=== PATIENT | male | born 1995 | race African-American/Black ===

== ENCOUNTER 2024-11-30 17:17 | Emergency (ER) | payer MEDICAID, SELFPAY ==
[2024-11-30 17:19] VITALS: BP 163/111; BP 173/111; PULSE 89; RESP 20; TEMP 36.9; O2SAT 99; BMI 23.6
[2024-11-30 17:21] VITALS: BMI 23.6
[2024-11-30 18:09] VITALS: BP 166/112; PULSE 86; RESP 16; TEMP 36.8; O2SAT 100
[2024-11-30 18:17] VITALS: BP 163/115; PULSE 87
[2024-11-30] MEDS: hydrALAZINE INJ 20 MG/ML VIAL 10 MG IVP (18:17)
--- NOTE | 2024-11-30 18:18 | EDNOTE_ITS ---
ED General RME/HPI General Chief complaint: General Adult/Misc Complain Stated complaint: MEDICAL CLEARNACE Time Seen by Provider: 11/30/24 18:17 Arrival date/time: 11/30/24 17:17 CC: Medical clearance for hypertension hyperglycemia HPI patient presents the ER via staff officer lexy, the patient was given insulin prior to departure from the [facility], current recheck of blood glucose at this time is 169 from 400. Patient is awake alert complaining of mild intermittent headaches for the past 2 to 3 weeks with occasional blurred vision pressure currently noted to be 160/111. Patient admits that he is hypertensive with diabetes and does not take any medicines on a regular basis. Denies chest pain shortness of breath difficulty breathing headache nausea vomiting or diarrhea. Related Data Home Medications ?Medication ?Instructions ?Recorded ?Confirmed insulin lispro 100 unit/mL See Protocol subcut ACHS NM N 09/14/19 09/14/19 subcutaneous solution (Humalog Hyperglycemia U-100 Insulin) metformin 500 mg tablet,extended 500 mg PO BID 0 09/14/19 release 24 hr Previous Rx's ?Medication ?Instructions ?Recorded sulfamethoxazole 800 1 tab PO BID #14 tabs mg-trimethoprim 160 mg tablet (Bactrim DS) Allergies Allergy/AdvReac Type Severity Reaction Status Date / Time No Known Allergies Allergy Verified 12/28/20 22:27 Review of Systems Review of Systems Narrative Review of Systems: GEN: No fever, no chills, no weight loss EYES: No discharge, no visual changes, no pain HEENT: No ear pain, no congestion, no sore throat PULM: No shortness of breath, no cough, no congestion CV: No chest pain, no dyspnea on exertion, no palpitations GI: No nausea, no vomiting, no diarrhea, no pain, no constipation : No frequency, no urgency, no dysuria MUSC/SKEL: No joint pain, no back pain SKIN: No rash PSYCH: No hallucinations, no depression HEME/LYMPH: No easy bleeding or bruising tendencies NEURO: No weakness, + headache Past Medical History Past Medical History CARDIAC: Negative Congestive Heart Failure RESPIRATORY: Negative Chronic Obstructive Pulmonary Disease (COPD) GENITOURINARY: Negative Renal Disease ENDOCRINE: Positive Endocrine Disorders and Diabetes Mellitus Type 2; Negative Diabetes Mellitus Type 1 Social History SMOKING STATUS: Current some day smoker ED Exam Narrative Physical exam: [General: Appears not in any acute distress Head normocephalic HEENT: Eyes pupils are PERRLA EOMs are intact no nystagmus mouth pink moist membranes uvula is midline swallow symmetrical phonation is normal. All the subsystems of HEENT are within acceptable limits Neck is supple nontender Chest equal chest rise nontender to palpation Respiratory: Clear to auscultation no wheezes crackles or rubs CV: Rate rhythm is regular no murmurs rubs or clicks Abdomen is flat, soft nontender no masses positive bowel sounds all 4 quadrants Back: No CVA tenderness no spinous process tenderness from cervical spine thoracic and lumbar spine Skin: Intact no petechiae rash induration ulceration or crepitus Extremities: Moving all extremity against resistance cap refill less than 2 seconds neurosensory intact Neuro: Awake alert oriented x3 Glascow coma 15 no focal deficits] Course Course Course Narrative: 1843 after her 20 of hydralazine IV patient's blood pressure remains 160/100, but added losartan and clonidine. Patient is awake alert oriented nontoxic-ap pearing not in any acute distress. Quality Measures none Orders Category Date Time Status Glucose [Bedside Blood Glucose] NOW Care 11/30/24 20:06 Active Insert IV NOW Care 11/30/24 18:06 Completed Losartan [Cozaar] Med 11/30/24 18:42 Discontinued 25 mg PO X1 ONE cloNIDine HCL [Catapres] Med 11/30/24 18:42 Discontinued 0.2 mg PO X1 ONE hydrALAZINE INJ [Apresoline Inj] Med 11/30/24 18:06 Discontinued 10 mg IVP X1 ONE Vital Signs Vital signs: Vital Signs Temperature 98.4 F 11/30/24 17:19 Pulse Rate 89 11/30/24 17:19 Respiratory Rate 20 11/30/24 17:19 Blood Pressure 173/111 H 11/30/24 17:19 Pulse Oximetry (%) 99 11/30/24 17:19 Oxygen Delivery Method Room Air 11/30/24 17:19 Discharge Plan Plan Patient Disposition: Half-Way/Court/Law Patient condition on transfer: Stable Prescriptions/Referrals Prescriptions/Med Rec: No Action metformin 500 mg Tablet Extended Release 24 Hr 500 mg PO BID insulin lispro [Humalog U-100 Insulin] 100 unit/mL Solution See Protocol subcut ACHS PRN (Reason: Hyperglycemia) Protocol: Insulin Corrective High-Dose Regimen Condition: Fingerstick Blood Glucose Dose/Route: Insulin Units Condition: 141-180 mg/dl Dose/Route: 6 units/SQ Condition: 181-220 mg/dl Dose/Route: 8 units/SQ Condition: 221-260 mg/dl Dose/Route: 10 units/SQ Condition: 261-300 mg/dl Dose/Route: 12 units/SQ Condition: 301-350 mg/dl Dose/Route: 14 units/SQ Condition: 351-400 mg/dl Dose/Route: 16 units/SQ Condition: greater than 400 mg/dl Dose/Route: 18 units/SQ sulfamethoxazole-trimethoprim [Bactrim DS] 800-160 mg tablet 1 tab PO BID Qty: 14 0RF Referrals: No Primary/Family,Physician [Primary Care Provider] - In 1 week Problem List Clinical Impression: Medical clearance for incarceration, Hypertension, Diabetes Patient/Caregiver Discharge Instructions Print Language: Nepalese PA/AMERICAN SIGN LANGUAGE INTERPRETER Supervising Physician PA/AMERICAN SIGN LANGUAGE INTERPRETER Supervising Physician: Eric Garvey ENP [facility] Clinical Information Provided by patient and law enforcement Medical Records Reviewed [facility] Meds/Rx Considered, not Ordered None Labs/Rad/Tests considered, not Ordered None Chronic Illness/Social Conditions Add or document further as needed: Noncompliant with hypertension diabetes medications EKG EKG not done Lab Interpretation Labs: none Imaging Imaging interpretation: none Radiology reports / interpretation(s): After multiple medication his blood pressure is improved 136/80 7 repeat of the blood glucose shows 168. Patient is cleared for incarceration. Medication Administration(s) Medication Administration History Discontinued Medications Clonidine (Clonidine Hcl 0.1 Mg Tablet) 0.2 mg PO X1 ONE Stop: 11/30/24 18:43 Last Admin: 11/30/24 18:47 Dose: 0.2 mg Documented By: NINA Hydralazine HCl (Hydralazine Inj 20 Mg/Ml Vial) 10 mg IVP X1 ONE Stop: 11/30/24 18:07 Last Admin: 11/30/24 18:17 Dose: 10 mg Documented By: NINA Comments: scanner not working Losartan Potassium (Losartan Potassium 25 Mg Tablet) 25 mg PO X1 ONE Stop: 11/30/24 18:43 Last Admin: 11/30/24 18:48 Dose: 25 mg Documented By: NINA Diagnosis Differential diagnosis: Hypertension hyperglycemia DKA
[2024-11-30 18:47] VITALS: BP 163/111; PULSE 92
[2024-11-30] MEDS: cloNIDine HCL 0.1 MG TABLET 0.2 MG PO (18:47)
[2024-11-30 18:48] VITALS: BP 163/11; PULSE 87
[2024-11-30] MEDS: LOSARTAN POTASSIUM 25 MG TABLET PO (18:48)
[2024-11-30 20:18] VITALS: BP 136/87; PULSE 85; RESP 15; O2SAT 100
== END 2024-11-30 20:30 ==
PROVIDERS: Emergency Provider Emergency Medicine
DX: Z02.89 Encounter for other administrative examinations (principal); I10 Essential (primary) hypertension; E11.65 Type 2 diabetes mellitus with hyperglycemia; Z79.84 Long term (current) use of oral hypoglycemic drugs
CPT/HCPCS: 96374; 99284; J0360; A9270

== ENCOUNTER 2025-01-26 15:30 | Emergency (ER) | payer SELFPAY ==
[2025-01-26 15:51] VITALS: BP 165/97; PULSE 120; RESP 18; TEMP 39.3; O2SAT 99; BMI 24.3
--- NOTE | 2025-01-26 16:05 | PC.NURSE ---
When checking patients blood glucose, patient noted to be verbally and physically aggressive towards staff. Patient yelling I want orange juice and ice and hitting closed fist against gurny/bed during care. Patient allowed FSBS check, resulting in glucose of 577. Patient noted to have loss of bowel and bladder control at some point upon or prior to arrival of ED, patient has feces and urine soiled clothing on. Patient continued to state he wanted to leave, patient and patient friend walked out of emergency room.
--- NOTE | 2025-01-26 16:09 | PD.EDRME ---
Rapid Medical Screening Exam RME Arrival date/time: 01/26/25 15:30 29-year-old male presents to the emergency department today with his friend patient has a history of diabetes and is asking for juice. Patient is cursing yelling and aggressive patient reports he does not want to be here he just wants juice and he wants to go home I asked the nursing staff to check the patient's blood sugar patient's blood sugar is 577 patient is highly aggressive yelling and cursing and affect when the nursing staff is checking his blood sugar he punches the gurney in anger and frustration I am pleading with the patient to stay patient reports that he wants to leave and will not stay Lab work ordered stressed strongly that he must stay and affected to get him a bed room #18 in the ER when I went to go reevaluate the patient and put him in the room patient appears to have eloped from the ER Chief Complaint: Seizure Vital signs: Vital Signs Temperature 102.7 F H 01/26/25 15:51 Pulse Rate 120 H 01/26/25 15:51 Respiratory Rate 18 01/26/25 15:51 Blood Pressure 165/97 H 01/26/25 15:51 Pulse Oximetry (%) 99 01/26/25 15:51 Oxygen Delivery Method Room Air 01/26/25 15:51
--- NOTE | 2025-01-26 16:18 | PC.CC ---
Pt left AMA, yelling and cussing at medical staff. It is unknown as to why the pt was yelling and cussing as medical staff was serving pt quickly and calmly. Pt reported he just got out alf and was acting erratic and aggressive with staff. Pt left the ER and ER provider was concerned as the pt is in DKA and is septic. Pt left before labs were completed. ASW contacted Law Enforcement [place] [employer] to report the concern, as pt could be greatly harmed if he does not seek medical assistance. Pt left on foot with a friend. LE is aware and stated they would patrol the area for the pt. EOC.
--- NOTE | 2025-01-26 16:24 | PC.NURSE ---
attempting to help pt any way possible and pt was aggressive, punching the bed and very uncooperative.
== END 2025-01-26 16:29 | disposition left against medical advice (07) ==
PROVIDERS: Emergency Provider Emergency Medicine
DX: E11.9 Type 2 diabetes mellitus without complications (principal); Z53.29 Procedure and treatment not carried out because of patient's decision for other reasons
CPT/HCPCS: 80053; 80307; 80320; 81001; 82803; 83036; 83605; 83735; 84145; 85025; 87040; 87086; 99283; G0480

== ENCOUNTER 2025-01-28 12:45 | Emergency (ER) | payer MEDICAID, SELFPAY ==
--- NOTE | 2025-01-28 12:52 | PD.EDRECHK ---
ED Recheck Abnl Lab Rx-RME/HPI General Chief Complaint: Altered Mental Status Stated Complaint: AMS Time Seen by Provider: 01/28/25 12:51 Arrival date/time: 01/28/25 12:45 Limitations: no limitations RME / HPI RME / HPI narrative: DR. TONEY SHIRLEY ED EVALUATION: 29-year-old male with a history of diabetes mellitus and seizures presents to the Emergency Department with complaint of hyperglycemia, found to have a blood glucose of 430 at home; he has been out of his diabetic medications for unknown time. EMS transported him from home. Initial vital signs included BP 166/113 and HR 98. Per friend/ housemate, patient was seen for a seizure here and left AMA 3 days ago. Patient reports feeling very thirsty. Denies chest pain, abdominal pain, or dysuria. Related Data Home Medications ?Medication ?Instructions ?Recorded ?Confirmed insulin lispro 100 unit/mL See Protocol subcut ACHS PRN 09/14/19 09/14/19 subcutaneous solution (Humalog Hyperglycemia U-100 Insulin) metformin 500 mg tablet,extended 500 mg PO BID 09/14/19 09/14/19 release 24 hr Previous Rx's ?Medication ?Instructions ?Recorded sulfamethoxazole 800 1 tab PO BID #14 tabs 12/28/20 mg-trimethoprim 160 mg tablet (Bactrim DS) Allergies Allergy/AdvReac Type Severity Reaction Status Date / Time No Known Allergies Allergy Verified 01/28/25 13:04 Review of Systems Review of Systems Systems Reviewed: All systems reviewed, normal except as documented Past Medical History Past Medical History ENDOCRINE: Positive Endocrine Disorders and Diabetes Mellitus Type 2 Social History SMOKING STATUS: Current every day smoker ED Exam General Limitations: Present no limitations General appearance: Present alert (awake), in no apparent distress and other (spontaneously opens his eyes, not interested in answering questions, does not appear confused; at times he is refusing medical care) Head Head exam: Present atraumatic, normocephalic and normal inspection Eye Eye exam: Present normal appearance, PERRL and EOMI ENT ENT exam: Present normal exam, normal oropharynx and mucous membranes moist Neck Neck exam: Present normal inspection, full ROM and trachea midline Chest Chest inspection: Present normal inspection and symmetric chest wall rise Respiratory Respiratory exam: Present normal lung sounds bilaterally Cardiovascular Cardiovascular exam: Present regular rate, normal rhythm and normal heart sounds Abdominal Exam Abdominal exam: Present soft and normal bowel sounds Extremities Exam Extremities exam: Present normal inspection and full ROM Back Exam Back exam: Present normal inspection and full ROM Neurological Exam Neurological exam: Present alert, oriented X3 and CN II-XII intact Psychiatric Psychiatric exam: Present normal affect and normal mood Skin Skin exam: Present warm, dry, intact and normal color Course Quality Measures none Orders Category Date Time Status EKG (ED ONLY) *Do not use* NOW Care 01/28/25 13:[address] head/brain wo con Stat Exams 01/28/25 12:51 Completed EKG (ED Only) Stat Exams 01/28/25 13:02 Ordered EKG (ED Only) Urgent Exams 01/28/25 13:02 Draft Acetaminophen Stat Lab 01/28/25 13:04 Completed Ammonia Stat Lab 01/28/25 13:04 Completed CBC Stat Lab 01/28/25 13:04 Completed CMP [Comprehensive Metabolic Panel] Stat Lab 01/28/25 13:04 Completed CMP [Comprehensive Metabolic Panel] Stat Lab 01/28/25 16:26 Completed Drug Screen,Urine Stat Lab 01/28/25 14:30 Completed INR [Prothrombin Time with INR] Stat Lab 01/28/25 13:04 Completed Salicylate Stat Lab 01/28/25 13:04 Completed T4 (Thyroxine) Stat Lab 01/28/25 13:04 Completed Thyroid Stimulating Hormone Stat Lab 01/28/25 13:04 Completed UA, C/S IF [Urinalysis, C/S if Indicated] Stat Lab 01/28/25 14:30 Completed VBG [Venous Blood Gas] Stat Lab 01/28/25 13:04 Completed Insulin Regular Med 01/28/25 14:09 Discontinued 5 unit IV X1 ONE Ringers Lactated 1000 ml [Lactated Ringers] 1,000 ml Med 01/28/25 14:12 Discontinued IV 999 mls/hr Vital Signs Vital signs: Vital Signs Temperature 99.9 F 01/28/25 12:56 Pulse Rate 98 01/28/25 12:56 Respiratory Rate 18 01/28/25 12:56 Blood Pressure 187/112 H 01/28/25 12:56 Pulse Oximetry (%) 100 01/28/25 12:56 Oxygen Delivery Method Room Air 01/28/25 12:56 Recheck / Abnormal Lab / Rx MDM Narrative MDM Narrative:: I, January Sandoval am scribing for and in the presence of Dr. Faye. Patient is a 21-year-old male with medical history notable for polysubstance use, diabetes, medication noncompliance is an emergency room with concerns for weakness and confusion. Vital signs and exam as listed. Concern for DKA, continuous, acute cardiopulmonary, urinary tract infection, . Ordered labs EKG CT brain after medications noted. Initial assessment, patient not wanting to answer any questions, moving all 4 extremities, breathing without difficulty, nonlabored, hemodynamically stable. The patient's breathing spontaneously, protecting his airway. After sternal rub, patient opened his eyes and said leave me alone. Patient initially was not answering questions on capacity and so I was not able to clear him AGAINST MEDICAL ADVICE. We performed a workup, provided patient with fluids. Labs with evidence of hyperglycemia, not in DKA. CT brain unremarkable. Patient with acute kidney injury, with minimal improvement following solicitation. Advised patient importance of admitting to the hospital service for management of his acute kidney injury. At this time patient is answering questions appropriately, to myself and nursing staff. Patient is GCS 15, reiterated to me that he understands I am concerned about organ injury, with resultant severe extremity injuries and despite this patient was AGAINST MEDICAL ADVICE. Patient significant medical advice. Alternative hospital. Had capacity make his own decisions. Patient data External records reviewed:: [facility] [place] previous records and EMS form Clinical information provided by:: patient and EMS Social determinants that could affect healthcare access:: none Patient has the following chronic illnesses:: diabetes mellitus and seizures How is presenting disease/condition affected by chronic disease/condition?: exacerbated by Evaluation data The following diagnostics were reviewed and interpreted by me:: lab results, radiology exam(s) and EKG tracing(s) (My interpretation: EKG performed at 1258 hours, sinus rhythm, rate 97, normal intervals, non specific ST-T wave changes, no cardiac alert) Lab and/or radiology exams considered but not ordered:: none Interpretation Summary: Procedure(s): CT head/brain wo con Accession Number(s): [id number] cc: Prashant Garcia MD; Katlin Faye MD~ Examination: CT brain head without contrast. 2-D sagittal coronal reconstructions Date and time of exam:January 28, 2025 1311 hours INDICATIONS: Altered mental status today CTDI: vol (mGy):50.5 DLP: (mGycm):1059 Technique: Multiple CT axial sections of the brain have been obtained, 5 mm slice thickness. Contrast has not been administered. 2-D sagittal, coronal reconstructions have been obtained Low dose protocols were performed. One or more of the following dose reduction techniques were used; automated exposure control, adjustment of the mA and/or KV according to patient size, use of iterative reconstruction technique. Findings: No significant ventricular enlargement. Intra-axial or extra-axial hemorrhage density is not seen. No mass effect or midline shift Basal cisterns are not remarkable. Fourth ventricle is midline. Cranial vault intact. Impression: Negative for acute hemorrhage, mass effect or midline shift Advise clinical correlation and follow-up accordingly Dictated By: Prashant Garcia MD Medications / Prescriptions Medications or Prescriptions considered but not ordered:: none Medication administrations:: Medication Administration History Discontinued Medications Lactated Ringer's (Lactated Ringers) 1,000 mls @ 999 mls/hr IV .Q1H1M ONE Stop: 01/28/25 15:12 Last Infusion: 01/28/25 15:26 Dose: Infused Documented By: Admin: 01/28/25 14:25 Dose: 999 mls/hr Documented By: RAMOS Insulin Human Regular (Insulin Hum Regular 1 Unit/0.01 Ml (Per Unit)) 5 unit IV X1 ONE Stop: 01/28/25 14:10 Last Admin: 01/28/25 14:25 Dose: 5 unit Documented By: RAMOS Co-signed By: KATHY see above Consultations Consultation(s) initiated? (list below): No Diagnosis Recheck Differential Diagnosis: other (hyperosmolar hyperglycemic state (HHS), diabetic ketoacidosis (DKA), and dehydration due to medication noncompliance) Most likely diagnosis given after review of the tests above:: Patient left AMA. Admission Indicated Admission indicated?: not indicated Explain why admission is indicated or not indicated:: Patient left AMA Admission Request Was there a request for admission?: Yes Admission Attestation Admission request attestation: I consulted hospital service for admission however patient left AGAINST MEDICAL ADVICE Disposition Plan Disposition Plan: other (specify) (Left AMA) Discharge Plan Plan Patient Disposition: Left Against Medical Advice Prescriptions/Referrals Prescriptions/Med Rec: No Action metformin 500 mg Tablet Extended Release 24 Hr 500 mg PO BID insulin lispro [Humalog U-100 Insulin] 100 unit/mL Solution See Protocol subcut ACHS PRN (Reason: Hyperglycemia) Protocol: Insulin Corrective High-Dose Regimen Condition: Fingerstick Blood Glucose Dose/Route: Insulin Units Condition: 141-180 mg/dl Dose/Route: 6 units/SQ Condition: 181-220 mg/dl Dose/Route: 8 units/SQ Condition: 221-260 mg/dl Dose/Route: 10 units/SQ Condition: 261-300 mg/dl Dose/Route: 12 units/SQ Condition: 301-350 mg/dl Dose/Route: 14 units/SQ Condition: 351-400 mg/dl Dose/Route: 16 units/SQ Condition: greater than 400 mg/dl Dose/Route: 18 units/SQ sulfamethoxazole-trimethoprim [Bactrim DS] 800-160 mg tablet 1 tab PO BID Qty: 14 0RF Referrals: No Primary/Family,Physician [Primary Care Provider] - In 1 week Problem List Clinical Impression: Hyperglycemia, Non-compliance Patient/Caregiver Discharge Instructions Print Language: Dominican
[2025-01-28 12:56] VITALS: BP 187/112; PULSE 98; RESP 18; TEMP 37.7; O2SAT 100
[2025-01-28 12:57] VITALS: PULSE 102; RESP 20; O2SAT 99; BMI 23.6
--- NOTE | 2025-01-28 13:02 | EKG_ITS ---
[facility] Test Date: 2025-01-28 Pat Name: PRATIBHA MEHTA Department: Room: - Gender: Male Global Security Architect: : 1995 Requested By: Katlin Solano Order Number: [id number] Reading MD: Katlin Solano Measurements Intervals [place] Rate: 97 P: 61 AL: 156 QRS: 73 QRSD: 88 T: 26 QT: 319 QTc: 406 Interpretive Statements SINUS RHYTHM No previous ECG available for comparison /store/S0/[id number]/ecg/[id number].pdf
--- NOTE | 2025-01-28 13:07 | PC.NURSE ---
Patient in to ED BIBA from home. Per EMS patient lives with friends. Patient was found to have high blood sugar. Patient was in 3 days ago for seizure and left AMA. Per roommates patient has been out of his insulin for an unknown amount of time. Blood sugar per EMS was in the 400s. patient altered mental status per Dr. Faye. Patient screaming at staff to leave him alone and he would like to go home. Patient allowed phlebotomy to draw blood. Patient blood pressure 182/113
--- NOTE | 2025-01-28 13:11 | PC.NURSE ---
Dr. Faye made aware of vital signs
[2025-01-28 13:15] LABS: Base Excess, Venous 3 (-3-3); O2 Saturation, Venous 78 % (96-97); PCO2, Venous 38 mmHg (36-56); PO2, Venous 40 mmHg (15-58); pH, Venous 7.46 (7.33-7.66)
[2025-01-28 13:18] LABS: Basophils # (Auto) 0.1 Thou/mm3 (0.0-0.2); Basophils % (Auto) 0 % (0-2.5); Eosinophils # (Auto) 0.0 Thou/mm3 (0.0-0.5); Eosinophils % (Auto) 0 % (0-10); Hematocrit 30.1 % (41.0-53.0); Hemoglobin 11.0 g/dL (13.5-16.0); Immature Granulocytes Auto 0.06 Thou/mm3 (0.00-0.00); Lymphocytes # (Auto) 2.5 Thou/mm3 (1.0-4.8); Lymphocytes % (Auto) 17 % (10-50); Mean Corpuscular HGB Conc 36.5 g/dl (31.0-37.0); Mean Corpuscular Hemoglobin 29.9 pg (25.0-35.0); Mean Corpuscular Volume 82 fL (80-100); Monocytes # (Auto) 1.0 Thou/mm3 (0.0-0.8); Monocytes % (Auto) 7 % (0-12); Neutrophils # (Auto) 11.0 Thou/mm3 (1.8-7.7); Neutrophils % (Auto) 75 % (37-80); Nucleated Red Blood Cell # 0.00 Thou/mm3 (0.00-0.00); Nucleated Red Blood Cell % 0 /100 WBC (0); Platelet Count 224 Thou/mm3 (140-440); RDW Standard Deviation 39.5 fL (35.1-43.9); Red Blood Count 3.68 Miln/mm3 (4.50-5.90); White Blood Count 14.7 Thou/mm3 (3.8-10.6)
[2025-01-28 13:36] LABS: INR 0.9 (0.9-1.3); Prothrombin Time 9.8 Seconds (9.0-12.2)
[2025-01-28 13:44] LABS: T4 (Thyroxine) 3.9 mcg/dL (4.5-10.9)
[2025-01-28 14:00] LABS: Acetaminophen < 2.0 mcg/mL (10.0-20.0); Alanine Aminotransferase 17 U/L (10-49); Albumin, Serum 2.7 gm/dL (3.5-5.0); Albumin/Globulin Ratio 1.2 (1.2-2.2); Alkaline Phosphatase 104 U/L (46-116); Ammonia < 10 uMol/L (11-32); Anion Gap 11 (7-16); Aspartate Amino Transferase 18 U/L (0-34); BUN/Creatinine Ratio 17 Ratio (12-20); Bilirubin,Total 0.5 mg/dL (0.3-1.2); Blood Urea Nitrogen 35 mg/dL (9-23); Calcium 7.8 mg/dL (8.3-10.6); Calcium (Corrected) 8.8 mg/dL (8.5-10.1); Carbon Dioxide 24.8 mMol/L (20.0-31.0); Chloride 91 mMol/L (98-107); Creatinine (Component) 2.1 mg/dL (0.6-1.3); Estimated Creatinine Clearance 52.4 mL/min (>60); Globulin 2.3 gm/dL (2.3-3.5); Osmolality,Calculated 283 (275-295); Potassium 4.1 mMol/L (3.4-5.1); Salicylate < 3.0 mg/dL; Sodium 127 mMol/L (136-145); Thyroid Stimulating Hormone 0.48 uIU/mL (0.55-4.78); Total Protein 5.0 gm/dL (5.7-8.2); eGFR 43 See Note
[2025-01-28 14:06] LABS: Glucose 462 mg/dL (74-106)
[2025-01-28] MEDS: RINGERS LACTATED 1000 ML 1,000 ML 999 ML IV (14:25)
[2025-01-28] MEDS: INSULIN HUM REGULAR 1 UNIT/0.01 ML (PER UNIT) 5 UNIT IV (14:25)
[2025-01-28 14:39] LABS: Collection Type, Urine Catheter
--- NOTE | 2025-01-28 14:42 | PC.NURSE ---
Dr. Faye made aware of patient's blood pressure of 200s systolic. Patient temp of 99.9 oral and WBC count. No new orders. Per MD we will give 2L of Fluids and repeat the CMP. Plan of care ongoing. Patient continues to say he would like to go home already
[2025-01-28 14:44] LABS: Bilirubin,Urine Negative (Negative); Blood,Urine 2+ (Negative); Clarity,Urine Clear (Clear/Hazy); Color,Urine Lt-Yellow (Lt Yel-Yel); Culture Indicated,Urine Not Indicated; Glucose, Urine 4+ (Negative); Ketones,Urine 1+ (Negative); Leukocyte Esterase,Urine Negative (Negative); Nitrite,Urine Negative (Negative); PH,Urine 6.5 (5.0-7.0); Protein,Urine 3+ (Neg - Trace); RBC,Urine 16 /hpf (0-3); Specific Gravity,Urine 1.022 (1.001-1.035); Squamous Epithelial Cell,Urine < 1 /hpf (0-5); Urobilinogen,Urine Negative mg/dL (0.0-1.0); WBC,Urine 2 /hpf (0-5)
[2025-01-28 14:51] LABS: Amphetamine/Methamp Scrn,U Negative (Negative); Barbiturate Screen,Urine Negative (Negative); Benzodiazepines Screen,Urine Negative (Negative); Benzoylecgonine Screen, Ur Negative (Negative); Fentanyl Screen,Urine Negative (Negative); Opiate Screen,Urine Negative (Negative); THC Screen,Urine Positive (Negative)
[2025-01-28 16:02] VITALS: BP 219/131; PULSE 91; RESP 19; TEMP 37.2; O2SAT 99
[2025-01-28 16:58] LABS: Alanine Aminotransferase 15 U/L (10-49); Albumin, Serum 2.5 gm/dL (3.5-5.0); Albumin/Globulin Ratio 1.2 (1.2-2.2); Alkaline Phosphatase 96 U/L (46-116); Anion Gap 9 (7-16); Aspartate Amino Transferase 16 U/L (0-34); BUN/Creatinine Ratio 20 Ratio (12-20); Bilirubin,Total 0.5 mg/dL (0.3-1.2); Blood Urea Nitrogen 39 mg/dL (9-23); Calcium 7.8 mg/dL (8.3-10.6); Calcium (Corrected) 9.0 mg/dL (8.5-10.1); Carbon Dioxide 26.5 mMol/L (20.0-31.0); Chloride 94 mMol/L (98-107); Creatinine (Component) 2.0 mg/dL (0.6-1.3); Estimated Creatinine Clearance 55.0 mL/min (>60); Globulin 2.1 gm/dL (2.3-3.5); Glucose 387 mg/dL (74-106); Osmolality,Calculated 284 (275-295); Potassium 3.8 mMol/L (3.4-5.1); Sodium 129 mMol/L (136-145); Total Protein 4.6 gm/dL (5.7-8.2); eGFR 46 See Note
--- NOTE | 2025-01-28 18:09 | PC.NURSE ---
PATIENT WAS YELLING AT STAFF MEMBERS STATING HE WANTED TO GO HOME. PATIENT DID NOT WANT ADMISSION TO HOSPITAL. DR. ZIEGLER WAS MADE AWARE OF PATIENT WANTING TO LEAVE AMA. FULL CONSEQUENCES OF LEAVING AMA DISCUSSED WITH PATIENT AND DR ZIEGLER PRESENT AT THE BESIDE. PATIENT WAS ABLE TO STATE NAME, , YEAR AND CITY HE IS LOCATED IN. PATIENT AWARE OF ACUTE KIDNEY INJURY, HIGH BLOOD PRESSURE, AND HIGH BLOOD SUGAR. PATIENT UNDERSTANDS RISK OF . PATIENT IV REMOVED. PATIENT GIVEN AMA FORM COPY.
--- NOTE | 2025-01-28 18:15 | PC.NURSE ---
refused all vitals.
== END 2025-01-28 18:49 | disposition left against medical advice (07) ==
LOC: SERX 13:56
PROVIDERS: Emergency Provider Emergency Medicine
DX: E11.65 Type 2 diabetes mellitus with hyperglycemia (principal); Z91.199 Patient's noncompliance with other medical treatment and regimen due to unspecified reason; R41.82 Altered mental status, unspecified; Z79.84 Long term (current) use of oral hypoglycemic drugs; Z79.4 Long term (current) use of insulin; Z53.29 Procedure and treatment not carried out because of patient's decision for other reasons
CPT/HCPCS: 36415; 70450; 80053; 80307; 80329; 81001; 82140; 82803; 84436; 84443; 85025; 85610; 93005; 96360; 99283; J1815; J7120; G0480

== ENCOUNTER 2025-01-29 11:06 | Inpatient (IN) | payer MEDICAID, SELFPAY ==
[2025-01-29] VITALS (64 sets, daily range): BP systolic 86–208; BP diastolic 54–120; PULSE 60–102; RESP 6–20; TEMP 35.8–37.1; O2SAT 59–100; BMI 22.9
[2025-01-29] MEDS: SODIUM CHLORIDE 0.9% 1000 ML 1,000 ML 999 ML IV (11:10)
[2025-01-29] MEDS: ETOMIDATE INJ 2 MG/ML VIAL 10 ML 20 MG IVP (11:13)
[2025-01-29] MEDS: ROCURONIUM INJ 10 MG/ML VIAL 10 ML 50 MG IVP (11:14)
--- NOTE | 2025-01-29 11:18 | PD.EDSEIZ ---
ED Seizures RME/HPI General Chief Complaint: Seizure Stated Complaint: SEIZURE Time Seen by Provider: 01/29/25 11:23 Arrival date/time: 01/29/25 11:06 Limitations: altered mental status (unresponsive) RME / HPI RME / HPI Narrative: DR. FAYE MAIN ED EVALUATION: 29-year-old male with past medical history of diabetes mellitus and seizure disorder, noncompliant with medications, presents to the Emergency Department [facility] from the street with complaint of seizure activity. Per EMS, on arrival the patient was looking at them for like a second and then started actively seizing. Bystanders reported that he was last seen in a sitting position and was alert immediately prior to EMS arrival. EMS administered 6 mg Narcan, 6 mg midazolam, and placed the patient on oxygen. BP by EMS arrival was 180/110. No trauma was reported by EMS. Notably, patient was seen in the ED yesterday and left against medical advice. Related Data Home Medications ?Medication ?Instructions ?Recorded ?Confirmed insulin lispro 100 unit/mL See Protocol subcut ACHS PRN 09/14/19 09/14/19 subcutaneous solution (Humalog Hyperglycemia U-100 Insulin) metformin 500 mg tablet,extended 500 mg PO BID 09/14/19 09/14/19 release 24 hr Previous Rx's ?Medication ?Instructions ?Recorded sulfamethoxazole 800 1 tab PO BID #14 tabs 12/28/20 mg-trimethoprim 160 mg tablet (Bactrim DS) Allergies Allergy/AdvReac Type Severity Reaction Status Date / Time No Known Allergies Allergy Verified 01/28/25 13:04 Review of Systems Review of Systems Systems Reviewed: All systems reviewed, normal except as documented Past Medical History Past Medical History ENDOCRINE: Positive Endocrine Disorders and Diabetes Mellitus Type 2 Social History SMOKING STATUS: Unknown if ever smoked ED Exam General Limitations: Present altered mental status (unresponsive) General appearance: Present other (unresponsive, postictal; foaming on the mouth) Head Head exam: Present atraumatic, normocephalic and normal inspection (no deformities noted) Eye Eye exam: Present normal appearance, PERRL and EOMI ENT ENT exam: Present normal exam, normal oropharynx and mucous membranes moist Neck Neck exam: Present normal inspection and trachea midline Chest Chest inspection: Present normal inspection and symmetric chest wall rise Respiratory Respiratory exam: Present normal lung sounds bilaterally Cardiovascular Cardiovascular exam: Present regular rate, normal rhythm and normal heart sounds Abdominal Exam Abdominal exam: Present soft and normal bowel sounds Extremities Exam Extremities exam: Present normal inspection Back Exam Back exam: Present normal inspection Neurological Exam Neurological exam: Present other (unresponsive, postictal; no spontaneous movement of the extremities) Skin Skin exam: Present warm, dry, intact and normal color Course Quality Measures none Orders Category Date Time Status Admit to Inpatient Status Routine Admission 01/29/25 12:46 Active Patient Condition Routine Admission 01/29/25 12:46 Ordered Bedside Blood Glucose Q1H Care 01/29/25 12:50 Active [employer] Q4H Care 01/29/25 12:50 Active Continuous Pulse Oximetry NOW Care 01/29/25 12:45 Completed DKA Protocol QSHIFT Care 01/29/25 12:50 Active Emergency Titration Protocol Stat Care 01/29/25 12:38 Ordered Intake and Output Q1H Care 01/29/25 13:00 Ordered Intake and Output Q1H Care 01/29/25 14:00 Ordered Intake and Output Q1H Care 01/29/25 15:00 Ordered Intake and Output Q1H Care 01/29/25 16:00 Ordered Intake and Output Q1H Care 01/29/25 17:00 Ordered Intake and Output Q1H Care 01/29/25 18:00 Ordered Intake and Output Q1H Care 01/29/25 19:00 Ordered Intake and Output Q1H Care 01/29/25 20:00 Ordered Intake and Output Q1H Care 01/29/25 21:00 Ordered Intake and Output Q1H Care 01/29/25 22:00 Ordered Intake and Output Q1H Care 01/29/25 23:00 Ordered Intubation NOW Care 01/29/25 11:25 Completed NPO NOW Care 01/29/25 12:48 Active Neuro Check Q1 Care 01/29/25 12:45 Active Notify provider NEEDED Care 01/29/25 12:46 Active Obtain weight daily Care 01/29/25 12:48 Active Seizure precautions NOW Care 01/29/25 12:48 Active Strict Intake and Output Q1H Care 01/29/25 13:00 Ordered Strict Intake and Output Q1H Care 01/29/25 14:00 Ordered Strict Intake and Output Q1H Care 01/29/25 15:00 Ordered Strict Intake and Output Q1H Care 01/29/25 16:00 Ordered Strict Intake and Output Q1H Care 01/29/25 17:00 Ordered Strict Intake and Output Q1H Care 01/29/25 18:00 Ordered Strict Intake and Output Q1H Care 01/29/25 19:00 Ordered Strict Intake and Output Q1H Care 01/29/25 20:00 Ordered Strict Intake and Output Q1H Care 01/29/25 21:00 Ordered Strict Intake and Output Q1H Care 01/29/25 22:00 Ordered Strict Intake and Output Q1H Care 01/29/25 23:00 Ordered Strict Intake and Output Q1H Care 01/30/25 00:00 Ordered Strict Intake and Output Q1H Care 01/30/25 01:00 Ordered Strict Intake and Output Q1H Care 01/30/25 02:00 Ordered Strict Intake and Output Q1H Care 01/30/25 03:00 Ordered Strict Intake and Output Q1H Care 01/30/25 04:00 Ordered Strict Intake and Output Q1H Care 01/30/25 05:00 Ordered Strict Intake and Output Q1H Care 01/30/25 06:00 Ordered Strict Intake and Output Q1H Care 01/30/25 07:00 Ordered Strict Intake and Output Q1H Care 01/30/25 08:00 Ordered Strict Intake and Output Q1H Care 01/30/25 09:00 Ordered Strict Intake and Output Q1H Care 01/30/25 10:00 Ordered Strict Intake and Output Q1H Care 01/30/25 11:00 Ordered Strict Intake and Output Q1H Care 01/30/25 12:00 Ordered Urinary Catheter QS Care 01/29/25 12:45 Completed Referral Registered Dietitian Routine Cons 01/29/25 12:50 Active Diet NPO (NOW) Diet 01/29/25 12:[address] cervical spine wo con Stat Exams 01/29/25 11:[address] head/brain wo con Stat Exams 01/29/25 11:24 Ordered XR chest 1V post procedure Stat Exams 01/29/25 11:24 Completed ABG [Arterial Blood Gas] Stat Lab 01/29/25 12:44 Completed Acetaminophen Stat Lab 01/29/25 11:11 Completed Alcohol, Blood Medical Stat Lab 01/29/25 13:50 Completed Ammonia Stat Lab 01/29/25 11:11 Completed Beta Hydroxybutyrate DAILY Lab 01/31/25 09:00 Ordered Beta Hydroxybutyrate DAILY Lab 02/01/25 09:00 Ordered Beta Hydroxybutyrate DAILY Lab 02/02/25 09:00 Ordered Beta Hydroxybutyrate Stat Lab 01/29/25 13:50 Completed Blood Culture (Lab) Routine Lab 01/29/25 13:18 Received CBC Stat Lab 01/29/25 11:11 Completed CMP [Comprehensive Metabolic Panel] Stat Lab 01/29/25 11:11 Completed Creatine Kinase Stat Lab 01/29/25 11:11 Completed Drug Screen,Urine Stat Lab 01/29/25 11:33 Completed Glycohemoglobin w (eAG) Routine Lab 01/29/25 11:05 Completed INR [Prothrombin Time with INR] Stat Lab 01/29/25 11:11 Completed Lactate (Lactic Acid) Q4H Lab 01/29/25 17:00 Ordered Lactate (Lactic Acid) Q4H Lab 01/29/25 21:00 Ordered Lactate (Lactic Acid) Q4H Lab 01/30/25 01:00 Ordered Lactate (Lactic Acid) Q4H Lab 01/30/25 05:00 Ordered Lactate (Lactic Acid) Q4H Lab 01/30/25 09:00 Ordered Lactate (Lactic Acid) Q4H Lab 01/30/25 13:00 Ordered Lactate (Lactic Acid) Q4H Lab 01/30/25 17:00 Ordered Lactate (Lactic Acid) Q4H Lab 01/30/25 21:00 Ordered Lactate (Lactic Acid) Q4H Lab 01/31/25 01:00 Ordered Lactate (Lactic Acid) Q4H Lab 01/31/25 05:00 Ordered Lactate (Lactic Acid) Q4H Lab 01/31/25 09:00 Ordered Lactate (Lactic Acid) Q4H Lab 01/31/25 13:00 Ordered Lactate (Lactic Acid) Stat Lab 01/29/25 13:50 Results Magnesium Q4H Lab 01/29/25 17:00 Ordered Magnesium Q4H Lab 01/29/25 21:00 Ordered Magnesium Q4H Lab 01/30/25 01:00 Ordered Magnesium Q4H Lab 01/30/25 05:00 Ordered Magnesium Q4H Lab 01/30/25 09:00 Ordered Magnesium Q4H Lab 01/30/25 13:00 Ordered Magnesium Q4H Lab 01/30/25 17:00 Ordered Magnesium Q4H Lab 01/30/25 21:00 Ordered Magnesium Q4H Lab 01/31/25 01:00 Ordered Magnesium Q4H Lab 01/31/25 05:00 Ordered Magnesium Q4H Lab 01/31/25 09:00 Ordered Magnesium Q4H Lab 01/31/25 13:00 Ordered Magnesium Stat Lab 01/29/25 13:50 Completed Phosphorous Q4H Lab 01/30/25 01:00 Ordered Phosphorous Q4H Lab 01/30/25 05:00 Ordered Phosphorous Q4H Lab 01/30/25 09:00 Ordered Phosphorous Q4H Lab 01/30/25 13:00 Ordered Phosphorous Q4H Lab 01/30/25 17:00 Ordered Phosphorous Q4H Lab 01/30/25 21:00 Ordered Phosphorous Q4H Lab 01/31/25 01:00 Ordered Phosphorous Q4H Lab 01/31/25 05:00 Ordered Phosphorous Q4H Lab 01/31/25 09:00 Ordered Phosphorous Q4H Lab 01/31/25 13:00 Ordered Phosphorous Stat Lab 01/29/25 13:50 Completed Renal Function Panel Q4 Lab 01/29/25 17:00 Ordered Renal Function Panel Q4 Lab 01/29/25 21:00 Ordered Renal Function Panel Q4 Lab 01/30/25 01:00 Ordered Renal Function Panel Q4 Lab 01/30/25 05:00 Ordered Renal Function Panel Q4 Lab 01/30/25 09:00 Ordered Renal Function Panel Q4 Lab 01/30/25 13:00 Ordered Renal Function Panel Q4 Lab 01/30/25 17:00 Ordered Renal Function Panel Q4 Lab 01/30/25 21:00 Ordered Renal Function Panel Q4 Lab 01/31/25 01:00 Ordered Renal Function Panel Q4 Lab 01/31/25 05:00 Ordered Renal Function Panel Q4 Lab 01/31/25 09:00 Ordered Renal Function Panel Q4 Lab 01/31/25 13:00 Ordered Salicylate Stat Lab 01/29/25 11:11 Completed Sputum Culture and Gram Stain Stat Lab 01/29/25 11:34 Results T4 (Thyroxine) Stat Lab 01/29/25 11:11 Completed Thyroid Stimulating Hormone Stat Lab 01/29/25 11:11 Completed Troponin I Stat Lab 01/29/25 11:11 Completed UA, C/S IF [Urinalysis, C/S if Indicated] Stat Lab 01/29/25 11:33 Completed VBG [Venous Blood Gas] Stat Lab 01/29/25 11:11 Completed Venous Blood Gas Q4H Lab 01/29/25 17:00 Ordered Venous Blood Gas Q4H Lab 01/29/25 21:00 Ordered Venous Blood Gas Q4H Lab 01/30/25 01:00 Ordered Venous Blood Gas Q4H Lab 01/30/25 05:00 Ordered Venous Blood Gas Q4H Lab 01/30/25 09:00 Ordered Venous Blood Gas Q4H Lab 01/30/25 13:00 Ordered Venous Blood Gas Q4H Lab 01/30/25 17:00 Ordered Venous Blood Gas Q4H Lab 01/30/25 21:00 Ordered Venous Blood Gas Q4H Lab 01/31/25 01:00 Ordered Venous Blood Gas Q4H Lab 01/31/25 05:00 Ordered Venous Blood Gas Q4H Lab 01/31/25 09:00 Ordered Venous Blood Gas Q4H Lab 01/31/25 13:00 Ordered Acetaminophen Tab [Tylenol Tab] Med 01/29/25 12:45 Active 650 mg PO Q6H PRN Dextrose 5%-Lactated Ringers [D5-Lr] 1,000 ml Med 01/29/25 12:50 Active Pot Chl Additive [KCl Additive] 40 meq IV 250 mls/hr Dextrose 5%-Lactated Ringers [D5-Lr] 1,000 ml Med 01/29/25 12:50 Active IV 250 mls/hr Dextrose 50% Syr [D50w Syringe Abboject] Med 01/29/25 12:50 Active 25 ml IV PRNMRX1 PRN Etomidate Inj [Amidate Inj] Med 01/29/25 11:03 Discontinued 20 mg .ROUTE .STK-MED ONE Etomidate Inj [Amidate Inj] Med 01/29/25 11:10 Discontinued 20 mg IVP X1 ONE Heparin Inj Med 01/29/25 21:00 Active 5,000 unit SC Q12H KCL 20 mEq/L in D5-LR Med 01/29/25 12:50 Active 20 meq in 1,000 ml IV 250 mls/hr Magnesium Sulfate 2 GM Ivpb [Magnesium Sulfate Ivpb] Med 01/29/25 12:50 Active 2 gm in 50 ml IV 25 mls/hr Midazolam/Ns 100 mg Ivpb [Versed Pf Inj in Ns Premix] Med 01/29/25 11:48 Active 100 mg in 100 ml IV 1 mg/hr POT PHOS 15 mMol in NS 250 ML [Pot Phos 15 mMol in NS Med 01/29/25 12:50 Active 250 ml] 15 mmol in 250 ml IV PRN POTASSIUM CHL 10 mEq IVPB [Kcl Ivpb] Med 01/29/25 12:50 Active 10 meq in 100 ml IV 100 mls/hr POTASSIUM CHL 10 mEq IVPB [Kcl Ivpb] Med 01/29/25 12:50 Active 10 meq in 100 ml IV PRN Pantoprazole Inj [Protonix Inj] Med 01/29/25 13:00 Active 40 mg IVP QDAY Pre-Mixed [Pre-mixed Bag] 1 bag Med 01/29/25 12:50 Active Insulin Reg 100 Units/100 ml [Myxredlin] 100 unit IV 0.1 unit/kg/hr Propofol 1,000 mg Ivpb [Diprivan Ivpb] Med 01/29/25 11:24 Active 1,000 mg in 100 ml IV 5 mcg/kg/min Propofol Inj [Diprivan Inj] Med 01/29/25 11:49 Discontinued 50 mg IV X1 ONE Ringers Lactated 1000 ml [Lactated Ringers] 1,000 ml [facility] 01/29/25 12:50 Active Pot Chl Additive [KCl Additive] 20 meq IV 250 mls/hr Ringers Lactated 1000 ml [Lactated Ringers] 1,000 ml [facility] 01/29/25 12:50 Active Pot Chl Additive [KCl Additive] 40 meq IV 250 mls/hr Ringers Lactated 1000 ml [Lactated Ringers] 1,000 ml [facility] 01/29/25 12:50 Active IV 250 mls/hr Rocuronium Inj [Zemuron Inj] [facility] 01/29/25 11:03 Discontinued 100 mg .ROUTE .STK-MED ONE Rocuronium Inj [Zemuron Inj] Med 01/29/25 11:16 Discontinued 50 mg IVP X1 ONE Senna [Senokot] Med 01/29/25 12:45 Active 1 tab PO QDAY PRN Sodium Bicarb 8.4% SYR Med 01/29/25 12:50 Active 50 ml IV Q4HR PRN Sodium Chloride 0.9% 1000 ml [Ns] 1,000 ml Med 01/29/25 11:10 Discontinued IV 999 mls/hr Sodium Chloride 0.9% 250 ml [Ns] 250 ml [facility] 01/29/25 12:50 Active Sod Phos Additive [NaPhos Additive] 15 mmol IV 62.5 mls/hr Sodium Chloride Rt Judy 10% [NS Rt Judy 10%] Med 01/29/25 11:26 Discontinued 5 ml INH X1 ONE fentaNYL 2,500 MCG/250 ML BAG [Sublimaze Inj 2,500 MCG/ Med 01/29/25 12:37 Active 250 ML BAG] 2,500 mcg in 250 ml IV 25 mcg/hr fentaNYL INJ [Sublimaze Inj] Med 01/29/25 12:37 Discontinued 100 mcg IVP X1 ONE Code Status Routine Oth 01/29/25 12:45 Ordered EKG (RT) Stat RT 01/29/25 12:51 Draft Sputum Induction PRN RT 01/29/25 11:30 Ordered Volume Ventilator Routine RT 01/29/25 11:25 Active Vital Signs Vital signs: Vital Signs Pulse Rate 99 01/29/25 11:27 Pulse Oximetry (%) 100 01/29/25 11:27 Fraction of Inspired Oxygen 100 01/29/25 11:27 PROCEDURES: Intubation Time out performed: Yes sedative: Etomidate Mg Given: 20 paralytic: Rocuronium Mg Given: 50 Laryngoscope: fiber optic video scope Assist Device Used: fiber optic device ET Tube Size: 7.5 ET Tube Uncuffed: No Tube Secured Depth (cm): 23 Tube Secured Location: lips Tube Placement Confirmation: visualized tube passing through cords, equal breath sounds bilaterally, no breath sounds over epigastrium and confirmation by capnometry Patient Tolerated Procedure: well and no complications Intubation Complications: none Seizure MDM Narrative MDM Narrative:: IJanuary am scribing for and in the presence of Dr. Faye. Patient is a 29-year-old male with medical history notable for diabetes, polysubstance use, medication noncompliance is in the emergency department concerns for altered mentation and being found down. Vital signs and exam as above. Concern for overdose, acute intracranial hemorrhage, polysubstance use, DKA among others. Patient was immediately placed in resuscitation room, IV access obtained. Patient was found originally slumped over, no movement was called, was given Narcan which resulted in patient starting to breathe spontaneously and then appeared to vomit the mouth and have tonic-clonic seizure-like activity at which point he was given Versed by EMS. He stopped breathing again and so he was given more Narcan which per EMS resulted in patient breathing spontaneously, and having more tonic-clonic activity for which he was given more Versed and then was brought to the emergency department. On my assessment, patient is unresponsive, is tachycardic, hypertensive, has a pulse ox of 98% however is being manually bagged. Patient is not moving any of his extremities. Not responding to pain. Patient was intubated emergently, sedated with propofol and Versed. Fentanyl was not given given that the patient possibly had an opiate overdose and was given multiple doses of Narcan. ICU team immediately came down to evaluate patient, accepted patient for admission. Labs with evidence of leukocytosis 13.4 no left shift. VBG with pH 7.22, bicarb normal. Patient with sodium 127, chloride 90, normal potassium. Patient with worsening creatinine currently 2.4, BUN 41. Normal gap, normal bicarb. Patient with hyperglycemia glucose 695. Patient also with pseudohyponatremia given elevated glucose. Patient also with a lactic acid of 2.1. Patient CK6 23 concerning for rhabdomyolysis. Troponin not elevated. Patient beta-hydroxybutyrate is 2.2, TSH is 5.5 T4 is normal. Urinalysis with trace protein glucose blood leuk esterase -2 white blood cells no bacteria less likely infected. Patient salicylate negative Tylenol level negative, drug screen positive for marijuana. EKG sinus rhythm, nonspecific T wave changes, not a cardiac alert. Chest x-ray with ET tube above the roseanne. OG tube in the stomach. Patient admitted to ICU. Patient data External records reviewed:: [facility] previous records and EMS form Clinical information provided by:: EMS Social determinants that could affect healthcare access:: substance use (marijuana) Patient has the following chronic illnesses:: diabetes mellitus and seizure disorder, noncompliant with medications, polysubstance use How is presenting disease/condition affected by chronic disease/condition?: caused by Evaluation data The following diagnostics were reviewed and interpreted by me:: lab results and radiology exam(s) Lab and/or radiology exams considered but not ordered:: none Interpretation Summary: Procedure(s): XR chest 1V post procedure Accession Number(s): [id number] cc: Prashant Garcia MD; NO PRIMARY/FAMILY,PHYSICIAN; Katlin Faye MD~ Examination: AP chest single view Technique one AP portable supine chest single view Date and time: January 29, 2025 1227 hours Comparison September 15, 2019 INDICATIONS: Hypoxic respiratory failure today post orogastric tube placement FINDINGS: Orogastric tube tip in the stomach satisfactory position Endotracheal tube tip 8 cm above roseanne No aspiration pneumonia or pulmonary edema IMPRESSION: Orogastric tube tip in the stomach satisfactory position No aspiration pneumonia Dictated By: Prashant Garcia MD Medications / Prescriptions Medications or Prescriptions considered but not ordered:: none Medication administrations:: Medication Administration History Acetaminophen (Acetaminophen 325 Mg Tablet) 650 mg PO Q6H PRN PRN Reason: Pain (1-3) & Fever >100.4 Stop: 02/28/25 12:44 Dextrose (Dextrose 50%-Water Inj 50 Ml Syringe) 25 ml IV PRNMRX1 PRN PRN Reason: Blood Sugar - Low Folic Acid (Folic Acid Inj 1 Mg/0.2 Ml) 1 mg IVP QDAY KIERA Stop: 02/28/25 13:29 Last Admin: 01/29/25 14:28 Dose: 1 mg Documented By: VG Heparin Sodium (Porcine) (Heparin Sod Inj 5000 Unit/Ml Vial) 5,000 unit SC Q12H KIERA Stop: 02/12/25 20:59 Propofol (Diprivan Ivpb) 1,000 mg in 100 mls @ 2.177 mls/hr IV .Q24H PRN; Protocol PRN Reason: PER PROTOCOL Stop: 02/28/25 11:23 Last Titration: 01/29/25 12:20 Dose: 50 mcg/kg/min, 21.773 mls/hr Documented By: Titration: 01/29/25 12:15 Dose: 45 mcg/kg/min, 19.595 mls/hr Documented By: Titration: 01/29/25 12:10 Dose: 40 mcg/kg/min, 17.418 mls/hr Documented By: Titration: 01/29/25 12:05 Dose: 35 mcg/kg/min, 15.241 mls/hr Documented By: Titration: 01/29/25 12:00 Dose: 30 mcg/kg/min, 13.064 mls/hr Documented By: Titration: 01/29/25 11:55 Dose: 25 mcg/kg/min, 10.886 mls/hr Documented By: Titration: 01/29/25 11:50 Dose: 20 mcg/kg/min, 8.709 mls/hr Documented By: Titration: 01/29/25 11:45 Dose: 15 mcg/kg/min, 6.532 mls/hr Documented By: Titration: 01/29/25 11:40 Dose: 10 mcg/kg/min, 4.355 mls/hr Documented By: Admin: 01/29/25 11:35 Dose: 5 mcg/kg/min, 2.177 mls/hr Documented By: VG Co-signed By: DO Midazolam HCl (Versed Pf Inj In Ns Premix) 100 mg in 100 mls @ 1 mls/hr IV .Q24H PRN; Protocol PRN Reason: PER PROTOCOL Stop: 02/03/25 11:47 Last Titration: 01/29/25 14:00 Dose: 3 mg/hr, 3 mls/hr Documented By: Titration: 01/29/25 13:00 Dose: 2 mg/hr, 2 mls/hr Documented By: Admin: 01/29/25 12:00 Dose: 1 mg/hr, 1 mls/hr Documented By: VG Co-signed By: TM Fentanyl Citrate (Sublimaze Inj 2,500 Mcg/250 Ml Bag) 2,500 mcg in 250 mls @ 2.5 mls/hr IV .Q24H PRN; Protocol PRN Reason: Per Protocol Stop: 02/03/25 12:36 Last Admin: 01/29/25 12:55 Dose: 100 mcg/hr, 10 mls/hr Documented By: VG Co-signed By: TM Potassium Chloride (Kcl Ivpb) 10 meq in 100 mls @ 100 mls/hr IV .Q1H PRN PRN Reason: IF POTASSIUM LESS THAN 3.3 Stop: 02/28/25 12:49 Magnesium Sulfate (Magnesium Sulfate Ivpb) 2 gm in 50 mls @ 25 mls/hr IV .Q2H PRN PRN Reason: PER DKA PROTOCOL Stop: 02/28/25 12:49 Insulin Human Regular 100 unit (/ IV Miscellaneous Supplies) 100 mls @ 7.258 mls/hr IV .[id number] PRN; Protocol PRN Reason: PER PROTOCOL Stop: 02/28/25 12:49 Last Admin: 01/29/25 14:25 Dose: 0.1 unit/kg/hr, 7.258 mls/hr Documented By: WILLIAM Co-signed By: NAREN Dextrose/Lactated Ringer's (D5-Lr) 1,000 mls @ 250 mls/hr IV .Q4H PRN PRN Reason: PER PROTOCOL Stop: 02/28/25 12:49 Lactated Ringer's (Lactated Ringers) 1,000 mls @ 250 mls/hr IV .Q4H PRN PRN Reason: PER PROTOCOL Stop: 01/30/25 12:49 Potassium Chloride 20 meq/ (Lactated Ringer's) 1,010 mls @ 250 mls/hr IV .Q4H3M PRN PRN Reason: K LEVEL 3.3 TO 5.3mM/L Stop: 02/28/25 12:49 Potassium Chloride 40 meq/ (Lactated Ringer's) 1,020 mls @ 250 mls/hr IV .Q4H5M PRN PRN Reason: K LEVEL < 3.3 mM/L Stop: 02/28/25 12:49 Potassium Chloride 40 meq/ (Dextrose/Lactated Ringer's) 1,020 mls @ 250 mls/hr IV .Q4H5M PRN PRN Reason: K LEVEL < 3.3mM/L Stop: 02/28/25 12:49 Potassium Cl/Dextrose/Lact Ringer's (Kcl 20 Meq/L In D5-Lr) 20 meq in 1,000 mls @ 250 mls/hr IV .Q4H PRN PRN Reason: K LEVEL 3.3 TO 5.3 mM/L Potassium Chloride (Kcl Ivpb) 10 meq in 100 mls @ 50 mls/hr IV PRN PRN PRN Reason: K LEVEL 3.3 to 5.3 & BG > 200 Stop: 02/28/25 12:49 Potassium Phosphate (Pot Phos 15 Mmol In Ns 250 Ml) 15 mmol in 250 mls @ 62.5 mls/hr IV PRN PRN PRN Reason: Phosphate <= 1mg/dL Stop: 02/28/25 12:49 Sodium Phosphate 15 mmol/ (Sodium Chloride) 255 mls @ 62.5 mls/hr IV .Q4H5M PRN PRN Reason: Phosphate <= 1mg/dL and K> than 5.3 Stop: 02/28/25 12:49 Lactated Ringer's (Lactated Ringers) 1,000 mls @ 999 mls/hr IV .Q1H1M ONE Stop: 01/29/25 15:40 Last Admin: 01/29/25 14:44 Dose: Not Given Documented By: VG Non-Admin Reason: Other, see note Levetiracetam (Levetiracetam Inj 100 Mg/Ml Vial 5ml) 500 mg IVP Q12HR KIERA Stop: 02/28/25 20:59 Pantoprazole Sodium (Pantoprazole Inj 40 Mg Vial) 40 mg IVP QDAY KIERA Stop: 02/28/25 12:59 Last Admin: 01/29/25 13:49 Dose: 40 mg Documented By: WILLIAM Sennosides (Senna Tablet) 1 tab PO QDAY PRN; Protocol PRN Reason: constipation Stop: 02/28/25 12:44 Sodium Bicarbonate (Sodium Bicarb Inj 8.4% Syr 50 Ml Syringe) 50 ml IV Q4HR PRN PRN Reason: For ph <= to 7.0 Stop: 02/28/25 12:49 Thiamine HCl (Thiamine Inj 100 Mg/Ml Vial 2 Ml) 100 mg IVP BID KIERA Stop: 02/28/25 13:29 Last Admin: 01/29/25 14:28 Dose: 100 mg Documented By: WILLIAM Discontinued Medications Etomidate (Etomidate Inj 2 Mg/Ml Vial 10 Ml) Confirm Administered Dose 20 mg .ROUTE .STK-MED ONE Stop: 01/29/25 11:04 Last Admin: 01/29/25 11:17 Dose: Not Given Documented By: WILLIAM Non-Admin Reason: Duplicate Medication on eMAR Etomidate (Etomidate Inj 2 Mg/Ml Vial 10 Ml) 20 mg IVP X1 ONE Stop: 01/29/25 11:11 Last Admin: 01/29/25 11:13 Dose: 20 mg Documented By: WILLIAM Fentanyl Citrate (Fentanyl Cit Inj 50 Mcg/Ml Amp 2ml) 100 mcg IVP X1 ONE Stop: 01/29/25 12:38 Last Admin: 01/29/25 12:52 Dose: 100 mcg Documented By: WILLIAM Sodium Chloride (Ns) 1,000 mls @ 999 mls/hr IV .Q1H1M ONE Stop: 01/29/25 12:10 Last Infusion: 01/29/25 11:42 Dose: Infused Documented By: Admin: 01/29/25 11:10 Dose: 999 mls/hr Documented By: WILLIAM Lactated Ringer's (Lactated Ringers) 1,000 mls @ 999 mls/hr IV .Q1H1M ONE Stop: 01/29/25 14:14 Last Admin: 01/29/25 13:47 Dose: 999 mls/hr Documented By: WILLIAM Levetiracetam (Levetiracetam Inj 100 Mg/Ml Vial 5ml) 1,000 mg IVP X1 ONE Stop: 01/29/25 13:19 Last Admin: 01/29/25 13:48 Dose: 1,000 mg Documented By: VG Midazolam HCl (Midazolam Inj 1 Mg/Ml Vial 2 Ml) 4 mg IVP X1 ONE Stop: 01/29/25 13:25 Last Admin: 01/29/25 13:43 Dose: 4 mg Documented By: WILLIAM Propofol (Propofol Inj 10 Mg/Ml Vial 20 Ml) 50 mg IV X1 ONE Stop: 01/29/25 11:50 Last Admin: 01/29/25 12:08 Dose: 50 mg Documented By: WILLIAM Comments: MED VERIFIED AND GIVEN WITH MATT RN, BOTTLE THROWN AWAY, UNABLE TO SCAN. Rocuronium [place] (Rocuronium Inj 10 Mg/Ml Vial 10 Ml) Confirm Administered Dose 100 mg .ROUTE .STK-MED ONE Stop: 01/29/25 11:04 Last Admin: 01/29/25 11:17 Dose: Not Given Documented By: WILLIMA Non-Admin Reason: Duplicate Medication on eMAR Rocuronium [place] (Rocuronium Inj 10 Mg/Ml Vial 10 Ml) 50 mg IVP X1 ONE Stop: 01/29/25 11:17 Last Admin: 01/29/25 11:14 Dose: 50 mg Documented By: WILLIAM Co-signed By: DO Sodium Chloride (Sodium Chloride Rt 10% 15 Ml Nebu) 5 ml INH X1 ONE Stop: 01/29/25 11:27 see above Consultations Consultation(s) initiated? (list below): Yes Consultation #1 (Physician, Specialty, Details): Discussed test HPI, PMHx, lab, radiology results and/or management with depot manager Dr. Pedroza, accepts patient for admitssion. Time: 12:06 Diagnosis Seizure Differential Diagnosis: other (Recurrent seizure due to medication noncompliance, hypoglycemia secondary to diabetes mellitus, and substance-related seizure.) Most likely diagnosis given after review of the tests above:: Overdose, encephalopathy Admission Indicated Admission indicated?: indicated Admission Request Was there a request for admission?: Yes Admission Attestation Admission request attestation: Discussed case with residents from Hospitalist service regarding admission. Discussed patients ED course, exam findings, labs, and radiology results. The Hospitalist [agrees] to accept the patient for admission. Disposition Plan Disposition Plan: Admit Critical Care Time Critical Care Time Critical Care Time: Yes Total Critical Care Time (min.): 40 Attestation: The high probability of sudden, clinically significant deterioration in the patient?s condition required the highest level of my preparedness to intervene urgently. The services I provided to this patient were to treat and/or prevent clinically significant deterioration. Services included the following: chart data review, reviewing nursing notes and/or old charts, documentation time, customer support consultant collaboration regarding findings and treatment options, medication orders and management, direct patient care, vital sign assessments and ordering, interpreting and reviewing diagnostic studies and lab tests. Aggregate critical care time includes only time during which I was engaged in work directly related to the patient?s care, as described above, whether at bedside or elsewhere in the Emergency Department. It did not include time spent performing other reported procedures or the services of residents, students, nurses or physician assistants. Discharge Plan Plan Patient Disposition: Admit Acute Care w/in Hospital Problem List Clinical Impression: Overdose
--- NOTE | 2025-01-29 11:24 | XR_ITS ---
Examination: AP chest single view Technique one AP portable supine chest single view Date and time: January 29, 2025 1227 hours Comparison September 15, 2019 INDICATIONS: Hypoxic respiratory failure today post orogastric tube placement FINDINGS: Orogastric tube tip in the stomach satisfactory position Endotracheal tube tip 8 cm above roseanne No aspiration pneumonia or pulmonary edema IMPRESSION: Orogastric tube tip in the stomach satisfactory position No aspiration pneumonia
--- NOTE | 2025-01-29 11:24 | XR_ITS ---
Examination: CT brain head without contrast. 2-D sagittal coronal reconstructions Date and time of exam:January 29, 2025 1505 hours Comparison January 28, 2025 INDICATIONS: Patient found down unconscious today CTDI: vol (mGy):50.6 DLP: (mGycm):1072 Technique: Multiple CT axial sections of the brain have been obtained, 5 mm slice thickness. Contrast has not been administered. 2-D sagittal, coronal reconstructions have been obtained Low dose protocols were performed. One or more of the following dose reduction techniques were used; automated exposure control, adjustment of the mA and/or KV according to patient size, use of iterative reconstruction technique. Findings: No significant ventricular enlargement. Intra-axial or extra-axial hemorrhage density is not seen. No mass effect or midline shift Basal cisterns are not remarkable. Fourth ventricle is midline. Cranial vault intact. Impression: Negative for acute hemorrhage, mass effect or midline shift As clinically warranted, brain MRI follow-up would best assess for anoxic ischemic change
--- NOTE | 2025-01-29 11:25 | XR_ITS ---
Examination: CT cervical spine without contrast 2-D sagittal reconstructions 2-D coronal reconstructions 3-D reconstructions. Exam date and time:January 29, 2025 1805 hours INDICATIONS: Patient found down unconscious today CTDI:vol (mGy) 15.9 DLP: (mGycm) 385 Technique: Multiple 2 mm axial sections of the cervical spine have been obtained. The coronal and sagittal reconstructions have been obtained. 3-D reconstructions have been obtained. Low dose protocols were performed. One or more of the following dose reduction techniques were used; automated exposure control, adjustment of the mA and/or KV according to patient size, use of iterative reconstruction technique. Findings: Axial sections demonstrate intact base of the skull. C1 exhibit satisfactory relationship to the odontoid. No acute cervical vertebral body fracture seen. Alignment posterior spinous processes satisfactory. Impression: No acute cervical fracture.
[2025-01-29 11:35] LABS: Base Excess, Venous -7 (-3-3); O2 Saturation, Venous 98 % (96-97); PCO2, Venous 53 mmHg (36-56); PO2, Venous 105 mmHg (15-58); pH, Venous 7.22 (7.33-7.66)
[2025-01-29] MEDS: PROPOFOL 1,000 MG IVPB 1,000 MG/100 ML VIAL 2.177 MG IV (11:35)
[2025-01-29 11:36] LABS: Basophils # (Auto) 0.1 Thou/mm3 (0.0-0.2); Basophils % (Auto) 1 % (0-2.5); Eosinophils # (Auto) 0.0 Thou/mm3 (0.0-0.5); Eosinophils % (Auto) 0 % (0-10); Hematocrit 31.7 % (41.0-53.0); Hemoglobin 11.1 g/dL (13.5-16.0); Immature Granulocytes Auto 0.07 Thou/mm3 (0.00-0.00); Lymphocytes # (Auto) 2.5 Thou/mm3 (1.0-4.8); Lymphocytes % (Auto) 18 % (10-50); Mean Corpuscular HGB Conc 35.0 g/dl (31.0-37.0); Mean Corpuscular Hemoglobin 29.4 pg (25.0-35.0); Mean Corpuscular Volume 84 fL (80-100); Monocytes # (Auto) 1.1 Thou/mm3 (0.0-0.8); Monocytes % (Auto) 8 % (0-12); Neutrophils # (Auto) 9.7 Thou/mm3 (1.8-7.7); Neutrophils % (Auto) 72 % (37-80); Nucleated Red Blood Cell # 0.00 Thou/mm3 (0.00-0.00); Nucleated Red Blood Cell % 0 /100 WBC (0); Platelet Count 290 Thou/mm3 (140-440); RDW Standard Deviation 40.8 fL (35.1-43.9); Red Blood Count 3.77 Miln/mm3 (4.50-5.90); White Blood Count 13.4 Thou/mm3 (3.8-10.6)
[2025-01-29 11:42] LABS: Collection Type, Urine Catheter
[2025-01-29 11:46] LABS: Bilirubin,Urine Negative (Negative); Blood,Urine 2+ (Negative); Clarity,Urine Clear (Clear/Hazy); Color,Urine Lt-Yellow (Lt Yel-Yel); Culture Indicated,Urine Not Indicated; Glucose, Urine 4+ (Negative); Ketones,Urine Negative (Negative); Leukocyte Esterase,Urine Negative (Negative); Nitrite,Urine Negative (Negative); PH,Urine 6.0 (5.0-7.0); Protein,Urine 2+ (Neg - Trace); RBC,Urine 4 /hpf (0-3); Specific Gravity,Urine 1.021 (1.001-1.035); Squamous Epithelial Cell,Urine < 1 /hpf (0-5); Urobilinogen,Urine Negative mg/dL (0.0-1.0); WBC,Urine 2 /hpf (0-5)
[2025-01-29 11:55] LABS: Amphetamine/Methamp Scrn,U Negative (Negative); Barbiturate Screen,Urine Negative (Negative); Benzodiazepines Screen,Urine Negative (Negative); Benzoylecgonine Screen, Ur Negative (Negative); Fentanyl Screen,Urine Negative (Negative); Opiate Screen,Urine Negative (Negative); THC Screen,Urine Positive (Negative)
[2025-01-29 11:55] LABS: Ammonia 18 uMol/L (11-32)
[2025-01-29] MEDS: MIDAZOLAM/NS 100 MG IVPB 100 MG/100 ML BAG IV (12:00)
[2025-01-29] MEDS: PROPOFOL INJ 10 MG/ML VIAL 20 ML 50 MG IV (12:08)
[2025-01-29 12:09] LABS: T4 (Thyroxine) 5.0 mcg/dL (4.5-10.9)
[2025-01-29 12:25] LABS: Acetaminophen < 2.0 mcg/mL (10.0-20.0); Alanine Aminotransferase 19 U/L (10-49); Albumin, Serum 2.9 gm/dL (3.5-5.0); Albumin/Globulin Ratio 1.2 (1.2-2.2); Alkaline Phosphatase 107 U/L (46-116); Anion Gap 15 (7-16); Aspartate Amino Transferase 22 U/L (0-34); BUN/Creatinine Ratio 17 Ratio (12-20); Bilirubin,Total 0.4 mg/dL (0.3-1.2); Blood Urea Nitrogen 41 mg/dL (9-23); Calcium 8.1 mg/dL (8.3-10.6); Calcium (Corrected) 9.0 mg/dL (8.5-10.1); Carbon Dioxide 21.7 mMol/L (20.0-31.0); Chloride 90 mMol/L (98-107); Creatinine (Component) 2.4 mg/dL (0.6-1.3); Estimated Creatinine Clearance 47.0 mL/min (>60); Globulin 2.4 gm/dL (2.3-3.5); Osmolality,Calculated 298 (275-295); Potassium 4.0 mMol/L (3.4-5.1); Salicylate < 3.0 mg/dL; Sodium 127 mMol/L (136-145); Thyroid Stimulating Hormone 5.57 uIU/mL (0.55-4.78); Total Protein 5.3 gm/dL (5.7-8.2); Troponin I < 0.020 ng/mL (0.0-0.045); eGFR 37 See Note
[2025-01-29 12:28] LABS: Glucose 695 mg/dL (74-106)
[2025-01-29 12:37] LABS: INR 0.9 (0.9-1.3); Prothrombin Time 10.2 Seconds (9.0-12.2)
[2025-01-29 12:49] LABS: Base Excess 2 (-3-3); HCO3 26 mEq/L (20-26); Inspired Oxygen, FIO2 80 %; O2 Saturation 101 % (91-98); PCO2 37 mmHg (32.0-48.0); PO2 385 mmHg (83-108); pH, Arterial 7.45 (7.35-7.45)
--- NOTE | 2025-01-29 12:51 | EKG_ITS ---
[facility] Test Date: 2025-01-29 Pat Name: PRATIBHA MEHTA Department: Room: - Gender: Male Sensor Technician: : 1995 Requested By: Vicki Nolasco Order Number: [id number] Reading MD: Vicki Nolasco Measurements Intervals [place] Rate: 87 P: 73 VT: 162 QRS: 82 QRSD: 92 T: 39 QT: 355 QTc: 429 Interpretive Statements SINUS RHYTHM POSSIBLE LEFT ATRIAL ENLARGEMENT [-0.1mV P-WAVE IN V1/V2] ST ELEVATION, PROBABLY EARLY REPOLARIZATION [ST ELEVATION WITH NORMALLY INFLECTED T-WAVE] Compared to ECG 01/28/2025 12:58:57 ST (T wave) deviation now present Early repolarization now present /store/S0/[id number].pdf
[2025-01-29] MEDS: fentaNYL CIT INJ 50 mCg/ML AMP 2ML 100 MCG IVP (12:52)
[2025-01-29] MEDS: fentaNYL 2,500 MCG/250 ML BAG 2,500 MCG/250 ML BAG 10 MCG IV (12:55)
[2025-01-29 12:56] LABS: Allen Test Performed/OK; Puncture Site Right Radial
[2025-01-29 13:11] LABS: Creatine Kinase 623 U/L (34-171)
[2025-01-29] MEDS: MIDAZOLAM INJ 1 MG/ML VIAL 2 ML 4 MG IVP (13:43)
[2025-01-29] MEDS: RINGERS LACTATED 1000 ML 1,000 ML 999 ML IV ×2 (13:47→18:55)
[2025-01-29] MEDS: levETIRAcetam INJ 100 MG/ML VIAL 5ML 1000 MG IVP (13:48)
[2025-01-29 13:53] LABS: Glucose Estimated Average 292 mg/dL (80-131); Hemoglobin A1C 11.8 % Hgb (4.8-6.0)
[2025-01-29 14:03] LABS: Lactate (Lactic Acid) 2.1 mMol/L (0.4-2.0)
[2025-01-29 14:08] LABS: Beta Hydroxybutyrate 2.2 mmol/L (<0.6)
--- NOTE | 2025-01-29 14:16 | PC.CC ---
ASW attempted to complete initial assessment with patient but was unable as patient is not alert and oriented. ASW completed a chart review and there are no next of Kin listed to complete initial.
[2025-01-29] MEDS: FOLIC ACID INJ 1 MG/0.2 ML IVP (14:28)
[2025-01-29] MEDS: THIAMINE INJ 100 MG/ML VIAL 2 ML IVP ×2 (14:28→21:02)
[2025-01-29] MEDS: INSULIN REG 100 UNITS/100 ML 100 UNIT in PRE-MIXED 1 BAG 7.258 UNIT IV (14:30)
[2025-01-29 14:35] LABS: Alcohol, Blood Medical < 3.0 mg/dL (0-10.0); Magnesium 1.9 mg/dL (1.6-2.6); Phosphorous 4.2 mg/dL (2.4-5.1)
--- NOTE | 2025-01-29 14:45 | PC.NURSE ---
PER DR YANES, GIVE 1 LITER LR, HOLD 2ND LITER OF LR AND INSTEAD GIVE K+ REPLACEMENT FLUIDS PER DKA PROTOCOL. 2ND LITER OF LR TO FOLLOW.
--- NOTE | 2025-01-29 15:11 | ESHP_ITS ---
<Statement entered by Vicki Nolasco MD - 01/30/25 14:51> Patient was seen and examined at bedside. I agree on the assessment and plan on this note as documented by resident Reilly Mendoza PGY1. Patient seen and examined in the emergency department, patient presented to the ED, was seen by a passerby slumped over who called 911, on arrival by EMS patient noted to have foaming at the mouth with some general tonic-clonic activity, was given Versed, post administration of Versed by EMS patient had decrease in respiratory drive and received Narcan, patient on presentation in the ED was unresponsive and unable to protect airway was intubated by emergency department physician started on mechanical ventilation and ICU team was consulted for admission. Patient in the ED noted to be on Versed and propofol, was started on fentanyl as was asynchronous with the vent, beta hydroxybutyrate was noted to be elevated with corrected anion gap of 18, pH was normal patient noted to be going into DKA hence started on DKA protocol, patient was given loading dose Keppra for seizures and is started on Keppra twice daily, will consider further workup with EEG/MRI once patient is more awake and extubated. Patient noted to have significant elevation in blood pressure, eventually blood pressure normalized, patient noted to have a MAP of 65 was given 1 L LR bolus. Patient noted to have mildly elevated CK, otherwise lipase normal, troponin normal, no ST-T changes noted on EKG, patient is significantly noncompliant was seen in ED multiple times for elevated blood glucose left AMA. We will order blood cultures and urine cultures. Patient admitted to ICU, will continue to monitor labs per DKA protocol, plan to wean patient off of sedation in a.m. and assess response. Case discussed with attending Dr. Rory Nolasco MD PGY-2 Documentation for date of: 01/29/25 HPI History of Present Illness History of present illness: HPI: Patient is a 29-year-old male with medical history notable for diabetes, polysubstance use, medication noncompliance is in the emergency department concerns for altered mentation and being found down. ED COurse: Concern for overdose, acute intracranial hemorrhage, polysubstance use, DKA among others. Patient was immediately placed in resuscitation room, IV access obtained. Patient was found originally slumped over, no movement was called, was given Narcan which resulted in patient starting to breathe spontaneously and then appeared to vomit the mouth and have tonic-clonic seizure-like activity at which point he was given Versed by EMS. He stopped breathing again and so he was given more Narcan which per EMS resulted in patient breathing spontaneously, and having more tonic-clonic activity for which he was given more Versed and then was brought to the emergency department. On ED assessment, patient was unresponsive, tachycardic, hypertensive, and had a pulse ox of 98% however is being manually bagged. Patient was not moving any of his extremities and not responding to pain. Patient was intubated emergently, sedated with propofol and Versed. Fentanyl was not given given that the patient possibly had an opiate overdose and was given multiple doses of Narcan. ICU team immediately came down to evaluate patient, accepted patient for admission. Vitals on presentation: BP 208/120, pulse 99, respiratory rate 15, temp 98.8, saturation 100. Labs on presentation: WBC 13.4 no left shift. VBG with pH 7.22, bicarb normal. Patient with sodium 127, chloride 90, normal potassium. Patient with worsening creatinine currently 2.4, BUN 41. Calculated AGAP of 18, normal bicarb. Patient with hyperglycemia glucose 695. Patient also with pseudohyponatremia given elevated glucose. Patient also with a lactic acid of 2.1. Patient CK 623 concerning for rhabdomyolysis. Troponin not elevated. Patient beta- hydroxybutyrate is 2.2, TSH is 5.5 T4 is normal. Urinalysis with trace protein glucose blood leuk esterase -2 white blood cells no bacteria less likely infected. Patient salicylate negative Tylenol level negative, drug screen positive for marijuana. EKG sinus rhythm, nonspecific T wave changes, not a cardiac alert. Chest x-ray with ET tube above the roseanne. OG tube in the stomach. Patient admitted to ICU. History: (Per chart review) -Past Medical History: Insulin-dependent type 2 diabetes mellitus, polysubstance use Review of Systems: Unable to be obtained due to patient being intubated. Exam Vital Signs Temp Pulse Resp BP Pulse Ox O2 Del Method FiO2 98.8 F 79 18 153/92 H 100 Mechanical Ventilation 35 01/29/25 11:43 01/29/25 14:08 01/29/25 14:08 01/29/25 14:08 01/29/25 14:08 01/29/25 14:08 01/29/25 14:01 Narrative Exam General: Intubated, mechanically ventilated. Neurologic: GCS 6T. Moving all 4 extremities, aggitated. HEENT: Normocephalic, atraumatic, mucous membranes moist. Pupils reactive to light. Heart: Hypertensive, regular rate and rhythm, normal S1 and S2, no murmurs. Lungs: Clear to auscultation bilaterally with no wheezing or crackles. Abdomen: Soft, nondistended, nontender, positive bowel sounds. No guarding or rebound tenderness. Extremities: No edema. 2+ radial and dorsalis pedis pulses bilaterally. Skin: Warm. Dry. No rash or ecchymoses. Results: Labs 02/03/25 09:05 02/03/25 09:05 Labs: Short CBC 01/29/25 Range/Units 11:11 WBC 13.4 H (3.8-10.6) Thou/mm3 Hgb 11.1 L (13.5-16.0) g/dL Hct 31.7 L (41.0-53.0) % Plt Count 290 D (140-440) Thou/mm3 BMP 01/29/25 11:11 Sodium 127 L Potassium 4.0 Chloride 90 L Carbon Dioxide 21.7 BUN 41 H Creatinine 2.4 H Glucose 695 H* D Calcium 8.1 L Cardiac Enzymes 01/29/25 Range/Units 11:11 Total Creatine Kinase 623 H (34-171) U/L Troponin I < 0.020 (0.0-0.045) ng/mL Liver Function 01/29/25 Range/Units 11:11 Total Bilirubin 0.4 (0.3-1.2) mg/dL AST 22 (0-34) U/L ALT 19 (10-49) U/L Alkaline Phosphatase 107 (46-116) U/L Albumin 2.9 L (3.5-5.0) gm/dL Urine 01/29/25 Range/Units 11:33 Urine Color Lt-Yellow (Lt Yel-Yel) Urine Clarity Clear (Clear/Hazy) Urine pH 6.0 (5.0-7.0) Ur Specific [place] 1.021 (1.001-1.035) Urine Protein 2+ A (Neg - Trace) Urine Glucose (UA) 4+ A (Negative) ABG Interpretation ABG results: 01/29/25 01/29/25 11:11 12:44 ABG pH 7.45 ABG pCO2 37 ABG pO2 385 H ABG HCO3 26 ABG O2 Saturation 101 H ABG Base Excess 2 VBG pH 7.22 L VBG pCO2 53 D VBG pO2 105 H D VBG Base Excess -7 L Quality Measures Quality Measures none Medications Home Medications and Allergies Allergies Allergy/AdvReac Type Severity Reaction Status Date / Time No Known Allergies Allergy Verified 01/28/25 13:04 Visit Medications Acetaminophen (Acetaminophen 325 Mg Tablet) 650 mg PO Q6H PRN PRN Reason: Pain (1-3) & Fever >100.4 Stop: 02/28/25 12:44 Dextrose (Dextrose 50%-Water Inj 50 Ml Syringe) 25 ml IV [id number] PRN PRN Reason: Blood Sugar - Low Folic Acid (Folic Acid Inj 1 Mg/0.2 Ml) 1 mg IVP QDAY KIERA Stop: 02/28/25 13:29 Last Admin: 01/29/25 14:28 Dose: 1 mg Heparin Sodium (Porcine) (Heparin Sod Inj 5000 Unit/Ml Vial) 5,000 unit SC Q12H KIERA Stop: 02/12/25 20:59 Propofol (Diprivan Ivpb) 1,000 mg in 100 mls @ 2.177 mls/hr IV .Q24H PRN; Protocol PRN Reason: PER PROTOCOL Stop: 02/28/25 11:23 Last Titration: 01/29/25 12:20 Dose: 50 mcg/kg/min, 21.773 mls/hr Midazolam HCl (Versed Pf Inj In Ns Premix) 100 mg in 100 mls @ 1 mls/hr IV .Q24H PRN; Protocol PRN Reason: PER PROTOCOL Stop: 02/03/25 11:47 Last Titration: 01/29/25 14:00 Dose: 3 mg/hr, 3 mls/hr Fentanyl Citrate (Sublimaze Inj 2,500 Mcg/250 Ml Bag) 2,500 mcg in 250 mls @ 2.5 mls/hr IV .Q24H PRN; Protocol PRN Reason: Per Protocol Stop: 02/03/25 12:36 Last Admin: 01/29/25 12:55 Dose: 100 mcg/hr, 10 mls/hr Potassium Chloride (Kcl Ivpb) 10 meq in 100 mls @ 100 mls/hr IV .Q1H PRN PRN Reason: IF POTASSIUM LESS THAN 3.3 Stop: 02/28/25 12:49 Magnesium Sulfate (Magnesium Sulfate Ivpb) 2 gm in 50 mls @ 25 mls/hr IV .Q2H PRN PRN Reason: PER DKA PROTOCOL Stop: 02/28/25 12:49 Insulin Human Regular 100 unit (/ IV Miscellaneous Supplies) 100 mls @ 7.258 mls/hr IV .[id number] PRN; Protocol PRN Reason: PER PROTOCOL Stop: 02/28/25 12:49 Last Admin: 01/29/25 14:25 Dose: 0.1 unit/kg/hr, 7.258 mls/hr Dextrose/Lactated Ringer's (D5-Lr) 1,000 mls @ 250 mls/hr IV .Q4H PRN PRN Reason: PER PROTOCOL Stop: 02/28/25 12:49 Lactated Ringer's (Lactated Ringers) 1,000 mls @ 250 mls/hr IV .Q4H PRN PRN Reason: PER PROTOCOL Stop: 01/30/25 12:49 Potassium Chloride 20 meq/ (Lactated Ringer's) 1,010 mls @ 250 mls/hr IV .Q4H3M PRN PRN Reason: K LEVEL 3.3 TO 5.3mM/L Stop: 02/28/25 12:49 Potassium Chloride 40 meq/ (Lactated Ringer's) 1,020 mls @ 250 mls/hr IV .Q4H5M PRN PRN Reason: K LEVEL < 3.3 mM/L Stop: 02/28/25 12:49 Potassium Chloride 40 meq/ (Dextrose/Lactated Ringer's) 1,020 mls @ 250 mls/hr IV .Q4H5M PRN PRN Reason: K LEVEL < 3.3mM/L Stop: 02/28/25 12:49 Potassium Cl/Dextrose/Lact Ringer's (Kcl 20 Meq/L In D5-Lr) 20 meq in 1,000 mls @ 250 mls/hr IV .Q4H PRN PRN Reason: K LEVEL 3.3 TO 5.3 mM/L Potassium Chloride (Kcl Ivpb) 10 meq in 100 mls @ 50 mls/hr IV PRN PRN PRN Reason: K LEVEL 3.3 to 5.3 & BG > 200 Stop: 02/28/25 12:49 Potassium Phosphate (Pot Phos 15 Mmol In Ns 250 Ml) 15 mmol in 250 mls @ 62.5 mls/hr IV PRN PRN PRN Reason: Phosphate <= 1mg/dL Stop: 02/28/25 12:49 Sodium Phosphate 15 mmol/ (Sodium Chloride) 255 mls @ 62.5 mls/hr IV .Q4H5M PRN PRN Reason: Phosphate <= 1mg/dL and K> than 5.3 Stop: 02/28/25 12:49 Levetiracetam (Levetiracetam Inj 100 Mg/Ml Vial 5ml) 500 mg IVP Q12HR KIERA Stop: 02/28/25 20:59 Pantoprazole Sodium (Pantoprazole Inj 40 Mg Vial) 40 mg IVP QDAY KIERA Stop: 02/28/25 12:59 Last Admin: 01/29/25 13:49 Dose: 40 mg Sennosides (Senna Tablet) 1 tab PO QDAY PRN; Protocol PRN Reason: constipation Stop: 02/28/25 12:44 Sodium Bicarbonate (Sodium Bicarb Inj 8.4% Syr 50 Ml Syringe) 50 ml IV Q4HR PRN PRN Reason: For ph <= to 7.0 Stop: 02/28/25 12:49 Thiamine HCl (Thiamine Inj 100 Mg/Ml Vial 2 Ml) 100 mg IVP BID KIERA Stop: 02/28/25 13:29 Last Admin: 01/29/25 14:28 Dose: 100 mg Discontinued Medications Etomidate (Etomidate Inj 2 Mg/Ml Vial 10 Ml) 20 mg IVP X1 ONE Stop: 01/29/25 11:11 Last Admin: 01/29/25 11:13 Dose: 20 mg Fentanyl Citrate (Fentanyl Cit Inj 50 Mcg/Ml Amp 2ml) 100 mcg IVP X1 ONE Stop: 01/29/25 12:38 Last Admin: 01/29/25 12:52 Dose: 100 mcg Sodium Chloride (Ns) 1,000 mls @ 999 mls/hr IV .Q1H1M ONE Stop: 01/29/25 12:10 Last Infusion: 01/29/25 11:42 Dose: Infused Lactated Ringer's (Lactated Ringers) 1,000 mls @ 999 mls/hr IV .Q1H1M ONE Stop: 01/29/25 14:14 Last Admin: 01/29/25 13:47 Dose: 999 mls/hr Lactated Ringer's (Lactated Ringers) 1,000 mls @ 999 mls/hr IV .Q1H1M ONE Stop: 01/29/25 15:40 Last Admin: 01/29/25 14:44 Dose: Not Given Levetiracetam (Levetiracetam Inj 100 Mg/Ml Vial 5ml) 1,000 mg IVP X1 ONE Stop: 01/29/25 13:19 Last Admin: 01/29/25 13:48 Dose: 1,000 mg Midazolam HCl (Midazolam Inj 1 Mg/Ml Vial 2 Ml) 4 mg IVP X1 ONE Stop: 01/29/25 13:25 Last Admin: 01/29/25 13:43 Dose: 4 mg Propofol (Propofol Inj 10 Mg/Ml Vial 20 Ml) 50 mg IV X1 ONE Stop: 01/29/25 11:50 Last Admin: 01/29/25 12:08 Dose: 50 mg Rocuronium Clio (Rocuronium Inj 10 Mg/Ml Vial 10 Ml) 50 mg IVP X1 ONE Stop: 01/29/25 11:17 Last Admin: 01/29/25 11:14 Dose: 50 mg Sodium Chloride (Sodium Chloride Rt 10% 15 Ml Nebu) 5 ml INH X1 ONE Stop: 01/29/25 11:27 Assessment & Plan Plan Summary 29-year-old male with a past medical history of insulin-dependent type 2 diabetes mellitus, polysubstance use, noncompliance who presented to the ED BIBA with altered mental status. There was concern for overdose and the patient was given multiple doses of Narcan and 1 dose of midazolam and route. Patient was intubated in the emergency department due to unresponsiveness. Glucose 695, calculated anion gap of 18, lactic acid 2.1, ABG pH 7.45, BHB 2.2. Patient admitted to ICU due to sedation and started DKA protocol. Neuro #Possible Seizure Consider provoked seizure caused by hyperglycemia, substance use, hyponatremia CT scan negative for hemorrhage or acute infarction Glucose 695 on arrival Corrected Na 137 U Tox postive for marijuana Plan: -Was given loading dose of keppra, will continue BID -Seisure precautions #Polysubstance Use Urine tox positive for marijuana Previous urine tox positive for cocaine Plan: -Social support upon discharge Cardiac #HTN Emergency BP on arrival was 208/120 Consider cocaine, substance use Evidence of end organ damage supported by YAMILEX (see renal) and altered mental status prior to arrival per EMS Plan: -Consider hydralazine if blood pressure over 180/120 #Sinus Tachycardia Likely due to volume depletion in the presence of DKA Plan: -Fluids per DKA protocol Pulmonary #Status Post-Intubation on Mechanical Ventilation RR18, TV 480, PEEP 5, FiO2 30% Patient is asynchronous with mechanical ventilator Plan: -Trend VBG -Consider versed pushes as needed once a RASS of -3 has been reached GI -No pertinent problems. Renal #Hyperosmotic Hyperglycemia #High anion gap lactic Acidosis #Pseudohyponatremia Calculated serum osmolarity 298 Calculated anion gap of 18 Lactic acid 2.1 Corrected sodium 137 Plan: - Insulin and fluids per DKA protocol #YAMILEX #Rhabdomyolysis BUN 41 Cr 2.4 CK 623 Grade 2 YAMILEX per KDIGO Likely prerenal in the setting of DKA in combination with rhabdomyolysis due to possible seizure Plan: -Fluids per DKA protocol Infectious Disease Plan: - Blood and urine cultures ordered - MRSA screen pending Endocrine #Insulin-dependent diabetes mellitus type 2 #Mild DKA A1c 11.8 Patient takes metformin and humalog at home, history of noncompliance BHB 2.2, glucose 695 Plan: -Insulin drip -Fluids per DKA protocol Heme #Leukocytosis Likely reactive WBC 13.4 Plan: -Trend AM Labs #Normocytic Normochromic Anemia Likely multifactorial, consider nutrition, fluid imbalance Plan: -Trend CBC -F/U outpatient MSK -No pertinent problems. Skin -No pertinent problems. Urogenital -No pertinent problems. Lines/Access Peripheral IVs Nutrition NPO Sedation/Analgesia Propofol, fentanyl, Versed DVT Prophylaxis Heparin Q12 GI Prophylaxis Protonix 40 qdia Code Status Unable to obtain due to patient being intubated Disposition: Patient admitted to the ICU intubated sedated and mechanically ventilated. Will continue DKA protocol. Monitor potassium, glucose, and continue fluid resuscitation. Patient was seen and discussed with my attending physician Dr. Rory Pedroza MD and my senior resident Dr. Vicki Nolasco MD PGY-2. Reilly Mendoza DO PGY-1. Attending Provider Attestation/Addendum Patient seen and examined with the above resident, Reilly Mendoza DO. I agree with the findings, assessment, and plan of care as documented except for any differences below. Patient seen in emergency department with significant difficulty optimizing sedation to maintain ventilator synchrony. Ongoing workup for acute encephalopathy with presentation suggestive of episode of seizures. Will load with Keppra and maintained on twice daily dosing. Patient remains on appropriate sedation with propofol and Versed both will be adequate for suppression of any breakthrough seizures at this point. Will plan for spontaneous awake trial tomorrow at which point we will try to wean him off mechanical ventilation. No significant lung disease at this point. Patient notably hyperglycemic and ketones are positive, will place on insulin drip for DKA protocol. Aggressive volume resuscitation also the setting of rhabdomyolysis and renal dysfunction. CT imaging of the brain has been unrevealing for any acute pathology. I suspect combined presentation in the setting of hypovolemia, hyperglycemia and hyperosmolar state along with ketosis likely in the setting of starvation. No evidence of alcohol use or other illicit substance to explain this though he does have UDS positive for marijuana. No significant coingestion at this point and there is no family to corroborate history. Patient was found by EMS slumped on the street. This is his third presentation to the hospital in the previous week and he has previously signed out AGAINST MEDICAL ADVICE. Will reassess tomorrow at bedside in the ICU. Total critical care time: I personally spent 40 minutes for review of physiologic parameters, directing plan of care, coordination of care with other specialists. Patient remains at significant risk for further morbidity and mortality warranting close monitoring of care only available in the ICU. Patient required critical care services for acute metabolic encephalopathy, acute hypoxic respiratory failure, seizure disorder, diabetic ketoacidosis/hyperosmolar hyperglycemic state.
[2025-01-29 15:41] LABS: Lipase 43 U/L (12-53)
[2025-01-29] MEDS: PROPOFOL 1,000 MG IVPB 1,000 MG/100 ML VIAL 19.595 MG IV (16:00)
[2025-01-29 17:00] LABS: Reflex Lactate? Y
[2025-01-29] MEDS: POT CHL ADDITIVE 20 MEQ in RINGERS LACTATED 1000 ML 1,000 ML 250 MEQ IV (17:11)
[2025-01-29 17:26] LABS: Lactate (Lactic Acid) 3.8 mMol/L (0.4-2.0)
[2025-01-29 17:27] LABS: Base Excess, Venous 2 (-3-3); O2 Saturation, Venous 90 % (96-97); PCO2, Venous 37 mmHg (36-56); PO2, Venous 52 mmHg (15-58); pH, Venous 7.46 (7.33-7.66)
[2025-01-29 17:56] LABS: Albumin, Serum 2.2 gm/dL (3.5-5.0); Anion Gap 10 (7-16); BUN/Creatinine Ratio 20 Ratio (12-20); Blood Urea Nitrogen 39 mg/dL (9-23); Calcium 7.6 mg/dL (8.3-10.6); Calcium (Corrected) 9.0 mg/dL (8.5-10.1); Carbon Dioxide 26.0 mMol/L (20.0-31.0); Chloride 100 mMol/L (98-107); Creatinine (Component) 2.0 mg/dL (0.6-1.3); Estimated Creatinine Clearance 56.4 mL/min (>60); Glucose 356 mg/dL (74-106); Magnesium 1.9 mg/dL (1.6-2.6); Osmolality,Calculated 295 (275-295); Phosphorous 3.8 mg/dL (2.4-5.1); Potassium 3.4 mMol/L (3.4-5.1); Sodium 136 mMol/L (136-145); eGFR 46 See Note
--- NOTE | 2025-01-29 18:50 | PC.NURSE ---
PROVIDER CALLED AND NOTIFIED OF PTS BP 86/55, PER PROVIDER HANG 1 LITER OF LR.
[2025-01-29 20:24] LABS: Reflex Lactate? Y
--- NOTE | 2025-01-29 20:51 | PC.RT ---
pt transfered without complications on current settings RR18, acvc 480, 5 peep no other changes made DR. Cheney at bedside
[2025-01-29] MEDS: POT CHL ADDITIVE 20 MEQ in DEXTROSE 5%-LACTATED RINGERS 1,000 ML 250 MEQ IV (20:54)
[2025-01-29] MEDS: HEPARIN SOD INJ 5000 UNIT/ML VIAL SC (21:02)
[2025-01-29] MEDS: levETIRAcetam INJ 100 MG/ML VIAL 5ML 500 MG IVP (21:03)
[2025-01-29 21:34] LABS: Lactate (Lactic Acid) 4.3 mMol/L (0.4-2.0)
[2025-01-29 21:37] LABS: Base Excess, Venous 10 (-3-3); O2 Saturation, Venous 101 % (96-97); PCO2, Venous 23 mmHg (36-56); PO2, Venous 172 mmHg (15-58); pH, Venous 7.72 (7.33-7.66)
[2025-01-29 22:02] LABS: Albumin, Serum 2.0 gm/dL (3.5-5.0); Anion Gap 9 (7-16); BUN/Creatinine Ratio 22 Ratio (12-20); Blood Urea Nitrogen 38 mg/dL (9-23); Calcium 7.5 mg/dL (8.3-10.6); Calcium (Corrected) 9.1 mg/dL (8.5-10.1); Carbon Dioxide 25.3 mMol/L (20.0-31.0); Chloride 105 mMol/L (98-107); Creatinine (Component) 1.7 mg/dL (0.6-1.3); Estimated Creatinine Clearance 66.4 mL/min (>60); Glucose 100 mg/dL (74-106); Magnesium 2.1 mg/dL (1.6-2.6); Osmolality,Calculated 286 (275-295); Phosphorous 3.1 mg/dL (2.4-5.1); Potassium 3.7 mMol/L (3.4-5.1); Sodium 139 mMol/L (136-145); eGFR 56 See Note
[2025-01-29 22:39] LABS: Base Excess 4 (-3-3); HCO3 27 mEq/L (20-26); O2 Saturation 101 % (91-98); PCO2 31 mmHg (32.0-48.0); PO2 137 mmHg (83-108); pH, Arterial 7.55 (7.35-7.45)
[2025-01-29 22:40] LABS: Inspired Oxygen, FIO2 30 %
[2025-01-29 22:45] LABS: Allen Test Performed/OK; Puncture Site Left Radial
[2025-01-29] MEDS: RINGERS LACTATED 500 ML 500 ML 999 ML IV (23:08)
[2025-01-30] VITALS (61 sets, daily range): BP systolic 83–141; BP diastolic 55–86; PULSE 55–120; RESP 7–25; TEMP 36.1–37; O2SAT 98–100; BMI 22.9; BMI 22.8
[2025-01-30 00:28] LABS: Reflex Lactate? Y
[2025-01-30] MEDS: POT CHL ADDITIVE 20 MEQ in DEXTROSE 5%-LACTATED RINGERS 1,000 ML 250 MEQ IV (01:29)
[2025-01-30 01:47] LABS: Base Excess, Venous 3 (-3-3); Lactate (Lactic Acid) 2.6 mMol/L (0.4-2.0); O2 Saturation, Venous 93 % (96-97); PCO2, Venous 37 mmHg (36-56); PO2, Venous 62 mmHg (15-58); pH, Venous 7.47 (7.33-7.66)
[2025-01-30 02:14] LABS: Albumin, Serum 1.9 gm/dL (3.5-5.0); Anion Gap 7 (7-16); BUN/Creatinine Ratio 22 Ratio (12-20); Blood Urea Nitrogen 35 mg/dL (9-23); Calcium 7.2 mg/dL (8.3-10.6); Calcium (Corrected) 8.9 mg/dL (8.5-10.1); Carbon Dioxide 26.7 mMol/L (20.0-31.0); Chloride 106 mMol/L (98-107); Creatinine (Component) 1.6 mg/dL (0.6-1.3); Estimated Creatinine Clearance 70.6 mL/min (>60); Glucose 122 mg/dL (74-106); Magnesium 2.0 mg/dL (1.6-2.6); Osmolality,Calculated 288 (275-295); Phosphorous 2.9 mg/dL (2.4-5.1); Potassium 3.4 mMol/L (3.4-5.1); Sodium 140 mMol/L (136-145); eGFR 60 See Note
[2025-01-30] MEDS: fentaNYL 2,500 MCG/250 ML BAG 2,500 MCG/250 ML BAG 20 MCG IV (02:46)
[2025-01-30 04:13] LABS: Base Excess 1 (-3-3); HCO3 26 mEq/L (20-26); Inspired Oxygen, FIO2 30 %; O2 Saturation 100 % (91-98); PCO2 48 mmHg (32.0-48.0); PO2 125 mmHg (83-108); pH, Arterial 7.35 (7.35-7.45)
[2025-01-30 04:14] LABS: Allen Test Performed/OK; Puncture Site Left Radial
[2025-01-30 04:46] LABS: Reflex Lactate? Y
[2025-01-30] MEDS: PROPOFOL 1,000 MG IVPB 1,000 MG/100 ML VIAL 4.355 MG IV (05:42)
[2025-01-30] MEDS: DEXTROSE 5%-LACTATED RINGERS 1,000 ML 250 ML IV (06:15)
[2025-01-30] MEDS: POTASSIUM CHL 10 mEq IVPB 10 MEQ/100 ML BAG 50 MEQ IV ×2 (06:15→08:38)
[2025-01-30 06:32] LABS: Base Excess, Venous 2 (-3-3); Lactate (Lactic Acid) 2.6 mMol/L (0.4-2.0); O2 Saturation, Venous 70 % (96-97); PCO2, Venous 45 mmHg (36-56); PO2, Venous 37 mmHg (15-58); pH, Venous 7.38 (7.33-7.66)
[2025-01-30 06:35] LABS: Basophils # (Auto) 0.1 Thou/mm3 (0.0-0.2); Basophils % (Auto) 0 % (0-2.5); Eosinophils # (Auto) 0.4 Thou/mm3 (0.0-0.5); Eosinophils % (Auto) 3 % (0-10); Hematocrit 24.0 % (41.0-53.0); Immature Granulocytes Auto 0.08 Thou/mm3 (0.00-0.00); Lymphocytes # (Auto) 3.2 Thou/mm3 (1.0-4.8); Lymphocytes % (Auto) 23 % (10-50); Mean Corpuscular HGB Conc 35.0 g/dl (31.0-37.0); Mean Corpuscular Hemoglobin 29.8 pg (25.0-35.0); Mean Corpuscular Volume 85 fL (80-100); Monocytes # (Auto) 1.2 Thou/mm3 (0.0-0.8); Monocytes % (Auto) 8 % (0-12); Neutrophils # (Auto) 9.3 Thou/mm3 (1.8-7.7); Neutrophils % (Auto) 65 % (37-80); Nucleated Red Blood Cell # 0.00 Thou/mm3 (0.00-0.00); Nucleated Red Blood Cell % 0 /100 WBC (0); Platelet Count 175 Thou/mm3 (140-440); RDW Standard Deviation 42.7 fL (35.1-43.9); Red Blood Count 2.82 Miln/mm3 (4.50-5.90); White Blood Count 14.2 Thou/mm3 (3.8-10.6)
[2025-01-30 06:46] LABS: Hemoglobin 8.4 g/dL (13.5-16.0)
[2025-01-30] MEDS: MIDAZOLAM INJ 1 MG/ML VIAL 2 ML 4 MG IVP ×3 (07:23→18:50)
[2025-01-30 08:02] LABS: Alanine Aminotransferase 14 U/L (10-49); Albumin, Serum 2.2 gm/dL (3.5-5.0); Albumin/Globulin Ratio 1.3 (1.2-2.2); Alkaline Phosphatase 73 U/L (46-116); Anion Gap 9 (7-16); Aspartate Amino Transferase 19 U/L (0-34); BUN/Creatinine Ratio 21 Ratio (12-20); Bilirubin,Total 0.2 mg/dL (0.3-1.2); Blood Urea Nitrogen 33 mg/dL (9-23); Calcium 7.6 mg/dL (8.3-10.6); Calcium (Corrected) 9.0 mg/dL (8.5-10.1); Carbon Dioxide 26.2 mMol/L (20.0-31.0); Chloride 107 mMol/L (98-107); Creatinine (Component) 1.6 mg/dL (0.6-1.3); Estimated Creatinine Clearance 70.6 mL/min (>60); Globulin 1.7 gm/dL (2.3-3.5); Glucose 88 mg/dL (74-106); Magnesium 2.0 mg/dL (1.6-2.6); Osmolality,Calculated 289 (275-295); Phosphorous 2.8 mg/dL (2.4-5.1); Potassium 3.6 mMol/L (3.4-5.1); Sodium 142 mMol/L (136-145); Total Protein 3.9 gm/dL (5.7-8.2); eGFR 60 See Note
[2025-01-30] MEDS: FOLIC ACID INJ 1 MG/0.2 ML IVP (08:41)
[2025-01-30] MEDS: THIAMINE INJ 100 MG/ML VIAL 2 ML IVP ×2 (08:42→21:57)
[2025-01-30] MEDS: HEPARIN SOD INJ 5000 UNIT/ML VIAL SC ×2 (08:43→21:57)
[2025-01-30] MEDS: levETIRAcetam INJ 100 MG/ML VIAL 5ML 500 MG IVP ×2 (08:44→21:57)
[2025-01-30 09:27] LABS: Reflex Lactate? Y
--- NOTE | 2025-01-30 09:46 | PC.DIETICIAN ---
Nutrition recommendations If extubation fails, consider: Vital 1.2 at 20 ml/hr via OG/NG tube by pump. Advance 10 ml every 8 hrs to goal rate of 60 ml/hr x 24 hrs. If no IV fluids, water flushes of 25 ml/hr (or per MD). If extubated and oral intake is possible: Consistent Carb Low w/ 2-3oz extra protein per meal (adjust food/liquids consistency as needed).
[2025-01-30 10:01] LABS: Lactic Acid, 3 HR 2.7 mMol/L (0.4-2.0)
[2025-01-30] MEDS: HALOPERIDOL LACT INJ 5 MG/ML VIAL IV (10:58)
[2025-01-30] MEDS: MIDAZOLAM INJ 1 MG/ML VIAL 2 ML 2 MG IVP ×3 (11:03→16:04)
[2025-01-30] MEDS: DEXMEDETOMIDINE 400 MCG IVPB 400 MCG/100 ML BAG IV (11:14)
--- NOTE | 2025-01-30 11:34 | ESPR_ITS ---
<Statement entered by Vicki Nolasco MD - 01/30/25 17:52> Patient was seen and examined at bedside. I agree on the assessment and plan on this note as documented by resident Reilly Mendoza PGY1. Patient seen and examined at bedside, patient was weaned off of sedation this morning, patient continues to remain agitated, was weaned off of Versed overnight, fentanyl was discontinued this morning, currently on Precedex maxed out and low-dose propofol, patient will be started on ziprasidone IM every 6 hours, will reassess in the morning for possibility of extubation. Patient's YAMILEX did improve over the last 24 hours, anion gap resolved, insulin drip was discontinued and patient was started on subcutaneous sliding scale insulin. We will continue Keppra for underlying seizures, consider EEG and MRI once patient is extubated. We will wean patient off of sedation in a.m. and attempt extubation trial in the morning. Case discussed with attending Dr. Kasia Nolasco MD PGY-2 Documentation for date of: 01/30/25 Subjective Subjective Interval history: HPI: Patient is a 29-year-old male with medical history notable for diabetes, polysubstance use, medication noncompliance is in the emergency department concerns for altered mentation and being found down. ED Course: Concern for overdose, acute intracranial hemorrhage, polysubstance use, DKA among others. Patient was immediately placed in resuscitation room, IV access obtained. Patient was found originally slumped over, no movement was called, was given Narcan which resulted in patient starting to breathe spontaneously and then appeared to vomit the mouth and have tonic-clonic seizure-like activity at which point he was given Versed by EMS. He stopped breathing again and so he was given more Narcan which per EMS resulted in patient breathing spontaneously, and having more tonic-clonic activity for which he was given more Versed and then was brought to the emergency department. On ED assessment, patient was unresponsive, tachycardic, hypertensive, and had a pulse ox of 98% however is being manually bagged. Patient was not moving any of his extremities and not responding to pain. Patient was intubated emergently, sedated with propofol and Versed. Fentanyl was not given given that the patient possibly had an opiate overdose and was given multiple doses of Narcan. ICU team immediately came down to evaluate patient, accepted patient for admission. Vitals on presentation: BP 208/120, pulse 99, respiratory rate 15, temp 98.8, saturation 100. Labs on presentation: WBC 13.4 no left shift. VBG with pH 7.22, bicarb normal. Patient with sodium 127, chloride 90, normal potassium. Patient with worsening creatinine currently 2.4, BUN 41. Calculated AGAP of 18, normal bicarb. Patient with hyperglycemia glucose 695. Patient also with pseudohyponatremia given elevated glucose. Patient also with a lactic acid of 2.1. Patient CK 623 concerning for rhabdomyolysis. Troponin not elevated. Patient beta- hydroxybutyrate is 2.2, TSH is 5.5 T4 is normal. Urinalysis with trace protein glucose blood leuk esterase -2 white blood cells no bacteria less likely infected. Patient salicylate negative Tylenol level negative, drug screen positive for marijuana. EKG sinus rhythm, nonspecific T wave changes, not a cardiac alert. Chest x-ray with ET tube above the roseanne. OG tube in the stomach. Patient admitted to ICU. Interval History 01/30/2025: Patient was severely agitated this AM. Received 4 of versed, Haldol. Propofol stopped, fentanyl stopped, started on ziprasidone every 6 hours and Precedex drip. RASS goal of 0. Will continue to wean sedation. Hyperglysemia resolving, glucose 98, will switch to sliding scale insulin, starting tube feeds. AGAP corrected. Patient received 0.5 L liter of LR and 1 L of D5W in the fairing man hours. YAMILEX resolving. Exam Vital Signs Temp Pulse Resp BP Pulse Ox O2 Del Method FiO2 97.3 F 69 18 100/70 100 Mechanical Ventilation 30 01/30/25 08:00 01/30/25 10:30 01/29/25 20:20 01/30/25 10:30 01/30/25 10:30 01/29/25 19:39 01/30/25 06:09 Narrative Exam General: Intubated, mechanically ventilated, agitated pulling at lines. Neurologic: GCS 11T. Moving all 4 extremities. HEENT: Normocephalic, atraumatic, mucous membranes moist. Pupils reactive to light. Heart: Hypertensive, regular rate and rhythm, normal S1 and S2, no murmurs. Lungs: Clear to auscultation bilaterally with no wheezing or crackles. Abdomen: Soft, nondistended, nontender, positive bowel sounds. No guarding or rebound tenderness. Extremities: Circular area of edema greater than 5 cm in diameter on the lateral right lower extremity, No redness. 2+ radial and dorsalis pedis pulses bilaterally. Skin: Warm. Dry. No rash or ecchymoses. Objective Labs 02/03/25 09:05 02/03/25 09:05 Labs: Laboratory Results - last 24 hr 01/29/25 01/29/25 01/29/25 11:05 11:11 11:33 WBC 13.4 H RBC 3.77 L Hgb 11.1 L Hct 31.7 L MCV 84 MCH 29.4 MCHC 35.0 RDW Std Deviation 40.8 Plt Count 290 D Neut % (Auto) 72 Lymph % (Auto) 18 Mower % (Auto) 8 Eos % (Auto) 0 Baso % (Auto) 1 Neut # (Auto) 9.7 H Lymph # (Auto) 2.5 Mower # (Auto) 1.1 H Eos # (Auto) 0.0 Baso # (Auto) 0.1 Immature Gran # (Auto) 0.07 H Absolute Nucleated RBC 0.00 Immature Gran % 1 H Nucleated RBC % 0 PT 10.2 INR 0.9 Puncture Site ABG pH ABG pCO2 ABG pO2 ABG HCO3 ABG O2 Saturation ABG Base Excess VBG pH 7.22 L VBG pCO2 53 D VBG pO2 105 H D VBG O2 Sat ([place]) 98 H D VBG Base Excess -7 L FiO2 Sodium 127 L Potassium 4.0 Chloride 90 L Carbon Dioxide 21.7 Anion Gap 15 BUN 41 H Creatinine 2.4 H Estim Creat Clear Calc 47.0 L eGFR 37 L BUN/Creatinine Ratio 17 Glucose 695 H* D Estimated Ave Glu mg/dL 292 H Hemoglobin A1c 11.8 H Calculated Osmolality 298 H Lactic Acid Calcium 8.1 L Corrected Calcium 9.0 Phosphorus Magnesium Total Bilirubin 0.4 AST 22 ALT 19 Alkaline Phosphatase 107 Ammonia 18 Total Creatine Kinase 623 H Troponin I < 0.020 Total Protein 5.3 L Albumin 2.9 L Globulin 2.4 Albumin/Globulin Ratio 1.2 Lipase Beta-Hydroxybutyrate/Acetoacetate TSH 5.57 H D Thyroxine (T4) 5.0 Ur Collection Type Catheter Urine Color Lt-Yellow Urine Clarity Clear Urine pH 6.0 Ur Specific [place] 1.021 Urine Protein 2+ A Urine Glucose (UA) 4+ A Urine Ketones Negative Urine Blood 2+ A Urine Nitrite Negative Urine Bilirubin Negative Urine Urobilinogen (Auto) Negative Ur Leukocyte Esterase Negative Urine RBC 4 H Urine WBC 2 Ur Squamous Epith Cells < 1 Urine Bacteria None Ur Culture Indicated? Not Indicated Salicylates < 3.0 Urine Opiates Screen Negative Urine Fentanyl Screen Negative Acetaminophen < 2.0 L Ur Barbiturates Screen Negative U Amphetamin/Meth Scrn Negative U Benzodiazepines Scrn Negative U Cocaine Metab Screen Negative U Marijuana (THC) Screen Positive A Ethyl Alcohol 01/29/25 01/29/25 01/29/25 12:44 13:50 17:19 WBC RBC Hgb Hct MCV MCH MCHC RDW Std Deviation Plt Count Neut % (Auto) Lymph % (Auto) Mower % (Auto) Eos % (Auto) Baso % (Auto) Neut # (Auto) Lymph # (Auto) Mower # (Auto) Eos # (Auto) Baso # (Auto) Immature Gran # (Auto) Absolute Nucleated RBC Immature Gran % Nucleated RBC % PT INR Puncture Site Right Radial ABG pH 7.45 ABG pCO2 37 ABG pO2 385 H ABG HCO3 26 ABG O2 Saturation 101 H ABG Base Excess 2 VBG pH 7.46 VBG pCO2 37 D VBG pO2 52 D VBG O2 Sat ([place]) 90 L VBG Base Excess 2 FiO2 80 Sodium 136 Potassium 3.4 D Chloride 100 Carbon Dioxide 26.0 Anion Gap 10 BUN 39 H Creatinine 2.0 H Estim Creat Clear Calc 56.4 L eGFR 46 L BUN/Creatinine Ratio 20 Glucose [address] Glu mg/dL Hemoglobin A1c Calculated Osmolality 295 Lactic Acid 2.1 H 3.8 H Calcium 7.6 L Corrected Calcium 9.0 Phosphorus 4.2 3.8 Magnesium 1.9 1.9 Total Bilirubin AST ALT Alkaline Phosphatase Ammonia Total Creatine Kinase Troponin I Total Protein Albumin 2.2 L D Globulin Albumin/Globulin Ratio Lipase 43 Beta-Hydroxybutyrate/Acetoacetate 2.2 H TSH Thyroxine (T4) Ur Collection Type Urine Color Urine Clarity Urine pH Ur Specific [place] Urine Protein Urine Glucose (UA) Urine Ketones Urine Blood Urine Nitrite Urine Bilirubin Urine Urobilinogen (Auto) Ur Leukocyte Esterase Urine RBC Urine WBC Ur Squamous Epith Cells Urine Bacteria Ur Culture Indicated? Salicylates Urine Opiates Screen Urine Fentanyl Screen Acetaminophen Ur Barbiturates Screen U Amphetamin/Meth Scrn U Benzodiazepines Scrn U Cocaine Metab Screen U Marijuana (THC) Screen Ethyl Alcohol < 3.0 01/29/25 01/29/25 01/30/25 21:09 22:31 01:39 WBC RBC Hgb Hct MCV MCH MCHC RDW Std Deviation Plt Count Neut % (Auto) Lymph % (Auto) Mower % (Auto) Eos % (Auto) Baso % (Auto) Neut # (Auto) Lymph # (Auto) Mower # (Auto) Eos # (Auto) Baso # (Auto) Immature Gran # (Auto) Absolute Nucleated RBC Immature Gran % Nucleated RBC % PT INR Puncture Site Left Radial ABG pH 7.55 H D ABG pCO2 31 L ABG pO2 137 H D ABG HCO3 27 H ABG O2 Saturation 101 H ABG Base Excess 4 H VBG pH 7.72 H 7.47 VBG pCO2 23 L D 37 D VBG pO2 172 H D 62 H D VBG O2 Sat ([place]) 101 H D 93 L VBG Base Excess 10 H 3 FiO2 30 Sodium 139 140 Potassium 3.7 3.4 Chloride 105 106 Carbon Dioxide 25.3 26.7 Anion Gap 9 7 BUN 38 H 35 H Creatinine 1.7 H 1.6 H Estim Creat Clear Calc 66.4 70.6 eGFR 56 L 60 BUN/Creatinine Ratio 22 H 22 H Glucose [address] Glu mg/dL Hemoglobin A1c Calculated Osmolality 286 288 Lactic Acid 4.3 H* 2.6 H Calcium 7.5 L 7.2 L Corrected Calcium 9.1 8.9 Phosphorus 3.1 2.9 Magnesium 2.1 2.0 Total Bilirubin AST ALT Alkaline Phosphatase Ammonia Total Creatine Kinase Troponin I Total Protein Albumin 2.0 L 1.9 L Globulin Albumin/Globulin Ratio Lipase Beta-Hydroxybutyrate/Acetoacetate TSH Thyroxine (T4) Ur Collection Type Urine Color Urine Clarity Urine pH Ur Specific [place] Urine Protein Urine Glucose (UA) Urine Ketones Urine Blood Urine Nitrite Urine Bilirubin Urine Urobilinogen (Auto) Ur Leukocyte Esterase Urine RBC Urine WBC Ur Squamous Epith Cells Urine Bacteria Ur Culture Indicated? Salicylates Urine Opiates Screen Urine Fentanyl Screen Acetaminophen Ur Barbiturates Screen U Amphetamin/Meth Scrn U Benzodiazepines Scrn U Cocaine Metab Screen U Marijuana (THC) Screen Ethyl Alcohol 01/30/25 01/30/25 01/30/25 04:04 06:18 09:51 WBC 14.2 H RBC 2.82 L Hgb 8.4 L D Hct 24.0 L MCV 85 MCH 29.8 MCHC 35.0 RDW Std Deviation 42.7 Plt Count 175 D Neut % (Auto) 65 Lymph % (Auto) 23 Mower % (Auto) 8 Eos % (Auto) 3 Baso % (Auto) 0 Neut # (Auto) 9.3 H Lymph # (Auto) 3.2 Mower # (Auto) 1.2 H Eos # (Auto) 0.4 Baso # (Auto) 0.1 Immature Gran # (Auto) 0.08 H Absolute Nucleated RBC 0.00 Immature Gran % 1 H Nucleated RBC % 0 PT INR Puncture Site Left Radial ABG pH 7.35 D ABG pCO2 48 D ABG pO2 125 H ABG HCO3 26 ABG O2 Saturation 100 H ABG Base Excess 1 VBG pH 7.38 VBG pCO2 45 VBG pO2 37 D VBG O2 Sat ([place]) 70 L D VBG Base Excess 2 FiO2 30 Sodium 142 Potassium 3.6 Chloride 107 Carbon Dioxide 26.2 Anion Gap 9 BUN 33 H Creatinine 1.6 H Estim Creat Clear Calc 70.6 eGFR 60 BUN/Creatinine Ratio 21 H Glucose [address] Glu mg/dL Hemoglobin A1c Calculated Osmolality 289 Lactic Acid 2.6 H 2.7 H Calcium 7.6 L Corrected Calcium 9.0 Phosphorus 2.8 Magnesium 2.0 Total Bilirubin 0.2 L AST 19 ALT 14 Alkaline Phosphatase 73 D Ammonia Total Creatine Kinase Troponin I Total Protein 3.9 L Albumin 2.2 L Globulin 1.7 L Albumin/Globulin Ratio 1.3 Lipase Beta-Hydroxybutyrate/Acetoacetate TSH Thyroxine (T4) Ur Collection Type Urine Color Urine Clarity Urine pH Ur Specific [place] Urine Protein Urine Glucose (UA) Urine Ketones Urine Blood Urine Nitrite Urine Bilirubin Urine Urobilinogen (Auto) Ur Leukocyte Esterase Urine RBC Urine WBC Ur Squamous Epith Cells Urine Bacteria Ur Culture Indicated? Salicylates Urine Opiates Screen Urine Fentanyl Screen Acetaminophen Ur Barbiturates Screen U Amphetamin/Meth Scrn U Benzodiazepines Scrn U Cocaine Metab Screen U Marijuana (THC) Screen Ethyl Alcohol ABG Interpretation ABG results: 01/29/25 01/29/25 01/29/25 11:11 12:44 17:19 ABG pH 7.45 ABG pCO2 37 ABG pO2 385 H ABG HCO3 26 ABG O2 Saturation 101 H ABG Base Excess 2 VBG pH 7.22 L 7.46 VBG pCO2 53 D 37 D VBG pO2 105 H D 52 D VBG Base Excess -7 L 2 01/29/25 01/29/25 01/30/25 21:09 22:31 01:39 ABG pH 7.55 H D ABG pCO2 31 L ABG pO2 137 H D ABG HCO3 27 H ABG O2 Saturation 101 H ABG Base Excess 4 H VBG pH 7.72 H 7.47 VBG pCO2 23 L D 37 D VBG pO2 172 H D 62 H D VBG Base Excess 10 H 3 01/30/25 01/30/25 04:04 06:18 ABG pH 7.35 D ABG pCO2 48 D ABG pO2 125 H ABG HCO3 26 ABG O2 Saturation 100 H ABG Base Excess 1 VBG pH 7.38 VBG pCO2 45 VBG pO2 37 D VBG Base Excess 2 Quality Measures Quality Measures none Assessment & Plan Assessment Current Active Medications: Generic Name Dose Route Start Last Admin Trade Name Freq PRN Reason Stop Dose Admin Acetaminophen 650 mg 01/29/25 12:45 Acetaminophen 325 Mg Tablet PO 02/28/25 12:44 Q6H PRN Pain (1-3) & Fever >100.4 Dextrose 25 ml 01/30/25 08:48 Dextrose 50%-Water Inj 50 Ml Syringe IV 03/01/25 08:47 Q15MIN PRN BG 50-70 responsive npo pt Dextrose 50 ml 01/30/25 08:48 Dextrose 50%-Water Inj 50 Ml Syringe IV 03/01/25 08:47 Q15MIN PRN BG <50 OR BG <70 & pt unresponsive Folic Acid 1 mg 01/29/25 13:30 01/30/25 08:41 Folic Acid Inj 1 Mg/0.2 Ml IVP 02/28/25 13:29 1 mg QDAY KIERA Administration Glucagon 1 mg 01/30/25 08:48 Glucagon Inj 1 Mg Vial IM Q15MIN PRN BG <70, and no IV access Heparin Sodium (Porcine) 5,000 unit 01/29/25 21:00 01/30/25 08:43 Heparin Sod Inj 5000 Unit/Ml Vial SC 02/12/25 20:59 5,000 unit Q12H KIERA Administration Propofol 1,000 mg in 100 mls @ 2.177 mls/hr 01/29/25 11:24 01/30/25 11:00 Diprivan Ivpb IV 02/28/25 11:23 10 mcg/kg/min .Q24H PRN 4.355 mls/hr PER PROTOCOL Titration Protocol 5 MCG/KG/MIN Midazolam HCl 100 mg in 100 mls @ 1 mls/hr 01/29/25 11:48 01/30/25 03:00 Versed Pf Inj In Ns Premix IV 02/03/25 11:47 0 mg/hr .Q24H PRN 0 mls/hr PER PROTOCOL Titration Protocol 1 MG/HR Fentanyl Citrate 2,500 mcg in 250 mls @ 2.5 mls/hr 01/29/25 12:37 01/30/25 10:20 Sublimaze Inj 2,500 Mcg/250 Ml Bag IV 02/03/25 12:36 0 mcg/hr .Q24H PRN 0 mls/hr Per Protocol Titration Protocol 25 MCG/HR Potassium Chloride 20 meq/ 1,010 mls @ 250 mls/hr 01/29/25 19:43 01/30/25 06:45 Dextrose/Lactated Ringer's IV 02/28/25 19:42 Infused .Q4H3M PRN Infusion K LEVEL 3.3 TO 5.3 mM/L Dexmedetomidine/Sodium Chloride 400 mcg in 100 mls @ 3.629 mls/hr 01/30/25 11:20 Precedex Ivpb IV 03/01/25 11:19 .Q24H PRN Per PROTOCOL Protocol 0.2 MCG/KG/HR Insulin Human Lispro 0 unit 01/30/25 09:00 01/30/25 09:28 Insulin Lispro (Admelog) 1 Unit/0.01 Ml Unit SC 03/01/25 08:59 Not Given Q6HR KIERA Protocol Levetiracetam 500 mg 01/29/25 21:00 01/30/25 08:44 Levetiracetam Inj 100 Mg/Ml Vial 5ml IVP 02/28/25 20:59 500 mg Q12HR KIERA Administration Pantoprazole Sodium 40 mg 01/29/25 13:00 01/30/25 08:43 Pantoprazole Inj 40 Mg Vial IVP 02/28/25 12:59 40 mg QDAY KIERA Administration Sennosides 1 tab 01/29/25 12:45 Senna Tablet PO 02/28/25 12:44 QDAY PRN constipation Protocol Thiamine HCl 100 mg 01/29/25 13:30 01/30/25 08:42 Thiamine Inj 100 Mg/Ml Vial 2 Ml IVP 02/28/25 13:29 100 mg BID KIERA Administration Plan Summary 29-year-old male with a past medical history of insulin-dependent type 2 diabetes mellitus, polysubstance use, noncompliance who presented to the ED BIBA with altered mental status. There was concern for overdose and the patient was given multiple doses of Narcan and 1 dose of midazolam and route. Patient was intubated in the emergency department due to unresponsiveness. Glucose 695, calculated anion gap of 18, lactic acid 2.1, ABG pH 7.45, BHB 2.2. Patient admitted to ICU due to intubation and was started on DKA protocol. Neuro #Possible Seizure Consider provoked seizure caused by hyperglycemia, substance use CT scan negative for hemorrhage or acute infarction Patient had tonic-clonic like movements per EMS when they first made contact with the patient Plan: -Was given loading dose of keppra, will continue BID -Seisure precautions #Polysubstance Use Urine tox positive for marijuana Previous urine tox positive for cocaine Plan: -Social support upon discharge #ICU delirium Patient is extremely agitated, sitting up in bed and pulling at lines, required Versed, haloperidol Plan: -Propofol, Fentanyl off -Versed PRN -Started on on Precedex drip, will wean as tolerated -Ziprasidone every 6 hours Cardiac #HTN Emergency (Resolved) BP on arrival was 208/120, 107/72 on 01/30/2025, stable Consider cocaine, substance use Evidence of end organ damage supported by YAMILEX (see renal) and altered mental status prior to arrival per EMS Previous suspicion for end organ damage evidenced by rise in Cr qualifying for hypertensive emergency, however YAMILEX resolving, Cr 1.6 down from 2 #Sinus Tachycardia (Resolved) Tachycardic on arrival Likely due to volume depletion in the presence of DKA Plan: -Continue fluids per DKA protocol Pulmonary #Status Post-Intubation on Mechanical Ventilation ABG showed pH of 7.35, pCO2 48, O2 125, HCO3 26 on 01/30/2025 Patient is asynchronous with mechanical ventilator Plan: -Precedex drip and ziprasidone every 6 hours, Versed PRN -Trend VBG -RASS goal 0 GI Plan: - Tube feeds, Vital AF Renal #Hyperosmotic Hyperglycemia #High anion gap lactic Acidosis #Pseudohyponatremia (Reolved) Lactic acid 2.7, AGAP 9 Lactic acid up trended after arrival and initiation of DKA treatment, consider lab error, lactic acid downtrending now Plan: -Continue fluids per DKA protocol #YAMILEX #Rhabdomyolysis BUN 41 Cr 2.4, improved to BUN 33 Cr 1.6 on 01/30/2025 CK 623 on arrival Grade 2 YAMILEX per KDIGO Likely prerenal in the setting of DKA in combination with rhabdomyolysis due to possible seizure Plan: -Fluids per DKA protocol Infectious Disease Blood culture negative Plan: -Urine culture pending -MRSA screen pending Endocrine #Insulin-dependent diabetes mellitus type 2 #Mild DKA A1c 11.8 Patient takes metformin and humalog at home, history of noncompliance BHB 2.2 on arrival Glucose 88 morning of 01/30/2025 Plan: -DC insulin drip, sliding scale -Fluids per DKA protocol Heme #Leukocytosis Likely reactive WBC 14.2 on 01/30/2025 Slight uptrend, expect to resolve Plan: -Trend AM Labs #Normocytic Normochromic Anemia Likely multifactorial, consider nutrition, fluid imbalance Plan: -Trend CBC -F/U outpatient MSK -No pertinent problems. Skin -No pertinent problems. Urogenital -No pertinent problems. Lines/Access Peripheral IVs Nutrition Tube feeds Sedation/Analgesia Precedex drip DVT Prophylaxis Heparin Q12 GI Prophylaxis Protonix 40 qdia Code Status Unable to obtain due to patient being intubated Disposition: Patient continues to be intubated sedated and mechanically ventilated. Will continue DKA protocol. Monitor potassium, glucose, and continue fluid resuscitation. Patient is extremely agitated. Precedex drip and ziprasidone every 6 hours with versed PRN, RASS goal 0, will reattempt extubation tomorrow. Patient was seen and discussed with my attending physician Dr. Rory Pedroza MD and my senior resident Dr. Vicki Nolasco MD PGY-2. Reilly Mendoza DO PGY-1. Attending Provider Attestation/Addendum Patient seen and examined with the above resident, Reilly Mendoza MD. I agree with the findings, assessment, and plan of care as documented except for any differences below. Patient underwent SAT this morning. Continued agitated delirium may be related to post-ictal state though favor substance use history/ withdrawal. Started on Geodon to facilitate weaning and precedex likely needed in transition period on repeat attempt tomorrow. IVF given for DKA, YAMILEX, and rhabdomyolysis. Now transitioned to subcutaneous insulin regimen. Plan for additional dayin ICU and probable success tomorrow on weaning.. Total critical care time: I personally spent 30 minutes for review of physiologic parameters and directing plan of care throughout the day. This is exclusive of time spent teaching housestaff or performing any separate billable procedures. Critical care services required for DKA, acute respiratory failure, acute encephalopathy, acute renal failure, seizures. He remained at risk for further morbidity and mortality warranting close monitoring and care only available in the ICU.
[2025-01-30] MEDS: ZIPRASIDONE INJ 20 MG/ML VIAL (NON-FORMULARY) 10 MG IM ×2 (13:03→19:58)
[2025-01-30] MEDS: INSULIN LISPRO (AdmeLOG) 1 UNIT/0.01 ML UNIT SC ×2 (13:22→18:53)
[2025-01-30] MEDS: DEXMEDETOMIDINE 400 MCG IVPB 400 MCG/100 ML BAG 21.773 MCG IV (15:00)
[2025-01-30] MEDS: RINGERS LACTATED 1000 ML 1,000 ML 60 ML IV (15:52)
[2025-01-30] MEDS: DEXMEDETOMIDINE 400 MCG IVPB 400 MCG/100 ML BAG 25.401 MCG IV ×2 (18:54→23:19)
[2025-01-31] VITALS (35 sets, daily range): BP systolic 105–152; BP diastolic 75–112; PULSE 54–121; RESP 12–17; TEMP 36.4–36.8; O2SAT 93–100; BMI 24.1; BMI 23.6
[2025-01-31] MEDS: MIDAZOLAM INJ 1 MG/ML VIAL 2 ML 4 MG IVP ×2 (00:53→03:59)
[2025-01-31] MEDS: DEXMEDETOMIDINE 400 MCG IVPB 400 MCG/100 ML BAG 25.401 MCG IV ×2 (03:16→07:00)
[2025-01-31 06:07] LABS: Basophils # (Auto) 0.1 Thou/mm3 (0.0-0.2); Basophils % (Auto) 0 % (0-2.5); Eosinophils # (Auto) 0.1 Thou/mm3 (0.0-0.5); Eosinophils % (Auto) 1 % (0-10); Hematocrit 25.7 % (41.0-53.0); Hemoglobin 9.0 g/dL (13.5-16.0); Immature Granulocytes Auto 0.08 Thou/mm3 (0.00-0.00); Lymphocytes # (Auto) 1.8 Thou/mm3 (1.0-4.8); Lymphocytes % (Auto) 11 % (10-50); Mean Corpuscular HGB Conc 35.0 g/dl (31.0-37.0); Mean Corpuscular Hemoglobin 30.0 pg (25.0-35.0); Mean Corpuscular Volume 86 fL (80-100); Monocytes # (Auto) 1.0 Thou/mm3 (0.0-0.8); Monocytes % (Auto) 6 % (0-12); Neutrophils # (Auto) 12.6 Thou/mm3 (1.8-7.7); Neutrophils % (Auto) 81 % (37-80); Nucleated Red Blood Cell # 0.00 Thou/mm3 (0.00-0.00); Nucleated Red Blood Cell % 0 /100 WBC (0); Platelet Count 148 Thou/mm3 (140-440); RDW Standard Deviation 43.6 fL (35.1-43.9); Red Blood Count 3.00 Miln/mm3 (4.50-5.90); White Blood Count 15.6 Thou/mm3 (3.8-10.6)
[2025-01-31 06:49] LABS: Alanine Aminotransferase 14 U/L (10-49); Albumin, Serum 2.3 gm/dL (3.5-5.0); Albumin/Globulin Ratio 1.2 (1.2-2.2); Alkaline Phosphatase 85 U/L (46-116); Anion Gap 12 (7-16); Aspartate Amino Transferase 42 U/L (0-34); BUN/Creatinine Ratio 20 Ratio (12-20); Bilirubin,Total 0.2 mg/dL (0.3-1.2); Blood Urea Nitrogen 32 mg/dL (9-23); Calcium 7.6 mg/dL (8.3-10.6); Calcium (Corrected) 9.0 mg/dL (8.5-10.1); Carbon Dioxide 22.9 mMol/L (20.0-31.0); Chloride 106 mMol/L (98-107); Creatinine (Component) 1.6 mg/dL (0.6-1.3); Estimated Creatinine Clearance 71.0 mL/min (>60); Globulin 2.0 gm/dL (2.3-3.5); Glucose 143 mg/dL (74-106); Magnesium 1.7 mg/dL (1.6-2.6); Osmolality,Calculated 290 (275-295); Phosphorous 3.2 mg/dL (2.4-5.1); Potassium 4.6 mMol/L (3.4-5.1); Sodium 141 mMol/L (136-145); Total Protein 4.3 gm/dL (5.7-8.2); eGFR 60 See Note
--- NOTE | 2025-01-31 07:00 | XR_ITS ---
Examination: AP chest single view Technique: AP portable semiupright chest single view Date and time: January 31, 2025, 0734 hrs., Comparison January 29, 2025 Indications: Hypoxic respiratory failure. Findings: Mild enlargement cardiac contour. Tracheal tube tip approximately 5.5 cm above roseanne. Orogastric tube in the stomach satisfactory position. No aspiration pneumonia or pulmonary edema Impression: No aspiration pneumonia or pulmonary edema.
[2025-01-31 07:16] LABS: Base Excess 2 (-3-3); HCO3 26 mEq/L (20-26); Inspired Oxygen, FIO2 21 %; O2 Saturation 100 % (91-98); PCO2 37 mmHg (32.0-48.0); PO2 116 mmHg (83-108); pH, Arterial 7.45 (7.35-7.45)
[2025-01-31 07:17] LABS: Allen Test Performed/OK; Puncture Site Right Radial
[2025-01-31] MEDS: levETIRAcetam INJ 100 MG/ML VIAL 5ML 500 MG IVP (08:49)
[2025-01-31] MEDS: THIAMINE INJ 100 MG/ML VIAL 2 ML IVP (08:49)
[2025-01-31] MEDS: HEPARIN SOD INJ 5000 UNIT/ML VIAL SC (08:49)
[2025-01-31] MEDS: FOLIC ACID INJ 1 MG/0.2 ML IVP (08:50)
[2025-01-31] MEDS: ALBUTEROL/IPRATROPIUM (Duoneb) RT SOL 3 ML NEBU INH (11:15)
--- NOTE | 2025-01-31 11:24 | ESPR_ITS ---
Documentation for date of: 01/31/25 Subjective Subjective Interval history: HPI: Patient is a 29-year-old male with medical history notable for diabetes, polysubstance use, medication noncompliance is in the emergency department concerns for altered mentation and being found down. ED Course: Concern for overdose, acute intracranial hemorrhage, polysubstance use, DKA among others. Patient was immediately placed in resuscitation room, IV access obtained. Patient was found originally slumped over, no movement was called, was given Narcan which resulted in patient starting to breathe spontaneously and then appeared to vomit the mouth and have tonic-clonic seizure-like activity at which point he was given Versed by EMS. He stopped breathing again and so he was given more Narcan which per EMS resulted in patient breathing spontaneously, and having more tonic-clonic activity for which he was given more Versed and then was brought to the emergency department. On ED assessment, patient was unresponsive, tachycardic, hypertensive, and had a pulse ox of 98% however is being manually bagged. Patient was not moving any of his extremities and not responding to pain. Patient was intubated emergently, sedated with propofol and Versed. Fentanyl was not given given that the patient possibly had an opiate overdose and was given multiple doses of Narcan. ICU team immediately came down to evaluate patient, accepted patient for admission. Vitals on presentation: BP 208/120, pulse 99, respiratory rate 15, temp 98.8, saturation 100. Labs on presentation: WBC 13.4 no left shift. VBG with pH 7.22, bicarb normal. Patient with sodium 127, chloride 90, normal potassium. Patient with worsening creatinine currently 2.4, BUN 41. Calculated AGAP of 18, normal bicarb. Patient with hyperglycemia glucose 695. Patient also with pseudohyponatremia given elevated glucose. Patient also with a lactic acid of 2.1. Patient CK 623 concerning for rhabdomyolysis. Troponin not elevated. Patient beta- hydroxybutyrate is 2.2, TSH is 5.5 T4 is normal. Urinalysis with trace protein glucose blood leuk esterase -2 white blood cells no bacteria less likely infected. Patient salicylate negative Tylenol level negative, drug screen positive for marijuana. EKG sinus rhythm, nonspecific T wave changes, not a cardiac alert. Chest x-ray with ET tube above the roseanne. OG tube in the stomach. Patient admitted to ICU. Interval History 01/30/2025: Patient was severely agitated this AM. Received 4 of versed, Haldol. Propofol stopped, fentanyl stopped, started on ziprasidone every 6 hours and Precedex drip. RASS goal of 0. Will continue to wean sedation. Hyperglysemia resolving, glucose 98, will switch to sliding scale insulin, starting tube feeds. AGAP corrected. Patient received 0.5 L liter of LR and 1 L of D5W in the recreational resort manager hours. YAMILEX resolving. 01/31/2025: Patient seen and examined at bedside in ICU, this morning patient following commands, seems much more calm Precedex was down titrated, patient placed on SBT, RSBI less than 105, next greater than -24 patient met objective criteria for extubation, was successfully extubated to room air, patient had an episode of agitation postextubation was given ziprasidone IM 20 mg x 1, patient passed bedside swallow screen, started on carb consistent no diet. Patient's blood glucose has been in the range 140?200 on sliding scale insulin, will continue to monitor blood glucose. Patient is inconsistent with diet, will hold off on Lantus and scheduling insulin with meals for now. Will continue Keppra 500 mg IV twice daily for seizure management, patient requesting to leave AGAINST MEDICAL ADVICE earlier today, requested social worker psychiatric to do an evaluation on the patient, per social worker psychiatric patient does not need crisis evaluation. Patient was given Ativan 1 mg IV x 1 for agitation, patient A&O x 2, risks and benefits were explained to the patient at bedside, patient verbally nodded that he understands the patient still seem to be under the influence of ziprasidone from earlier this morning and seems groggy, one-to-one observation. Patient unable to reiterate and repeat the risks and benefits of leaving AGAINST MEDICAL ADVICE, hence patient will be observed for now. Patient will be downgraded to [facility], signed out to hospitalist team. Exam Vital Signs Temp Pulse Resp BP Pulse Ox O2 Del Method FiO2 98.2 F 79 17 152/112 H 100 Mechanical Ventilation 30 01/31/25 08:00 01/31/25 11:18 01/31/25 11:18 01/31/25 09:00 01/31/25 11:18 01/31/25 08:00 01/31/25 08:00 Narrative Exam Physical Exam General: Awake and agitated at times, slow to respond, groggy. HEENT: Normocephalic, atraumatic, mucous membranes moist. Heart: Regular rate and rhythm, no murmurs. Lungs: Mild bilateral crackles. Abdomen: Soft, nondistended, nontender, positive bowel sounds. ?No guarding or rebound tenderness. Neurologic: Alert and oriented x3, no gross neurological deficit, and patient able to move all 4 extremities. Extremities: 1+ bilateral lower extremity edema. Skin: No rash or ecchymoses. Objective Labs 02/03/25 09:05 02/03/25 09:05 Labs: Laboratory Results - last 24 hr 01/31/25 01/31/25 04:30 07:03 WBC 15.6 H RBC 3.00 L Hgb 9.0 L Hct 25.7 L MCV 86 MCH 30.0 MCHC 35.0 RDW Std Deviation 43.6 Plt Count 148 Neut % (Auto) 81 H Lymph % (Auto) 11 [place] % (Auto) 6 Eos % (Auto) 1 Baso % (Auto) 0 Neut # (Auto) 12.6 H Lymph # (Auto) 1.8 [place] # (Auto) 1.0 H Eos # (Auto) 0.1 Baso # (Auto) 0.1 Immature Gran # (Auto) 0.08 H Absolute Nucleated RBC 0.00 Immature Gran % 1 H Nucleated RBC % 0 Puncture Site Right Radial ABG pH 7.45 D ABG pCO2 37 D ABG pO2 116 H ABG HCO3 26 ABG O2 Saturation 100 H ABG Base Excess 2 FiO2 21 Sodium 141 Potassium 4.6 D Chloride 106 Carbon Dioxide 22.9 Anion Gap 12 BUN 32 H Creatinine 1.6 H Estim Creat Clear Calc 71.0 eGFR 60 BUN/Creatinine Ratio 20 Glucose 143 H D Calculated Osmolality 290 Calcium 7.6 L Corrected Calcium 9.0 Phosphorus 3.2 Magnesium 1.7 Total Bilirubin 0.2 L AST 42 H ALT 14 Alkaline Phosphatase 85 Total Protein 4.3 L Albumin 2.3 L Globulin 2.0 L Albumin/Globulin Ratio 1.2 ABG Interpretation ABG results: 01/29/25 01/29/25 01/29/25 11:11 12:44 17:19 ABG pH 7.45 ABG pCO2 37 ABG pO2 385 H ABG HCO3 26 ABG O2 Saturation 101 H ABG Base Excess 2 VBG pH 7.22 L 7.46 VBG pCO2 53 D 37 D VBG pO2 105 H D 52 D VBG Base Excess -7 L 2 01/29/25 01/29/25 01/30/25 21:09 22:31 01:39 ABG pH 7.55 H D ABG pCO2 31 L ABG pO2 137 H D ABG HCO3 27 H ABG O2 Saturation 101 H ABG Base Excess 4 H VBG pH 7.72 H 7.47 VBG pCO2 23 L D 37 D VBG pO2 172 H D 62 H D VBG Base Excess 10 H 3 01/30/25 01/30/25 01/31/25 04:04 06:18 07:03 ABG pH 7.35 D 7.45 D ABG pCO2 48 D 37 D ABG pO2 125 H 116 H ABG HCO3 26 26 ABG O2 Saturation 100 H 100 H ABG Base Excess 1 2 VBG pH 7.38 VBG pCO2 45 VBG pO2 37 D VBG Base Excess 2 Quality Measures Quality Measures none Assessment & Plan Assessment Current Active Medications: Generic Name Dose Route Start Last Admin Trade Name Freq PRN Reason Stop Dose Admin Acetaminophen 650 mg 01/29/25 12:45 Acetaminophen 325 Mg Tablet PO 02/28/25 12:44 Q6H PRN Pain (1-3) & Fever >100.4 Dextrose 25 ml 01/30/25 08:48 Dextrose 50%-Water Inj 50 Ml Syringe IV 03/01/25 08:47 Q15MIN PRN BG 50-70 responsive npo pt Dextrose 50 ml 01/30/25 08:48 Dextrose 50%-Water Inj 50 Ml Syringe IV 03/01/25 08:47 Q15MIN PRN BG <50 OR BG <70 & pt unresponsive Folic Acid 1 mg 02/01/25 09:00 Folic Acid 1 Mg Tablet PO 03/03/25 08:59 QDAY KIERA Glucagon 1 mg 01/30/25 08:48 Glucagon Inj 1 Mg Vial IM Q15MIN PRN BG <70, and no IV access Heparin Sodium (Porcine) 5,000 unit 01/29/25 21:00 01/31/25 08:49 Heparin Sod Inj 5000 Unit/Ml Vial SC 02/12/25 20:59 5,000 unit Q12H KIERA Administration Dexmedetomidine/Sodium Chloride 400 mcg in 100 mls @ 3.629 mls/hr 01/30/25 11:20 01/31/25 09:00 Precedex Ivpb IV 03/01/25 11:19 0.6 mcg/kg/hr .Q24H PRN 10.886 mls/hr Per PROTOCOL Titration Protocol 0.2 MCG/KG/HR Insulin Human Lispro 0 unit 01/30/25 09:00 01/31/25 07:12 Insulin Lispro (Admelog) 1 Unit/0.01 Ml Unit SC 03/01/25 08:59 Not Given Q6HR KIERA Protocol Levetiracetam 500 mg 01/29/25 21:00 01/31/25 08:49 Levetiracetam Inj 100 Mg/Ml Vial 5ml IVP 02/28/25 20:59 500 mg Q12HR KIERA Administration Multivitamins 1 tab 01/31/25 10:30 01/31/25 10:59 Multivitamins Tablet PO 03/02/25 10:29 Not Given QDAY KIERA Pantoprazole Sodium 40 mg 01/29/25 13:00 01/31/25 08:49 Pantoprazole Inj 40 Mg Vial IVP 02/28/25 12:59 40 mg QDAY KIERA Administration Sennosides 1 tab 01/29/25 12:45 Senna Tablet PO 02/28/25 12:44 QDAY PRN constipation Protocol Thiamine HCl 100 mg 02/01/25 09:00 Thiamine 100 Mg Tablet PO 03/03/25 08:59 QDAY KIERA Ziprasidone 40 mg 01/31/25 21:00 Ziprasidone 20 Mg Capsule PO 03/02/25 20:59 BID KIERA Plan Summary 29-year-old male with a past medical history of insulin-dependent type 2 diabetes mellitus, polysubstance use, noncompliance who presented to the ED BIBA with altered mental status. There was concern for overdose and the patient was given multiple doses of Narcan and 1 dose of midazolam and route. Patient was intubated in the emergency department due to unresponsiveness. Glucose 695, calculated anion gap of 18, lactic acid 2.1, ABG pH 7.45, BHB 2.2. Patient admitted to ICU due to intubation and was started on DKA protocol. Neurological #Seizure Episode Consider provoked seizure caused by hyperglycemia vs substance use CT scan negative for hemorrhage or acute infarction Patient had tonic-clonic like movements per EMS when they first made contact with the patient Plan: -Was given loading dose of keppra, will continue Keppra 500 BID -Seizure precautions -Consider EEG/MRI once off sedation -Consider Neuro Consult to [facility] #ICU delirium #Severe Agitation Suspicion of underlying Psych disorder Agitated at times Turned off sedation this morning Plan: -Ziprasidone 40mg PO BID -BZD prn for agitation -Restraints prn #Polysubstance Use Urine tox positive for marijuana Previous urine tox positive for cocaine Plan: -Social support upon discharge Cardiology #HTN Emergency, resolved BP on arrival was 208/120, 107/72 on 01/30/2025, stable Consider cocaine, substance use Evidence of end organ damage supported by YAMILEX (see renal) and altered mental status prior to arrival per EMS Previous suspicion for end organ damage evidenced by rise in Cr qualifying for hypertensive emergency, however YAMILEX resolving, Cr 1.6 down from 2 - Monitor BP, consider starting on antihypertensives if BP elevated #Sinus Tachycardia, resolved Tachycardic on arrival Likely due to volume depletion in the presence of DKA Pulmonary #Status post extubation 01/31, was intubated for airway protection Patient extubated successfully today earlier, RSBI less than 105, NIF greater than -24, was following commands Patient does have some mild bilateral wheezing/crackles postextubation - DuoNebs as needed - Monitor respiratory status+ Gastrointestinal No active problems, started on carb consistent low diet. Renal/Genitourinary #YAMILEX, mild rhabdomyolysis, improving #Suspicion of CKD BUN 41 Cr 2.4, improved to BUN 33 Cr 1.6 on 01/30/2025 CK 623 on arrival Grade 2 YAMILEX per KDIGO Likely prerenal in the setting of DKA in combination with rhabdomyolysis due to possible seizure Patient received fluids per DKA protocol, currently seems euvolemic Plan: - Monitor renal function - Avoid nephrotoxic agents - Renally dose medications #High anion gap metabolic acidosis, lactic acidosis, resolved Endocrine #Insulin-dependent diabetes mellitus type 2 #Mild DKA, resolved A1c 11.8 Patient takes metformin and humalog at home, history of noncompliance BHB 2.2 on arrival Glucose 88 morning of 01/30/2025 Plan: -Sliding scale insulin every 6 hours -Fingerstick blood glucose every 6 hours -Hypoglycemia protocol as needed Hematology #Leukocytosis Likely reactive WBC 14.2 on 01/30/2025 Slight uptrend, expect to resolve Plan: -Trend AM Labs #Normocytic Normochromic Anemia Likely multifactorial, consider nutrition, fluid imbalance Plan: -Trend CBC -F/U outpatient Infectious Disease Blood cultures negative for 24 hours Follow-up cultures Integumentary No active problems DVT prophylaxis: Heparin every 12 hours GI prophylaxis: Protonix 40 mg IV daily Diet: Carb consistent low Lines: Peripheral IV Code status: Full code Patient was seen and discussed with my attending physician Dr. Rory Nolasco MD PGY-2. Attending Provider Attestation/Addendum Patient seen and examined with the above resident, Vicki Nolasco MD. I agree with the findings, assessment, and plan of care as documented except for any differences below. Patient successfully extubated this morning. However remains significantly agitated and required multiple team members to maintain in bed. Security also contacted due to agitation. Significant psychiatric history contributing. Started on Geodon with good effect, loading can continue on the floor. Will need sitter for 1:1 monitoring and will need clearance for discharge. He is not safe to discharge at this time and unable to clearly show that he has mentation/ understanding risks associated with wanting to leave AMA. At this point, will take him out of restrictions in the ICU and allowed to transfer to medicine chiu for ongoing monitoring and management. Total critical care time: I personally spent 45 minutes for review of physiologic parameters, directing plan of care, coordination of care with other specialists, and counseling patient at the bedside. This is exclusive of time spent teaching housestaff or performing any separate billable procedures. Critical care services required for acute respiratory failure, acute encephalopathy, acute renal failure, seizures. He remained at risk for further morbdity and mortality warranting close monitoring and care only available in the ICU.
[2025-01-31] MEDS: ZIPRASIDONE INJ 20 MG/ML VIAL (NON-FORMULARY) IM (11:25)
--- NOTE | 2025-01-31 11:25 | PC.SS ---
Addendum entered by Arlette Cline 01/31/25 13:38: ASW attempted to meet with pt as the medical provider lcpc and assigned RN have concerns because the pt wants to leave AMA. ASW met with pt at bedside, but pt was asleep, as he was just given meds. ASW attempted to speakwith pt but he was unable to talk. ASW met with lcpc to explain his that if the pt has an IV in and is not alert/oriented we are able to call law enforcement; however, if he is alert and oriented, and not connected to an IV, the pt is within his right to leave AMA. lcpc understood. ASW informed lcpc that [place] [employer] is going to visit the places where the pt frequents in attempts to gather family/friend information so the hospital can have a salesperson books for a safe discharge. However, as of this writing, [facility] has not provided the information. lcpc will call SS before 1630 so SS can speak with the pt when he is alert/oriented. EOC. Original Note: ASW received a call from ICU lcpc Mandy, as pt was erratic, aggressive and yelling at staff. Charge wanted SS to locate family; however, ASW informed Charge that there is no pt family contact in his chart. Per lcpc, pt disclosed that he has his brothers cell phione number in his cell phone, but his cell phone is locked. Pt is now calm and asleep and Charge will continue to work with pt to unlock his cell phone to call pts brother. EOC.
--- NOTE | 2025-01-31 13:02 | PC.SS ---
Update; SS assisted [employer] with searching for family/friends for patient. Patient was just extubated earlier today. No contacts on this stay or any other previous stays. SS and [employer] did a history search for any family members listed and there was no record. SS contacted [employer] to assist with any family/friends listed on file. [employer] will send an officer out to the previous locations that patient was picked up at to see if they could find any family members for patient. They were provided with SS contact number and will reach out or send an officer to ICU with update.
[2025-01-31] MEDS: LORazepam 2 MG/ML VIAL 1 MG IVP (13:04)
[2025-01-31] MEDS: INSULIN LISPRO (AdmeLOG) 1 UNIT/0.01 ML UNIT SC ×2 (13:10→18:11)
--- NOTE | 2025-01-31 13:49 | PC.SS ---
Addendum entered by Arlette Cline 01/31/25 14:51: ASW met with pt at bedside and present was family Sherrie Heber and Shanda Buck. ASW was able to inform pt that his aunt Brittany Ortiz wanted to speak with him and he agreed to call her. ASW facilitated the call and he was able to speak to his aunt Brittany. ASW provided community resources to pt such as information to [facility] and [facility]. Pt was receptive and family Sherrie and Shanda will assist pt with scheduling if he decides to move forward. Pt agreed to stay at the hospital but his thoughts are in and out. While ASW was present at bedside, he attempted to leave but family members persuaded him to stay. Pt has moments of lucidity but then he goes back to being incoherent and sleeping. Addendum entered by Arlette Cline 01/31/25 14:25: ASW received a call from pts Aunt named Brittany Ortiz from [place], [place] [phone]. Brittany reported that she is the pts aunt and will try to get a hold of family that live closer in this area. Brittany reported that the pt has family that may live in [place] or [place] and can come see the pt. It should be known that pt is homeless according to Brittany and he used to live with her but he did not want to stay drug free so he moved to the [place] area. Addendum entered by Arlette Cline 01/31/25 14:17: safe d/c to the family. Original Note: ASW received a call from family member Sherrie Buck [phone]; address [address]; who stated the pt used to live with her, but left because he does not like staying in one place. Sherrie reported that the pt does not have any other living family or friends in this area. Sherrie reported she and the pt are in good standing and will communicate when she does see him. Sherrie confirmed that [place] [employer] went to her home in search of her to inform her that [facility] was looking for her to gather information and possiblly be a safe d/c to the mike
--- NOTE | 2025-01-31 14:46 | ESPR_ITS ---
<Statement entered by Latoya Lemos MD - 02/05/25 07:33> I reviewed above note and agree with findings and plans. I have also personally examined the patient with medicine team and went over assessment and plan with medical team including software engineer intern and resident physician. Documentation for date of: 01/31/25 Subjective Subjective Interval history: Per ICU note: Patient seen and examined at bedside in ICU, this morning patient following commands, seems much more calm Precedex was down titrated, patient placed on SBT, RSBI less than 105, next greater than -24 patient met objective criteria for extubation, was successfully extubated to room air, patient had an episode of agitation postextubation was given ziprasidone IM 20 mg x 1, patient passed bedside swallow screen, started on carb consistent no diet. Patient's blood glucose has been in the range 140?200 on sliding scale insulin, will continue to monitor blood glucose. Patient is inconsistent with diet, will hold off on Lantus and scheduling insulin with meals for now. Will continue Keppra 500 mg IV twice daily for seizure management, patient requesting to leave AGAINST MEDICAL ADVICE earlier today, requested vp digital marketing social media and crm to do an evaluation on the patient, per vp digital marketing social media and crm patient does not need crisis evaluation. Patient was given Ativan 1 mg IV x 1 for agitation, patient A&O x 2, risks and benefits were explained to the patient at bedside, patient verbally nodded that he understands the patient still seem to be under the influence of ziprasidone from earlier this morning and seems groggy, one-to-one observation. Patient unable to reiterate and repeat the risks and benefits of leaving AGAINST MEDICAL ADVICE, hence patient will be observed for now. Patient will be downgraded to MedSur, signed out to hospitalist team. pt was evaluated while in the ICU by floors team. family friend Yordy was seen at bedside and appeared to calm pt and help facilitate Mr. Romeo willingness to stay in the hospital. pt was comfortably seated in chair. Exam Vital Signs Temp Pulse Resp BP Pulse Ox O2 Del Method FiO2 98.2 F 93 17 119/95 H 93 L Mechanical Ventilation 30 01/31/25 08:00 01/31/25 12:10 01/31/25 11:18 01/31/25 10:01 01/31/25 13:07 01/31/25 08:01/31/25 08:00 Narrative Exam General: Awake and agitated at times, slow to respond, groggy. oriented to self and place. HEENT: Normocephalic, atraumatic, mucous membranes moist. Heart: Regular rate and rhythm, no murmurs. Lungs: Mild bilateral crackles. Abdomen: Soft, nondistended, nontender, positive bowel sounds. ?No guarding or rebound tenderness. Neurologic: Alert and oriented x3, no gross neurological deficit, and patient able to move all 4 extremities. Extremities: 1+ bilateral lower extremity edema. Skin: No rash or ecchymoses. BL shins with healed excoriations Objective Labs 01/31/25 04:30 01/31/25 04:30 Labs: Laboratory Results - last 24 hr 01/31/25 01/31/25 04:30 07:03 WBC 15.6 H RBC 3.00 L Hgb 9.0 L Hct 25.7 L MCV 86 MCH 30.0 MCHC 35.0 RDW Std Deviation 43.6 Plt Count 148 Neut % (Auto) 81 H Lymph % (Auto) 11 [place] % (Auto) 6 Eos % (Auto) 1 Baso % (Auto) 0 Neut # (Auto) 12.6 H Lymph # (Auto) 1.8 [place] # (Auto) 1.0 H Eos # (Auto) 0.1 Baso # (Auto) 0.1 Immature Gran # (Auto) 0.08 H Absolute Nucleated RBC 0.00 Immature Gran % 1 H Nucleated RBC % 0 Puncture Site Right Radial ABG pH 7.45 D ABG pCO2 37 D ABG pO2 116 H ABG HCO3 26 ABG O2 Saturation 100 H ABG Base Excess 2 FiO2 21 Sodium 141 Potassium 4.6 D Chloride 106 Carbon Dioxide 22.9 Anion Gap 12 BUN 32 H Creatinine 1.6 H Estim Creat Clear Calc 71.0 eGFR 60 BUN/Creatinine Ratio 20 Glucose 143 H D Calculated Osmolality 290 Calcium 7.6 L Corrected Calcium 9.0 Phosphorus 3.2 Magnesium 1.7 Total Bilirubin 0.2 L AST 42 H ALT 14 Alkaline Phosphatase 85 Total Protein 4.3 L Albumin 2.3 L Globulin 2.0 L Albumin/Globulin Ratio 1.2 ABG Interpretation ABG results: 01/29/25 01/29/25 01/29/25 11:11 12:44 17:19 ABG pH 7.45 ABG pCO2 37 ABG pO2 385 H ABG HCO3 26 ABG O2 Saturation 101 H ABG Base Excess 2 VBG pH 7.22 L 7.46 VBG pCO2 53 D 37 D VBG pO2 105 H D 52 D VBG Base Excess -7 L 2 01/29/25 01/29/25 01/30/25 21:09 22:31 01:39 ABG pH 7.55 H D ABG pCO2 31 L ABG pO2 137 H D ABG HCO3 27 H ABG O2 Saturation 101 H ABG Base Excess 4 H VBG pH 7.72 H 7.47 VBG pCO2 23 L D 37 D VBG pO2 172 H D 62 H D VBG Base Excess 10 H 3 01/30/25 01/30/25 01/31/25 04:04 06:18 07:03 ABG pH 7.35 D 7.45 D ABG pCO2 48 D 37 D ABG pO2 125 H 116 H ABG HCO3 26 26 ABG O2 Saturation 100 H 100 H ABG Base Excess 1 2 VBG pH 7.38 VBG pCO2 45 VBG pO2 37 D VBG Base Excess 2 Quality Measures Quality Measures VTE prophylaxis Assessment & Plan Assessment Current Active Medications: Generic Name Dose Route Start Last Admin Trade Name Freq PRN Reason Stop Dose Admin Acetaminophen 650 mg 01/29/25 12:45 Acetaminophen 325 Mg Tablet PO 02/28/25 12:44 Q6H PRN Pain (1-3) & Fever >100.4 Albuterol/Ipratropium 3 ml 01/31/25 14:02 Albuterol/Ipratropium (Duoneb) Rt Judy 3 Ml Nebu INH 03/02/25 14:01 Q2HR PRN SHORTNESS OF BREATH OR WHEEZE Dextrose 25 ml 01/30/25 08:48 Dextrose 50%-Water Inj 50 Ml Syringe IV 03/01/25 08:47 Q15MIN PRN BG 50-70 responsive npo pt Dextrose 50 ml 01/30/25 08:48 Dextrose 50%-Water Inj 50 Ml Syringe IV 03/01/25 08:47 Q15MIN PRN BG <50 OR BG <70 & pt unresponsive Folic Acid 1 mg 02/01/25 09:00 Folic Acid 1 Mg Tablet PO 03/03/25 08:59 QDAY KIERA Glucagon 1 mg 01/30/25 08:48 Glucagon Inj 1 Mg Vial IM Q15MIN PRN BG <70, and no IV access Heparin Sodium (Porcine) 5,000 unit 01/29/25 21:00 01/31/25 08:49 Heparin Sod Inj 5000 Unit/Ml Vial SC 02/12/25 20:59 5,000 unit Q12H KIERA Administration Dexmedetomidine/Sodium Chloride 400 mcg in 100 mls @ 3.629 mls/hr 01/30/25 11:20 01/31/25 09:00 Precedex Ivpb IV 03/01/25 11:19 0.6 mcg/kg/hr .Q24H PRN 10.886 mls/hr Per PROTOCOL Titration Protocol 0.2 MCG/KG/HR Insulin Human Lispro 0 unit 01/30/25 09:00 01/31/25 13:10 Insulin Lispro (Admelog) 1 Unit/0.01 Ml Unit SC 03/01/25 08:59 3 unit Q6HR KIERA Administration Protocol Levetiracetam 500 mg 01/29/25 21:00 01/31/25 08:49 Levetiracetam Inj 100 Mg/Ml Vial 5ml IVP 02/28/25 20:59 500 mg Q12HR KIERA Administration Multivitamins 1 tab 01/31/25 10:30 01/31/25 10:59 Multivitamins Tablet PO 03/02/25 10:29 Not Given QDAY KIERA Pantoprazole Sodium 40 mg 01/29/25 13:00 01/31/25 08:49 Pantoprazole Inj 40 Mg Vial IVP 02/28/25 12:59 40 mg QDAY KIERA Administration Sennosides 1 tab 01/29/25 12:45 Senna Tablet PO 02/28/25 12:44 QDAY PRN constipation Protocol Thiamine HCl 100 mg 02/01/25 09:00 Thiamine 100 Mg Tablet PO 03/03/25 08:59 QDAY KIERA Ziprasidone 40 mg 01/31/25 21:00 Ziprasidone 20 Mg Capsule PO 03/02/25 20:59 BID KIERA Plan Mr. Ortiz is a 29-year-old gentleman with a past medical history of insulin- dependent type 2 diabetes mellitus, polysubstance use (THC and cocaine) , with difficulty taking medications who presented to the ED BIBA with altered mental status. There was concern for overdose and the patient was given multiple doses of Narcan and 1 dose of midazolam en route. Patient was intubated in the emergency department due to unresponsiveness. Glucose 695, Patient admitted to ICU due to intubation and was started on DKA protocol. Pt was successfully extubated today and was given 1 mg ativan at 1300 for agitation, pt was AxO x1 and attempting to leave AMA. Upon evaluating pt today, he appears AOx2, also expressing desire to leave the hospital AMA but family friend Shanda was able to help pt relax and engage with providers. If pt stays, pending neuro consult for seizure work up which was deferred 2/2 sedation while intubated. per SW pt does not qualify for crisis evaluation. #hypergylcemia #Insulin-dependent diabetes mellitus type 2 on SSI - poorly controlled #Mild DKA- resolved A1c 11.8 Patient takes metformin and humalog at home, unlikely that pt was taking medications as prescribed at home. BHB 2.2 on arrival Glucose 143 on 01/31 Dx Q6HR glucose checks Tx: -DC insulin drip -sliding scale #Leukocytosis reactive vs infectious pt s/p extubation, WBC 15 from 14. Blung lopez have crackles Slight uptrend, expect to resolve Dx - CBC - Bcx NGTD - Ucx NGTD - MRSA nares pending - CTM for systemic signs of infection. Tx - APAP if febrile - consider Abx #Seizures Consider provoked seizure caused by hyperglycemia, substance use (utox was initially + for thc, however previously + for cocaine) , query meth use given healed excoriations on BLE c/f meth induced meth parasitosis. Patient had tonic-clonic like movements per EMS when they first made contact with the patient Dx - CT scan negative for hemorrhage or acute infarction - consult neuro for seizure workup, appreciate recs Tx -Was given loading dose of keppra, will continue BID -Seisure precautions #YAMILEX #Rhabdomyolysis BUN 41 Cr 2.4, improved to BUN 33 Cr 1.6 on 01/31/2025 CK 623 on arrival Grade 2 YAMILEX per [facility] Likely prerenal in the setting of DKA in combination with rhabdomyolysis due to possible seizure #Agitation pt has history of previously hitting medical staff pt has requested to leave AMA and can become agitated, while in ICU was given ziprazidone KIERA Tx - ziprazidone 40 PO BID . ok for additional dose if becomes increasingly agitated. #Polysubstance Use Dx -Urine tox positive for marijuana -Previous urine tox positive for cocaine Tx -Social support upon discharge #Hyperosmotic Hyperglycemia #High anion gap lactic Acidosis #Pseudohyponatremia (Resolved) Lactic acid 2.7, AGAP 9 Lactic acid up trended after arrival and initiation of DKA treatment, consider lab error, lactic acid downtrending now Plan: #HTN Emergency (Resolved) BP on arrival was 208/120, 107/72 on 01/30/2025, stable Consider cocaine, substance use Evidence of end organ damage supported by YAMILEX (see renal) and altered mental status prior to arrival per EMS Previous suspicion for end organ damage evidenced by rise in Cr qualifying for hypertensive emergency, however YAMILEX resolving, Cr 1.6 down from 2 #Sinus Tachycardia (Resolved) Tachycardic on arrival Likely due to volume depletion in the presence of DKA Plan: -Continue fluids per DKA protocol #Normocytic Anemia Likely multifactorial, consider nutrition, fluid imbalance Plan: -Trend CBC -F/U outpatient DVT prophylaxis: Heparin Q12 GI prophylaxis: Protonix 40 QD Diet: Carb consistent Diet- low Lines: Peripheral IV LUE Code status: FULL Case discussed with my attending Dr. Aminta Little MD PGY-1
[2025-01-31] MEDS: ZIPRASIDONE 20 MG CAPSULE 40 MG PO (20:49)
[2025-02-01] VITALS (10 sets, daily range): BP systolic 154–199; BP diastolic 90–109; PULSE 89–115; RESP 17–18; TEMP 36.4–37; O2SAT 93–98; BMI 23.3
--- NOTE | 2025-02-01 06:24 | ESCONSULT_ITS ---
HPI Data of Consult Requesting Physician: Rory Pedroza MD Admitting Provider: Rory Pedroza MD Attending Provider: Rory Pedroza MD Primary Care Provider: Physician No Primary/Family Consult Narrative History of present illness: Mr. Ortiz is a 29 year old male with PMHx of diabetes mellitus, seizure disorder (noncompliant with medications), polysubstance use who presented to the ED by ambulance on 01/29 with concern for seizure activity. Bystanders found patient slumped over, called 911 (per ICU note). Given Narcan 6 mg (multiple doses) and midazolam 6 mg, placed on supplemental O2, BP 180/110. Glucose 695, lactic acid 2.1, UDS + THC. CT head w/o negative for acute hemorrhage. In the ED, patient was nonresponsive, BP 208/120, intubated and sedated for airway protection, admitted to ICU. Given loading dose of Keppra for seizures and continued with maintenance 500 mg IV BID. Found to have hyperosmotic hyperglycemia with high anion gap lactic acidosis, c/f DKA, started on DKA protocol. Successful extubation 01/31, downgraded to med-surg. Given Ziprasidone IM 20 mg x 1, Atival 1 mg IV x1 for agitation. Rapid response was called at 12:30 on 02/01 for elevated blood pressure. Patient was asymptomatic and denied any pain. AOx3, no focal neuro deficits. Patient was given labetalol 10 mg IV x 1 and upgraded to telemetry for close monitoring. Of note, patient seen in ED 01/28 for weakness and confusion c/f hyperglycemia with home blood glucose 430 and left AMA. Patient is significantly noncompliant was seen in ED multiple times for elevated blood glucose left AMA. Previous UDS positive for cocaine. Patient evaluated at bedside. Denies new symptoms. Minimally interactive during interview. cc:: cc: Rory Pedroza MD Review of Systems Review of Systems Narrative Review of Systems: 14 point ROS negative other than HPI Exam Vital Signs Temp Pulse Resp BP Pulse Ox O2 Del Method FiO2 98 F 93 17 119/95 H 93 L Mechanical Ventilation 30 02/01/25 04:00 01/31/25 12:10 01/31/25 11:18 01/31/25 10:01 01/31/25 13:07 01/31/25 08:00 01/31/25 08:00 Narrative Exam General: No acute distress, well nourished Eye: PERRL, EOMI, normal conjunctiva, no scleral icterus HENT: Normocephalic, atraumatic, hearing intact to conversation at normal volume, moist oral mucosa Neck: Supple, non-tender, no JVD, no lymphadenopathy Lungs: Non-labored respirations, symmetric chest rise Heart: Peripheral pulses intact bilaterally Abdomen: Soft, non-tender, non-distended Musculoskeletal: Normal range of motion and strength Skin: Skin is warm, dry, no rashes or lesions. Psychiatric: Cooperative, but stopped engaging in exam after several minutes Neurologic: Mental status: Orientation: AOx2 Communication: Patient is cooperative and can follow simple instructions Language: Speech fluent, normal rate and volume, comprehension intact Cranial nerves: CN II: Visual lopez intact CN III: Pupils equal, round, and reactive to light CN III, IV, : No gaze deviation, no nystagmus Horizontal pursuit: intact Vertical pursuit: intact Ptosis: none CN V: Facial sensation to light touch intact bilaterally at the forehead, cheeks, and jaw line CN VII: Face symmetric, no facial droop appreciated CN VIII: Able to hear and respond to conversation at normal volume, intact to finger rub CN IX, X: Palate elevation symmetric, uvula midline CN XI: Head turn and shoulder shrug strong, symmetric bilaterally CN XII: Normal tongue protrusion without deviation, no fasciculations Motor: Normal bulk and tone No atrophy No abnormal movements or fasciculations Muscle strength: Shoulder abduction: R 5/5 L 5/5 Elbow flexion: R 5/5 L 5/5 Elbow extension: R 5/5 L 5/5 Hip flexion: R 5/5 L 5/5 Hip extension: R 5/5 L 5/5 Knee flexion: R 5/5 L 5/5 Knee extension: R 5/5 L 5/5 Sensory: RUE: Light touch intact LUE: Light touch intact RLE: Light touch intact LLE: Light touch intact Reflexes: Biceps (C5-6): R 2+ L 2+ Brachioradialis (C5-6): R 2+ L 2+ Triceps (C7-8): R 2+ L 2+ Patellae (L3-4): R 2+ L 2+ Achilles (S1-2):R 2+ L 2+ Results Labs 02/01/25 13:22 02/01/25 13:22 Labs: Short CBC 01/31/25 Range/Units 04:30 WBC 15.6 H (3.8-10.6) Thou/mm3 Hgb 9.0 L (13.5-16.0) g/dL Hct 25.7 L (41.0-53.0) % Plt Count 148 (140-440) Thou/mm3 BMP 01/31/25 04:30 Sodium 141 Potassium 4.6 D Chloride 106 Carbon Dioxide 22.9 BUN 32 H Creatinine 1.6 H Glucose 143 H D Calcium 7.6 L Liver Function 01/31/25 Range/Units 04:30 Total Bilirubin 0.2 L (0.3-1.2) mg/dL AST 42 H (0-34) U/L ALT 14 (10-49) U/L Alkaline Phosphatase 85 (46-116) U/L Albumin 2.3 L (3.5-5.0) gm/dL ABG Interpretation ABG results: 01/29/25 01/29/25 01/29/25 11:11 12:44 17:19 ABG pH 7.45 ABG pCO2 37 ABG pO2 385 H ABG HCO3 26 ABG O2 Saturation 101 H ABG Base Excess 2 VBG pH 7.22 L 7.46 VBG pCO2 53 D 37 D VBG pO2 105 H D 52 D VBG Base Excess -7 L 2 01/29/25 01/29/25 01/30/25 21:09 22:31 01:39 ABG pH 7.55 H D ABG pCO2 31 L ABG pO2 137 H D ABG HCO3 27 H ABG O2 Saturation 101 H ABG Base Excess 4 H VBG pH 7.72 H 7.47 VBG pCO2 23 L D 37 D VBG pO2 172 H D 62 H D VBG Base Excess 10 H 3 01/30/25 01/30/25 01/31/25 04:04 06:18 07:03 ABG pH 7.35 D 7.45 D ABG pCO2 48 D 37 D ABG pO2 125 H 116 H ABG HCO3 26 26 ABG O2 Saturation 100 H 100 H ABG Base Excess 1 2 VBG pH 7.38 VBG pCO2 45 VBG pO2 37 D VBG Base Excess 2 Quality Measures Quality Measures VTE prophylaxis Medications Home Medications and Allergies Home Medications ?Medication ?Instructions ?Recorded ?Confirmed ?Type insulin lispro 100 unit/mL See Protocol subcut [facility] [place] 09/14/19 01/31/25 History subcutaneous solution (Humalog Hyperglycemia U-100 Insulin) metformin 500 mg tablet,extended 500 mg PO BID 0 01/31/25 History release 24 hr Allergies Allergy/AdvReac Type Severity Reaction Status Date / Time No Known Allergies Allergy Verified 01/28/25 13:04 Visit Medications Acetaminophen (Acetaminophen 325 Mg Tablet) 650 mg PO Q6H PRN PRN Reason: Pain (1-3) & Fever >100.4 Stop: 02/28/25 12:44 Albuterol/Ipratropium (Albuterol/Ipratropium (Duoneb) Rt Judy 3 Ml Nebu) 3 ml INH Q2HR PRN PRN Reason: SHORTNESS OF BREATH OR WHEEZE Stop: 03/02/25 14:01 Dextrose (Dextrose 50%-Water Inj 50 Ml Syringe) 25 ml IV Q15MIN PRN PRN Reason: BG 50-70 responsive npo pt Stop: 03/01/25 08:47 Dextrose (Dextrose 50%-Water Inj 50 Ml Syringe) 50 ml IV Q15MIN PRN PRN Reason: BG <50 OR BG <70 & pt unresponsive Stop: 03/01/25 08:47 Folic Acid (Folic Acid 1 Mg Tablet) 1 mg PO QDAY [facility] Stop: 03/03/25 08:59 Glucagon (Glucagon Inj 1 Mg Vial) 1 mg IM Q15MIN PRN PRN Reason: BG <70, and no IV access Heparin Sodium (Porcine) (Heparin Sod Inj 5000 Unit/Ml Vial) 5,000 unit SC Q12H [facility] Stop: 02/12/25 20:59 Last Admin: 01/31/25 20:50 Dose: Not Given Insulin Human Lispro (Insulin Lispro (Admelog) 1 Unit/0.01 Ml Unit) 0 unit SC [facility]; Protocol Stop: 03/02/25 20:59 Last Admin: 01/31/25 20:50 Dose: Not Given Levetiracetam (Levetiracetam 250 Mg Tablet) 500 mg PO BID [facility] Stop: 03/02/25 20:59 Last Admin: 01/31/25 20:49 Dose: 500 mg Multivitamins (Multivitamins Tablet) 1 tab PO QDAY [facility] Stop: 03/02/25 10:29 Last Admin: 01/31/25 10:59 Dose: Not Given Pantoprazole Sodium (Pantoprazole Inj 40 Mg Vial) 40 mg IVP QDAY [facility] Stop: 02/28/25 12:59 Last Admin: 01/31/25 08:49 Dose: 40 mg Sennosides (Senna Tablet) 1 tab PO QDAY PRN; Protocol PRN Reason: constipation Stop: 02/28/25 12:44 Thiamine HCl (Thiamine 100 Mg Tablet) 100 mg PO QDAY [facility] Stop: 03/03/25 08:59 Ziprasidone (Ziprasidone 20 Mg Capsule) 40 mg PO BID [facility] Stop: 03/02/25 20:59 Last Admin: 01/31/25 20:49 Dose: 40 mg Discontinued Medications Albuterol/Ipratropium (Albuterol/Ipratropium (Duoneb) Rt Judy 3 Ml Nebu) 3 ml INH X1 ONE Stop: 01/31/25 11:09 Last Admin: 01/31/25 11:15 Dose: 3 ml Dextrose (Dextrose 50%-Water Inj 50 Ml Syringe) 25 ml IV [id number] PRN PRN Reason: Blood Sugar - Low Etomidate (Etomidate Inj 2 Mg/Ml Vial 10 Ml) 20 mg IVP X1 ONE Stop: 01/29/25 11:11 Last Admin: 01/29/25 11:13 Dose: 20 mg Fentanyl Citrate (Fentanyl Cit Inj 50 Mcg/Ml Amp 2ml) 100 mcg IVP X1 ONE Stop: 01/29/25 12:38 Last Admin: 01/29/25 12:52 Dose: 100 mcg Folic Acid (Folic Acid Inj 1 Mg/0.2 Ml) 1 mg IVP QDAY [facility] Stop: 02/28/25 13:29 Last Admin: 01/31/25 08:50 Dose: 1 mg Haloperidol Lactate (Haloperidol Lact Inj 5 Mg/Ml Vial) 5 mg IV X1 ONE Stop: 01/30/25 10:23 Last Admin: 01/30/25 10:58 Dose: 5 mg Propofol (Diprivan Ivpb) 1,000 mg in 100 mls @ 2.177 mls/hr IV .Q24H PRN; Protocol PRN Reason: PER PROTOCOL Stop: 02/28/25 11:23 Last Titration: 01/30/25 14:15 Dose: 0 mcg/kg/min, 0 mls/hr Sodium Chloride (Ns) 1,000 mls @ 999 mls/hr IV .Q1H1M ONE Stop: 01/29/25 12:10 Last Infusion: 01/29/25 11:42 Dose: Infused Midazolam HCl (Versed Pf Inj In Ns Premix) 100 mg in 100 mls @ 1 mls/hr IV .Q24H PRN; Protocol PRN Reason: PER PROTOCOL Stop: 02/03/25 11:47 Last Titration: 01/30/25 03:00 Dose: 0 mg/hr, 0 mls/hr Fentanyl Citrate (Sublimaze Inj 2,500 Mcg/250 Ml Bag) 2,500 mcg in 250 mls @ 2.5 mls/hr IV .Q24H PRN; Protocol PRN Reason: Per Protocol Stop: 02/03/25 12:36 Last Titration: 01/30/25 10:20 Dose: 0 mcg/hr, 0 mls/hr Potassium Chloride (Kcl Ivpb) 10 meq in 100 mls @ 100 mls/hr IV .Q1H PRN PRN Reason: IF POTASSIUM LESS THAN 3.3 Stop: 02/28/25 12:49 Magnesium Sulfate (Magnesium Sulfate Ivpb) 2 gm in 50 mls @ 25 mls/hr IV .Q2H PRN PRN Reason: PER DKA PROTOCOL Stop: 02/28/25 12:49 Insulin Human Regular 100 unit (/ IV Miscellaneous Supplies) 100 mls @ 7.258 mls/hr IV .[id number] PRN; Protocol PRN Reason: PER PROTOCOL Stop: 02/28/25 12:49 Last Titration: 01/30/25 09:00 Dose: 0 unit/kg/hr, 0 mls/hr Dextrose/Lactated Ringer's (D5-Lr) 1,000 mls @ 250 mls/hr IV .Q4H PRN PRN Reason: PER PROTOCOL Stop: 02/28/25 12:49 Last Infusion: 01/30/25 10:00 Dose: 0 mls/hr Lactated Ringer's (Lactated Ringers) 1,000 mls @ 250 mls/hr IV .Q4H PRN PRN Reason: PER PROTOCOL Stop: 01/30/25 12:49 Potassium Chloride 20 meq/ (Lactated Ringer's) 1,010 mls @ 250 mls/hr IV .Q4H3M PRN PRN Reason: K LEVEL 3.3 TO 5.3mM/L Stop: 02/28/25 12:49 Last Infusion: 01/29/25 20:55 Dose: 0 mls/hr Potassium Chloride 40 meq/ (Lactated Ringer's) 1,020 mls @ 250 mls/hr IV .Q4H5M PRN PRN Reason: K LEVEL < 3.3 mM/L Stop: 02/28/25 12:49 Potassium Chloride 40 meq/ (Dextrose/Lactated Ringer's) 1,020 mls @ 250 mls/hr IV .Q4H5M PRN PRN Reason: K LEVEL < 3.3mM/L Stop: 02/28/25 12:49 Potassium Cl/Dextrose/Lact Ringer's (Kcl 20 Meq/L In D5-Lr) 20 meq in 1,000 mls @ 250 mls/hr IV .Q4H PRN PRN Reason: K LEVEL 3.3 TO 5.3 mM/L Potassium Chloride (Kcl Ivpb) 10 meq in 100 mls @ 50 mls/hr IV PRN PRN PRN Reason: K LEVEL 3.3 to 5.3 & BG > 200 Stop: 02/28/25 12:49 Last Infusion: 01/30/25 10:00 Dose: 0 mls/hr Potassium Phosphate (Pot Phos 15 Mmol In Ns 250 Ml) 15 mmol in 250 mls @ 62.5 mls/hr IV PRN PRN PRN Reason: Phosphate <= 1mg/dL Stop: 02/28/25 12:49 Sodium Phosphate 15 mmol/ (Sodium Chloride) 255 mls @ 62.5 mls/hr IV .Q4H5M PRN PRN Reason: Phosphate <= 1mg/dL and K> than 5.3 Stop: 02/28/25 12:49 Lactated Ringer's (Lactated Ringers) 1,000 mls @ 999 mls/hr IV .Q1H1M ONE Stop: 01/29/25 14:14 Last Infusion: 01/29/25 15:31 Dose: Infused Lactated Ringer's (Lactated Ringers) 1,000 mls @ 999 mls/hr IV .Q1H1M ONE Stop: 01/29/25 15:40 Last Admin: 01/29/25 14:44 Dose: Not Given Lactated Ringer's (Lactated Ringers) 1,000 mls @ 999 mls/hr IV .Q1H1M ONE Stop: 01/29/25 22:00 Lactated Ringer's (Lactated Ringers) 1,000 mls @ 999 mls/hr IV .Q1H1M ONE Stop: 01/29/25 19:52 Last Admin: 01/29/25 18:55 Dose: 999 mls/hr Potassium Chloride 20 meq/ (Dextrose/Lactated Ringer's) 1,010 mls @ 250 mls/hr IV .Q4H3M PRN PRN Reason: K LEVEL 3.3 TO 5.3 mM/L Stop: 02/28/25 19:42 Last Infusion: 01/30/25 06:45 Dose: Infused Lactated Ringer's (Lactated Ringers) 500 mls @ 999 mls/hr IV .Q31M ONE Stop: 01/29/25 23:16 Last Admin: 01/29/25 23:08 Dose: 999 mls/hr Dexmedetomidine/Sodium Chloride (Precedex Ivpb) 400 mcg in 100 mls @ 3.629 mls/hr IV .Q24H PRN; Protocol PRN Reason: Per PROTOCOL Stop: 03/01/25 11:19 Last Titration: 01/31/25 09:15 Dose: 0 mcg/kg/hr, 0 mls/hr Lactated Ringer's (Lactated Ringers) 1,000 mls @ 60 mls/hr IV .[id number] [facility] Stop: 03/01/25 14:15 Last Admin: 01/31/25 08:46 Dose: Not Given Insulin Human Lispro (Insulin Lispro (Admelog) 1 Unit/0.01 Ml Unit) 0 unit SC Q6HR KIERA; Protocol Stop: 03/01/25 08:59 Last Admin: 01/31/25 18:11 Dose: 3 unit Levetiracetam (Levetiracetam Inj 100 Mg/Ml Vial 5ml) 1,000 mg IVP X1 ONE Stop: 01/29/25 13:19 Last Admin: 01/29/25 13:48 Dose: 1,000 mg Levetiracetam (Levetiracetam Inj 100 Mg/Ml Vial 5ml) 500 mg IVP Q12HR KIEAR Stop: 02/28/25 20:59 Last Admin: 01/31/25 08:49 Dose: 500 mg Lorazepam (Lorazepam 2 Mg/Ml Vial) 1 mg IVP X1 ONE Stop: 01/31/25 12:59 Last Admin: 01/31/25 13:04 Dose: 1 mg Midazolam HCl (Midazolam Inj 1 Mg/Ml Vial 2 Ml) 4 mg IVP X1 ONE Stop: 01/29/25 13:25 Last Admin: 01/29/25 13:43 Dose: 4 mg Midazolam HCl (Midazolam Inj 1 Mg/Ml Vial 2 Ml) 4 mg IVP X1 ONE Stop: 01/30/25 07:18 Last Admin: 01/30/25 07:23 Dose: 4 mg Midazolam HCl (Midazolam Inj 1 Mg/Ml Vial 2 Ml) 2 mg IVP X1 ONE Stop: 01/30/25 11:01 Last Admin: 01/30/25 11:03 Dose: 2 mg Midazolam HCl (Midazolam Inj 1 Mg/Ml Vial 2 Ml) 2 mg IVP X1 ONE Stop: 01/30/25 11:11 Last Admin: 01/30/25 11:08 Dose: 2 mg Midazolam HCl (Midazolam Inj 1 Mg/Ml Vial 2 Ml) 4 mg IVP X1 ONE Stop: 01/30/25 11:47 Last Admin: 01/30/25 11:50 Dose: 4 mg Midazolam HCl (Midazolam Inj 1 Mg/Ml Vial 2 Ml) 2 mg IVP X1 ONE Stop: 01/30/25 15:58 Last Admin: 01/30/25 16:04 Dose: 2 mg Midazolam HCl (Midazolam Inj 1 Mg/Ml Vial 2 Ml) 4 mg IVP X1 ONE Stop: 01/30/25 18:32 Last Admin: 01/30/25 18:50 Dose: 4 mg Midazolam HCl (Midazolam Inj 1 Mg/Ml Vial 2 Ml) 4 mg IVP X1 ONE Stop: 01/31/25 00:46 Last Admin: 01/31/25 00:53 Dose: 4 mg Midazolam HCl (Midazolam Inj 1 Mg/Ml Vial 2 Ml) 4 mg IVP X1 ONE Stop: 01/31/25 03:51 Last Admin: 01/31/25 03:59 Dose: 4 mg Propofol (Propofol Inj 10 Mg/Ml Vial 20 Ml) 50 mg IV X1 ONE Stop: 01/29/25 11:50 Last Admin: 01/29/25 12:08 Dose: 50 mg Rocuronium [place] (Rocuronium Inj 10 Mg/Ml Vial 10 Ml) 50 mg IVP X1 ONE Stop: 01/29/25 11:17 Last Admin: 01/29/25 11:14 Dose: 50 mg Sodium Bicarbonate (Sodium Bicarb Inj 8.4% Syr 50 Ml Syringe) 50 ml IV Q4HR PRN PRN Reason: For ph <= to 7.0 Stop: 02/28/25 12:49 Sodium Chloride (Sodium Chloride Rt 10% 15 Ml Nebu) 5 ml INH X1 ONE Stop: 01/29/25 11:27 Last Admin: 01/30/25 18:49 Dose: Not Given Thiamine HCl (Thiamine Inj 100 Mg/Ml Vial 2 Ml) 100 mg IVP BID KIERA Stop: 02/28/25 13:29 Last Admin: 01/31/25 08:49 Dose: 100 mg Ziprasidone (Ziprasidone Inj 20 Mg/Ml Vial (Non-Formulary)) 10 mg IM Q6H PRN; Protocol PRN Reason: AGITATION (SEVERE) Stop: 03/01/25 11:57 Last Admin: 01/30/25 13:03 Dose: 10 mg Ziprasidone (Ziprasidone Inj 20 Mg/Ml Vial (Non-Formulary)) 10 mg IM X1 ONE Stop: 01/30/25 18:45 Last Admin: 01/30/25 19:58 Dose: 10 mg Ziprasidone (Ziprasidone 20 Mg Capsule) 40 mg PO BID KIERA Stop: 03/02/25 10:14 Last Admin: 01/31/25 10:59 Dose: Not Given Ziprasidone (Ziprasidone 20 Mg Capsule) 40 mg PO BID KIERA Stop: 03/02/25 20:59 Ziprasidone (Ziprasidone Inj 20 Mg/Ml Vial (Non-Formulary)) 20 mg IM X1 ONE Stop: 01/31/25 11:01 Last Admin: 01/31/25 11:25 Dose: 20 mg Assessment & Plan Plan #Seizures #Acute ischemic stroke with multiple foci in right posterior temporal and right occipital lobe In the setting of hyperclycemia / DKA, substance use (UDS + THC, previously + for cocaine) Denies hx of seizures, stroke, TIA Patient had tonic-clonic like movements per EMS when they first made contact with the patient CT head w/o 01/29: Negative for acute hemorrhage, mass effect, midline shift Given loading dose Keppra in ICU, started on maintenance dose 500 mg BID MRI brain w/o: Multiple foci restricted diffusion in right posterior temporal and right occipital lobe with ADC drop out c/f acute ischemic infarct DDX: small vessel disease, vasculitis, polysubstance use Plan: - Continue Keppra 500 mg BID - EEG - PHILIPPE and hypercoag labs ordered given patient's young age #Agitation pt has history of previously hitting medical staff pt has requested to leave AMA and can become agitated while in ICU was given ziprasidone KIERA Tx - ziprasidone 40 PO BID #HTN Emergency (Resolved) BP on arrival was 208/120 Evidence of end organ damage supported by YAMILEX, altered mental status #Polysubstance Use #Insulin-dependent diabetes mellitus type 2 on SSI #Hyperosmotic Hyperglycemia #High anion gap lactic Acidosis #Pseudohyponatremia (Reolved) #Mild DKA #Medication non-compliance A1c 11.8 Initial glucose 695 Patient takes metformin and humalog at home, unlikely that pt was taking medications as prescribed at home. #Leukocytosis #YAMILEX BUN 41 Cr 2.4, improved to BUN 33 Cr 1.6 on 01/31/2025 CK 623 on arrival Likely prerenal in the setting of DKA #Sinus Tachycardia (Resolved) #Normocytic Anemia Plan: - Management per primary Plan discussed with Dr. Nestor Cabral, PGY1 Attending Provider Attestation/Addendum Patient was seen and examined at the bedside and I agreed with resident's findings, assessment and plan of care. His clinical and radiological presentation with underlying uncontrolled DM and illicit drug abuse suggests vasculitis. However, will fu with PHILIPPE and hypercoag profile to loom for other sec causes. Watch for any recurrent sz and fu with EEG while continuing keppra. Continue asa 81 mg and statin.
--- NOTE | 2025-02-01 07:41 | ESPR_ITS ---
<Statement entered by Latoya Lemos MD - 02/05/25 07:33> I reviewed above note and agree with findings and plans. I have also personally examined the patient with medicine team and went over assessment and plan with medical team including internet media planner and resident physician. <Statement entered by Mode Gaitan MD - 02/01/25 14:06> Patient was seen and examined at the bedside. He denied any pain or nausea vomiting. He had rapid response for elevated blood pressure. Denied any chest pain. Labetalol was pushed 10 mg IV x 1. He was alert and oriented and no neurological symptoms seen. Lantus 10 units were added and correction scale sliding scale was increased to 2. Neurology wants to do an MRI brain and EEG to evaluate for seizures. Protonix switched to p.o. Labs and orders were reviewed. Started amlodipine 10 mg once daily for tomorrow. Creatinine around 1.6. I discussed and supervised with the internet media planner physician who took care of this patient. I personally saw and examined the patient. I agree with most of the assessment and plan. Disclaimer: Despite multiple revisions, due to the dictation software being used, the document bellow may not be free of grammatical errors including phonetic/typographic errors. However, this does not deter from our commitment to providing health care in the patient's best interest in mind. Plan of care discussed with attending Physician Dr. Aminta Gaitan MD PGY-3 Documentation for date of: 02/01/25 Subjective Subjective Interval history: No acute events overnight pt downgraded to floors from ICU. per nurse pt had some penile discharge, and pt reports dysuria. Rapid response this afternoon for htn, upgraded to tele, given 10 Labetalol. will give 10 amlodipine tomorrow scheduled qd. start long acting insulin 10 Units given morning bgluc of 300s. Exam Vital Signs Temp Pulse Resp BP Pulse Ox O2 Del Method FiO2 98 F 93 17 119/95 H 93 L Mechanical Ventilation 30 02/01/25 04:00 01/31/25 12:10 01/31/25 11:18 01/31/25 10:01 01/31/25 13:07 01/31/25 08:00 01/31/25 08:00 Narrative Exam General: Awake, slow to respond, oriented to self and place HEENT: Normocephalic, atraumatic, mucous membranes moist. Heart: tachycardic rate and regular rhythm, no murmurs. Lungs: Mild bilateral crackles at lung bases Abdomen: Soft, nondistended, nontender, positive bowel sounds. ?No guarding or rebound tenderness. no suprapubic tenderness exam deferred. penile discharge was noted per nurse report. Neurologic: Alert and oriented x2, no gross neurological deficit, and patient able to move all 4 extremities. Extremities: 1+ bilateral lower extremity edema. Skin: No rash or ecchymoses. BL shins with healed excoriations Objective Labs 02/01/25 13:22 02/01/25 13:22 ABG Interpretation ABG results: 01/29/25 01/29/25 01/29/25 11:11 12:44 17:19 ABG pH 7.45 ABG pCO2 37 ABG pO2 385 H ABG HCO3 26 ABG O2 Saturation 101 H ABG Base Excess 2 VBG pH 7.22 L 7.46 VBG pCO2 53 D 37 D VBG pO2 105 H D 52 D VBG Base Excess -7 L 2 01/29/25 01/29/25 01/30/25 21:09 22:31 01:39 ABG pH 7.55 H D ABG pCO2 31 L ABG pO2 137 H D ABG HCO3 27 H ABG O2 Saturation 101 H ABG Base Excess 4 H VBG pH 7.72 H 7.47 VBG pCO2 23 L D 37 D VBG pO2 172 H D 62 H D VBG Base Excess 10 H 3 01/30/25 01/30/25 01/31/25 04:04 06:18 07:03 ABG pH 7.35 D 7.45 D ABG pCO2 48 D 37 D ABG pO2 125 H 116 H ABG HCO3 26 26 ABG O2 Saturation 100 H 100 H ABG Base Excess 1 2 VBG pH 7.38 VBG pCO2 45 VBG pO2 37 D VBG Base Excess 2 Quality Measures Quality Measures VTE prophylaxis Assessment & Plan Assessment Current Active Medications: Generic Name Dose Route Start Last Admin Trade Name Freq PRN Reason Stop Dose Admin Acetaminophen 650 mg 01/29/25 12:45 Acetaminophen 325 Mg Tablet PO 02/28/25 12:44 Q6H PRN Pain (1-3) & Fever >100.4 Albuterol/Ipratropium 3 ml 01/31/25 14:02 Albuterol/Ipratropium (Duoneb) Rt Judy 3 Ml Nebu INH 03/02/25 14:01 Q2HR PRN SHORTNESS OF BREATH OR WHEEZE Dextrose 25 ml 01/30/25 08:48 Dextrose 50%-Water Inj 50 Ml Syringe IV 03/01/25 08:47 Q15MIN PRN BG 50-70 responsive npo pt Dextrose 50 ml 01/30/25 08:48 Dextrose 50%-Water Inj 50 Ml Syringe IV 03/01/25 08:47 Q15MIN PRN BG <50 OR BG <70 & pt unresponsive Folic Acid 1 mg 02/01/25 09:00 Folic Acid 1 Mg Tablet PO 03/03/25 08:59 QDAY KIERA Glucagon 1 mg 01/30/25 08:48 Glucagon Inj 1 Mg Vial IM Q15MIN PRN BG <70, and no IV access Heparin Sodium (Porcine) 5,000 unit 01/29/25 21:00 01/31/25 20:50 Heparin Sod Inj 5000 Unit/Ml Vial SC 02/12/25 20:59 Not Given Q12H KIERA Insulin Human Lispro 0 unit 01/31/25 21:00 01/31/25 20:50 Insulin Lispro (Admelog) 1 Unit/0.01 Ml Unit SC 03/02/25 20:59 Not Given ACHS KIERA Protocol Levetiracetam 500 mg 01/31/25 21:00 01/31/25 20:49 Levetiracetam 250 Mg Tablet PO 03/02/25 20:59 500 mg BID KIERA Administration Multivitamins 1 tab 01/31/25 10:30 01/31/25 10:59 Multivitamins Tablet PO 03/02/25 10:29 Not Given QDAY KIERA Pantoprazole Sodium 40 mg 01/29/25 13:00 01/31/25 08:49 Pantoprazole Inj 40 Mg Vial IVP 02/28/25 12:59 40 mg QDAY KIERA Administration Sennosides 1 tab 01/29/25 12:45 Senna Tablet PO 02/28/25 12:44 QDAY PRN constipation Protocol Thiamine HCl 100 mg 02/01/25 09:00 Thiamine 100 Mg Tablet PO 03/03/25 08:59 QDAY KIERA Ziprasidone 40 mg 01/31/25 21:00 01/31/25 20:49 Ziprasidone 20 Mg Capsule PO 03/02/25 20:59 40 mg BID KIERA Administration Plan Mr. Ortiz is a 29-year-old gentleman with a past medical history of insulin- dependent type 2 diabetes mellitus, polysubstance use (THC and cocaine) , with difficulty taking medications who presented to the ED BIBA with altered mental status. There was concern for overdose and the patient was given multiple doses of Narcan and 1 dose of midazolam en route. Patient was intubated in the emergency department due to unresponsiveness. Glucose 695, Patient admitted to ICU due to intubation and was started on DKA protocol. Pt was successfully extubated today and was given 1 mg ativan at 1300 for agitation, pt was AxO x1 and attempting to leave AMA. pt more interactive during exam today, reports dysuria, and query penile discharge (pending repeat UA and STI panel), Leukocytosis uptrending query infxn vs reactive. MRI brain completed for seizure workup, pending neuro recs, continues on keppra 500 bid. plan for EEG if pt is amenable. Bglucose levels 300s in the AM, start long acting 10 units. pt had rapid response called for HTN, sbp 180s transferred to tele and given iv labetalol 10 mg 1x and will start on amlodipine 10mg qd tomorrow. #HTN rapid response called for HTN to 180s see event note by Dr. Gaitan Tx -Labetalol 10 mg IV 1x -Start amlodipine 10mg qd tomorrow #hypergylcemia #Insulin-dependent diabetes mellitus type 2 on SSI - poorly controlled #Mild DKA- resolved A1c 11.8 Patient takes metformin and humalog at home, unlikely that pt was taking medications as prescribed at home. BHB 2.2 on arrival Glucose 143 on 01/31 Dx Q6HR glucose checks Tx: -DC insulin drip -Start long acting 10 Units -sliding scale #Leukocytosis reactive vs infectious - uptrending #Query UTI pending UA pt s/p extubation, WBC 15 from 14. Blung lopez have crackles climbing Dx - CBC - Bcx NGTD @48hr - Ucx NGTD - MRSA nares negative - pending repeat UA - pending STI panel - CTM for systemic signs of infection. Tx - APAP if febrile - consider Abx #Seizures Consider provoked seizure caused by hyperglycemia, substance use (utox was initially + for thc, however previously + for cocaine) , query meth use given healed excoriations on BLE c/f meth induced meth parasitosis. Patient had tonic-clonic like movements per EMS when they first made contact with the patient Dx - CT scan negative for hemorrhage or acute infarction - pending EEG - MRI head: Multiple foci restricted diffusion in the right posterior temporal right occipital lobe with possible mild signal deficit on the ADC map, recommend neurology consultation and correlation with clinical findings to assess for acute infarction versus demyelinating disease versus encephalopathy - consult neuro for seizure workup, appreciate recs Tx -Was given loading dose of keppra, will continue 500 BID -Seisure precautions #YAMILEX #Rhabdomyolysis BUN 41 Cr 2.4, improved to BUN 33 Cr 1.6 on 01/31/2025 CK 623 on arrival Grade 2 YAMILEX per [facility] Likely prerenal in the setting of DKA in combination with rhabdomyolysis due to possible seizure #Agitation pt has history of previously hitting medical staff pt has requested to leave AMA and can become agitated, while in ICU was given ziprazidone KIERA Tx - ziprazidone 40 PO BID . ok for additional dose if becomes increasingly agitated. #Polysubstance Use Dx -Urine tox positive for marijuana -Previous urine tox positive for cocaine Tx -Social support upon discharge #Hyperosmotic Hyperglycemia #High anion gap lactic Acidosis #Pseudohyponatremia (Resolved) Lactic acid 2.7, AGAP 9 Lactic acid up trended after arrival and initiation of DKA treatment, consider lab error, lactic acid downtrending now Plan: #HTN Emergency (Resolved) BP on arrival was 208/120, 107/72 on 01/30/2025, stable Consider cocaine, substance use Evidence of end organ damage supported by YAMILEX (see renal) and altered mental status prior to arrival per EMS Previous suspicion for end organ damage evidenced by rise in Cr qualifying for hypertensive emergency, however YAMILEX resolving, Cr 1.6 down from 2 #Sinus Tachycardia (Resolved) Tachycardic on arrival Likely due to volume depletion in the presence of DKA Plan: -Continue fluids per DKA protocol #Normocytic Anemia Likely multifactorial, consider nutrition, fluid imbalance Plan: -Trend CBC -F/U outpatient Dispo: pending DM education and neuro workup of seizures, ongoing infectious workup for uptrending wbc. DVT prophylaxis: Heparin Q12 GI prophylaxis: Protonix 40 QD Diet: Carb consistent Diet- low Lines: Peripheral IV LUE Code status: FULL Case discussed with my senior resident Dr. Gaitan Case discussed with my attending Dr. Aminta Little MD PGY-1
[2025-02-01] MEDS: INSULIN LISPRO (AdmeLOG) 1 UNIT/0.01 ML UNIT SC ×4 (08:03→20:22)
[2025-02-01] MEDS: HEPARIN SOD INJ 5000 UNIT/ML VIAL SC ×2 (09:23→20:35)
[2025-02-01] MEDS: INSULIN GLARGINE (Lantus) 5 UNIT/0.05 ML (PER 5 UNITS) 10 UNIT SC (09:23)
[2025-02-01] MEDS: ZIPRASIDONE 20 MG CAPSULE 40 MG PO ×2 (09:25→20:28)
[2025-02-01] MEDS: MULTIVITAMINS TABLET 1 TAB PO (09:25)
[2025-02-01] MEDS: FOLIC ACID 1 MG TABLET PO (09:25)
[2025-02-01] MEDS: THIAMINE 100 MG TABLET PO (09:32)
--- NOTE | 2025-02-01 09:36 | XR_ITS ---
Examination: MRI brain without intravenous contrast. Date and time of exam: January 24, 2025 1541 hours INDICATIONS: Onset seizures beginning January 29, 2025 Technique: Multiple axial and sagittal images of the brain obtained. Siemens high-resolution 1.5 Susan short bore scanners utilized. Sagittal sections, T1-weighted, TR 500, TE 14, are performed. Axial sections proton-density and T2-weighted have been obtained. Inversion recovery axial images, TR 9, 260, TE 111, TI 2500. Diffusion weighted images, axial sections, TR 4800, TE 128, B value 1000 Axial sections, ADC map, TR 4800, TE 128 Findings: Enlargement of the sella turcica is not present. The optic chiasm and infundibular are not remarkable. Prepontine and interpeduncular cisterns are not enlarged. There is no localized enlargement of the medulla or ranjana. Fourth ventricle and cerebellar tonsils appear normal in position. No subacute area of hemorrhage density is seen. Mass in the cerebellopontine angle region is not evident. Globes symmetrical. Orbital musculature including medial lateral rectus muscles do not exhibit abnormality. Diffusion-weighted images demonstrate foci restricted diffusion in the right posterior temporal right occipital lobe with possible mild signal deficit on the ADC map. Increased white matter signal mild, the FLAIR images are unfortunately degraded by patient motion Mass effect upon the ventricular system is not identified. Impression: Multiple foci restricted diffusion in the right posterior temporal right occipital lobe with possible mild signal deficit on the ADC map, recommend neurology consultation and correlation with clinical findings to assess for acute infarction versus demyelinating disease versus encephalopathy
[2025-02-01] MEDS: PANTOPRAZOLE 40 MG TABLET PO (10:33)
--- NOTE | 2025-02-01 11:59 | PC.NURSE ---
Patient blood pressure elevated. 177/102, 179/105. HR 102, 105. Called Dr. Rangel and made aware.
[2025-02-01] MEDS: LABETALOL INJ 5 MG/ML VIAL 20 ML 10 MG IVP ×2 (12:29→20:10)
--- NOTE | 2025-02-01 13:36 | PD.RESEVENT ---
Documentation for date of: 02/01/25 Event Note Event Note: Rapid Response: Rapid response was called at 12:30 for elevated blood pressure. Patient was asymptomatic and denied any pain.He is AOx3 and Cardiac ausc revealed sinus tacy and Lung Examination showed clear breath sounds and neurological exam was unremarkable. Patient was given labetalol 10 mg IV x 1 and upgraded to telemetry for close monitoring. Additionally, speech evaluation was ordered. Patient was seen and discussed with attending physician, Dr. Aminta Gaitan MD, PGY 3
[2025-02-01 13:49] LABS: Basophils # (Auto) 0.1 Thou/mm3 (0.0-0.2); Basophils % (Auto) 0 % (0-2.5); Eosinophils # (Auto) 0.0 Thou/mm3 (0.0-0.5); Eosinophils % (Auto) 0 % (0-10); Hematocrit 26.2 % (41.0-53.0); Hemoglobin 8.9 g/dL (13.5-16.0); Immature Granulocytes Auto 0.14 Thou/mm3 (0.00-0.00); Lymphocytes # (Auto) 1.1 Thou/mm3 (1.0-4.8); Lymphocytes % (Auto) 6 % (10-50); Mean Corpuscular HGB Conc 34.0 g/dl (31.0-37.0); Mean Corpuscular Hemoglobin 29.7 pg (25.0-35.0); Mean Corpuscular Volume 87 fL (80-100); Monocytes # (Auto) 1.0 Thou/mm3 (0.0-0.8); Monocytes % (Auto) 5 % (0-12); Neutrophils # (Auto) 16.7 Thou/mm3 (1.8-7.7); Neutrophils % (Auto) 88 % (37-80); Nucleated Red Blood Cell # 0.00 Thou/mm3 (0.00-0.00); Nucleated Red Blood Cell % 0 /100 WBC (0); Platelet Count 289 Thou/mm3 (140-440); RDW Standard Deviation 44.1 fL (35.1-43.9); Red Blood Count 3.00 Miln/mm3 (4.50-5.90); White Blood Count 19.0 Thou/mm3 (3.8-10.6)
[2025-02-01 14:20] LABS: Alanine Aminotransferase 15 U/L (10-49); Albumin, Serum 2.5 gm/dL (3.5-5.0); Albumin/Globulin Ratio 1.1 (1.2-2.2); Alkaline Phosphatase 111 U/L (46-116); Anion Gap 11 (7-16); Aspartate Amino Transferase 25 U/L (0-34); BUN/Creatinine Ratio 17 Ratio (12-20); Bilirubin,Total 0.2 mg/dL (0.3-1.2); Blood Urea Nitrogen 27 mg/dL (9-23); Calcium 7.8 mg/dL (8.3-10.6); Calcium (Corrected) 9.0 mg/dL (8.5-10.1); Carbon Dioxide 21.9 mMol/L (20.0-31.0); Chloride 106 mMol/L (98-107); Creatinine (Component) 1.6 mg/dL (0.6-1.3); Estimated Creatinine Clearance 71.0 mL/min (>60); Globulin 2.3 gm/dL (2.3-3.5); Glucose 360 mg/dL (74-106); Magnesium 1.6 mg/dL (1.6-2.6); Osmolality,Calculated 297 (275-295); Phosphorous 2.8 mg/dL (2.4-5.1); Potassium 3.7 mMol/L (3.4-5.1); Sodium 139 mMol/L (136-145); Total Protein 4.8 gm/dL (5.7-8.2); eGFR 60 See Note
--- NOTE | 2025-02-01 17:01 | PC.NURSE ---
Education provided to pt in regards of the importance of v/s. Pt refusing and not willing to receive education.
--- NOTE | 2025-02-01 17:55 | PC.NURSE ---
MD holbrook made aware over the phone pt is refusing property assessment monitor as well as vs.
--- NOTE | 2025-02-01 19:31 | ECHO_ITS ---
Transesophageal Echo Report Ht (in): 70 Wt (lb): 162 Exam Location: Echo Lab Status: Inpatient Hogshead Packer: Greer Hernandez Indications: Procedure Performed: BP: 164 / 109 HR: 97 MEASUREMENTS 2D ECHO LV Diastolic Diameter PLAX 4.5 cm 4.2 - 5.9 / 3.9 - 5.3 cm LV Systolic Diameter PLAX 2.5 cm IVS Diastolic Thickness 0.7 cm 0.6 - 1.0 / 0.6 - 0.9 cm LVPW Diastolic Thickness 1.1 cm 0.6 - 1.0 / 0.6 - 0.9 cm LV Relative Wall Thickness 0.4 LVOT Diameter 1.8 cm LA Systolic Diameter LX 3.0 cm 3.0 - 4.0 / 2.7 - 3.8 cm LA Volume Index 29.3 cm?/m? 16 - 28 cm?/m? DOPPLER AV Peak Velocity 193.0 cm/s AV Peak Gradient 14.9 mmHg AV Mean Gradient 8.0 mmHg AV Velocity Time Integral 29.8 cm LVOT Peak Velocity 112.1 cm/s LVOT Peak Gradient 5.0 mmHg LVOT Velocity Time Integral 24.9 cm LVOT Cardiac Index 3222.0 cm?/min?m? AV Area Cont Eq vti 2.1 cm? AV Area Cont Eq pk 1.5 cm? LV E' Lateral Velocity 13.2 cm/s LV E' Septal Velocity 9.1 cm/s PV Peak Velocity 191.0 cm/s PV Peak Gradient 14.6 mmHg (Male / Female) Normal Values FINDINGS Left Ventricle Normal left ventricular size, wall thickness. Normal left ventricular diastolic filling pattern for age. The ejection fraction is visually estimated at 75%. Hyperdynamic LV. Right Ventricle The right ventricle is normal in size and systolic function. Left Atrium The left atrium is normal by two-dimensional, color flow and Doppler imaging with no structural abnormalities, no thrombus formation present. Right Atrium The right atrium is normal by two-dimensional imaging, color flow and Doppler imaging with no structural abnormalities, no thrombus formation present. Atrial Septum The interatrial septum appears normal with no evidence of a shunt. Aorta The aorta is normal by two-dimensional, color flow and Doppler interrogation. Mitral Valve The mitral valve is normal by two-dimensional, color flow and Doppler interrogation. There is no significant mitral valve regurgitation, stenosis or prolapse. Aortic Valve The aortic valve is trileaflet and normal by two-dimensional, color flow and Doppler interrogation. There is no significant aortic valve regurgitation. Tricuspid Valve The tricuspid valve is normal by two-dimensional, color flow and Doppler interrogation. There is trace tricuspid valve regurgitation. Pulmonic Valve The pulmonic valve is not well visualized. There is no significant pulmonic valve regurgitation. Vessels The pulmonary artery appears normal. The inferior vena cava pulmonary and hepatic veins appear normal. Pericardium The pericardium is normal by two-dimensional imaging. There is no significant pericardial effusion. CONCLUSIONS Indication: Acute ischemic infarct in young pt Normal LV size and function. Estimated EF at 70-75%. Hyperdynamic LV systolic function. The RV is normal in size and systolic function. Trace TRDestiny Gee (Electronically Signed) Final Date: 02 February 2025 23:58
[2025-02-01 21:24] LABS: Collection Type, Urine Clean Catch
[2025-02-01 21:39] LABS: Amorphous Crystals,Urine Present (Absent); Bacteria,Urine 4+; Bilirubin,Urine Negative (Negative); Blood,Urine 3+ (Negative); Clarity,Urine Turbid (Clear/Hazy); Color,Urine Lt-Yellow (Lt Yel-Yel); Glucose, Urine 4+ (Negative); Granular Casts,Urine 1 /hpf (0-1); Hyaline Casts,Urine < 1 /hpf (0-1); Ketones,Urine Trace (Negative); Leukocyte Esterase,Urine Positive (Negative); Nitrite,Urine Positive (Negative); PH,Urine 6.0 (5.0-7.0); Protein,Urine 2+ (Neg - Trace); RBC,Urine 20 /hpf (0-3); Specific Gravity,Urine 1.016 (1.001-1.035); Squamous Epithelial Cell,Urine 1 /hpf (0-5); Urobilinogen,Urine Negative mg/dL (0.0-1.0); WBC,Urine 242 /hpf (0-5)
[2025-02-01 21:41] LABS: Sperm,Urine Present
[2025-02-02] VITALS (15 sets, daily range): BP systolic 143–185; BP diastolic 69–109; PULSE 82–112; RESP 16–20; TEMP 36.1–36.6; O2SAT 93–99
--- NOTE | 2025-02-02 05:13 | PC.NURSE ---
Made Dr. Hannah aware of patients blood pressure at 177/105. patient does not have PRN for HTN, patient will start amlodipine this morning at 0900 scheduled. per MD he will place one time order for HTN .
[2025-02-02] MEDS: LABETALOL INJ 5 MG/ML VIAL 20 ML 10 MG IVP (05:25)
--- NOTE | 2025-02-02 07:20 | PD.RESPRO ---
Documentation for date of: 02/02/25 Subjective Subjective Interval history: Patient evaluated at bedside, minimally interactive. Continues to have hoarse voice, but denies pain, headache, denies paresthesias, weakness. Patient was able to answer the phone and have a conversation. Exam Vital Signs Temp Pulse Resp BP Pulse Ox O2 Del Method FiO2 97.7 F 94 16 155/86 H 95 Room Air 30 02/02/25 05:30 02/02/25 06:16 02/02/25 05:30 02/02/25 06:16 02/02/25 05:30 02/02/25 05:30 01/31/25 08:00 Narrative Exam General: No acute distress, well nourished Eye: PERRL, EOMI, normal conjunctiva, no scleral icterus HENT: Normocephalic, atraumatic, hearing intact to conversation at normal volume, moist oral mucosa Neck: Supple, non-tender, no JVD, no lymphadenopathy Lungs: Non-labored respirations, symmetric chest rise Heart: Peripheral pulses intact bilaterally Abdomen: Soft, non-tender, non-distended Musculoskeletal: Normal range of motion and strength Skin: Skin is warm, dry, no rashes or lesions. Psychiatric: Cooperative, but stopped engaging in exam after several minutes Neurologic: Mental status: Orientation: AOx2 Communication: Patient is cooperative and can follow simple instructions Language: Speech fluent, normal rate and volume, comprehension intact Cranial nerves: CN II: Visual lopez intact CN III: Pupils equal, round, and reactive to light CN III, IV, : No gaze deviation, no nystagmus Horizontal pursuit: intact Vertical pursuit: intact Ptosis: none CN V: Facial sensation to light touch intact bilaterally at the forehead, cheeks, and jaw line CN VII: Face symmetric, no facial droop appreciated CN VIII: Able to hear and respond to conversation at normal volume, intact to finger rub CN IX, X: Palate elevation symmetric, uvula midline CN XI: Head turn and shoulder shrug strong, symmetric bilaterally CN XII: Normal tongue protrusion without deviation, no fasciculations Motor: Normal bulk and tone No atrophy No abnormal movements or fasciculations Muscle strength: Shoulder abduction: R 5/5 L 5/5 Elbow flexion: R 5/5 L 5/5 Elbow extension: R 5/5 L 5/5 Hip flexion: R 5/5 L 5/5 Hip extension: R 5/5 L 5/5 Knee flexion: R 5/5 L 5/5 Knee extension: R 5/5 L 5/5 Sensory: RUE: Light touch intact LUE: Light touch intact RLE: Light touch intact LLE: Light touch intact Reflexes: Biceps (C5-6): R 2+ L 2+ Brachioradialis (C5-6): R 2+ L 2+ Triceps (C7-8): R 2+ L 2+ Patellae (L3-4): R 2+ L 2+ Achilles (S1-2):R 2+ L 2+ Objective Labs 02/02/25 10:38 02/02/25 10:38 Labs: Laboratory Results - last 24 hr 02/01/25 02/01/25 13:22 21:10 WBC 19.0 H RBC 3.00 L Hgb 8.9 L Hct 26.2 L MCV 87 MCH 29.7 MCHC 34.0 RDW Std Deviation 44.1 H Plt Count 289 D Neut % (Auto) 88 H Lymph % (Auto) 6 L [place] % (Auto) 5 Eos % (Auto) 0 Baso % (Auto) 0 Neut # (Auto) 16.7 H Lymph # (Auto) 1.1 Stewart # (Auto) 1.0 H Eos # (Auto) 0.0 Baso # (Auto) 0.1 Immature Gran # (Auto) 0.14 H Absolute Nucleated RBC 0.00 Immature Gran % 1 H Nucleated RBC % 0 Sodium 139 Potassium 3.7 D Chloride 106 Carbon Dioxide 21.9 Anion Gap 11 BUN 27 H Creatinine 1.6 H Estim Creat Clear Calc 71.0 eGFR 60 BUN/Creatinine Ratio 17 Glucose 360 H D Calculated Osmolality 297 H Calcium 7.8 L Corrected Calcium 9.0 Phosphorus 2.8 Magnesium 1.6 Total Bilirubin 0.2 L AST 25 ALT 15 Alkaline Phosphatase 111 D Total Protein 4.8 L Albumin 2.5 L Globulin 2.3 Albumin/Globulin Ratio 1.1 L Ur Collection Type Clean Catch Urine Color Lt-Yellow Urine Clarity Turbid A Urine pH 6.0 Ur Specific [place] 1.016 Urine Protein 2+ A Urine Glucose (UA) 4+ A Urine Ketones Trace Urine Blood 3+ A Urine Nitrite Positive Urine Bilirubin Negative Urine Urobilinogen (Auto) Negative Ur Leukocyte Esterase Positive Urine RBC 20 H Urine WBC 242 H Ur Squamous Epith Cells 1 Amorphous Crystals Present A Urine Bacteria 4+ A Hyaline Casts < 1 Granular Casts 1 Urine Sperm Present A ABG Interpretation ABG results: 01/29/25 01/29/25 01/29/25 11:11 12:44 17:19 ABG pH 7.45 ABG pCO2 37 ABG pO2 385 H ABG HCO3 26 ABG O2 Saturation 101 H ABG Base Excess 2 VBG pH 7.22 L 7.46 VBG pCO2 53 D 37 D VBG pO2 105 H D 52 D VBG Base Excess -7 L 2 01/29/25 01/29/25 01/30/25 21:09 22:31 01:39 ABG pH 7.55 H D ABG pCO2 31 L ABG pO2 137 H D ABG HCO3 27 H ABG O2 Saturation 101 H ABG Base Excess 4 H VBG pH 7.72 H 7.47 VBG pCO2 23 L D 37 D VBG pO2 172 H D 62 H D VBG Base Excess 10 H 3 01/30/25 01/30/25 01/31/25 04:04 06:18 07:03 ABG pH 7.35 D 7.45 D ABG pCO2 48 D 37 D ABG pO2 125 H 116 H ABG HCO3 26 26 ABG O2 Saturation 100 H 100 H ABG Base Excess 1 2 VBG pH 7.38 VBG pCO2 45 VBG pO2 37 D VBG Base Excess 2 Quality Measures Quality Measures VTE prophylaxis Assessment & Plan Assessment Current Active Medications: Generic Name Dose Route Start Last Admin Trade Name Freq PRN Reason Stop Dose Admin Acetaminophen 650 mg 01/29/25 12:45 Acetaminophen 325 Mg Tablet PO 02/28/25 12:44 Q6H PRN Pain (1-3) & Fever >100.4 Albuterol/Ipratropium 3 ml 01/31/25 14:02 Albuterol/Ipratropium (Duoneb) Rt Judy 3 Ml Nebu INH 03/02/25 14:01 Q2HR PRN SHORTNESS OF BREATH OR WHEEZE Amlodipine Besylate 10 mg 02/02/25 09:00 Amlodipine Besylate 5 Mg Tablet PO 03/04/25 08:59 QDAY KIERA Dextrose 25 ml 01/30/25 08:48 Dextrose 50%-Water Inj 50 Ml Syringe IV 03/01/25 08:47 Q15MIN PRN BG 50-70 responsive npo pt Dextrose 50 ml 01/30/25 08:48 Dextrose 50%-Water Inj 50 Ml Syringe IV 03/01/25 08:47 Q15MIN PRN BG <50 OR BG <70 & pt unresponsive Folic Acid 1 mg 02/01/25 09:00 02/01/25 09:25 Folic Acid 1 Mg Tablet PO 03/03/25 08:59 1 mg QDAY KIERA Administration Glucagon 1 mg 01/30/25 08:48 Glucagon Inj 1 Mg Vial IM Q15MIN PRN BG <70, and no IV access Heparin Sodium (Porcine) 5,000 unit 01/29/25 21:00 02/01/25 20:35 Heparin Sod Inj 5000 Unit/Ml Vial SC 02/12/25 20:59 5,000 unit Q12H KIERA Administration Insulin Glargine 10 unit 02/01/25 09:00 02/01/25 09:23 Insulin Glargine (Lantus) 5 Unit/0.05 Ml (Per 5 Units) SC 03/03/25 08:59 10 unit QDAY KIERA Administration Insulin Human Lispro 0 unit 02/01/25 08:40 02/01/25 20:22 Insulin Lispro (Admelog) 1 Unit/0.01 Ml Unit SC 03/02/25 20:59 5 unit ACHS KIERA Administration Protocol Levetiracetam 500 mg 01/31/25 21:00 02/01/25 09:26 Levetiracetam 250 Mg Tablet PO 03/02/25 20:59 Not Given BID KIERA Multivitamins 1 tab 01/31/25 10:30 02/01/25 09:25 Multivitamins Tablet PO 03/02/25 10:29 1 tab QDAY KIERA Administration Pantoprazole Sodium 40 mg 02/01/25 09:45 02/01/25 10:33 Pantoprazole 40 Mg Tablet PO 03/03/25 09:44 40 mg QDAY KIERA Administration Sennosides 1 tab 01/29/25 12:45 Senna Tablet PO 02/28/25 12:44 QDAY PRN constipation Protocol Thiamine HCl 100 mg 02/01/25 09:00 02/01/25 09:32 Thiamine 100 Mg Tablet PO 03/03/25 08:59 100 mg QDAY KIERA Administration Ziprasidone 40 mg 01/31/25 21:00 02/01/25 20:28 Ziprasidone 20 Mg Capsule PO 03/02/25 20:59 40 mg BID KIERA Administration Plan #Seizures #Acute ischemic stroke with multiple foci in right posterior temporal and right occipital lobe In the setting of hyperclycemia / DKA, substance use (UDS + THC, previously + for cocaine) Denies hx of seizures, stroke, TIA Patient had tonic-clonic like movements per EMS when they first made contact with the patient CT head w/o 01/29: Negative for acute hemorrhage, mass effect, midline shift Given loading dose Keppra in ICU, started on maintenance dose 500 mg BID MRI brain w/o: Multiple foci restricted diffusion in right posterior temporal and right occipital lobe with ADC drop out c/f acute ischemic infarct DDX: small vessel disease, vasculitis, polysubstance use His clinical and radiological presentation with underlying uncontrolled DM and illicit drug abuse suggests vasculitis. However, will fu with PHILIPPE and hypercoag profile to look for other sec causes. Plan: - Continue Keppra 500 mg BID - EEG - PHILIPPE and hypercoag labs ordered given patient's young age - Pending lipid panel - Continue ASA 81 mg daily and plavix 75 mg daily x 21 days, then continue with one anti-platelet agent - Continue high intensity statin - CTA to assess for large artery atherosclerosis, which would guide timeline of DAPT #Agitation pt has history of previously hitting medical staff pt has requested to leave AMA and can become agitated while in ICU was given ziprasidone KIERA Tx - ziprasidone 40 PO BID #HTN Emergency (Resolved) BP on arrival was 208/120 Evidence of end organ damage supported by YAMILEX, altered mental status #Polysubstance Use #Insulin-dependent diabetes mellitus type 2 on SSI #Hyperosmotic Hyperglycemia #High anion gap lactic Acidosis #Pseudohyponatremia (Reolved) #Mild DKA #Medication non-compliance A1c 11.8 Initial glucose 695 Patient takes metformin and humalog at home, unlikely that pt was taking medications as prescribed at home. #Leukocytosis #YAMILEX BUN 41 Cr 2.4, improved to BUN 33 Cr 1.6 on 01/31/2025 CK 623 on arrival Likely prerenal in the setting of DKA #Sinus Tachycardia (Resolved) #Normocytic Anemia Plan: - Management per primary Plan discussed with Dr. Nestor Cabral, PGY1 Attending Provider Attestation/Addendum I independently reviewed the patient chart and I agreed with resident's findings, assessment and plan of care. Continue ASA and plavix and statin and keep the vascular risk factors controlled. FU with hypercoag panel and EEG.
[2025-02-02] MEDS: INSULIN LISPRO (AdmeLOG) 1 UNIT/0.01 ML UNIT SC ×2 (07:44→12:15)
[2025-02-02] MEDS: cefTRIAXone/D5w 1gm IV premix 1 GM/50 ML BAG IV (09:23)
[2025-02-02] MEDS: PANTOPRAZOLE 40 MG TABLET PO (09:23)
[2025-02-02] MEDS: ZIPRASIDONE 20 MG CAPSULE 40 MG PO ×2 (09:23→20:08)
[2025-02-02] MEDS: HEPARIN SOD INJ 5000 UNIT/ML VIAL SC ×2 (09:24→20:08)
[2025-02-02] MEDS: THIAMINE 100 MG TABLET PO (09:24)
[2025-02-02] MEDS: FOLIC ACID 1 MG TABLET PO (09:24)
[2025-02-02] MEDS: MULTIVITAMINS TABLET 1 TAB PO (09:24)
[2025-02-02] MEDS: INSULIN GLARGINE (Lantus) 5 UNIT/0.05 ML (PER 5 UNITS) 15 UNIT SC (09:24)
[2025-02-02] MEDS: DOXYCYCLINE 100 MG TABLET PO (10:11)
[2025-02-02 10:22] LABS: Chlamydia trachomatis PCR Negative (Not Detect); Neisseria Gonorrhoeae DNA PCR Negative (Not Detect); Trichomonas Negative (Negative)
--- NOTE | 2025-02-02 10:36 | ESPR_ITS ---
<Statement entered by Latoya Lemos MD - 02/06/25 12:38> I reviewed above note and agree with findings and plans. I have also personally examined the patient with medicine team and went over assessment and plan with medical team including internet marketing strategist and resident physician. <Statement entered by Mode Gaitan MD - 02/02/25 15:20> Patient was seen and examined at the bedside. Patient denies any suicidal ideation or use of opioids at home. Patient was willing to proceed with EEG. MR brain showed some Multiple foci restricted diffusion in the right posterior temporal right occipital lobe with possible mild signal deficit and acute infarction versus demyelinating disease versus encephalopathy. Patient's MRI was suggestive of ischemic stroke per neurology recommendations. We ordered KELLY and cardiology consult for proceeding with KELLY to rule out vegetations due to higher suspicion given history of substance abuse. Neurochecks every 4 hourly. Physical therapy ordered. Will follow-up with further neurology recommendations. Insulin was adjusted due to elevated blood sugars. Insulin lispro 2units TID and lantus 15 units changed to Qpm. Syphillis was negative. Pend Chlamydia and Gonorrhea test. Continue Rocephin and Doxycline. Doxycycline was started to cover for possible STDs. Pend Neuro recs. HIV is pending.All labs and orders were reviewed. I discussed and supervised with the internet marketing strategist physician who took care of this patient. I personally saw and examined the patient. I agree with most of the assessment and plan. Disclaimer: Despite multiple revisions, due to the dictation software being used, the document bellow may not be free of grammatical errors including phonetic/typographic errors. However, this does not deter from our commitment to providing health care in the patient's best interest in mind. Plan of care discussed with attending Physician Dr. Aminta Gaitan MD PGY-3 Documentation for date of: 02/02/25 Subjective Subjective Interval history: No acute events overnight pt reports dysuria pt given IV labetalol @0500 for elevated BP pending KELLY hypercoag panel given pt age and acute ischemic stroke R posterior temporal and R occipital. STI negative for g/c/trichomonna , syphillus, pending HIV antibody. Started on CTX for UTI (UA positive) Exam Vital Signs Temp Pulse Resp BP Pulse Ox O2 Del Method FiO2 97.9 F 95 20 143/79 H 97 Room Air 30 02/02/25 07:44 02/02/25 09:25 02/02/25 08:35 02/02/25 09:25 02/02/25 08:35 02/02/25 07:44 01/31/25 08:00 Narrative Exam General: Awake, and oriented to self and place and situation, pt expresses desire to leave hospital. HEENT: Normocephalic, atraumatic, mucous membranes moist. Heart: tachycardic rate and regular rhythm, no murmurs. Lungs: Mild bilateral crackles at lung bases Abdomen: Soft, nondistended, nontender, positive bowel sounds. ?No guarding or rebound tenderness. no suprapubic tenderness Neurologic: Alert and oriented x2, no gross neurological deficit, and patient able to move all 4 extremities. Skin: No rash or ecchymoses. BL shins with healed excoriations Objective Labs 02/02/25 10:38 02/02/25 10:38 Labs: Laboratory Results - last 24 hr 02/01/25 02/01/25 13:22 21:10 WBC 19.0 H RBC 3.00 L Hgb 8.9 L Hct 26.2 L MCV 87 MCH 29.7 MCHC 34.0 RDW Std Deviation 44.1 H Plt Count 289 D Neut % (Auto) 88 H Lymph % (Auto) 6 L [place] % (Auto) 5 Eos % (Auto) 0 Baso % (Auto) 0 Neut # (Auto) 16.7 H Lymph # (Auto) 1.1 [place] # (Auto) 1.0 H Eos # (Auto) 0.0 Baso # (Auto) 0.1 Immature Gran # (Auto) 0.14 H Absolute Nucleated RBC 0.00 Immature Gran % 1 H Nucleated RBC % 0 Sodium 139 Potassium 3.7 D Chloride 106 Carbon Dioxide 21.9 Anion Gap 11 BUN 27 H Creatinine 1.6 H Estim Creat Clear Calc 71.0 eGFR 60 BUN/Creatinine Ratio 17 Glucose 360 H D Calculated Osmolality 297 H Calcium 7.8 L Corrected Calcium 9.0 Phosphorus 2.8 Magnesium 1.6 Total Bilirubin 0.2 L AST 25 ALT 15 Alkaline Phosphatase 111 D Total Protein 4.8 L Albumin 2.5 L Globulin 2.3 Albumin/Globulin Ratio 1.1 L Ur Collection Type Clean Catch Urine Color Lt-Yellow Urine Clarity Turbid A Urine pH 6.0 Ur Specific [place] 1.016 Urine Protein 2+ A Urine Glucose (UA) 4+ A Urine Ketones Trace Urine Blood 3+ A Urine Nitrite Positive Urine Bilirubin Negative Urine Urobilinogen (Auto) Negative Ur Leukocyte Esterase Positive Urine RBC 20 H Urine WBC 242 H Ur Squamous Epith Cells 1 Amorphous Crystals Present A Urine Bacteria 4+ A Hyaline Casts < 1 Granular Casts 1 Urine Sperm Present A Chlam trachomat DNA PCR Negative N.gonorrhoeae DNA (PCR) Negative Trichomonas DNA Probe Negative ABG Interpretation ABG results: 01/29/25 01/29/25 01/29/25 11:11 12:44 17:19 ABG pH 7.45 ABG pCO2 37 ABG pO2 385 H ABG HCO3 26 ABG O2 Saturation 101 H ABG Base Excess 2 VBG pH 7.22 L 7.46 VBG pCO2 53 D 37 D VBG pO2 105 H D 52 D VBG Base Excess -7 L 2 01/29/25 01/29/25 01/30/25 21:09 22:31 01:39 ABG pH 7.55 H D ABG pCO2 31 L ABG pO2 137 H D ABG HCO3 27 H ABG O2 Saturation 101 H ABG Base Excess 4 H VBG pH 7.72 H 7.47 VBG pCO2 23 L D 37 D VBG pO2 172 H D 62 H D VBG Base Excess 10 H 3 01/30/25 01/30/25 01/31/25 04:04 06:18 07:03 ABG pH 7.35 D 7.45 D ABG pCO2 48 D 37 D ABG pO2 125 H 116 H ABG HCO3 26 26 ABG O2 Saturation 100 H 100 H ABG Base Excess 1 2 VBG pH 7.38 VBG pCO2 45 VBG pO2 37 D VBG Base Excess 2 Quality Measures Quality Measures VTE prophylaxis Assessment & Plan Assessment Current Active Medications: Generic Name Dose Route Start Last Admin Trade Name Freq PRN Reason Stop Dose Admin Acetaminophen 650 mg 01/29/25 12:45 Acetaminophen 325 Mg Tablet PO 02/28/25 12:44 Q6H PRN Pain (1-3) & Fever >100.4 Albuterol/Ipratropium 3 ml 01/31/25 14:02 Albuterol/Ipratropium (Duoneb) Rt Judy 3 Ml Nebu INH 03/02/25 14:01 Q2HR PRN SHORTNESS OF BREATH OR WHEEZE Dextrose 25 ml 01/30/25 08:48 Dextrose 50%-Water Inj 50 Ml Syringe IV 03/01/25 08:47 Q15MIN PRN BG 50-70 responsive npo pt Dextrose 50 ml 01/30/25 08:48 Dextrose 50%-Water Inj 50 Ml Syringe IV 03/01/25 08:47 Q15MIN PRN BG <50 OR BG <70 & pt unresponsive Doxycycline Hyclate 100 mg 02/02/25 10:00 02/02/25 10:11 Doxycycline 100 Mg Tablet PO 02/09/25 09:59 100 mg BID KIERA Administration Folic Acid 1 mg 02/01/25 09:00 02/02/25 09:24 Folic Acid 1 Mg Tablet PO 03/03/25 08:59 1 mg QDAY KIERA Administration Glucagon 1 mg 01/30/25 08:48 Glucagon Inj 1 Mg Vial IM Q15MIN PRN BG <70, and no IV access Heparin Sodium (Porcine) 5,000 unit 01/29/25 21:00 02/02/25 09:24 Heparin Sod Inj 5000 Unit/Ml Vial SC 02/12/25 20:59 5,000 unit Q12H KIERA Administration Ceftriaxone Sodium/Dextrose 1 gm in 50 mls @ 100 mls/hr 02/02/25 08:15 02/02/25 09:23 Rocephin/D5w 1gm Iv Premix IV 02/09/25 08:14 100 mls/hr QDAY KIERA Administration Magnesium Sulfate 4 gm in 50 mls @ 12.5 mls/hr 02/02/25 10:29 Magnesium Sulfate Ivpb IV 02/02/25 14:28 X1 ONE Insulin Glargine 15 unit 02/02/25 21:00 Insulin Glargine (Lantus) 5 Unit/0.05 Ml (Per 5 Units) SC 03/04/25 20:59 QPM KIERA Insulin Human Lispro 0 unit 02/01/25 08:40 02/02/25 07:44 Insulin Lispro (Admelog) 1 Unit/0.01 Ml Unit SC 03/02/25 20:59 3 unit ACHS KIERA Administration Protocol Insulin Human Lispro 5 unit 02/02/25 11:30 Insulin Lispro (Admelog) 1 Unit/0.01 Ml Unit SD 03/04/25 11:29 AC KIERA Levetiracetam 500 mg 01/31/25 21:00 02/01/25 09:26 Levetiracetam 250 Mg Tablet PO 03/02/25 20:59 Not Given BID KIERA Lisinopril 20 mg 02/02/25 09:00 02/02/25 09:25 Lisinopril 20 Mg Tablet PO 03/04/25 08:59 20 mg QDAY KIERA Administration Multivitamins 1 tab 01/31/25 10:30 02/02/25 09:24 Multivitamins Tablet PO 03/02/25 10:29 1 tab QDAY KIERA Administration Pantoprazole Sodium 40 mg 02/01/25 09:45 02/02/25 09:23 Pantoprazole 40 Mg Tablet PO 03/03/25 09:44 40 mg QDAY KIERA Administration Sennosides 1 tab 01/29/25 12:45 Senna Tablet PO 02/28/25 12:44 QDAY PRN constipation Protocol Thiamine HCl 100 mg 02/01/25 09:00 02/02/25 09:24 Thiamine 100 Mg Tablet PO 03/03/25 08:59 100 mg QDAY KIERA Administration Ziprasidone 40 mg 01/31/25 21:00 02/02/25 09:23 Ziprasidone 20 Mg Capsule PO 03/02/25 20:59 40 mg BID KIERA Administration Plan Mr. Ortiz is a 29-year-old gentleman with a past medical history of insulin- dependent type 1 diabetes mellitus, polysubstance use (THC and cocaine) , with difficulty taking medications who presented to the ED BIBA with altered mental status. There was initial concern for overdose and the patient was given multiple doses of Narcan and 1 dose of midazolam en route however Utox was negative for opioids. Patient was intubated in the emergency department due to unresponsiveness. Glucose 695, Patient admitted to ICU due to intubation and was started on DKA protocol. Pt was successfully extubated today and was given 1 mg ativan at 1300 for agitation, pt was AxO x1 and attempting to leave AMA. pt more interactive during exam today, reports dysuria, and query penile discharge (brittny and chlam negative, syphilus negative, and pending HIV) MRI brain completed for seizure workup, acute ischemic stroke in R temporal and R occipital, continues on keppra 500 bid. plan for EEG and KELLY if pt is amenable and pending hyper coag labs given neuro concern and patients age, . Bglucose levels 300s in the AM, increase long acting 15 units with 5 units short acting with meals. start lisinopril 20 today. #hypergylcemia #Insulin-dependent diabetes mellitus type 1 on SSI - poorly controlled #Mild DKA- resolved A1c 11.8 Patient takes metformin and humalog at home, unlikely that pt was taking medications as prescribed at home. BHB 2.2 on arrival morning bglucose elevated, increased long acting from 10 to 15 qhs, and 5 Units short acting with meals Dx Q6HR glucose checks Tx: -DC insulin drip -Start long acting 15 Units qhs -sliding scale with, 5 units with meals #UTI #query STI r/o pt s/p extubation, Leukocytosis uptrending (initially query reactive vs infxn) uptrending, and pt reports dysuria afebrile. Dx - CBC - Bcx NGTD @48hr - initial Ucx NGTD - MRSA nares negative - UA positive, pending cultures - STI, brittny, chlam, syph, trich NEGATIVE - pending HIV - CTM for systemic signs of infection. Tx - APAP if febrile - start CTX qd 1 gm - Dc Doxy 100 mg bid given initial concern for STI with penile discharge but STI panel negative. #Seizures Consider provoked seizure caused by hyperglycemia, substance use (utox was initially + for thc, however previously + for cocaine) , query meth use given healed excoriations on BLE c/f meth induced meth parasitosis. Patient had tonic-clonic like movements per EMS when they first made contact with the patient Dx - pending KELLY - pending hypercoagulation labs - pending EEG - CT scan negative for hemorrhage or acute infarction - MRI head w/o: Multiple foci restricted diffusion in right posterior temporal and right occipital lobe with ADC drop out c/f acute ischemic infarct - consult neuro for seizure workup, appreciate recs: neuro concerned for possible hypercoag given stroke and young age. Tx -Was given loading dose of keppra, will continue 500 BID -Seizure precautions #HTN rapid response called for HTN to 180s see event note by Dr. Gaitan Tx -Labetalol 10 mg IV 1x - start lisinopril 20 mg qd #YAMILEX #Rhabdomyolysis BUN 41 Cr 2.4, improved to BUN 33 Cr 1.6 on 01/31/2025 CK 623 on arrival Grade 2 YAMILEX per [facility] Likely prerenal in the setting of DKA in combination with rhabdomyolysis due to possible seizure #Agitation pt has history of previously hitting medical staff pt has requested to leave AMA and can become agitated, while in ICU was given ziprazidone KIERA Tx - ziprazidone 40 PO BID . ok for additional dose if becomes increasingly agitated. #Polysubstance Use Disorder Dx -Urine tox positive for marijuana -Previous urine tox positive for cocaine Tx -Social support upon discharge #Hyperosmotic Hyperglycemia #High anion gap lactic Acidosis #Pseudohyponatremia (Resolved) Lactic acid 2.7, AGAP 9 Lactic acid up trended after arrival and initiation of DKA treatment, consider lab error, lactic acid downtrending now Plan: #HTN Emergency (Resolved) BP on arrival was 208/120, 107/72 on 01/30/2025, stable Consider cocaine, substance use Evidence of end organ damage supported by YAMILEX (see renal) and altered mental status prior to arrival per EMS Previous suspicion for end organ damage evidenced by rise in Cr qualifying for hypertensive emergency, however YAMILEX resolving, Cr 1.6 down from 2 #Sinus Tachycardia (Resolved) Tachycardic on arrival Likely due to volume depletion in the presence of DKA #Normocytic Anemia Likely multifactorial, consider nutrition, fluid imbalance Plan: -Trend CBC -F/U outpatient Dispo: pending DM education and neuro workup of seizures (kelly, eeg, and hypercoag labs) , IV abx for UTI pending HIV pcr DVT prophylaxis: Heparin Q12 GI prophylaxis: Protonix 40 QD Diet: Carb consistent Diet- low Lines: Peripheral IV Code status: FULL Case discussed with my senior resident Dr. Gaitan Case discussed with my attending Dr. Aminta Little MD PGY-1
[2025-02-02 10:54] LABS: Basophils # (Auto) 0.1 Thou/mm3 (0.0-0.2); Basophils % (Auto) 0 % (0-2.5); Eosinophils # (Auto) 0.2 Thou/mm3 (0.0-0.5); Eosinophils % (Auto) 1 % (0-10); Hematocrit 26.6 % (41.0-53.0); Hemoglobin 8.9 g/dL (13.5-16.0); Immature Granulocytes Auto 0.13 Thou/mm3 (0.00-0.00); Lymphocytes # (Auto) 1.3 Thou/mm3 (1.0-4.8); Lymphocytes % (Auto) 9 % (10-50); Mean Corpuscular HGB Conc 33.5 g/dl (31.0-37.0); Mean Corpuscular Hemoglobin 29.0 pg (25.0-35.0); Mean Corpuscular Volume 87 fL (80-100); Monocytes # (Auto) 1.3 Thou/mm3 (0.0-0.8); Monocytes % (Auto) 9 % (0-12); Neutrophils # (Auto) 11.6 Thou/mm3 (1.8-7.7); Neutrophils % (Auto) 80 % (37-80); Nucleated Red Blood Cell # 0.00 Thou/mm3 (0.00-0.00); Nucleated Red Blood Cell % 0 /100 WBC (0); Platelet Count 312 Thou/mm3 (140-440); RDW Standard Deviation 43.5 fL (35.1-43.9); Red Blood Count 3.07 Miln/mm3 (4.50-5.90); White Blood Count 14.5 Thou/mm3 (3.8-10.6)
--- NOTE | 2025-02-02 10:57 | CHAP ---
Patient was visited by a Spiritual Care Volunteer on 02/02/2025 between 0900 and 0958 and received comfort, encouragement and/or prayer.
[2025-02-02] MEDS: Magnesium Sulfate 4 GM Ivpb 4 GM/50 ML BAG IV (11:01)
[2025-02-02] MEDS: POTASSIUM CHLORIDE 10% 20 MEQ/15 ML UDC 40 MEQ GT (11:01)
[2025-02-02 11:12] LABS: Alanine Aminotransferase 14 U/L (10-49); Albumin, Serum 2.6 gm/dL (3.5-5.0); Albumin/Globulin Ratio 1.1 (1.2-2.2); Alkaline Phosphatase 110 U/L (46-116); Anion Gap 7 (7-16); Aspartate Amino Transferase 21 U/L (0-34); BUN/Creatinine Ratio 11 Ratio (12-20); Bilirubin,Total 0.3 mg/dL (0.3-1.2); Blood Urea Nitrogen 16 mg/dL (9-23); Calcium 7.9 mg/dL (8.3-10.6); Calcium (Corrected) 9.0 mg/dL (8.5-10.1); Carbon Dioxide 25.8 mMol/L (20.0-31.0); Chloride 109 mMol/L (98-107); Creatinine (Component) 1.4 mg/dL (0.6-1.3); Estimated Creatinine Clearance 81.1 mL/min (>60); Globulin 2.3 gm/dL (2.3-3.5); Glucose 251 mg/dL (74-106); Magnesium 1.7 mg/dL (1.6-2.6); Osmolality,Calculated 292 (275-295); Phosphorous 2.6 mg/dL (2.4-5.1); Potassium 3.3 mMol/L (3.4-5.1); Sodium 142 mMol/L (136-145); Total Protein 4.9 gm/dL (5.7-8.2); eGFR > 60 See Note
--- NOTE | 2025-02-02 11:39 | PC.SS ---
Update: Plan is for patient to obtain EGG. Patient receiving IV antibiotics to address UTI.
[2025-02-02 11:54] LABS: Syphilis Nonreactive (Nonreactive)
[2025-02-02] MEDS: INSULIN LISPRO (AdmeLOG) 1 UNIT/0.01 ML UNIT 5 UNIT SC ×2 (12:14→16:50)
--- NOTE | 2025-02-02 13:11 | PC.SS ---
PARTY PLAN SALES UNIT ADVISOR conducted bedside contact with the patient conduct initial assessment and to discuss discharge planning.? Patient stated that he currently resides with friend, Ayaan.? Patient stated that he is not currently homeless.? Patient stated that he receives SNAP.? Patient does not utilize DME to assist with ambulation.? Patient does not utilize home oxygen.? Patient describes ability to complete ADL?s independently.? Patient identified brother, Luis A Buck; as surrogate medical decision maker.? Patient is not in possession of brother?s contact number.? Patient confirmed that Sherrie Buck , is the patient?s sister.? Patient reports use of [facility] for PCP services.? Patient denies possessing history of mental health intervention/services.? Patient denies history of self-harm behaviors.? Patient denies current intent/plan of SI/HI.? Patient utilizes [facility] for medication services.? Plan is for the patient to return home at the time of discharge.? shared services and outsourcing manager will assist with transportation on behalf of the patient. ?No further discharge needs identified by the patient.? No further intervention required at this time, elementary school social worker will be available to address any further concerns.? Next of Kin: Sherrie Manciaierrez D/C Plan: Home
--- NOTE | 2025-02-02 13:17 | PC.SS ---
BREAKFAST MANAGER confirmed with resident that patient did not engage in possible opiod overdose attempt. Toxicology screen positive for THC, negative for opiods.
[2025-02-02 13:37] LABS: HIV (1&2) Antibody Rapid Non-Reactive
--- NOTE | 2025-02-02 14:20 | PC.SS ---
Rounding Note: EEG is pending. Cultures pending.
--- NOTE | 2025-02-02 14:34 | PC.SS ---
Addendum entered and electronically signed by KEVIN Payan 02/02/25 14:53: PANTOGRAPH MACHINE SET UP OPERATOR fielded phone call from patient's sister, Lilian Sheridan ; requesting update on patient. PANTOGRAPH MACHINE SET UP OPERATOR informed sister that patient has identified Sherrie Buck as POC. PANTOGRAPH MACHINE SET UP OPERATOR met with patient to provide update that sister, Lilian Sheridan; is requesting to be POC. Patient confirmed decision to designate , Lilian Sheridan; as POC. SisterLilian; resides in [place], [place]. Original Note: PANTOGRAPH MACHINE SET UP OPERATOR confirmed with patient that POC will be , Sherrie Buck .
[2025-02-02] MEDS: ASPIRIN EC 81 MG TABEC PO (16:50)
[2025-02-02] MEDS: CLOPIDOGREL BISULFATE 75 MG TABLET PO (16:50)
--- NOTE | 2025-02-02 18:08 | PD.RESCONSUL ---
HPI Data of Consult Requesting Physician: Rory Pedroza MD Admitting Provider: Rory Pedroza MD Attending Provider: Rory Pedroza MD Primary Care Provider: Physician No Primary/Family Consult Narrative History of present illness: The patient is a 29-year-old male with significant past medical history of uncontrolled diabetes mellitus type 1, noncompliant with insulin, multiple drug abuse, and possible seizure disorder was brought in by EMS to ED with chief complaint of being found slumped over and altered mental status. Patient is a poor historian, and history was obtained by chart review and with the help of patient. He was given Narcan by EMS, that provoked seizure, and was given Versed, with resolution of tonic-clonic activity, and with resolution of spontaneous breathing, started on bag and mask ventilation, and was intubated in the ED. he was also found in hypertensive emergency with blood pressure 208/120, and later found to have diabetes ketoacidosis, and was started on DKA protocol by ICU team. Later, he was extubated and downgraded to telemetry unit. During my evaluation, he denied any dizziness, lightheadedness, headache, SOB, chest pain, chest pressure, orthopnea or PND, palpitations, leg swelling, any changes in bowel or bladder habit, any weakness or decrease sensation in any part of his body. He denied any fever or chills, nausea or vomiting. His white count has been elevated since presentation, with hemoglobin decreasing to 8.9 from 11.1 during presentation. Chemistry panel revealed potassium 3.3, BUN 16, creatinine 1.4, initially 2.0, blood sugar 251 magnesium 1.7, A1c 11.8, TSH 5.7 but free T$ WNL. UA revealed turbid urine, 2+ protein, 4+ glucose, 3+ blood, urine nitrate positive leukocyte esterase positive, RBC 20, WBC 242, bacteria 4+ but denied any urinary symptoms. Syphilis serology, chlamydia PCR, HIV 1 and 2 antibody, gonorrhea PCR, trichomonas DNA are all negative. Pending hypercoagulability workup. Initial chest x-ray revealed no aspiration pneumonia, head CT was negative for acute hemorrhage, mass effect or midline shift. Cervical CT scan was negative for any acute cervical fracture, EKG revealed sinus rhythm with possible left atrial enlargement, brain MRI revealed multiple foci restricted diffusion in the right posterior temporal right occipital lobe with possible mild signal deficit on the ADC map. The patient is also pending EEG. 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 However in 2019, his U-Tox was positive for cocaine. Patient U-Tox was positive only for marijuana. Medications: Insulin lispro ACHS Allergies: No known allergies Cardiology consultation was done for further evaluation of the cause of stroke, and transesophageal echocardiography. cc:: cc: Rory Pedroza MD Review of Systems Review of Systems Systems Reviewed: All systems reviewed, normal except as documented (Above) Exam Vital Signs Temp Pulse Resp BP Pulse Ox O2 Del Method FiO2 97.3 F 95 18 145/69 H 99 Room Air 30 02/02/25 16:00 02/02/25 16:00 02/02/25 16:02/02/25 16:02/02/25 16:02/02/25 16:00 01/31/25 08:00 Narrative Exam General: No acute distress, Alert and Oriented x 3 HEENT: Moist mucous membranes, oropharynx clear Neck: Supple, No masses, No JVD CVS: S1S2 Regular rate and rhythm, No murmurs, rubs or gallops Lungs: Clear to auscultation with no accessory use, no wheeze no rhonchi Abd: Soft, NT/ND, +BS, no organomegaly Ext: 2+ LL pitting edema, warm and well perfused Skin: No rash Psych: Flat affect Results Labs 02/02/25 10:38 02/02/25 10:38 Labs: Short CBC 02/02/25 Range/Units 10:38 WBC 14.5 H (3.8-10.6) Thou/mm3 Hgb 8.9 L (13.5-16.0) g/dL Hct 26.6 L (41.0-53.0) % Plt Count 312 (140-440) Thou/mm3 BMP 02/02/25 10:38 Sodium 142 Potassium 3.3 L Chloride 109 H Carbon Dioxide 25.8 BUN 16 Creatinine 1.4 H Glucose 251 H D Calcium 7.9 L Liver Function 02/02/25 Range/Units 10:38 Total Bilirubin 0.3 (0.3-1.2) mg/dL AST 21 (0-34) U/L ALT 14 (10-49) U/L Alkaline Phosphatase 110 (46-116) U/L Albumin 2.6 L (3.5-5.0) gm/dL Urine 02/01/25 Range/Units 21:10 Urine Color Lt-Yellow (Lt Yel-Yel) Urine Clarity Turbid A (Clear/Hazy) Urine pH 6.0 (5.0-7.0) Ur Specific [place] 1.016 (1.001-1.035) Urine Protein 2+ A (Neg - Trace) Urine Glucose (UA) 4+ A (Negative) ABG Interpretation ABG results: 01/29/25 01/29/25 01/29/25 11:11 12:44 17:19 ABG pH 7.45 ABG pCO2 37 ABG pO2 385 H ABG HCO3 26 ABG O2 Saturation 101 H ABG Base Excess 2 VBG pH 7.22 L 7.46 VBG pCO2 53 D 37 D VBG pO2 105 H D 52 D VBG Base Excess -7 L 2 01/29/25 01/29/25 01/30/25 21:09 22:31 01:39 ABG pH 7.55 H D ABG pCO2 31 L ABG pO2 137 H D ABG HCO3 27 H ABG O2 Saturation 101 H ABG Base Excess 4 H VBG pH 7.72 H 7.47 VBG pCO2 23 L D 37 D VBG pO2 172 H D 62 H D VBG Base Excess 10 H 3 01/30/25 01/30/25 01/31/25 04:04 06:18 07:03 ABG pH 7.35 D 7.45 D ABG pCO2 48 D 37 D ABG pO2 125 H 116 H ABG HCO3 26 26 ABG O2 Saturation 100 H 100 H ABG Base Excess 1 2 VBG pH 7.38 VBG pCO2 45 VBG pO2 37 D VBG Base Excess 2 Quality Measures Quality Measures VTE prophylaxis Medications Home Medications and Allergies Home Medications ?Medication ?Instructions ?Recorded ?Confirmed ?Type insulin lispro 100 unit/mL See Protocol subcut ACHS PRN 09/14/19 01/31/25 History subcutaneous solution (Humalog Hyperglycemia U-100 Insulin) metformin 500 mg tablet,extended 500 mg PO BID 09/14/19 01/31/25 History release 24 hr Allergies Allergy/AdvReac Type Severity Reaction Status Date / Time No Known Allergies Allergy Verified 01/28/25 13:04 Visit Medications Acetaminophen (Acetaminophen 325 Mg Tablet) 650 mg PO Q6H PRN PRN Reason: Pain (1-3) & Fever >100.4 Stop: 02/28/25 12:44 Albuterol/Ipratropium (Albuterol/Ipratropium (Duoneb) Rt Judy 3 Ml Nebu) 3 ml INH Q2HR PRN PRN Reason: SHORTNESS OF BREATH OR WHEEZE Stop: 03/02/25 14:01 Aspirin (Aspirin Ec 81 Mg Tabec) 81 mg PO QDAY [facility] Stop: 03/04/25 15:14 Last Admin: 02/02/25 16:50 Dose: 81 mg Atorvastatin Calcium (Atorvastatin Calcium 20 Mg Tablet) 40 mg PO HS [facility] Stop: 03/04/25 20:59 Clopidogrel Bisulfate (Clopidogrel Bisulfate 75 Mg Tablet) 75 mg PO QDAY [facility] Stop: 03/04/25 14:59 Last Admin: 02/02/25 16:50 Dose: 75 mg Dextrose (Dextrose 50%-Water Inj 50 Ml Syringe) 25 ml IV Q15MIN PRN PRN Reason: BG 50-70 responsive npo pt Stop: 03/01/25 08:47 Dextrose (Dextrose 50%-Water Inj 50 Ml Syringe) 50 ml IV Q15MIN PRN PRN Reason: BG <50 OR BG <70 & pt unresponsive Stop: 03/01/25 08:47 Folic Acid (Folic Acid 1 Mg Tablet) 1 mg PO QDAY [facility] Stop: 03/03/25 08:59 Last Admin: 02/02/25 09:24 Dose: 1 mg Glucagon (Glucagon Inj 1 Mg Vial) 1 mg IM Q15MIN PRN PRN Reason: BG <70, and no IV access Heparin Sodium (Porcine) (Heparin Sod Inj 5000 Unit/Ml Vial) 5,000 unit SC Q12H [facility] Stop: 02/12/25 20:59 Last Admin: 02/02/25 09:24 Dose: 5,000 unit Ceftriaxone Sodium/Dextrose (Rocephin/D5w 1gm Iv Premix) 1 gm in 50 mls @ 100 mls/hr IV QDAY [facility] Stop: 02/09/25 08:14 Last Admin: 02/02/25 09:23 Dose: 100 mls/hr Insulin Glargine (Insulin Glargine (Lantus) 5 Unit/0.05 Ml (Per 5 Units)) 15 unit SC QPM [facility] Stop: 03/04/25 20:59 Insulin Human Lispro (Insulin Lispro (Admelog) 1 Unit/0.01 Ml Unit) 0 unit SC ACHS [facility]; Protocol Stop: 03/02/25 20:59 Last Admin: 02/02/25 16:49 Dose: Not Given Insulin Human Lispro (Insulin Lispro (Admelog) 1 Unit/0.01 Ml Unit) 5 unit SC AC [facility] Stop: 03/04/25 11:29 Last Admin: 02/02/25 16:50 Dose: 5 unit Levetiracetam (Levetiracetam 250 Mg Tablet) 500 mg PO BID [facility] Stop: 03/02/25 20:59 Last Admin: 02/01/25 09:26 Dose: Not Given Lisinopril (Lisinopril 20 Mg Tablet) 20 mg PO QDAY [facility] Stop: 03/04/25 08:59 Last Admin: 02/02/25 09:25 Dose: 20 mg Multivitamins (Multivitamins Tablet) 1 tab PO QDAY [facility] Stop: 03/02/25 10:29 Last Admin: 02/02/25 09:24 Dose: 1 tab Pantoprazole Sodium (Pantoprazole 40 Mg Tablet) 40 mg PO QDAY [facility] Stop: 03/03/25 09:44 Last Admin: 02/02/25 09:23 Dose: 40 mg Sennosides (Senna Tablet) 1 tab PO QDAY PRN; Protocol PRN Reason: constipation Stop: 02/28/25 12:44 Thiamine HCl (Thiamine 100 Mg Tablet) 100 mg PO QDAY [facility] Stop: 03/03/25 08:59 Last Admin: 02/02/25 09:24 Dose: 100 mg Ziprasidone (Ziprasidone 20 Mg Capsule) 40 mg PO BID [facility] Stop: 03/02/25 20:59 Last Admin: 02/02/25 09:23 Dose: 40 mg Discontinued Medications Albuterol/Ipratropium (Albuterol/Ipratropium (Duoneb) Rt Judy 3 Ml Nebu) 3 ml INH X1 ONE Stop: 01/31/25 11:09 Last Admin: 01/31/25 11:15 Dose: 3 ml Amlodipine Besylate (Amlodipine Besylate 5 Mg Tablet) 10 mg PO QDAY [facility] Stop: 03/03/25 12:04 Amlodipine Besylate (Amlodipine Besylate 5 Mg Tablet) 10 mg PO QDAY [facility] Stop: 03/04/25 08:59 Dextrose (Dextrose 50%-Water Inj 50 Ml Syringe) 25 ml IV [id number] PRN PRN Reason: Blood Sugar - Low Doxycycline Hyclate (Doxycycline 100 Mg Tablet) 100 mg PO BID [facility] Stop: 02/09/25 09:59 Last Admin: 02/02/25 10:11 Dose: 100 mg Etomidate (Etomidate Inj 2 Mg/Ml Vial 10 Ml) 20 mg IVP X1 ONE Stop: 01/29/25 11:11 Last Admin: 01/29/25 11:13 Dose: 20 mg Fentanyl Citrate (Fentanyl Cit Inj 50 Mcg/Ml Amp 2ml) 100 mcg IVP X1 ONE Stop: 01/29/25 12:38 Last Admin: 01/29/25 12:52 Dose: 100 mcg Folic Acid (Folic Acid Inj 1 Mg/0.2 Ml) 1 mg IVP QDAY [facility] Stop: 02/28/25 13:29 Last Admin: 01/31/25 08:50 Dose: 1 mg Haloperidol Lactate (Haloperidol Lact Inj 5 Mg/Ml Vial) 5 mg IV X1 ONE Stop: 01/30/25 10:23 Last Admin: 01/30/25 10:58 Dose: 5 mg Hydrocortisone Sodium Succinate (Hydrocortisone Sod Succ Inj 100 Mg Vial) 100 mg IV X1 ONE Stop: 02/01/25 09:47 Propofol (Diprivan Ivpb) 1,000 mg in 100 mls @ 2.177 mls/hr IV .Q24H PRN; Protocol PRN Reason: PER PROTOCOL Stop: 02/28/25 11:23 Last Titration: 01/30/25 14:15 Dose: 0 mcg/kg/min, 0 mls/hr Sodium Chloride (Ns) 1,000 mls @ 999 mls/hr IV .Q1H1M ONE Stop: 01/29/25 12:10 Last Infusion: 01/29/25 11:42 Dose: Infused Midazolam HCl (Versed Pf Inj In Ns Premix) 100 mg in 100 mls @ 1 mls/hr IV .Q24H PRN; Protocol PRN Reason: PER PROTOCOL Stop: 02/03/25 11:47 Last Titration: 01/30/25 03:00 Dose: 0 mg/hr, 0 mls/hr Fentanyl Citrate (Sublimaze Inj 2,500 Mcg/250 Ml Bag) 2,500 mcg in 250 mls @ 2.5 mls/hr IV .Q24H PRN; Protocol PRN Reason: Per Protocol Stop: 02/03/25 12:36 Last Titration: 01/30/25 10:20 Dose: 0 mcg/hr, 0 mls/hr Potassium Chloride (Kcl Ivpb) 10 meq in 100 mls @ 100 mls/hr IV .Q1H PRN PRN Reason: IF POTASSIUM LESS THAN 3.3 Stop: 02/28/25 12:49 Magnesium Sulfate (Magnesium Sulfate Ivpb) 2 gm in 50 mls @ 25 mls/hr IV .Q2H PRN PRN Reason: PER DKA PROTOCOL Stop: 02/28/25 12:49 Insulin Human Regular 100 unit (/ IV Miscellaneous Supplies) 100 mls @ 7.258 mls/hr IV .[id number] PRN; Protocol PRN Reason: PER PROTOCOL Stop: 02/28/25 12:49 Last Titration: 01/30/25 09:00 Dose: 0 unit/kg/hr, 0 mls/hr Dextrose/Lactated Ringer's (D5-Lr) 1,000 mls @ 250 mls/hr IV .Q4H PRN PRN Reason: PER PROTOCOL Stop: 02/28/25 12:49 Last Infusion: 01/30/25 10:00 Dose: 0 mls/hr Lactated Ringer's (Lactated Ringers) 1,000 mls @ 250 mls/hr IV .Q4H PRN PRN Reason: PER PROTOCOL Stop: 01/30/25 12:49 Potassium Chloride 20 meq/ (Lactated Ringer's) 1,010 mls @ 250 mls/hr IV .Q4H3M PRN PRN Reason: K LEVEL 3.3 TO 5.3mM/L Stop: 02/28/25 12:49 Last Infusion: 01/29/25 20:55 Dose: 0 mls/hr Potassium Chloride 40 meq/ (Lactated Ringer's) 1,020 mls @ 250 mls/hr IV .Q4H5M PRN PRN Reason: K LEVEL < 3.3 mM/L Stop: 02/28/25 12:49 Potassium Chloride 40 meq/ (Dextrose/Lactated Ringer's) 1,020 mls @ 250 mls/hr IV .Q4H5M PRN PRN Reason: K LEVEL < 3.3mM/L Stop: 02/28/25 12:49 Potassium Cl/Dextrose/Lact Ringer's (Kcl 20 Meq/L In D5-Lr) 20 meq in 1,000 mls @ 250 mls/hr IV .Q4H PRN PRN Reason: K LEVEL 3.3 TO 5.3 mM/L Potassium Chloride (Kcl Ivpb) 10 meq in 100 mls @ 50 mls/hr IV PRN PRN PRN Reason: K LEVEL 3.3 to 5.3 & BG > 200 Stop: 02/28/25 12:49 Last Infusion: 01/30/25 10:00 Dose: 0 mls/hr Potassium Phosphate (Pot Phos 15 Mmol In Ns 250 Ml) 15 mmol in 250 mls @ 62.5 mls/hr IV PRN PRN PRN Reason: Phosphate <= 1mg/dL Stop: 02/28/25 12:49 Sodium Phosphate 15 mmol/ (Sodium Chloride) 255 mls @ 62.5 mls/hr IV .Q4H5M PRN PRN Reason: Phosphate <= 1mg/dL and K> than 5.3 Stop: 02/28/25 12:49 Lactated Ringer's (Lactated Ringers) 1,000 mls @ 999 mls/hr IV .Q1H1M ONE Stop: 01/29/25 14:14 Last Infusion: 01/29/25 15:31 Dose: Infused Lactated Ringer's (Lactated Ringers) 1,000 mls @ 999 mls/hr IV .Q1H1M ONE Stop: 01/29/25 15:40 Last Admin: 01/29/25 14:44 Dose: Not Given Lactated Ringer's (Lactated Ringers) 1,000 mls @ 999 mls/hr IV .Q1H1M ONE Stop: 01/29/25 22:00 Lactated Ringer's (Lactated Ringers) 1,000 mls @ 999 mls/hr IV .Q1H1M ONE Stop: 01/29/25 19:52 Last Admin: 01/29/25 18:55 Dose: 999 mls/hr Potassium Chloride 20 meq/ (Dextrose/Lactated Ringer's) 1,010 mls @ 250 mls/hr IV .Q4H3M PRN PRN Reason: K LEVEL 3.3 TO 5.3 mM/L Stop: 02/28/25 19:42 Last Infusion: 01/30/25 06:45 Dose: Infused Lactated Ringer's (Lactated Ringers) 500 mls @ 999 mls/hr IV .Q31M ONE Stop: 01/29/25 23:16 Last Admin: 01/29/25 23:08 Dose: 999 mls/hr Dexmedetomidine/Sodium Chloride (Precedex Ivpb) 400 mcg in 100 mls @ 3.629 mls/hr IV .Q24H PRN; Protocol PRN Reason: Per PROTOCOL Stop: 03/01/25 11:19 Last Titration: 01/31/25 09:15 Dose: 0 mcg/kg/hr, 0 mls/hr Lactated Ringer's (Lactated Ringers) 1,000 mls @ 60 mls/hr IV .[id number] [facility] Stop: 03/01/25 14:15 Last Admin: 01/31/25 08:46 Dose: Not Given Magnesium Sulfate (Magnesium Sulfate Ivpb) 4 gm in 50 mls @ 12.5 mls/hr IV X1 ONE Stop: 02/02/25 14:28 Last Admin: 02/02/25 11:01 Dose: 12.5 mls/hr Insulin Glargine (Insulin Glargine (Lantus) 5 Unit/0.05 Ml (Per 5 Units)) 10 unit SC QDAY [facility] Stop: 03/03/25 08:59 Last Admin: 02/01/25 09:23 Dose: 10 unit Insulin Glargine (Insulin Glargine (Lantus) 5 Unit/0.05 Ml (Per 5 Units)) 15 unit SC QDAY [facility] Stop: 03/04/25 08:59 Last Admin: 02/02/25 09:24 Dose: 15 unit Insulin Human Lispro (Insulin Lispro (Admelog) 1 Unit/0.01 Ml Unit) 0 unit SC Q6HR [facility]; Protocol Stop: 03/01/25 08:59 Last Admin: 01/31/25 18:11 Dose: 3 unit Insulin Human Lispro (Insulin Lispro (Admelog) 1 Unit/0.01 Ml Unit) 0 unit SC ACHS [facility]; Protocol Stop: 03/02/25 20:59 Last Admin: 02/01/25 08:03 Dose: 3 unit Insulin Human Lispro (Insulin Lispro (Admelog) 1 Unit/0.01 Ml Unit) 2 unit SC AC [facility] Stop: 03/04/25 11:29 Labetalol HCl (Labetalol Inj 5 Mg/Ml Vial 20 Ml) 10 mg IVP X1 ONE Stop: 02/01/25 12:03 Last Admin: 02/01/25 12:29 Dose: 10 mg Labetalol HCl (Labetalol Inj 5 Mg/Ml Vial 20 Ml) 10 mg IVP X1 ONE Stop: 02/01/25 19:44 Last Admin: 02/01/25 20:10 Dose: 10 mg Labetalol HCl (Labetalol Inj 5 Mg/Ml Vial 20 Ml) 10 mg IVP X1 ONE Stop: 02/02/25 05:14 Last Admin: 02/02/25 05:25 Dose: 10 mg Levetiracetam (Levetiracetam Inj 100 Mg/Ml Vial 5ml) 1,000 mg IVP X1 ONE Stop: 01/29/25 13:19 Last Admin: 01/29/25 13:48 Dose: 1,000 mg Levetiracetam (Levetiracetam Inj 100 Mg/Ml Vial 5ml) 500 mg IVP Q12HR [facility] Stop: 02/28/25 20:59 Last Admin: 01/31/25 08:49 Dose: 500 mg Lorazepam (Lorazepam 2 Mg/Ml Vial) 1 mg IVP X1 ONE Stop: 01/31/25 12:59 Last Admin: 01/31/25 13:04 Dose: 1 mg Midazolam HCl (Midazolam Inj 1 Mg/Ml Vial 2 Ml) 4 mg IVP X1 ONE Stop: 01/29/25 13:25 Last Admin: 01/29/25 13:43 Dose: 4 mg Midazolam HCl (Midazolam Inj 1 Mg/Ml Vial 2 Ml) 4 mg IVP X1 ONE Stop: 01/30/25 07:18 Last Admin: 01/30/25 07:23 Dose: 4 mg Midazolam HCl (Midazolam Inj 1 Mg/Ml Vial 2 Ml) 2 mg IVP X1 ONE Stop: 01/30/25 11:01 Last Admin: 01/30/25 11:03 Dose: 2 mg Midazolam HCl (Midazolam Inj 1 Mg/Ml Vial 2 Ml) 2 mg IVP X1 ONE Stop: 01/30/25 11:11 Last Admin: 01/30/25 11:08 Dose: 2 mg Midazolam HCl (Midazolam Inj 1 Mg/Ml Vial 2 Ml) 4 mg IVP X1 ONE Stop: 01/30/25 11:47 Last Admin: 01/30/25 11:50 Dose: 4 mg Midazolam HCl (Midazolam Inj 1 Mg/Ml Vial 2 Ml) 2 mg IVP X1 ONE Stop: 01/30/25 15:58 Last Admin: 01/30/25 16:04 Dose: 2 mg Midazolam HCl (Midazolam Inj 1 Mg/Ml Vial 2 Ml) 4 mg IVP X1 ONE Stop: 01/30/25 18:32 Last Admin: 01/30/25 18:50 Dose: 4 mg Midazolam HCl (Midazolam Inj 1 Mg/Ml Vial 2 Ml) 4 mg IVP X1 ONE Stop: 01/31/25 00:46 Last Admin: 01/31/25 00:53 Dose: 4 mg Midazolam HCl (Midazolam Inj 1 Mg/Ml Vial 2 Ml) 4 mg IVP X1 ONE Stop: 01/31/25 03:51 Last Admin: 01/31/25 03:59 Dose: 4 mg Pantoprazole Sodium (Pantoprazole Inj 40 Mg Vial) 40 mg IVP QDAY [facility] Stop: 02/28/25 12:59 Last Admin: 02/01/25 09:27 Dose: Not Given Potassium Chloride (Potassium Chloride 10% 20 Meq/15 Ml Udc) 40 meq GT X1 ONE Stop: 02/02/25 10:30 Last Admin: 02/02/25 11:01 Dose: 40 meq Propofol (Propofol Inj 10 Mg/Ml Vial 20 Ml) 50 mg IV X1 ONE Stop: 01/29/25 11:50 Last Admin: 01/29/25 12:08 Dose: 50 mg Rocuronium [place] (Rocuronium Inj 10 Mg/Ml Vial 10 Ml) 50 mg IVP X1 ONE Stop: 01/29/25 11:17 Last Admin: 01/29/25 11:14 Dose: 50 mg Sodium Bicarbonate (Sodium Bicarb Inj 8.4% Syr 50 Ml Syringe) 50 ml IV Q4HR PRN PRN Reason: For ph <= to 7.0 Stop: 02/28/25 12:49 Sodium Chloride (Sodium Chloride Rt 10% 15 Ml Nebu) 5 ml INH X1 ONE Stop: 01/29/25 11:27 Last Admin: 01/30/25 18:49 Dose: Not Given Thiamine HCl (Thiamine Inj 100 Mg/Ml Vial 2 Ml) 100 mg IVP BID [facility] Stop: 02/28/25 13:29 Last Admin: 01/31/25 08:49 Dose: 100 mg Ziprasidone (Ziprasidone Inj 20 Mg/Ml Vial (Non-Formulary)) 10 mg IM Q6H PRN; Protocol PRN Reason: AGITATION (SEVERE) Stop: 03/01/25 11:57 Last Admin: 01/30/25 13:03 Dose: 10 mg Ziprasidone (Ziprasidone Inj 20 Mg/Ml Vial (Non-Formulary)) 10 mg IM X1 ONE Stop: 01/30/25 18:45 Last Admin: 01/30/25 19:58 Dose: 10 mg Ziprasidone (Ziprasidone 20 Mg Capsule) 40 mg PO BID [facility] Stop: 03/02/25 10:14 Last Admin: 01/31/25 10:59 Dose: Not Given Ziprasidone (Ziprasidone 20 Mg Capsule) 40 mg PO BID [facility] Stop: 03/02/25 20:59 Ziprasidone (Ziprasidone Inj 20 Mg/Ml Vial (Non-Formulary)) 20 mg IM X1 ONE Stop: 01/31/25 11:01 Last Admin: 01/31/25 11:25 Dose: 20 mg Assessment & Plan Plan The patient is a 29-year-old male with significant past medical history of uncontrolled diabetes mellitus type 1, noncompliant with insulin, multiple drug abuse, and possible seizure disorder was brought in by EMS to ED with chief complaint of being found slumped over and altered mental status. Cardiology consultation was done for further evaluation of the cause of stroke, and transesophageal echocardiography. #Acute ischemic stroke right posterior, temporal and occipital lobe The patient was found slumped over by EMS, and later was found to have multiple foci restricted diffusion in the right posterior temporal right occipital lobe with possible mild signal deficit on the ADC map. - Continue with atorvastatin 40 Mg daily, aspirin 81 Mg daily and clopidogrel 75 Mg daily. - Recommended CTA head and neck, and lipid panel - Recommended to get TTE - PHILIPPE to be done tomorrow afternoon, NPO after breakfast. - Rest of the management deferred to neurology team. #Bilateral leg edema #Hypoalbuminemia, likely secondary to nutritional deficiency Likely 2/2 volume overload in the setting of aggressive IV fluids during DKA treatment, with albumin of 2 during presentation DDx: CHF -Recommended to order TTE -Strict ins and outs -Fluid restriction to 1500cc/day incorporated in diet -2g sodium diet -Ensure 3 times daily with meals #Diabetes melitis type I #Noncompliant with medications The patient reported that he has diabetes mellitus type 1, and has been taking medications regularly. However, his A1c was 11.8 during presentation. He was also found to have DKA initially. - Maintain euglycemia #Anemia Likely multifactorial 2/2 nutrition deficiency -Ordered iron panel, ferritin, vit B12, B9, path smear and retic count #Hypertensive emergency, resolved #HTN Patient's blood pressure has been elevated and systolic blood pressure has been greater than 140 since beginning of admission. - Recommend to start the patient on amlodipine 5 mg daily #YAMILEX Rest of the management deferred to primary team Thank you for cardiology consultation. We appreciate the opportunity to participate in this patient care. We will continue to follow-up in this patient care. The patient's management plan was discussed with my attending physician MD Carlos Alberto Carpenter MD, PGY3 Attending Provider Attestation/Addendum I have personally seen and examined the patient separately on the above date of service and discussed the plan of care with the resident. I reviewed the resident Dr. Carlos Alberto Gautam consultation progress note and agree with the resident findings and plan in the note above and have also edited the documentation to reflect my findings and plan. A 29-year-old male with a past medical history of uncontrolled type 2 diabetes mellitus with an A1c of 12 diagnosed at the age of 16 and has been on insulin since, noncompliant with his insulin or other medications along with doctor appointments, history of drug abuse positive for THC now and previously for cocaine presented to the emergency department initially for altered mental status passing out along with questionable seizure activity after administration of Narcan. Patient was admitted to the hospital after he was intubated to protect airway after the seizure activity with unclear etiology. Patient was hypotensive and was also found to have DKA which was treated in the ICU and later was extubated in the grade 2 telemetry. Eventually an MRI was performed which showed Multiple foci restricted diffusion in the right posterior temporal right occipital lobe with possible mild signal deficit on the ADC map, recommend neurology consultation and correlation with clinical findings to assess for acute infarction versus demyelinating disease versus encephalopathy Primary team did consult neurology who have requested a PHILIPPE and cardiology consult was requested for further evaluation for concern of stroke given the MRI findings. Reviewed MRI findings as well as the CT findings and unclear if the patient had an ischemic stroke based on the presentation and could be encephalopathy versus other demyelinating disease. Patient has not had any kind of anemia on telemetry since arrival and EKG showed sinus rhythm. Given history of substance abuse question was raised about possible vegetations but patient does not appear to be bacteremic at this point of time and will follow vegetations would be low and even LA or LA thrombus would be low given absence of atrial fibrillation. PFO and ASD need to be ruled out given his young age. Appropriate PHILIPPE indication given the above concerns. Recommend to check transthoracic echocardiogram initially then plan for a PHILIPPE. Patient denies any kind of swallowing problems or any kind of esophageal interventions or previous surgeries. Patient denies any kind of gastric ulcers bleeding and any other hematemesis or hematochezia. Patient denies any issues with anesthesia previously. Patient explained all the risks, benefits and alternatives of PHILIPPE including the risk of perforation, bleeding, respiratory failure secondary to sedation, injury to teeth gums esophagus and stomach. Patient understands all risks and benefits and provided consent for the procedure. We will keep him n.p.o. after breakfast and plan for a PHILIPPE in the afternoon as the surgical tech will be only available in the evening. Regarding his bilateral lower extremity edema patient mostly has anasarca in the setting of hypoalbuminemia with an albumin of 1.9 on arrival. Unclear etiology of the hypoalbuminemia urine shows 3+ protein. Will need to rule out nephrotic syndrome as well as liver dysfunction along with poor oral intake. Primary to further workup for the same. Uncontrolled type 2 diabetes mellitus with an A1c close to 12 and patient is noncompliant with insulin as well as doctors visits. Recommend strict diabetic control. Management of rest of the medical conditions as per primary team and other consultants. Thank you for the consult and allowing me to participate in the care of the patient. Cardiology will continue to follow. Te Gee M.D. Interventional Cardiology
--- NOTE | 2025-02-02 18:41 | XR_ITS ---
Examination: CTA carotids with intravenous contrast CTA brain, head with intravenous contrast. 2-D sagittal, coronal reconstructions. 3-D reconstructions. Exam date and time: February 02, 2025, 1930 hours Comparison brain MRI February 01, 2025 INDICATIONS: Onset seizures beginning January 29, 2025 CTDI: vol (mGy) 25.1 DLP: (mGycm) 486 Technique: Multiple CTA axial brain, head carotid images post intravenous contrast injection 100 cc, [id number]. 2-D sagittal, coronal reconstructions. 3-D reconstructions, 3-D post processing including vascular maximum intensity projection images. Low dose protocols were performed. One or more of the following dose reduction techniques were used; automated exposure control, adjustment of the mA and/or KV according to patient size, use of iterative reconstruction technique. Findings: No significant common carotid carotid bifurcation or internal carotid artery stenoses Dominant left vertebral artery with no critical vertebral artery stenoses in the neck Intracranial vertebral arteries and basilar artery fill There is poor filling of the left posterior cerebral artery although no occlusion The juxtasellar supraclinoid portions of the internal carotid arteries do fill M1 segments middle cerebral arteries do not demonstrate occlusions There is poor filling of middle cerebral artery trifurcation vessels which appears to be technical Anterior cerebral artery branches fill IMPRESSION: No significant neck arterial stenoses Technically limited cerebral angiographic images Poor filling of the left posterior cerebral artery, no yoselin occlusions of middle cerebral anterior cerebral or posterior cerebral artery branches
[2025-02-02] MEDS: ATORVASTATIN CALCIUM 20 MG TABLET 40 MG PO (20:08)
[2025-02-03] VITALS (17 sets, daily range): BP systolic 165–191; BP diastolic 98–117; PULSE 92–108; RESP 17–20; TEMP 36.3–36.9; O2SAT 97–100; BMI 23.3
--- NOTE | 2025-02-03 02:20 | PC.NURSE ---
MD Lang notified of patient still hypertensive even after lisinopril and amlodipine given. He said he will order a medication. Current BP is 175/105
[2025-02-03] MEDS: LABETALOL INJ 5 MG/ML VIAL 20 ML 10 MG IVP ×3 (02:29→14:22)
--- NOTE | 2025-02-03 07:21 | PD.RESPRO ---
Documentation for date of: 02/03/25 Subjective Subjective Interval history: Patient evaluated at bedside. Denies new symptoms. Continues to have elevated BP with systolic in 190s. Exam Vital Signs Temp Pulse Resp BP Pulse Ox O2 Del Method FiO2 98.5 F 93 17 165/98 H 97 Room Air 30 02/03/25 03:45 02/03/25 04:00 02/03/25 03:45 02/03/25 03:45 02/03/25 03:45 02/03/25 03:45 01/31/25 08:00 Narrative Exam General: No acute distress, well nourished Eye: PERRL, EOMI, normal conjunctiva, no scleral icterus HENT: Normocephalic, atraumatic, hearing intact to conversation at normal volume, moist oral mucosa Neck: Supple, non-tender, no JVD, no lymphadenopathy Lungs: Non-labored respirations, symmetric chest rise Heart: Peripheral pulses intact bilaterally Abdomen: Soft, non-tender, non-distended Musculoskeletal: Normal range of motion and strength Skin: Skin is warm, dry, no rashes or lesions. Psychiatric: Cooperative, but stopped engaging in exam after several minutes Neurologic: Mental status: Orientation: AOx2 Communication: Patient is cooperative and can follow simple instructions Language: Speech fluent, normal rate and volume, comprehension intact Cranial nerves: CN II: Visual lopez intact CN III: Pupils equal, round, and reactive to light CN III, IV, : No gaze deviation, no nystagmus Horizontal pursuit: intact Vertical pursuit: intact Ptosis: none CN V: Facial sensation to light touch intact bilaterally at the forehead, cheeks, and jaw line CN VII: Face symmetric, no facial droop appreciated CN VIII: Able to hear and respond to conversation at normal volume, intact to finger rub CN IX, X: Palate elevation symmetric, uvula midline CN XI: Head turn and shoulder shrug strong, symmetric bilaterally CN XII: Normal tongue protrusion without deviation, no fasciculations Motor: Normal bulk and tone No atrophy No abnormal movements or fasciculations Muscle strength: Shoulder abduction: R 5/5 L 5/5 Elbow flexion: R 5/5 L 5/5 Elbow extension: R 5/5 L 5/5 Hip flexion: R 5/5 L 5/5 Hip extension: R 5/5 L 5/5 Knee flexion: R 5/5 L 5/5 Knee extension: R 5/5 L 5/5 Sensory: RUE: Light touch intact LUE: Light touch intact RLE: Light touch intact LLE: Light touch intact Reflexes: Biceps (C5-6): R 2+ L 2+ Brachioradialis (C5-6): R 2+ L 2+ Triceps (C7-8): R 2+ L 2+ Patellae (L3-4): R 2+ L 2+ Achilles (S1-2):R 2+ L 2+ Objective Labs 02/03/25 09:05 02/03/25 09:05 Labs: Laboratory Results - last 24 hr 02/01/25 02/02/25 21:10 10:38 WBC 14.5 H RBC 3.07 L Hgb 8.9 L Hct 26.6 L MCV 87 MCH 29.0 MCHC 33.5 RDW Std Deviation 43.5 Plt Count 312 Neut % (Auto) 80 Lymph % (Auto) 9 L Dubois % (Auto) 9 Eos % (Auto) 1 Baso % (Auto) 0 Neut # (Auto) 11.6 H Lymph # (Auto) 1.3 Dubois # (Auto) 1.3 H Eos # (Auto) 0.2 Baso # (Auto) 0.1 Immature Gran # (Auto) 0.13 H Absolute Nucleated RBC 0.00 Immature Gran % 1 H Nucleated RBC % 0 Sodium 142 Potassium 3.3 L Chloride 109 H Carbon Dioxide 25.8 Anion Gap 7 BUN 16 Creatinine 1.4 H Estim Creat Clear Calc 81.1 eGFR > 60 BUN/Creatinine Ratio 11 L Glucose 251 H D Calculated Osmolality 292 Calcium 7.9 L Corrected Calcium 9.0 Phosphorus 2.6 Magnesium 1.7 Total Bilirubin 0.3 AST 21 ALT 14 Alkaline Phosphatase 110 Total Protein 4.9 L Albumin 2.6 L Globulin 2.3 Albumin/Globulin Ratio 1.1 L Syphilis Serology Nonreactive Chlam trachomat DNA PCR Negative HIV 1&2 Antibody Rapid Non-Reactive N.gonorrhoeae DNA (PCR) Negative Trichomonas DNA Probe Negative ABG Interpretation ABG results: 01/29/25 01/29/25 01/29/25 11:11 12:44 17:19 ABG pH 7.45 ABG pCO2 37 ABG pO2 385 H ABG HCO3 26 ABG O2 Saturation 101 H ABG Base Excess 2 VBG pH 7.22 L 7.46 VBG pCO2 53 D 37 D VBG pO2 105 H D 52 D VBG Base Excess -7 L 2 01/29/25 01/29/25 01/30/25 21:09 22:31 01:39 ABG pH 7.55 H D ABG pCO2 31 L ABG pO2 137 H D ABG HCO3 27 H ABG O2 Saturation 101 H ABG Base Excess 4 H VBG pH 7.72 H 7.47 VBG pCO2 23 L D 37 D VBG pO2 172 H D 62 H D VBG Base Excess 10 H 3 01/30/25 01/30/25 01/31/25 04:04 06:18 07:03 ABG pH 7.35 D 7.45 D ABG pCO2 48 D 37 D ABG pO2 125 H 116 H ABG HCO3 26 26 ABG O2 Saturation 100 H 100 H ABG Base Excess 1 2 VBG pH 7.38 VBG pCO2 45 VBG pO2 37 D VBG Base Excess 2 Quality Measures Quality Measures VTE prophylaxis Assessment & Plan Assessment Current Active Medications: Generic Name Dose Route Start Last Admin Trade Name Freq PRN Reason Stop Dose Admin Acetaminophen 650 mg 01/29/25 12:45 Acetaminophen 325 Mg Tablet PO 02/28/25 12:44 Q6H PRN Pain (1-3) & Fever >100.4 Albuterol/Ipratropium 3 ml 01/31/25 14:02 Albuterol/Ipratropium (Duoneb) Rt Judy 3 Ml Nebu INH 03/02/25 14:01 Q2HR PRN SHORTNESS OF BREATH OR WHEEZE Aspirin 81 mg 02/02/25 15:15 02/02/25 16:50 Aspirin Ec 81 Mg Tabec PO 03/04/25 15:14 81 mg QDAY KIERA Administration Atorvastatin Calcium 40 mg 02/02/25 21:00 02/02/25 20:08 Atorvastatin Calcium 20 Mg Tablet PO 03/04/25 20:59 40 mg HS KIERA Administration Clopidogrel Bisulfate 75 mg 02/02/25 15:00 02/02/25 16:50 Clopidogrel Bisulfate 75 Mg Tablet PO 03/04/25 14:59 75 mg QDAY KIERA Administration Dextrose 25 ml 01/30/25 08:48 Dextrose 50%-Water Inj 50 Ml Syringe IV 03/01/25 08:47 Q15MIN PRN BG 50-70 responsive npo pt Dextrose 50 ml 01/30/25 08:48 Dextrose 50%-Water Inj 50 Ml Syringe IV 03/01/25 08:47 Q15MIN PRN BG <50 OR BG <70 & pt unresponsive Folic Acid 1 mg 02/01/25 09:00 02/02/25 09:24 Folic Acid 1 Mg Tablet PO 03/03/25 08:59 1 mg QDAY KIERA Administration Glucagon 1 mg 01/30/25 08:48 Glucagon Inj 1 Mg Vial IM Q15MIN PRN BG <70, and no IV access Heparin Sodium (Porcine) 5,000 unit 01/29/25 21:00 02/02/25 20:08 Heparin Sod Inj 5000 Unit/Ml Vial SC 02/12/25 20:59 5,000 unit Q12H KIERA Administration Ceftriaxone Sodium/Dextrose 1 gm in 50 mls @ 100 mls/hr 02/02/25 08:15 02/02/25 09:23 Rocephin/D5w 1gm Iv Premix IV 02/09/25 08:14 100 mls/hr QDAY KIERA Administration Insulin Glargine 15 unit 02/02/25 21:00 02/02/25 20:01 Insulin Glargine (Lantus) 5 Unit/0.05 Ml (Per 5 Units) SC 03/04/25 20:59 Not Given QPM KIERA Insulin Human Lispro 0 unit 02/01/25 08:40 02/02/25 20:02 Insulin Lispro (Admelog) 1 Unit/0.01 Ml Unit SC 03/02/25 20:59 Not Given ACHS [facility] Protocol Insulin Human Lispro 5 unit 02/02/25 11:30 02/02/25 16:50 Insulin Lispro (Admelog) 1 Unit/0.01 Ml Unit SC 03/04/25 11:29 5 unit AC KIERA Administration Levetiracetam 500 mg 01/31/25 21:00 02/01/25 09:26 Levetiracetam 250 Mg Tablet PO 03/02/25 20:59 Not Given BID KIERA Lisinopril 20 mg 02/02/25 09:00 02/02/25 09:25 Lisinopril 20 Mg Tablet PO 03/04/25 08:59 20 mg QDAY KIERA Administration Multivitamins 1 tab 01/31/25 10:30 02/02/25 09:24 Multivitamins Tablet PO 03/02/25 10:29 1 tab QDAY KIERA Administration Pantoprazole Sodium 40 mg 02/01/25 09:45 02/02/25 09:23 Pantoprazole 40 Mg Tablet PO 03/03/25 09:44 40 mg QDAY KIERA Administration Sennosides 1 tab 01/29/25 12:45 Senna Tablet PO 02/28/25 12:44 QDAY PRN constipation Protocol Thiamine HCl 100 mg 02/01/25 09:00 02/02/25 09:24 Thiamine 100 Mg Tablet PO 03/03/25 08:59 100 mg QDAY KIERA Administration Ziprasidone 40 mg 01/31/25 21:00 02/02/25 20:08 Ziprasidone 20 Mg Capsule PO 03/02/25 20:59 40 mg BID KIERA Administration Plan #Acute ischemic stroke with multiple foci in right posterior temporal and right occipital lobe #Hyperlipidemia #C/F Seizures In the setting of hyperclycemia / DKA Found down, unresponsive. Witnessed tonic-clonic like movements per EMS Hx stroke/TIA: none Hx afib: none Hx seizure: none Initial BP: 208/120 Initial glucose: 695 A1C: 11.8 PT and INR WNL EKG 01/28/25: NSR HR 97, QTc 406 UDS: + THC Salicylate, Acetaminophen, EtOH levels negative Urine opiate and fentanyl screen negative Lipids: Triglycerides 154 high, Cholesterol 285 high, LDL 186 high, HDL 68 high TSH: 5.57 high Free T4: 5 WNL Troponin: negative x1 Lactic acid: 2.1 --> 4.3 --> 2.6 Vitamin B12: [address] head w/o: Negative for acute hemorrhage, mass effect, midline shift Cervical spine CT w/o: No fracture CTA head/neck w/: No significant neck arterial stenoses. Limited cerebral angio. Poor filling of left [employer]. No yoselin occlusion of MCA, STEFFANY, or [employer] branches MRI/MRA w/ and w/o: Multiple foci restricted diffusion in right posterior temporal and right occipital lobe with ADC drop out c/f acute ischemic infarct TTE: Normal LV size and function. Estimated EF at 70-75%. Hyperdynamic LV systolic function. Trace TR. Meds given: given Narcan x2 and midazolam by EMS. Given loading dose Keppra in ICU, started on maintenance dose 500 mg BID DDX: Large vessel atherosclerosis (thrombus), cardioembolic, small vessel (lacunar) disease, hypercoagulable state, arterial dissection, vasculitis, substance use Most likely small vessel disease vs vasculitis Plan: - Pending hypercoag labs - Pending EEG read - Pending PHILIPPE - Continue Keppra 500 mg BID - Continue ASA 81 mg daily and plavix 75 mg daily x 21 days, then continue with one anti-platelet agent - Continue high intensity statin - F/U outpatient with Dr. Baez to f/u hypercoag labs #Agitation Plan: - Management per primary - ziprasidone 40 PO BID #Hypertensive emergency #Hypertension BP on arrival was 208/120, continues to have elevated BP despite treatment Evidence of end organ damage supported by YAMILEX, altered mental status on admission. AMS resolved, YAMILEX improving. Patient continues to have high BP with sBP in 190s despite Coreg 6.25 mg BID, Lasix 40 mg IV daily, Lisinopril 20 mg daily, nicardipine 20 mg BID TSH: 5.57 high, Free T4: 5 WNL Renal US: bladder wall thickening up to 13mm, c/f UTI, cystitis pattern DDX: renal artery stenosis, pheochromocytoma, primary aldosteronism, hyperthyroidism, [place] Plan: - Pending pheochromocytoma w/u - Pending renin and aldosterone levels #Polysubstance Use #Insulin-dependent diabetes mellitus type 2 on SSI #Hyperosmotic Hyperglycemia #High anion gap lactic Acidosis #Pseudohyponatremia (Reolved) #Mild DKA #Medication non-compliance A1c 11.8 Initial glucose 695 Patient takes metformin and humalog at home, unlikely that pt was taking medications as prescribed at home. #Leukocytosis #YAMILEX, improving Initial: BUN 41 Cr 2.4 CK 623 on arrival Likely prerenal in the setting of DKA #Sinus Tachycardia (Resolved) #Normocytic normochromic Anemia - Pending iron panel #UTI Plan: - Management per primary Plan discussed with Dr. Nestor Cabral, PGY1 Attending Provider Attestation/Addendum Patient was seen and examined at bedside and agree with the resident's findings, assessment and plan of care. Patient does not have any focal neurological deficit on exam but the workup showed that he had an acute stroke. Continue aspirin, Plavix and statin. Follow-up with the PHILIPPE. He needs aggressive blood pressure management to prevent recurrence. So far secondary hypertension workup by the primary team has been negative. As the EEG showed diffuse slowing but no epileptiform discharges, will hold off on antiepileptic drug therapy for now.
--- NOTE | 2025-02-03 07:31 | ESPR_ITS ---
<Statement entered by Latoya Lemos MD - 02/06/25 12:39> I reviewed above note and agree with findings and plans. I have also personally examined the patient with medicine team and went over assessment and plan with medical team including internal revenue agent and resident physician. <Statement entered by Mode Gaitan MD - 02/03/25 17:17> Patient was seen and examined at the bedside. No acute overnight events were reported. Patient appears agitated as he has been n.p.o. for possible KELLY however due to technical issues per cardiology in the [facility] patient will not be getting KELLY today and will be likely postponed for tomorrow. Patient's diet was resumed. Additionally, patient has been having hypertensive urgency with blood pressure around 190/120s we ordered workup for renal artery stenosis, renal mass, pheochromocytoma, ruling out type of diabetes with C-peptide and palmer 65 antibodies. Will follow-up with renal artery ultrasound and renal ultrasound to evaluate renal artery stenosis and any kidney mass. Nephrology has been consulted for further recommendations. Currently we are continuing on nicardipine 20 mg twice daily, carvedilol 6.25 mg twice daily, lisinopril 20 mg once daily, amlodipine was discontinued, added Lasix 40 mg once daily due to pitting edema seen on both lower extremity 2+. Keeping labetalol IV 10 mg every 6 as needed if SBP above 180. Goal for today's blood pressure is to maintain around SBP 150s per nephrology recommendations. Will workup on hypertension and follow-up with lab results. Patient was notified however he seems upset about drawing labs although he was explained that he is getting workup for questionable stroke seen on the MRI brain and neurologist recommended to have KELLY. All labs and orders were reviewed. If blood pressure remains elevated we can increase nicardipine to 20 mg 3 times a day. Nephrology is following. All labs and orders were reviewed. I discussed and supervised with the internal revenue agent physician who took care of this patient. I personally saw and examined the patient. I agree with most of the assessment and plan. Disclaimer: Despite multiple revisions, due to the dictation software being used, the document bellow may not be free of grammatical errors including phonetic/typographic errors. However, this does not deter from our commitment to providing health care in the patient's best interest in mind. Plan of care discussed with attending Physician Dr. Aminta Gaitan MD PGY-3 Documentation for date of: 02/03/25 Subjective Subjective Interval history: pt reports desire to go home pt kept npo pending expected KELLY today, however, unable to perform today, will try for KELLY tomorrow. (NPO after breakfast) HTN elevated all day, despite antihypertensives. neprho consulted, appreciate recs lasix 40 iv 1x, carvetilol, lisinopril, and amlodipine pending admin of nicardipine 20 x1. labetelol IV 10 q6 prn for >180 SBP ICU made aware of patient. pt reports dysuria resolved pending workup of DM (type 1 vs type 2) pending primary htn workup Exam Vital Signs Temp Pulse Resp BP Pulse Ox O2 Del Method FiO2 98.5 F 93 17 165/98 H 97 Room Air 30 02/03/25 03:45 02/03/25 04:00 02/03/25 03:45 02/03/25 03:45 02/03/25 03:45 02/03/25 03:45 01/31/25 08:00 Narrative Exam General: Awake, and oriented to self and place and situation, pt expresses desire to leave hospital. HEENT: Normocephalic, atraumatic, mucous membranes moist. Heart: tachycardic rate and regular rhythm, no murmurs. Lungs: Mild bilateral crackles at lung bases Abdomen: Soft, nondistended, nontender, positive bowel sounds. ?No guarding or rebound tenderness. no suprapubic tenderness Neurologic: Alert and oriented x2, no gross neurological deficit, and patient able to move all 4 extremities. Skin: No rash or ecchymoses. BL shins with healed excoriations Objective Labs 02/03/25 09:05 02/03/25 09:05 Labs: Laboratory Results - last 24 hr 02/01/25 02/02/25 21:10 10:38 WBC 14.5 H RBC 3.07 L Hgb 8.9 L Hct 26.6 L MCV 87 MCH 29.0 MCHC 33.5 RDW Std Deviation 43.5 Plt Count 312 Neut % (Auto) 80 Lymph % (Auto) 9 L Barton % (Auto) 9 Eos % (Auto) 1 Baso % (Auto) 0 Neut # (Auto) 11.6 H Lymph # (Auto) 1.3 Barton # (Auto) 1.3 H Eos # (Auto) 0.2 Baso # (Auto) 0.1 Immature Gran # (Auto) 0.13 H Absolute Nucleated RBC 0.00 Immature Gran % 1 H Nucleated RBC % 0 Sodium 142 Potassium 3.3 L Chloride 109 H Carbon Dioxide 25.8 Anion Gap 7 BUN 16 Creatinine 1.4 H Estim Creat Clear Calc 81.1 eGFR > 60 BUN/Creatinine Ratio 11 L Glucose 251 H D Calculated Osmolality 292 Calcium 7.9 L Corrected Calcium 9.0 Phosphorus 2.6 Magnesium 1.7 Total Bilirubin 0.3 AST 21 ALT 14 Alkaline Phosphatase 110 Total Protein 4.9 L Albumin 2.6 L Globulin 2.3 Albumin/Globulin Ratio 1.1 L Syphilis Serology Nonreactive Chlam trachomat DNA PCR Negative HIV 1&2 Antibody Rapid Non-Reactive N.gonorrhoeae DNA (PCR) Negative Trichomonas DNA Probe Negative ABG Interpretation ABG results: 01/29/25 01/29/25 01/29/25 11:11 12:44 17:19 ABG pH 7.45 ABG pCO2 37 ABG pO2 385 H ABG HCO3 26 ABG O2 Saturation 101 H ABG Base Excess 2 VBG pH 7.22 L 7.46 VBG pCO2 53 D 37 D VBG pO2 105 H D 52 D VBG Base Excess -7 L 2 01/29/25 01/29/25 01/30/25 21:09 22:31 01:39 ABG pH 7.55 H D ABG pCO2 31 L ABG pO2 137 H D ABG HCO3 27 H ABG O2 Saturation 101 H ABG Base Excess 4 H VBG pH 7.72 H 7.47 VBG pCO2 23 L D 37 D VBG pO2 172 H D 62 H D VBG Base Excess 10 H 3 01/30/25 01/30/25 01/31/25 04:04 06:18 07:03 ABG pH 7.35 D 7.45 D ABG pCO2 48 D 37 D ABG pO2 125 H 116 H ABG HCO3 26 26 ABG O2 Saturation 100 H 100 H ABG Base Excess 1 2 VBG pH 7.38 VBG pCO2 45 VBG pO2 37 D VBG Base Excess 2 Quality Measures Quality Measures VTE prophylaxis Assessment & Plan Assessment Current Active Medications: Generic Name Dose Route Start Last Admin Trade Name Freq PRN Reason Stop Dose Admin Acetaminophen 650 mg 01/29/25 12:45 Acetaminophen 325 Mg Tablet PO 02/28/25 12:44 Q6H PRN Pain (1-3) & Fever >100.4 Albuterol/Ipratropium 3 ml 01/31/25 14:02 Albuterol/Ipratropium (Duoneb) Rt Judy 3 Ml Nebu INH 03/02/25 14:01 Q2HR PRN SHORTNESS OF BREATH OR WHEEZE Aspirin 81 mg 02/02/25 15:15 02/02/25 16:50 Aspirin Ec 81 Mg Tabec PO 03/04/25 15:14 81 mg QDAY KIERA Administration Atorvastatin Calcium 40 mg 02/02/25 21:00 02/02/25 20:08 Atorvastatin Calcium 20 Mg Tablet PO 03/04/25 20:59 40 mg HS KIERA Administration Clopidogrel Bisulfate 75 mg 02/02/25 15:00 02/02/25 16:50 Clopidogrel Bisulfate 75 Mg Tablet PO 03/04/25 14:59 75 mg QDAY KIERA Administration Dextrose 25 ml 01/30/25 08:48 Dextrose 50%-Water Inj 50 Ml Syringe IV 03/01/25 08:47 Q15MIN PRN BG 50-70 responsive npo pt Dextrose 50 ml 01/30/25 08:48 Dextrose 50%-Water Inj 50 Ml Syringe IV 03/01/25 08:47 Q15MIN PRN BG <50 OR BG <70 & pt unresponsive Folic Acid 1 mg 02/01/25 09:00 02/02/25 09:24 Folic Acid 1 Mg Tablet PO 03/03/25 08:59 1 mg QDAY KIERA Administration Glucagon 1 mg 01/30/25 08:48 Glucagon Inj 1 Mg Vial IM Q15MIN PRN BG <70, and no IV access Heparin Sodium (Porcine) 5,000 unit 01/29/25 21:00 02/02/25 20:08 Heparin Sod Inj 5000 Unit/Ml Vial SC 02/12/25 20:59 5,000 unit Q12H KIERA Administration Ceftriaxone Sodium/Dextrose 1 gm in 50 mls @ 100 mls/hr 02/02/25 08:15 02/02/25 09:23 Rocephin/D5w 1gm Iv Premix IV 02/09/25 08:14 100 mls/hr QDAY KIERA Administration Insulin Glargine 15 unit 02/02/25 21:00 02/02/25 20:01 Insulin Glargine (Lantus) 5 Unit/0.05 Ml (Per 5 Units) SC 03/04/25 20:59 Not Given QPM KIERA Insulin Human Lispro 0 unit 02/01/25 08:40 02/02/25 20:02 Insulin Lispro (Admelog) 1 Unit/0.01 Ml Unit SC 03/02/25 20:59 Not Given ACHS KIERA Protocol Insulin Human Lispro 5 unit 02/02/25 11:30 02/02/25 16:50 Insulin Lispro (Admelog) 1 Unit/0.01 Ml Unit SC 03/04/25 11:29 5 unit AC KIERA Administration Levetiracetam 500 mg 01/31/25 21:00 02/01/25 09:26 Levetiracetam 250 Mg Tablet PO 03/02/25 20:59 Not Given BID KIERA Lisinopril 20 mg 02/02/25 09:00 02/02/25 09:25 Lisinopril 20 Mg Tablet PO 03/04/25 08:59 20 mg QDAY KIERA Administration Multivitamins 1 tab 01/31/25 10:30 02/02/25 09:24 Multivitamins Tablet PO 03/02/25 10:29 1 tab QDAY KIERA Administration Pantoprazole Sodium 40 mg 02/01/25 09:45 02/02/25 09:23 Pantoprazole 40 Mg Tablet PO 03/03/25 09:44 40 mg QDAY KIERA Administration Sennosides 1 tab 01/29/25 12:45 Senna Tablet PO 02/28/25 12:44 QDAY PRN constipation Protocol Thiamine HCl 100 mg 02/01/25 09:00 02/02/25 09:24 Thiamine 100 Mg Tablet PO 03/03/25 08:59 100 mg QDAY KIERA Administration Ziprasidone 40 mg 01/31/25 21:00 02/02/25 20:08 Ziprasidone 20 Mg Capsule PO 03/02/25 20:59 40 mg BID KIERA Administration Plan Mr. Ortiz is a 29-year-old gentleman with a past medical history of insulin- dependent type 1 diabetes mellitus, polysubstance use (THC and cocaine) , with difficulty taking medications who presented to the ED BIBA with altered mental status. There was initial concern for overdose and the patient was given multiple doses of Narcan and 1 dose of midazolam en route however Utox was negative for opioids. Patient was intubated in the emergency department due to unresponsiveness. Glucose 695, Patient admitted to ICU due to intubation and was started on DKA protocol. Pt was successfully extubated today and was given 1 mg ativan at 1300 for agitation, pt was AxO x1 and attempting to leave AMA. pt more interactive during exam today, reports dysuria, and query penile discharge (brittny and chlam negative, syphilus negative, and pending HIV) MRI brain completed for seizure workup, acute ischemic stroke in R temporal and R occipital, continues on keppra 500 bid. HTN urgency SBP>180s, consulted nephrology, reccomended d/c amlodipine, cont lisinopril, lasix, nicardipine x1, (ok with giving up to 20 mg TID, BP goal SBP>150 but <180) carvedilol, ICU made aware (given concern for possible nicardipine drip, however there is room to increase antihtn meds). pending KELLY (NPO after breakfast), pending workup of possible secondary htn. #HTN Urgency #query secondary HTN rapid response called for HTN to 180s see event note by Dr. Gaitan pt continues to have uncontrolled HTN, undergoing workup for possible secondary etiolgies : query Primary aldosteronism vs Renovascular hypertension (per Up to date warner symptoms include: severe hypertension in a patient with an unexplained atrophic kidney or asymmetry in kidney sizes of >1.5 cm. A unilateral small kidney (<= cm) has a 75 percent association with the presence of large vessel occlusive disease) vs Pheochromocytoma (however pt without classic triad of episodic headache, sweating, and tachycardia) vs Other endocrine disorders (Hypothyroidism, hyperthyroidism, and hyperparathyroidism may also induce hypertension) TSH wnl, vs polygenic inheritance - Nephro consulted, appreciate recs -Goal SBP>150 and <180 -OK for nicardipine 20 up to TID depending on how BP responds to Tx - Given amlodipine 10 today, per nephro, d/c given minimal impact on bp - Labetalol 10 mg IV q6hr PRN for systolic bpp>180 prn (goal >150) - carvetilol 6.25 BID - lisinopril 20 qd - Lasix 40 IVP 1x - Nicardipine 20 BID. #hypergylcemia #Insulin-dependent diabetes mellitus type 1 on SSI - poorly controlled #Mild DKA- resolved A1c 11.8 Patient takes metformin and humalog at home, unlikely that pt was taking medications as prescribed at home. BHB 2.2 on arrival morning blood glucose elevated, increased long acting from 10 to 15 qhs, and 5 Units short acting with meals pt blood glucose better controlled on this regimen Dx Q6HR glucose checks Tx: -DC insulin drip -Start long acting 15 Units qhs -sliding scale with, 5 units with meals #UTI #query STI r/o pt s/p extubation, Leukocytosis initially uptrending (initially query reactive vs infxn) now resolving leukocytosis , and pt reports resolution of dysuria afebrile. Dx - CBC - Bcx NGTD @48hr - initial Ucx NGTD - MRSA nares negative - UA positive, pending cultures - STI, brittny, chlam, syph, trich NEGATIVE - HIV negative - CTM for systemic signs of infection. Tx - APAP if febrile - start CTX qd 1 gm - Dc Doxy 100 mg bid given initial concern for STI with penile discharge but STI panel negative. #Seizures possibly 2/2 #Acute ischemic Infarct of R post temporal and R occipital lobe Consider provoked seizure caused by hyperglycemia, substance use (utox was initially + for thc, however previously + for cocaine) , query meth use given healed excoriations on BLE c/f meth induced meth parasitosis. Patient had tonic-clonic like movements per EMS when they first made contact with the patient Dx - pending KELLY npo after breakfast - pending hypercoagulation labs - pending EEG results - CT scan negative for hemorrhage or acute infarction - MRI head w/o: Multiple foci restricted diffusion in right posterior temporal and right occipital lobe with ADC drop out c/f acute ischemic infarct - consult neuro for seizure workup, appreciate recs: neuro concerned for possible hypercoag given stroke and young age. Tx -Was given loading dose of keppra, will continue 500 BID -Seizure precautions #YAMILEX #Rhabdomyolysis BUN 41 Cr 2.4, improved to BUN 33 Cr 1.6 on 01/31/2025 CK 623 on arrival Grade 2 YAMILEX per [facility] Likely prerenal in the setting of DKA in combination with rhabdomyolysis due to possible seizure #Agitation pt has history of previously hitting medical staff pt has requested to leave AMA and can become agitated, while in ICU was given ziprazidone KIERA Tx - ziprazidone 40 PO BID . ok for additional dose if becomes increasingly agitated. #Polysubstance Use Disorder Dx -Urine tox positive for marijuana -Previous urine tox positive for cocaine Tx -Social support upon discharge #Hyperosmotic Hyperglycemia #High anion gap lactic Acidosis #Pseudohyponatremia (Resolved) Lactic acid 2.7, AGAP 9 Lactic acid up trended after arrival and initiation of DKA treatment, consider lab error, lactic acid downtrending now Plan: #HTN Emergency (Resolved) BP on arrival was 208/120, 107/72 on 01/30/2025, stable Consider cocaine, substance use Evidence of end organ damage supported by YAMILEX (see renal) and altered mental status prior to arrival per EMS Previous suspicion for end organ damage evidenced by rise in Cr qualifying for hypertensive emergency, however YAMILEX resolving, Cr 1.6 down from 2 #Sinus Tachycardia (Resolved) Tachycardic on arrival Likely due to volume depletion in the presence of DKA #Normocytic Anemia Likely multifactorial, consider nutrition, fluid imbalance Plan: -Trend CBC -F/U outpatient Dispo: pending DM education and neuro workup of seizures (kelly, eeg, and hypercoag labs) , IV abx for UTI pending HIV pcr DVT prophylaxis: Heparin Q12 GI prophylaxis: Protonix 40 QD Diet: Carb consistent Diet- low Lines: Peripheral IV Code status: FULL Case discussed with my senior resident Dr. Gaitan Case discussed with my attending Dr. Aminta Little MD PGY-1
[2025-02-03] MEDS: INSULIN LISPRO (AdmeLOG) 1 UNIT/0.01 ML UNIT 5 UNIT SC ×2 (08:12→16:19)
[2025-02-03] MEDS: ASPIRIN EC 81 MG TABEC PO (08:37)
[2025-02-03] MEDS: THIAMINE 100 MG TABLET PO (08:37)
[2025-02-03] MEDS: PANTOPRAZOLE 40 MG TABLET PO (08:37)
[2025-02-03] MEDS: FOLIC ACID 1 MG TABLET PO (08:40)
[2025-02-03] MEDS: ZIPRASIDONE 20 MG CAPSULE 40 MG PO (08:40)
[2025-02-03] MEDS: CLOPIDOGREL BISULFATE 75 MG TABLET PO (08:41)
[2025-02-03] MEDS: MULTIVITAMINS TABLET 1 TAB PO (08:46)
[2025-02-03] MEDS: cefTRIAXone/D5w 1gm IV premix 1 GM/50 ML BAG IV (09:04)
[2025-02-03] MEDS: HEPARIN SOD INJ 5000 UNIT/ML VIAL SC (09:10)
[2025-02-03 09:24] LABS: Basophils # (Auto) 0.1 Thou/mm3 (0.0-0.2); Basophils % (Auto) 1 % (0-2.5); Eosinophils # (Auto) 0.4 Thou/mm3 (0.0-0.5); Eosinophils % (Auto) 3 % (0-10); Hematocrit 27.9 % (41.0-53.0); Hemoglobin 9.5 g/dL (13.5-16.0); Immature Granulocytes Auto 0.33 Thou/mm3 (0.00-0.00); Immature Reticulocyte Fraction 11.1 % (2.3-13.4); Lymphocytes # (Auto) 1.4 Thou/mm3 (1.0-4.8); Lymphocytes % (Auto) 10 % (10-50); Mean Corpuscular HGB Conc 34.1 g/dl (31.0-37.0); Mean Corpuscular Hemoglobin 29.8 pg (25.0-35.0); Mean Corpuscular Volume 88 fL (80-100); Monocytes # (Auto) 1.2 Thou/mm3 (0.0-0.8); Monocytes % (Auto) 9 % (0-12); Neutrophils # (Auto) 10.1 Thou/mm3 (1.8-7.7); Neutrophils % (Auto) 75 % (37-80); Nucleated Red Blood Cell # 0.00 Thou/mm3 (0.00-0.00); Nucleated Red Blood Cell % 0 /100 WBC (0); Platelet Count 341 Thou/mm3 (140-440); RDW Standard Deviation 43.0 fL (35.1-43.9); Red Blood Count 3.19 Miln/mm3 (4.50-5.90); Reticulocyte % (Auto) 4.8 % (0.5-1.5); Reticulocyte Absolute Auto 151.5 Biln/L (25.0-75.0); Reticulocyte Hgb Content 27.9 pg (28.0-35.0); White Blood Count 13.5 Thou/mm3 (3.8-10.6)
[2025-02-03 09:55] LABS: Folate 14.25 ng/mL (>5.38); Vitamin B12 941 pg/mL (211-911)
[2025-02-03 10:22] LABS: Alanine Aminotransferase 16 U/L (10-49); Albumin, Serum 2.5 gm/dL (3.5-5.0); Albumin/Globulin Ratio 1.2 (1.2-2.2); Alkaline Phosphatase 119 U/L (46-116); Anion Gap 8 (7-16); Aspartate Amino Transferase 24 U/L (0-34); BUN/Creatinine Ratio 14 Ratio (12-20); Bilirubin,Total 0.3 mg/dL (0.3-1.2); Blood Urea Nitrogen 19 mg/dL (9-23); Calcium 7.6 mg/dL (8.3-10.6); Calcium (Corrected) 8.8 mg/dL (8.5-10.1); Carbon Dioxide 26.4 mMol/L (20.0-31.0); Cardiac Risk Estimate 4.2 RATIO (4.0-6.7); Chloride 107 mMol/L (98-107); Cholesterol 285 mg/dL (132-200); Creatinine (Component) 1.4 mg/dL (0.6-1.3); Estimated Creatinine Clearance 81.1 mL/min (>60); Globulin 2.1 gm/dL (2.3-3.5); Glucose 180 mg/dL (74-106); HDL Cholesterol 68 mg/dL (40-60); LDL Cholesterol,Calculated 186 mg/dL (0-130); Magnesium 1.8 mg/dL (1.6-2.6); Osmolality,Calculated 288 (275-295); Phosphorous 2.6 mg/dL (2.4-5.1); Potassium 4.0 mMol/L (3.4-5.1); Sodium 141 mMol/L (136-145); Total Protein 4.6 gm/dL (5.7-8.2); Triglycerides 154 mg/dL (30-150); eGFR > 60 See Note
[2025-02-03 11:20] LABS: Path Review Blood Smear Sent to Pathologist
--- NOTE | 2025-02-03 11:51 | PD.RESPRO ---
Documentation for date of: 02/03/25 Subjective Subjective Interval history: The patient was seen and examined at the bedside this morning. He reported he wanted to go home. He has been hypertensive with blood pressures ranging from 170s to 180s systolic, heart rate in 90s, saturating 100% on room air. White count is still elevated mildly, hemoglobin 9.5, reticulocyte count 4.8%, chemistry panel revealed BUN 19, creatinine 1.4, GFR greater than 60, iron panel pending, albumin 2.5, TC 154, cholesterol 285, LDL 186, HDL 68, vitamin B12 941, folate 14.25 head and neck CTA was negative for any significant stenosis. TTE done yesterday revealed: Normal LV size and function. Estimated EF at 70-75%. Hyperdynamic LV systolic function. The RV is normal in size and systolic function. Trace TR. - Continue with amlodipine 10 mg daily - Recommended labetalol 5 mg IV every 6 hourly as needed for SBP greater than 180 or DBP greater than 120, and HR greater than 70. - Hold off on FLOR inhibitors or ARB's in the setting of YAMILEX. - Fluid restriction with 1500 cc/day incorporated in diet for fluid overload - The patient will get PHILIPPE tomorrow afternoon. - MRI findings as well as the CT findings were unclear if the patient had an ischemic stroke based on the presentation and could be encephalopathy versus other demyelinating disease. - Pending EEG report Exam Vital Signs Temp Pulse Resp BP Pulse Ox O2 Del Method FiO2 98.5 F 92 18 186/112 H 100 Room Air 30 02/03/25 03:45 02/03/25 10:36 02/03/25 09:00 02/03/25 10:36 02/03/25 09:00 02/03/25 03:45 01/31/25 08:00 Narrative Exam General: No acute distress, Alert and Oriented x 3 HEENT: Moist mucous membranes, oropharynx clear Neck: Supple, No masses, No JVD CVS: S1S2 Regular rate and rhythm, No murmurs, rubs or gallops Lungs: Clear to auscultation with no accessory use, no wheeze no rhonchi Abd: Soft, NT/ND, +BS, no organomegaly Ext: 2+ LL pitting edema, warm and well perfused Skin: No rash Psych: Flat affect Objective Labs 02/03/25 09:05 02/03/25 09:05 Labs: Laboratory Results - last 24 hr 01/29/25 02/02/25 02/03/25 21:59 10:38 09:05 WBC 13.5 H RBC 3.19 L Hgb 9.5 L Hct 27.9 L MCV 88 MCH 29.8 MCHC 34.1 RDW Std Deviation 43.0 Plt Count 341 Neut % (Auto) 75 Lymph % (Auto) 10 Hoke % (Auto) 9 Eos % (Auto) 3 Baso % (Auto) 1 Neut # (Auto) 10.1 H Lymph # (Auto) 1.4 Hoke # (Auto) 1.2 H Eos # (Auto) 0.4 Baso # (Auto) 0.1 Immature Gran # (Auto) 0.33 H Absolute Nucleated RBC 0.00 Immature Gran % 2 H Nucleated RBC % 0 Smear Path Review Sent to Pathologist Retic Count (auto) 4.8 H Absolute Retic 151.5 H Immature Retic Fraction 11.1 Retic Hgb Content CHr 27.9 L Puncture Site Cancelled ABG pH Cancelled ABG pCO2 Cancelled ABG pO2 Cancelled ABG HCO3 Cancelled ABG O2 Saturation Cancelled ABG Base Excess Cancelled Oxygen Liter Flow Cancelled FiO2 Cancelled Sodium 141 Potassium 4.0 D Chloride 107 Carbon Dioxide 26.4 Anion Gap 8 BUN 19 Creatinine 1.4 H Estim Creat Clear Calc 81.1 eGFR > 60 BUN/Creatinine Ratio 14 Glucose 180 H D Calculated Osmolality 288 Calcium 7.6 L Corrected Calcium 8.8 Phosphorus 2.6 Magnesium 1.8 Total Bilirubin 0.3 AST 24 ALT 16 Alkaline Phosphatase 119 H Total Protein 4.6 L Albumin 2.5 L Globulin 2.1 L Albumin/Globulin Ratio 1.2 Triglycerides 154 H Cholesterol 285 H LDL Cholesterol, Calc 186 H HDL Cholesterol 68 H Cholesterol/HDL Ratio 4.2 Vitamin B12 941 H Folate 14.25 Syphilis Serology Nonreactive HIV 1&2 Antibody Rapid Non-Reactive ABG Interpretation ABG results: 01/29/25 01/29/25 01/29/25 11:11 12:44 17:19 ABG pH 7.45 ABG pCO2 37 ABG pO2 385 H ABG HCO3 26 ABG O2 Saturation 101 H ABG Base Excess 2 VBG pH 7.22 L 7.46 VBG pCO2 53 D 37 D VBG pO2 105 H D 52 D VBG Base Excess -7 L 2 01/29/25 01/29/25 01/29/25 21:09 21:59 22:31 ABG pH Cancelled 7.55 H D ABG pCO2 Cancelled 31 L ABG pO2 Cancelled 137 H D ABG HCO3 Cancelled 27 H ABG O2 Saturation Cancelled 101 H ABG Base Excess Cancelled 4 H VBG pH 7.72 H VBG pCO2 23 L D VBG pO2 172 H D VBG Base Excess 10 H 01/30/25 01/30/25 01/30/25 01:39 04:04 06:18 ABG pH 7.35 D ABG pCO2 48 D ABG pO2 125 H ABG HCO3 26 ABG O2 Saturation 100 H ABG Base Excess 1 VBG pH 7.47 7.38 VBG pCO2 37 D 45 VBG pO2 62 H D 37 D VBG Base Excess 3 2 01/31/25 07:03 ABG pH 7.45 D ABG pCO2 37 D ABG pO2 116 H ABG HCO3 26 ABG O2 Saturation 100 H ABG Base Excess 2 VBG pH VBG pCO2 VBG pO2 VBG Base Excess Quality Measures Quality Measures VTE prophylaxis Assessment & Plan Assessment Current Active Medications: Generic Name Dose Route Start Last Admin Trade Name Freq PRN Reason Stop Dose Admin Acetaminophen 650 mg 01/29/25 12:45 Acetaminophen 325 Mg Tablet PO 02/28/25 12:44 Q6H PRN Pain (1-3) & Fever >100.4 Albuterol/Ipratropium 3 ml 01/31/25 14:02 Albuterol/Ipratropium (Duoneb) Rt Judy 3 Ml Nebu INH 03/02/25 14:01 Q2HR PRN SHORTNESS OF BREATH OR WHEEZE Amlodipine Besylate 10 mg 02/04/25 09:00 Amlodipine Besylate 5 Mg Tablet PO 03/06/25 08:59 QDAY KIERA Aspirin 81 mg 02/02/25 15:15 02/03/25 08:37 Aspirin Ec 81 Mg Tabec PO 03/04/25 15:14 81 mg QDAY KIERA Administration Atorvastatin Calcium 40 mg 02/02/25 21:00 02/02/25 20:08 Atorvastatin Calcium 20 Mg Tablet PO 03/04/25 20:59 40 mg HS KIERA Administration Clopidogrel Bisulfate 75 mg 02/02/25 15:00 02/03/25 08:41 Clopidogrel Bisulfate 75 Mg Tablet PO 03/04/25 14:59 75 mg QDAY KIERA Administration Dextrose 25 ml 01/30/25 08:48 Dextrose 50%-Water Inj 50 Ml Syringe IV 03/01/25 08:47 Q15MIN PRN BG 50-70 responsive npo pt Dextrose 50 ml 01/30/25 08:48 Dextrose 50%-Water Inj 50 Ml Syringe IV 03/01/25 08:47 Q15MIN PRN BG <50 OR BG <70 & pt unresponsive Folic Acid 1 mg 02/01/25 09:00 02/03/25 08:40 Folic Acid 1 Mg Tablet PO 03/03/25 08:59 1 mg QDAY KIERA Administration Glucagon 1 mg 01/30/25 08:48 Glucagon Inj 1 Mg Vial IM Q15MIN PRN BG <70, and no IV access Heparin Sodium (Porcine) 5,000 unit 01/29/25 21:00 02/03/25 09:10 Heparin Sod Inj 5000 Unit/Ml Vial SC 02/12/25 20:59 5,000 unit Q12H KIERA Administration Ceftriaxone Sodium/Dextrose 1 gm in 50 mls @ 100 mls/hr 02/02/25 08:15 02/03/25 09:04 Rocephin/D5w 1gm Iv Premix IV 02/09/25 08:14 100 mls/hr QDAY KIERA Administration Insulin Glargine 15 unit 02/02/25 21:00 02/02/25 20:01 Insulin Glargine (Lantus) 5 Unit/0.05 Ml (Per 5 Units) SC 03/04/25 20:59 Not Given QPM KIERA Insulin Human Lispro 0 unit 02/01/25 08:40 02/03/25 08:18 Insulin Lispro (Admelog) 1 Unit/0.01 Ml Unit SC 03/02/25 20:59 Not Given ACHS [facility] Protocol Insulin Human Lispro 5 unit 02/02/25 11:30 02/03/25 08:12 Insulin Lispro (Admelog) 1 Unit/0.01 Ml Unit SC 03/04/25 11:29 5 unit AC KIERA Administration Levetiracetam 500 mg 01/31/25 21:00 02/01/25 09:26 Levetiracetam 250 Mg Tablet PO 03/02/25 20:59 Not Given BID [facility] Lisinopril 40 mg 02/04/25 09:00 Lisinopril 20 Mg Tablet PO 03/06/25 08:59 QDAY KIERA Multivitamins 1 tab 01/31/25 10:30 02/03/25 08:46 Multivitamins Tablet PO 03/02/25 10:29 1 tab QDAY KIERA Administration Pantoprazole Sodium 40 mg 02/01/25 09:45 02/03/25 08:37 Pantoprazole 40 Mg Tablet PO 03/03/25 09:44 40 mg QDAY KIERA Administration Sennosides 1 tab 01/29/25 12:45 Senna Tablet PO 02/28/25 12:44 QDAY PRN constipation Protocol Thiamine HCl 100 mg 02/01/25 09:00 02/03/25 08:37 Thiamine 100 Mg Tablet PO 03/03/25 08:59 100 mg QDAY KIERA Administration Ziprasidone 40 mg 01/31/25 21:00 02/03/25 08:40 Ziprasidone 20 Mg Capsule PO 03/02/25 20:59 40 mg BID KIERA Administration Plan The patient is a 29-year-old male with significant past medical history of uncontrolled diabetes mellitus type 1, noncompliant with insulin, multiple drug abuse, and possible seizure disorder was brought in by EMS to ED with chief complaint of being found slumped over and altered mental status. Cardiology consultation was done for further evaluation of the cause of stroke, and transesophageal echocardiography. #Acute ischemic stroke right posterior, temporal and occipital lobe The patient was found slumped over by EMS, and later was found to have multiple foci restricted diffusion in the right posterior temporal right occipital lobe with possible mild signal deficit on the ADC map. - MRI findings as well as the CT findings were unclear if the patient had an ischemic stroke based on the presentation and could be encephalopathy versus other demyelinating disease. - Continue with atorvastatin 40 Mg daily, aspirin 81 Mg daily and clopidogrel 75 Mg daily. - Head and neck CTA was negative, found to have hyperlipidemia - PHILIPPE to be done this afternoon, NPO after breakfast. - Rest of the management deferred to neurology team. #HLD Triglyceride 154, cholesterol 285, LDL 186, HDL 68 - Continue with atorvastatin 40 Mg daily at night, the LDL goal is less than 55 in the setting of ischemic stroke and diabetes mellitus type 2 #Bilateral leg edema #Hypoalbuminemia, likely secondary to nutritional deficiency Likely 2/2 volume overload in the setting of aggressive IV fluids during DKA treatment, with albumin of 2 during presentation DDx: CHF - TTE did not reveal any CHF. TTE done revealed: Normal LV size and function. Estimated EF at 70-75%. Hyperdynamic LV systolic function. The RV is normal in size and systolic function. Trace TR. -Strict ins and outs -Fluid restriction to 1500cc/day incorporated in diet -2g sodium diet -Ensure 3 times daily with meals #Diabetes melitis type I #Noncompliant with medications The patient reported that he has diabetes mellitus type 1, and has been taking medications regularly. However, his A1c was 11.8 during presentation. He was also found to have DKA initially. - Maintain euglycemia #Anemia Likely multifactorial 2/2 nutrition deficiency -Ordered iron panel, ferritin, vit B12, B9, path smear and retic count Reticulocyte count 4.5%, iron panel and ferritin pending, vitamin B12 and B9 WNL, peripheral smear pending. #Hypertensive emergency, resolved #HTN Patient's blood pressure has been elevated and systolic blood pressure has been greater than 140 since beginning of admission. - Recommend to start the patient on amlodipine 10 mg daily -As needed labetalol 5 Mg IV every 4 hourly as needed for SBP greater than 180, or DBP greater than 120, and HR greater than 70. -FLOR inhibitor/ARB should be started on the after YAMILEX resolves, discontinued lisinopril #YAMILEX Rest of the management deferred to primary team Thank you for cardiology consultation. We appreciate the opportunity to participate in this patient care. We will continue to follow-up in this patient care. The patient's management plan was discussed with my attending physician MD Carlos Alberto Carpenter MD, PGY3 Attending Provider Attestation/Addendum I have personally seen and examined the patient separately on the above date of service and discussed the plan of care with the resident. I reviewed the resident Dr. Carlos Alberto Gautam consultation progress note and agree with the resident findings and plan in the note above and have also edited the documentation to reflect my findings and plan. Te Gee M.D. Interventional Cardiology
--- NOTE | 2025-02-03 11:52 | XR_ITS ---
Examination: Retroperitoneal ultrasound, complete Technique: Multiple high resolution grayscale images of the retroperitoneum obtained, including kidneys and bladder. Exam date and time:February 03, 2025 1207 hours INDICATIONS: Chronic hypertension FINDINGS: Right kidney 13.3 cm renal cortex 2.6 cm Left kidney 11.9 cm cortex 2.1 cm Possible edema in both kidneys No hydronephrosis or renal calculi No bladder mass Bladder prevoid and 20 78 cc, bladder wall thickening up to 13 mm No prostatomegaly Minimal free fluid in the pelvis IMPRESSION: Suspicious for urinary tract infection Cystitis pattern
[2025-02-03 14:48] LABS: Ferritin 858 ng/mL (10.5-307.3); Iron 36 mcg/dL (65-175); Percent Iron Saturation 21 % (20-55); Total Iron Binding Capacity 171 mcg/dL (250-425); Unsaturated Iron Binding 135 (225-295)
--- NOTE | 2025-02-03 15:28 | XR_ITS ---
Examination: Renal sonography Renal arterial Doppler sonographic evaluation Date and time: February 03, 2025, 1747 hours INDICATIONS: Onset hypertension 5 days ago TECHNIQUE AND FINDINGS: Sonographic images kidneys, including assessment peak systolic velocity renal arteries, calculation resistive indices and renal aortic ratios Right kidney 12.8 cm renal cortex 2.2 cm Left kidney 11.5 cm renal cortex 2.2 cm No bilateral elevation of peak systolic velocities No significant bilateral elevation of resistive indices. Bilateral normal renal aorta ratios. IMPRESSION: No Doppler sonographic findings of renal artery stenosis
--- NOTE | 2025-02-03 15:28 | PC.SS ---
Rounding Note: PHILIPPE pending. Stroke confirmed.
[2025-02-03] MEDS: FUROSEMIDE INJ 10 MG/ML 4ML VIAL 40 MG IVP (15:50)
[2025-02-03] MEDS: INSULIN LISPRO (AdmeLOG) 1 UNIT/0.01 ML UNIT SC (16:18)
[2025-02-03] MEDS: niCARdipine 20 MG CAPSULE PO (16:20)
--- NOTE | 2025-02-03 17:12 | PD.NEPHCONS ---
History of Present Illness Data of Consult Consult date: 02/03/25 Requesting Physician: Rory Pedroza MD Primary Care Provider: Physician No Primary/Family Consult Narrative Reason for consult: Uncontrolled hypertension History of present illness: Mr. Ortiz 29-year-old male with significant past medical history of uncontrolled diabetes mellitus type 1, noncompliant with insulin, multiple drug abuse, and possible seizure disorder was brought in by EMS with altered mental status. Chart review done. Patient was given Narcan which provoked a seizure and was given Versed with resolution. Subsequently he was found to have hypertensive emergency with a blood pressure of 208/120 and DKA. The patient was started on DKA protocol and transferred to ICU. For airway protection was intubated and during the hospital course he was extubated and downgraded to telemetry. Patient continued to have significant elevation of blood pressures and nephrology consultation was requested. All his records from the hospital have been reviewed. Patient has multiple ER visits for overdose. Currently seen in telemetry. Very restless. Wants to go home. Initial chest x-ray revealed no aspiration pneumonia, head CT was negative for acute hemorrhage, mass effect or midline shift. Cervical CT scan was negative for any acute cervical fracture, EKG revealed sinus rhythm with possible left atrial enlargement, brain MRI revealed multiple foci restricted diffusion in the right posterior temporal right occipital lobe with possible mild signal deficit on the ADC map. Home medications have been reviewed. Blood sugar 264. Blood pressure 175/107, heart rate 102.EEG showed diffuse encephalopathy.Renal ultrasound showed good sized kidneys. Renal Doppler ultrasound showed no evidence of RTA. Echocardiogram showed ejection fraction 70 to 75%. WBC 13.5, hemoglobin 9.5, platelets 341. Sodium 141, potassium 4, bicarbonate 26.4, creatinine 1.4. On admission 2.0. Glucose 180. Calcium 8.8, phosphorus 2.6, magnesium 1.8, ferritin 858, LFTs normal, albumin 2.5, cholesterol 285, LDL 186, HDL 68, triglyceride renin, aldosterone pending. B12 941, folic acid 14.25, homocystine level pending. Urinalysis showed 2+ protein, 3+ glucose, 3+ blood, RBC 20. Toxicological urine tox screen positive for marijuana antiphospholipid antibody syndrome pending. Renal consultation requested for uncontrolled hypertension. cc:: cc: Rory Pedroza MD Review of Systems Review of Systems Narrative Review of Systems: CONSTITUTIONAL: Patient denies any fever, chills. HEENT: Denies any visual disturbances or hearing problems. CARDIOVASCULAR: Patient denies any chest pain, shortness of breath, swelling in the lower extremities. PULMONARY: Patient denies any shortness of breath, cough. GASTROINTESTINAL: Patient denies any abdominal pain, constipation, nausea, vomiting, diarrhea. GENITOURINARY: Patient denies any urinary symptoms of burning or frequency or hematuria, denies any form in the urine. SKIN: Denies any rash. MUSCULOSKELETAL: Denies any muscular skeletal problems of joint pains. NEUROLOGICAL: Denies any neurological problems of strokes, seizures or confusion. Denies any memory problems. PSYCHIATRIC: Denies any depression or anxiety. LYMPHATICS : No lymphadenopathy Past Medical History Past Medical History CARDIAC: Negative Cardiac Disorders or Congestive Heart Failure RESPIRATORY: Positive Respiratory Disorders (asthma); Negative Chronic Obstructive Pulmonary Disease (COPD) or Asthma GENITOURINARY: Negative Renal Disease ENDOCRINE: Positive Endocrine Disorders and Diabetes Mellitus Type 2; Negative Diabetes Mellitus Type 1 HEMATOLOGIC: Negative Sickle Cell Disease Social History SMOKING STATUS: Unknown if ever smoked Meds Home Medications and Allergies Allergies Allergy/AdvReac Type Severity Reaction Status Date / Time No Known Allergies Allergy Verified 01/28/25 13:04 Exam Vital Signs Temp Pulse Resp BP Pulse Ox O2 Del Method FiO2 36.3 C 102 H 17 175/107 H 97 Room Air 30 02/03/25 16:00 02/03/25 17:04 02/03/25 16:00 02/03/25 17:04 02/03/25 16:00 02/03/25 16:00 01/31/25 08:00 Narrative Exam GENERAL APPEARANCE: Patient seems to be comfortable, adequately hydrated and nourished. HEENT: EOMI, PERRLA NECK: Neck supple, no JVD or bruit CARDIOVASCULAR: Heart regular, no murmurs LUNGS/CHEST: Chest clear to auscultation. No rales, rhonchi, wheezing ABDOMEN: Soft, nontender, nondistended. No masses. Normal bowel sounds. EXTREMITIES: No edema, clubbing or cyanosis. SKIN: Skin exam normal without any rashes MUSCULOSKELETAL: Musculoskeletal exam normal PSYCHIATRIC: Normal mood, affect LYMPHATICS: No lymphadenopathy noted NEUROLOGICAL : No neurological deficits Results Labs 02/03/25 09:05 02/03/25 09:05 Labs: Short CBC 02/03/25 Range/Units 09:05 WBC 13.5 H (3.8-10.6) Thou/mm3 Hgb 9.5 L (13.5-16.0) g/dL Hct 27.9 L (41.0-53.0) % Plt Count 341 (140-440) Thou/mm3 BMP 02/03/25 09:05 Sodium 141 Potassium 4.0 D Chloride 107 Carbon Dioxide 26.4 BUN 19 Creatinine 1.4 H Glucose 180 H D Calcium 7.6 L Liver Function 02/03/25 Range/Units 09:05 Total Bilirubin 0.3 (0.3-1.2) mg/dL AST 24 (0-34) U/L ALT 16 (10-49) U/L Alkaline Phosphatase 119 H (46-116) U/L Albumin 2.5 L (3.5-5.0) gm/dL ABG Interpretation ABG results: 01/29/25 01/29/25 01/29/25 11:11 12:44 17:19 ABG pH 7.45 ABG pCO2 37 ABG pO2 385 H ABG HCO3 26 ABG O2 Saturation 101 H ABG Base Excess 2 VBG pH 7.22 L 7.46 VBG pCO2 53 D 37 D VBG pO2 105 H D 52 D VBG Base Excess -7 L 2 01/29/25 01/29/25 01/29/25 21:09 21:59 22:31 ABG pH Cancelled 7.55 H D ABG pCO2 Cancelled 31 L ABG pO2 Cancelled 137 H D ABG HCO3 Cancelled 27 H ABG O2 Saturation Cancelled 101 H ABG Base Excess Cancelled 4 H VBG pH 7.72 H VBG pCO2 23 L D VBG pO2 172 H D VBG Base Excess 10 H 01/30/25 01/30/25 01/30/25 01:39 04:04 06:18 ABG pH 7.35 D ABG pCO2 48 D ABG pO2 125 H ABG HCO3 26 ABG O2 Saturation 100 H ABG Base Excess 1 VBG pH 7.47 7.38 VBG pCO2 37 D 45 VBG pO2 62 H D 37 D VBG Base Excess 3 2 01/31/25 07:03 ABG pH 7.45 D ABG pCO2 37 D ABG pO2 116 H ABG HCO3 26 ABG O2 Saturation 100 H ABG Base Excess 2 VBG pH VBG pCO2 VBG pO2 VBG Base Excess Assessment & Plan Assessment and plan (1) Acute renal failure (ARF): Status: Acute Assessment and plan: Acute renal failure secondary to uncontrolled hypertension (2) CKD stage 3 due to type 2 diabetes mellitus: Status: Acute Assessment and plan: Underlying CKD with significant proteinuria consistent with diabetic nephropathy. Urine protein/creatinine, PTH ordered (3) Uncontrolled diabetes mellitus: Status: Acute Assessment and plan: Uncontrolled diabetes due to noncompliance. (4) Hypertensive emergency: Status: Acute Assessment and plan: Hypertensive emergency with YAMILEX. Currently on lisinopril. Requested the team to order workup for secondary hypertension. Added nicardipine (5) Proteinuria: Status: Acute Assessment and plan: Continue with the lisinopril (6) Hyperlipidemia: Status: Acute Assessment and plan: Continue with statin Additional Assessment & Plan Additional Plan: Thank you Latoya for allowing me to participate in the care of Mr. Ortiz
--- NOTE | 2025-02-03 19:24 | PC.NURSE ---
While doing handoff in room patient became aggressive after talking with Dr Xiomara Moy. Patient stated he wanted to leave AMA. Dr Perales was also in room talked to patient explained risks of leaving and was encouraged to return. Patient signed himself out against medical advise. Patient and his belongings walked off of the floor at 1915.
--- NOTE | 2025-02-03 21:25 | EVENTNT_ITS ---
Documentation for date of: 02/03/25 Event Note Event Note: Patient left Against Medical Advice, stating he did not want to spend more time in the hospital. The risks of leaving early were explained to the patient, including his high blood pressure and blood glucose levels. Patient verbalized understanding, and demonstrated appropriate orientation. Patient agreed to make an appointment at the [facility] to follow up on his medical conditions and outstanding labs. Patient was signed out as an AMA. Steve Hernández MD PGY-2
[2025-02-05 06:20] LABS: Osmolality, Serum* 318 mOsm/kg (278-305)
[2025-02-08 11:01] LABS: Antithrombin III, Activity 105 % normal (80-135); Antithrombin III, Antigen 101 % normal (80-120); Hexagonal Phase Confirm WEAKLY POSITIVE (NEGATIVE); PTT-LA Screen 46 seconds (< OR = 40); Protein C Antigen, Total* 127 % normal (70-140); Protein S Antigen, Total* 153 % normal (70-140); Thrombin Clotting Time 17 sec (13-19); dRVVT Screen 44 seconds (< OR = 45)
[2025-02-09 14:09] LABS: ANA Screen, IFA NEGATIVE (NEGATIVE); Aldosterone* 1 ng/dL
[2025-02-09 14:13] LABS: Renin Activity, Plasma* 0.63 ng/mL/h (0.25-5.82)
[2025-02-14 15:34] LABS: Cardiolipin Ab (IgA) <2.0 APL-U/mL; Cardiolipin Ab (IgG) <2.0 GPL-U/mL
[2025-02-15 14:42] LABS: Cardiolipin Ab (IgM) <2.0 MPL-U/mL; Homocysteine* 5.5 umol/L (< OR = 12.9)
[2025-02-16 07:43] LABS: B2-Glycoprotein I Ab IgA SEE SEP RPT; B2-Glycoprotein I Ab IgG SEE SEP RPT; B2-Glycoprotein I Ab IgM SEE SEP RPT; Phos.Serine Ab IgG SEE SEP RPT; Phos.Serine Ab IgM SEE SEP RPT
[2025-02-16 07:44] LABS: Cardiolipin Ab IgA DUPLICATE ORDER; Cardiolipin Ab IgG DUPLICATE ORDER; Cardiolipin Ab IgM DUPLICATE ORDER
[2025-02-16 07:45] LABS: Antiphospholipid Ab Interp DUPLICATE ORDER
== END 2025-02-03 19:15 | disposition left against medical advice (07) | DRG 420 ==
LOC: SERHOLD 13:23 → SERX 13:25 → SERHOLD 13:33 → S2SX 20:34 → S3SX 02-01 09:05 → S2NX 02-01 23:24
PROVIDERS: Student in an Organized Health Care Education/Training Program; Admitting Provider Internal Medicine Critical Care Medicine; Emergency Provider Emergency Medicine; Visit Provider Internal Medicine Critical Care Medicine
DX: E10.10 Type 1 diabetes mellitus with ketoacidosis without coma (principal); I16.1 Hypertensive emergency; N17.9 Acute kidney failure, unspecified; M62.82 Rhabdomyolysis; E10.22 Type 1 diabetes mellitus with diabetic chronic kidney disease; E86.9 Volume depletion, unspecified; F14.10 Cocaine abuse, uncomplicated; F12.10 Cannabis abuse, uncomplicated; E78.5 Hyperlipidemia, unspecified; G93.41 Metabolic encephalopathy; J96.01 Acute respiratory failure with hypoxia; R56.9 Unspecified convulsions; E87.70 Fluid overload, unspecified; E88.09 Other disorders of plasma-protein metabolism, not elsewhere classified; F05 Delirium due to known physiological condition; J96.00 Acute respiratory failure, unspecified whether with hypoxia or hypercapnia; N18.30 Chronic kidney disease, stage 3 unspecified; N27.0 Small kidney, unilateral; I10 Essential (primary) hypertension; I63.50 Cerebral infarction due to unspecified occlusion or stenosis of unspecified cerebral artery; E63.9 Nutritional deficiency, unspecified; N39.0 Urinary tract infection, site not specified; Z53.29 Procedure and treatment not carried out because of patient's decision for other reasons; Z91.148 Patient's other noncompliance with medication regimen for other reason; Z79.4 Long term (current) use of insulin; Z78.1 Physical restraint status; Z88.2 Allergy status to sulfonamides
CPT/HCPCS: 36415; 36600; 70450; 70496; 70498; 70551; 71045; 72125; 76770; 80053; 80061; 80069; 80307; 80320; 80329; 81001; 82010; 82043; 82088; 82140; 82550; 82570; 82607; 82728; 82746; 82803; 83036; 83090; 83540; 83550; 83605; 83690; 83735; 83930; 84100; 84244; 84436; 84443; 84484; 84681; 85025; 85046; 85300; 85301; 85302; 85305; 85598; 85610; 85613; 85670; 85730; 86038; 86146; 86147; 86148; 86703; 86780; 87040; 87077; 87081; 87086; 87186; 87205; 87491; 87591; 87661; 92526; 92610; 93005; 93312; 93975; 94002; 94003; 94640; 95816; 96361; 96365; 96366; 96375; 96376; 99285; 99292; A4649; A9270; J0696; J1630; J1644; J1815; J1938; J1953; J2060; J2250; J2251; J2470; J2704; J3010; J3411; J3475; J3480; J3486; J3490; J7030; J7120; J7121; Q9967; G0480; J1920

== ENCOUNTER 2025-02-05 18:04 | Inpatient (IN) | payer MEDICAID, SELFPAY ==
[2025-02-05 18:06] VITALS: BMI 25.0
[2025-02-05 18:18] VITALS: BP 200/119; PULSE 119; RESP 19; TEMP 37.3; O2SAT 99
--- NOTE | 2025-02-05 18:48 | PD.EDRME ---
Rapid Medical Screening Exam RME Arrival date/time: 02/05/25 18:04 29M with history of DM, HTN, and drug use presents to ED for high blood glucose. Patient AMA'd yesterday, but would like to be readmitted. Chief Complaint: General Adult/Misc Complain Time Seen by Provider: 02/05/25 18:32 Vital signs: Vital Signs Temperature 99.1 F 02/05/25 18:18 Pulse Rate 119 H 02/05/25 18:18 Respiratory Rate 19 02/05/25 18:18 Blood Pressure 200/119 H 02/05/25 18:18 Pulse Oximetry (%) 99 02/05/25 18:18 Oxygen Delivery Method Room Air 02/05/25 18:18
[2025-02-05 19:33] LABS: Base Excess, Venous 3 (-3-3); O2 Saturation, Venous 75 % (96-97); PCO2, Venous 39 mmHg (36-56); PO2, Venous 38 mmHg (15-58); pH, Venous 7.45 (7.33-7.66)
[2025-02-05 19:35] LABS: Basophils # (Auto) 0.1 Thou/mm3 (0.0-0.2); Basophils % (Auto) 1 % (0-2.5); Beta Hydroxybutyrate 0.1 mmol/L (<0.6); Eosinophils # (Auto) 0.3 Thou/mm3 (0.0-0.5); Eosinophils % (Auto) 2 % (0-10); Hematocrit 25.3 % (41.0-53.0); Immature Granulocytes Auto 0.96 Thou/mm3 (0.00-0.00); Lymphocytes # (Auto) 2.2 Thou/mm3 (1.0-4.8); Lymphocytes % (Auto) 13 % (10-50); Mean Corpuscular HGB Conc 33.6 g/dl (31.0-37.0); Mean Corpuscular Hemoglobin 28.8 pg (25.0-35.0); Mean Corpuscular Volume 86 fL (80-100); Monocytes # (Auto) 1.5 Thou/mm3 (0.0-0.8); Monocytes % (Auto) 10 % (0-12); Neutrophils # (Auto) 11.1 Thou/mm3 (1.8-7.7); Neutrophils % (Auto) 69 % (37-80); Nucleated Red Blood Cell # 0.00 Thou/mm3 (0.00-0.00); Nucleated Red Blood Cell % 0 /100 WBC (0); Platelet Count 338 Thou/mm3 (140-440); RDW Standard Deviation 40.1 fL (35.1-43.9); Red Blood Count 2.95 Miln/mm3 (4.50-5.90); White Blood Count 16.1 Thou/mm3 (3.8-10.6)
[2025-02-05 19:36] LABS: Hemoglobin 8.5 g/dL (13.5-16.0)
--- NOTE | 2025-02-05 20:17 | PD.EDADULT ---
ED General RME/HPI General Chief complaint: General Adult/Misc Complain Stated complaint: [facility] TO HIGH GLUCOSE Time Seen by Provider: 02/05/25 18:32 Arrival date/time: 02/05/25 18:04 RME / HPI RME / HPI narrative: 02/05/25 18:04 29M with history of DM, HTN, and drug use presents to ED for high blood glucose. Patient AMA'd yesterday, but would like to be readmitted. 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 Patient was recently seen in the hospital on 01/29/2025 for which she was admitted to the ICU due to DKA and acute encephalopathy and later on was downgraded to the medical floors and was found to have a acute CVA. Patient left AMA on 02/03/2025 before he could get his PHILIPPE done. Today patient again stated that he felt very weak, having a headache, and malaise and stated that he did not have any medications and his blood sugars were high. Denies having any chest pain, nausea, vomiting, burning sensation in urination, blood in the stool, or shortness of breath. Admits smoking, marijuana use, denies any other illicit drugs Related Data Previous Rx's ?Medication ?Instructions ?Recorded aspirin 81 mg tablet,delayed 81 mg PO QDAY 1 month #30 tabs 02/03/25 release atorvastatin 40 mg tablet 40 mg PO QDAY 1 month #30 tabs 02/03/25 clopidogrel 75 mg tablet 75 mg PO QDAY 21 days #21 tabs 02/03/25 folic acid 1 mg tablet 1 mg PO QDAY #90 tabs 02/03/25 furosemide 40 mg tablet (Lasix) 40 mg PO QAM #90 tabs 02/03/25 glucagon 1 mg/0.2 mL subcutaneous 1 mg (0.2 mL) subcut QDAY PRN 02/03/25 auto-injector (Gvoke HypoPen hypoglycemia #0.2 mL 1-Pack) insulin glargine 100 unit/mL (3 15 unit (0.15 mL) subcut QPM 02/03/25 mL) subcutaneous pen (Lantus Lantus once at night #15 mL Solostar U-100 Insulin) insulin lispro 100 unit/mL 5 unit (0.05 mL) subcut TIDWMEAL 02/03/25 subcutaneous pen (Admelog SoloStar #15 mL U-100 Insulin lispro) lancets 30 gauge and blood glucose #200 ea 02/03/25 strips combo pack levetiracetam 500 mg tablet 500 mg PO BID #90 tabs 02/03/25 lisinopril 20 mg tablet 20 mg PO QDAY #90 tabs 02/03/25 metformin 500 mg tablet,extended 500 mg PO BID #60 tabs 02/03/25 release 24 hr multivitamin with folic acid 400 1 tab PO QDAY #90 tabs 02/03/25 mcg tablet (Tab-A-Abrahan) nicardipine 20 mg capsule 20 mg PO BID #90 caps 02/03/25 pen needle, diabetic, safety 30 #1,200 ea 02/03/25 gauge x 5/16 thiamine mononitrate (vit B1) 100 100 mg PO QDAY #90 tabs 02/03/25 mg tablet ziprasidone HCl 40 mg capsule 40 mg PO BID #60 caps 02/03/25 Allergies Allergy/AdvReac Type Severity Reaction Status Date / Time No Known Allergies Allergy Verified 02/05/25 18:06 Review of Systems Review of Systems Systems Reviewed: All systems reviewed, normal except as documented Past Medical History Past Medical History CARDIAC: Negative Cardiac Disorders or Congestive Heart Failure RESPIRATORY: Positive Respiratory Disorders (asthma); Negative Chronic Obstructive Pulmonary Disease (COPD) or Asthma GENITOURINARY: Negative Renal Disease ENDOCRINE: Positive Endocrine Disorders and Diabetes Mellitus Type 2; Negative Diabetes Mellitus Type 1 HEMATOLOGIC: Negative Sickle Cell Disease Social History SMOKING STATUS: Unknown if ever smoked ED Exam Narrative Physical exam: General: A/O x3, ill appearing Eyes: R pupil not reactive to light, 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 Nose: No nasal discharge. Mouth/Throat: Moist mucous membranes, no redness, no lesions. Neck: Neck supple, non-tender, no cervical lymphadenopathy. Lungs: Mild expiratory wheezing and prolong expiration, No accessory muscle use. Cardio: Normal S1/S2, regular rhythm, no murmurs, no JVD appreciated. Abdomen: Soft, non-tender, no palpable masses, peristalsis present, no guarding or rebound. Extremities: Symmetrical, no significant deformities, 2+ peripheral edema , non-tender, peripheral pulses presents. Skin: No rashes, no lesions, warm to touch. Neuro: Mild left dysmetria, no nasolabial fold flattening, strength bilaterally upper and lower extremities 5 out of 5 with no deficits in sensorium. Slow speech. Psych: flat affect Course Quality Measures none Orders Category Date Time Status Bedside Blood Glucose ACHS Care 02/05/25 20:14 Active Bedside Blood Glucose NOW Care 02/05/25 18:29 Active Bedside Blood Glucose NOW Care 02/05/25 20:13 Active Bedside COVID-19 Antigen Test NOW Care 02/06/25 04:44 Active COVID-19 Screening Questionnaire NOW Care 02/06/25 03:14 Active Decision to Admit X1 Care 02/06/25 03:[address] head/brain wo con Stat Exams 02/06/25 03:43 Taken Alcohol, Blood Medical Stat Lab 02/05/25 19:18 Completed Alcohol, Urine Stat Lab 02/05/25 21:21 Completed Beta Hydroxybutyrate Stat Lab 02/05/25 19:18 Completed CBC Stat Lab 02/05/25 19:18 Completed CMP [Comprehensive Metabolic Panel] Stat Lab 02/05/25 19:18 Completed Drug Screen,Urine Stat Lab 02/05/25 21:21 Completed Mag [Magnesium] Stat Lab 02/05/25 19:18 Completed Phosphorous Stat Lab 02/05/25 19:18 Completed UA [Urinalysis] Stat Lab 02/05/25 21:21 Completed VBG [Venous Blood Gas] Stat Lab 02/05/25 19:18 Completed Dextrose 50% Syr [D50w Syringe Abboject] Med 02/05/25 20:14 Active 25 ml IV Q15MIN PRN Dextrose 50% Syr [D50w Syringe Abboject] Med 02/05/25 20:14 Active 50 ml IV Q15MIN PRN Glucagon Inj Med 02/05/25 20:14 Active 1 mg IM Q15MIN PRN INSULIN LISPRO (AdmeLOG) [HumaLOG] Med 02/05/25 21:00 Active See Protocol SC ACHS Insulin Glargine Inj [Lantus Inj] Med 02/05/25 20:15 Discontinued 10 unit SC X1 ONE Insulin Regular Med 02/05/25 20:22 Discontinued 5 unit SC X1 ONE Insulin Regular Med 02/06/25 03:07 Discontinued 5 unit SC X1 ONE Labetalol IV [Trandate IV] Med 02/06/25 03:14 Discontinued 10 mg IVP X1 ONE Vital Signs Vital signs: Vital Signs Temperature 99.1 F 02/05/25 18:18 Pulse Rate 119 H 02/05/25 18:18 Respiratory Rate 19 02/05/25 18:18 Blood Pressure 200/119 H 02/05/25 18:18 Pulse Oximetry (%) 99 02/05/25 18:18 Oxygen Delivery Method Room Air 02/05/25 18:18 Discharge Plan Plan Patient Disposition: Admit Acute Care w/in Hospital Prescriptions/Referrals Prescriptions/Med Rec: No Action aspirin 81 mg Tablet,Delayed Release (Dr/Ec) 81 mg PO QDAY 30 Days Qty: 30 0RF clopidogrel 75 mg Tablet 75 mg PO QDAY 21 Days Qty: 21 0RF atorvastatin 40 mg tablet 40 mg PO QDAY 30 Days Qty: 30 0RF folic acid 1 mg tablet 1 mg PO QDAY Qty: 90 0RF multivitamin with folic acid [Tab-A-Abrahan] 400 mcg Tablet 1 tab PO QDAY Qty: 90 0RF ziprasidone HCl 40 mg capsule 40 mg PO BID Qty: 60 0RF thiamine mononitrate (vit B1) 100 mg Tablet 100 mg PO QDAY Qty: 90 0RF insulin glargine [Lantus Solostar U-100 Insulin] 100 unit/mL (3 mL) insulin pen 15 unit subcut QPM Qty: 15 4RF insulin lispro [Admelog SoloStar U-100 Insulin] 100 unit/mL insulin pen 5 unit subcut TIDWMEAL Qty: 15 0RF Gvoke HypoPen 1-Pack 1 mg/0.2 mL auto-injector 1 mg subcut QDAY PRN (Reason: hypoglycemia) Qty: 0.2 0RF metformin 500 mg Tablet Extended Release 24 Hr 500 mg PO BID Qty: 60 0RF (DME) pen needle, diabetic, safety 30 gauge x 5/16 needle See Rx Instructions .Route Qty: 1200 0RF Rx Instructions: As directed (DME) lancets-blood glucose strips 30 gauge combo pack See Rx Instructions .Route Qty: 200 0RF Rx Instructions: As directed lisinopril 20 mg tablet 20 mg PO QDAY Qty: 90 0RF nicardipine 20 mg Capsule 20 mg PO BID Qty: 90 0RF Rx Instructions: Hold if BP drops below 100 and 80 mmHg levetiracetam 500 mg tablet 500 mg PO BID Qty: 90 0RF furosemide [Lasix] 40 mg tablet 40 mg PO QAM Qty: 90 0RF Referrals: No Primary/Family,Physician [Primary Care Provider] - In 1 week Problem List Clinical Impression: Uncontrolled diabetes mellitus, Hypertensive urgency Patient/Caregiver Discharge Instructions Print Language: Albanian Stand Alone Forms: Bertha Award Info., Patient Portal Info Letter MDM Narrative [facility] hospital course: 22:57 patient received 10 units of insulin glargine and 5 units of insulin regular. 3:00 patient was seen and examined and labs were reviewed. 3:07 blood glucose was 400 therefore gave insulin with 5 units. 3:15 decision was made to admit the patient and spoke with IM resident Dr. Angela who will examine the patient for possible admission. 3:45 Patient reassesed and reviewed vitals. IM team asking for Head CT as patient has HTN urgency. 4:34: Reviewed Head CT which did not show any acute hemorrhage, mass effect, or midline shift. Spoke with IM medicine and will admit. BP improving therefore will not drop below 25% of initial BP. Case disclosed with Attending Dr. Armaan Bob PGY2 Disclaimer: Even though this this note was dictated by speech recognition and even though it was carefully revised there may still be minor errors in drop forge operator due to voice recognition software. Medication Administration(s) Medication Administration History Dextrose (Dextrose 50%-Water Inj 50 Ml Syringe) 25 ml IV Q15MIN PRN PRN Reason: BG 50-70 responsive npo pt Stop: 03/07/25 20:13 Dextrose (Dextrose 50%-Water Inj 50 Ml Syringe) 50 ml IV Q15MIN PRN PRN Reason: BG <50 OR BG <70 & pt unresponsive Stop: 03/07/25 20:13 Glucagon (Glucagon Inj 1 Mg Vial) 1 mg IM Q15MIN PRN PRN Reason: BG <70, and no IV access Insulin Human Lispro (Insulin Lispro (Admelog) 1 Unit/0.01 Ml Unit) 0 unit SC ACHS [facility]; Protocol Stop: 03/07/25 20:59 Last Admin: 02/06/25 04:41 Dose: Not Given Documented By: DT Non-Admin Reason: Wrong Time Discontinued Medications Insulin Glargine (Insulin Glargine (Lantus) 5 Unit/0.05 Ml (Per 5 Units)) 10 unit SC X1 ONE Stop: 02/05/25 20:16 Last Admin: 02/05/25 22:56 Dose: 10 unit Documented By: CAPRICE Co-signed By: KATHY Insulin Human Regular (Insulin Hum Regular 1 Unit/0.01 Ml (Per Unit)) 5 unit SC X1 ONE Stop: 02/05/25 20:23 Last Admin: 02/05/25 22:57 Dose: 5 unit Documented By: CAPRICE Co-signed By: KATHY Insulin Human Regular (Insulin Hum Regular 1 Unit/0.01 Ml (Per Unit)) 5 unit SC X1 ONE Stop: 02/06/25 03:08 Last Admin: 02/06/25 04:21 Dose: Not Given Documented By: DT Non-Admin Reason: Discontinued Labetalol HCl (Labetalol Inj 5 Mg/Ml Vial 20 Ml) 10 mg IVP X1 ONE Stop: 02/06/25 03:15 Last Admin: 02/06/25 04:22 Dose: Not Given Documented By: DT Non-Admin Reason: Discontinued
[2025-02-05 20:18] LABS: Alanine Aminotransferase 20 U/L (10-49); Albumin, Serum 2.9 gm/dL (3.5-5.0); Albumin/Globulin Ratio 1.1 (1.2-2.2); Alkaline Phosphatase 119 U/L (46-116); Anion Gap 9 (7-16); Aspartate Amino Transferase 26 U/L (0-34); BUN/Creatinine Ratio 12 Ratio (12-20); Bilirubin,Total 0.3 mg/dL (0.3-1.2); Blood Urea Nitrogen 17 mg/dL (9-23); Calcium 8.1 mg/dL (8.3-10.6); Calcium (Corrected) 9.0 mg/dL (8.5-10.1); Carbon Dioxide 25.4 mMol/L (20.0-31.0); Chloride 96 mMol/L (98-107); Creatinine (Component) 1.4 mg/dL (0.6-1.3); Estimated Creatinine Clearance 76.0 mL/min (>60); Globulin 2.7 gm/dL (2.3-3.5); Magnesium 1.7 mg/dL (1.6-2.6); Phosphorous 3.0 mg/dL (2.4-5.1); Potassium 4.0 mMol/L (3.4-5.1); Sodium 130 mMol/L (136-145); Total Protein 5.6 gm/dL (5.7-8.2); eGFR > 60 See Note
[2025-02-05 21:18] LABS: Alcohol, Blood Medical < 3.0 mg/dL (0-10.0); Osmolality,Calculated 293 (275-295)
[2025-02-05 21:19] LABS: Glucose 648 mg/dL (74-106)
[2025-02-05 21:32] LABS: Collection Type, Urine Clean Catch; Squamous Epithelial Cell,Urine 0 /hpf (0-5)
[2025-02-05 21:46] LABS: Bilirubin,Urine Negative (Negative); Blood,Urine 2+ (Negative); Clarity,Urine Clear (Clear/Hazy); Color,Urine Colorless (Lt Yel-Yel); Glucose, Urine 4+ (Negative); Ketones,Urine Negative (Negative); Leukocyte Esterase,Urine Negative (Negative); Nitrite,Urine Negative (Negative); PH,Urine 6.5 (5.0-7.0); Protein,Urine 2+ (Neg - Trace); RBC,Urine 20 /hpf (0-3); Specific Gravity,Urine 1.024 (1.001-1.035); Urobilinogen,Urine Negative mg/dL (0.0-1.0); WBC,Urine 4 /hpf (0-5)
[2025-02-05 22:31] LABS: Alcohol, Urine Negative (Negative); Amphetamine/Methamp Scrn,U Negative (Negative); Barbiturate Screen,Urine Negative (Negative); Benzodiazepines Screen,Urine Negative (Negative); Benzoylecgonine Screen, Ur Negative (Negative); Fentanyl Screen,Urine Negative (Negative); Opiate Screen,Urine Negative (Negative); THC Screen,Urine Positive (Negative)
[2025-02-05 22:49] VITALS: BP 182/111; BP 192/116; PULSE 108; RESP 18; TEMP 36.7; O2SAT 99
[2025-02-05] MEDS: INSULIN GLARGINE (Lantus) 5 UNIT/0.05 ML (PER 5 UNITS) 10 UNIT SC (22:56)
[2025-02-05] MEDS: INSULIN HUM REGULAR 1 UNIT/0.01 ML (PER UNIT) 5 UNIT SC (22:57)
[2025-02-06] VITALS (15 sets, daily range): BP systolic 137–187; BP diastolic 82–123; PULSE 66–100; RESP 14–100; TEMP 36.2–37; O2SAT 97–100; BMI 27.4
--- NOTE | 2025-02-06 03:43 | XR_ITS ---
Examination: CT brain head without contrast. 2-D sagittal coronal reconstructions Date and time of exam:February 06, 2025, 1557 hours INDICATIONS: Hypertension with headaches today, diabetes history CTDI: vol (mGy):49.50 DLP: (mGycm):1005 Technique: Multiple CT axial sections of the brain have been obtained, 5 mm slice thickness. Contrast has not been administered. 2-D sagittal, coronal reconstructions have been obtained Low dose protocols were performed. One or more of the following dose reduction techniques were used; automated exposure control, adjustment of the mA and/or KV according to patient size, use of iterative reconstruction technique. Findings: No significant ventricular enlargement. Intra-axial or extra-axial hemorrhage density is not seen. No mass effect or midline shift Basal cisterns are not remarkable. Fourth ventricle is midline. Cranial vault intact. Impression: Negative for acute hemorrhage, mass effect or midline shift
--- NOTE | 2025-02-06 04:28 | PRELIM_ITS ---
CT scan of the head without intravenous contrast (axial sections with sagittal and coronal reformats). February 06, 2025 at 0357 hours Clinical History: Headache and HTN urgency. Comparison: Compared with the prior study dated January 29, 2025. Findings: No evidence of intracranial hemorrhage, mass effect or midline shift. The ventricles and CSF spaces are unremarkable. The calvarium is unremarkable. The mastoid air cells and the visualized paranasal sinuses are clear. Impression: No evidence of intracranial hemorrhage, mass effect or midline shift. Report Electronically Signed By: Steve Miller 02/06/2025 4:27:42 AM [EST]
--- NOTE | 2025-02-06 05:39 | ESHP_ITS ---
Documentation for date of: 02/06/25 [facility] History of Present Illness History of present illness: Patient is a 29-year-old male with past medical history of DM1, substance abuse, seizures, and recently diagnosed right posterior temporal and right occipital area infarct who presented to ED on 02/06 for generalized weakness, headache, fatigue, and malaise. Also endorses left sided vision loss and increased urination, has been drinking more fluid. He was told by his primary care physician to come back to the hospital to be admitted. He has not been taking any medications due to lack of insurance. Denies chest pain, nausea, vomiting, burning sensation in urination, blood in the stool, or shortness of breath. Per chart review, patient was recently admitted to ICU on 01/29/25 for DKA and acute encephalopathy, required intubation. Later extubated and downgraded to the medical floors and found to have Multiple foci restricted diffusion in the right posterior temporal right occipital lobe with possible mild signal deficit on the ADC map with concern for acute ischemic stroke. TTE 02/01 showed estimated EF 70- 75%. Patient left AMA on 02/03/2025 before fully controlling his blood pressure and glucose level. ED Course: -Initial vitals were BP 200/119, HR 119, RR 19, temp 99.1 F, 99% on room air -Labs significant for WBC 16.1, hemoglobin 8.5, VBG pH 7.45, KBA448, PO238, sodium 130, chloride 96, creatinine 1.4, glucose 648, calcium 8.1, beta hydroxybutyrate 0.1. U tox positive for marijuana -Imaging included CT head shows no evidence of intracranial hemorrhage, mass effect or midline shift -In the ED, patient was given insulin glargine 10 units, insulin regular 5 units -Patient was admitted for hypertensive urgency Review of Systems Review of systems otherwise negative except what is mentioned above. Past Medical History: As above Family History: Not pertinent Surgical History: None Social History: Smoking tobacco intermittently for many years. Smokes marijuana frequently. Denies current alcohol use Current Medications: Aspirin 81 mg, atorvastatin 40 mg, clopidogrel 75 mg, insulin glargine and lispro, Keppra 500 mg twice daily, lisinopril 20 mg, metformin 500 mg twice daily, nicardipine 20 mg twice daily (Source: Previous admission, pending med rec) Allergies: No known drug allergies Exam Vital Signs Temp Pulse Resp BP Pulse Ox O2 Del Method 98.6 F 85 14 173/111 H 99 Room Air 02/06/25 04:45 02/06/25 04:45 02/06/25 04:45 02/06/25 04:45 02/06/25 04:45 02/06/25 04:45 Narrative Exam Physical Exam General: Awake and in no acute distress. Conversational and non-toxic appearing. HEENT: Normocephalic, atraumatic, mucous membranes moist. Heart: Regular rate and rhythm, normal S1 and S2, no murmurs appreciated. Lungs: Clear to auscultation with no wheezing or crackles. Abdomen: Soft, nondistended, nontender, positive bowel sounds. No guarding or rebound tenderness. Neurologic: Alert and oriented x3, vision appears to be intact, no gross neurological deficit, and patient able to move all 4 extremities. Extremities: 2+ pitting edema in lower extremities bilaterally Skin: No rash or ecchymoses. Results: Labs 02/06/25 07:45 02/06/25 07:45 Labs: Short CBC 02/05/25 Range/Units 19:18 WBC 16.1 H (3.8-10.6) Thou/mm3 Hgb 8.5 L (13.5-16.0) g/dL Hct 25.3 L (41.0-53.0) % Plt Count 338 (140-440) Thou/mm3 BMP 02/05/25 19:18 Sodium 130 L D Potassium 4.0 Chloride 96 L Carbon Dioxide 25.4 BUN 17 Creatinine 1.4 H Glucose 648 H* D Calcium 8.1 L Liver Function 02/05/25 Range/Units 19:18 Total Bilirubin 0.3 (0.3-1.2) mg/dL AST 26 (0-34) U/L ALT 20 (10-49) U/L Alkaline Phosphatase 119 H (46-116) U/L Albumin 2.9 L (3.5-5.0) gm/dL Urine 02/05/25 Range/Units 21:21 Urine Color Colorless A (Lt Yel-Yel) Urine Clarity Clear (Clear/Hazy) Urine pH 6.5 (5.0-7.0) Ur Specific [place] 1.024 (1.001-1.035) Urine Protein 2+ A (Neg - Trace) Urine Glucose (UA) 4+ A (Negative) ABG Interpretation ABG results: 02/05/25 19:18 VBG pH 7.45 VBG pCO2 39 VBG pO2 38 VBG Base Excess 3 Quality Measures Quality Measures none Medications Home Medications and Allergies Allergies Allergy/AdvReac Type Severity Reaction Status Date / Time No Known Allergies Allergy Verified 02/05/25 18:06 Visit Medications Acetaminophen (Acetaminophen 325 Mg Tablet) 650 mg PO Q6H PRN PRN Reason: Fever >101.5 Stop: 03/08/25 05:35 Dextrose (Dextrose 50%-Water Inj 50 Ml Syringe) 25 ml IV Q15MIN PRN PRN Reason: BG 50-70 responsive npo pt Stop: 03/07/25 20:13 Dextrose (Dextrose 50%-Water Inj 50 Ml Syringe) 50 ml IV Q15MIN PRN PRN Reason: BG <50 OR BG <70 & pt unresponsive Stop: 03/07/25 20:13 Enoxaparin Sodium (Enoxaparin Sod Inj 40 Mg/0.4 Ml Syringe) 40 mg SC QDAY [facility] Stop: 02/20/25 08:59 Glucagon (Glucagon Inj 1 Mg Vial) 1 mg IM Q15MIN PRN PRN Reason: BG <70, and no IV access Insulin Human Lispro (Insulin Lispro (Admelog) 1 Unit/0.01 Ml Unit) 0 unit SC [facility]; Protocol Stop: 03/07/25 20:59 Last Admin: 02/06/25 04:41 Dose: Not Given Ondansetron HCl (Ondansetron Inj 2 Mg/Ml Inj 2 Ml) 4 mg IVP Q6H PRN; Protocol PRN Reason: NAUSEA OR VOMITING Stop: 03/08/25 05:35 Discontinued Medications Insulin Glargine (Insulin Glargine (Lantus) 5 Unit/0.05 Ml (Per 5 Units)) 10 unit SC X1 ONE Stop: 02/05/25 20:16 Last Admin: 02/05/25 22:56 Dose: 10 unit Insulin Human Regular (Insulin Hum Regular 1 Unit/0.01 Ml (Per Unit)) 5 unit SC X1 ONE Stop: 02/05/25 20:23 Last Admin: 02/05/25 22:57 Dose: 5 unit Insulin Human Regular (Insulin Hum Regular 1 Unit/0.01 Ml (Per Unit)) 5 unit SC X1 ONE Stop: 02/06/25 03:08 Last Admin: 02/06/25 04:21 Dose: Not Given Labetalol HCl (Labetalol Inj 5 Mg/Ml Vial 20 Ml) 10 mg IVP X1 ONE Stop: 02/06/25 03:15 Last Admin: 02/06/25 04:22 Dose: Not Given Assessment & Plan Plan Patient is a 29-year-old male with past medical history of DM1, substance abuse, seizures, and recently diagnosed right posterior temporal and right occipital area infarct who presented to ED on 02/06 for generalized weakness, headache, fatigue, and malaise, admitted for hypertensive urgency. #Hypertensive emergency #Headache BP 200/119 on admission, improved to 173/111 without intervention. On previous admission was on furosemide 40 mg, lisinopril 20 mg, and nicardipine 20 mg. Endorses headache on admission, likely secondary to hypertensive urgency. - Restart home Lasix 40 mg daily - Consider restarting other anti-hypertensives for better blood pressure control - Pending med rec - Consider IV labetalol as needed - Hydralazine as needed. - Consider consulting nephrology Dr. Hensley, previously consulted if BP unable to be controlled #DM1, insulin-dependent Blood glucose 628 on admission, improved to 268 status post insulin glargine 10 unit x 1 and insulin regular 5 units x 1. Has not been compliant with insulin due to insurance issues. -SSI - Insulin glargine 15units qpm -Continue to monitor blood glucose ACHS #Multiple foci restricted diffusion of right posterior temporal, right occipital #Concern for acute ischemic stroke Found on MRI on 02/[address] head neck with contrast showed no significant neck arterial stenosis, limited cerebral angio. Poor filling of left MONITORING SPECIALIST. No yoselin occlusion of MCA, STEFFANY, or MONITORING SPECIALIST branches. Patient reporting left eye blindness, however not appreciated on physical exam. CT head prelim 02/06 negative for intracranial hemorrhage, mass effect or midline shift. - Restart aspirin and Plavix - Consults neurology Dr. Baez, appreciate recommendations #Possible seizures On previous admission, found down, unresponsive. Witnessed tonic clonic like movements per EMS. No past history of seizures. Was started on Keppra 500 mg twice daily empirically. EEG 02/04 showed mild diffuse slowing suggestive of diffuse encephalopathy of metabolic, degenerative or vascular origin. -Continue Keppra 500 mg twice daily -Neurology consult as above #UTI #Leukocytosis Meets 2 out of 4 SIRS criteria (tachycardia, elevated WBC) however afebrile and no source of infection or endorgan damage. Culture from day prior to admission grew E.Coli pansensitive - Continue to monitor WBC - Hold antibiotics at this time #Normocytic anemia Likely multifactorial, consider nutrition, fluid imbalance. Hemoglobin 8.5 on admission (baseline 11 on 01/29/2025). Note significant drop from 11 to 8.4 on 01/30/2025, no mention of blood loss per chart review. - Trend CBC - Follow-up outpatient #HLD Lipids panel 02/03 showed triglycerides 154, total cholesterol 285, LDL 186, HDL 68. Per ASCVD risk algorithm, recommend high intensity statin given history of stroke and age. -Restart home atorvastatin 40 mg nightly -Recommend high intensity per score #Polysubstance Use Disorder Urine tox positive for marijuana. Previous urine tox positive for cocaine, denies illicit drug use. -Social support upon discharge #Hx of agitation Previously prescribed ziprasidone 40 mg on last admission for aggression towards staff. Patient is not aggressive at this time. - Consider restarting ziprasidone if needed Health Maintenance Disposition: Management of hypertensive urgency and hyperglycemia DVT prophylaxis: Lovenox GI prophylaxis: Zofran Diet: Low carb consistent CODE STATUS: Full Patient plan of care was discussed with the attending physician, Dr. Rod. Bernie Ortega, PGY-1 Attending Provider Attestation/Addendum Attending Provider Attestation/Addendum After examination of the patient and review of the clinical data I feel that this patient needs admission to the hospital for further treatment/evaluation. 29-year-old male with PMHx of recent ischemic stroke, IDDM I, Hx of seizures and remote substance abuse presented to ED for complaint of generalized weakness, headache. Patient was recently admitted to [facility] for CVA workup with an MRI showing temporal/occipital infarct and was pending further workup but decided to leave AMA. Patient reports headache and weakness started on day of admission, no focal motor/sensory deficit was noted but in light of patient's headache CT head was obtained which was negative for acute changes. Patient's BP was noted to be >200, after evaluation decision was made to admit patient for hypertensive emergency, and to complete pending diagnostic testing for CVA. Of note patient's urine cultures was noted for E. coli, will start patient on cefazolin for 3 days and ISS and home medications (insulin, aspirin/clopidogrel/atorvastatin, along with home BP medications) and as needed hydralazine. I Hong Rod MD, attest that I was physically present for warner portions of evaluation, and examined patient, labs and imaging of patient were reviewed with the residents and a plan of care was discussed IM residents team and patient. I agree with the findings and plans documented above.
[2025-02-06] MEDS: ceFAZolin/D5W 2 GM IV 2 GM/100 ML BAG IV ×2 (06:24→21:28)
--- NOTE | 2025-02-06 07:21 | PC.NURSE ---
Report received at 6:40 am, informed from ER nurse that patient required Lisinopril 10 mg po x1 once upon floor, current BP in ER before transport was 137/95, no need for IV Labetalol 5 mg, MD aware per ER Nurse, patient arrived to unit at 6:45 am, patient BP was checked upon arrival, BP was 168/105, MD Wasiq made aware, stated that she wanted to withheld Lisinopril 10 mg PO x1 and wanted Nicardipine 20 mg PO administered at scheduled time, Current BP is 164/98 after urination from patient, Dr at bedside evaluating patient. no new orders at this time.
[2025-02-06] MEDS: INSULIN LISPRO (AdmeLOG) 1 UNIT/0.01 ML UNIT SC ×4 (07:34→21:25)
[2025-02-06] MEDS: ENOXAPARIN SOD INJ 40 MG/0.4 ML SYRINGE SC (08:00)
[2025-02-06] MEDS: niCARdipine 20 MG CAPSULE PO ×2 (08:00→21:08)
[2025-02-06] MEDS: CLOPIDOGREL BISULFATE 75 MG TABLET PO (08:00)
[2025-02-06] MEDS: ATORVASTATIN CALCIUM 20 MG TABLET 40 MG PO (08:00)
[2025-02-06] MEDS: ASPIRIN EC 81 MG TABEC PO (08:01)
[2025-02-06 08:23] LABS: Basophils # (Auto) 0.1 Thou/mm3 (0.0-0.2); Basophils % (Auto) 1 % (0-2.5); Eosinophils # (Auto) 0.5 Thou/mm3 (0.0-0.5); Eosinophils % (Auto) 3 % (0-10); Hematocrit 25.4 % (41.0-53.0); Hemoglobin 9.0 g/dL (13.5-16.0); Immature Granulocytes Auto 1.06 Thou/mm3 (0.00-0.00); Lymphocytes # (Auto) 3.3 Thou/mm3 (1.0-4.8); Lymphocytes % (Auto) 19 % (10-50); Mean Corpuscular HGB Conc 35.4 g/dl (31.0-37.0); Mean Corpuscular Hemoglobin 29.4 pg (25.0-35.0); Mean Corpuscular Volume 83 fL (80-100); Monocytes # (Auto) 1.6 Thou/mm3 (0.0-0.8); Monocytes % (Auto) 9 % (0-12); Neutrophils # (Auto) 10.6 Thou/mm3 (1.8-7.7); Neutrophils % (Auto) 62 % (37-80); Nucleated Red Blood Cell # 0.00 Thou/mm3 (0.00-0.00); Nucleated Red Blood Cell % 0 /100 WBC (0); Platelet Count 306 Thou/mm3 (140-440); RDW Standard Deviation 39.4 fL (35.1-43.9); Red Blood Count 3.06 Miln/mm3 (4.50-5.90); White Blood Count 17.1 Thou/mm3 (3.8-10.6)
[2025-02-06 08:41] LABS: Anion Gap 8 (7-16); BUN/Creatinine Ratio 12 Ratio (12-20); Blood Urea Nitrogen 14 mg/dL (9-23); Calcium 7.8 mg/dL (8.3-10.6); Carbon Dioxide 28.1 mMol/L (20.0-31.0); Chloride 101 mMol/L (98-107); Creatinine (Component) 1.2 mg/dL (0.6-1.3); Estimated Creatinine Clearance 88.7 mL/min (>60); Glucose 242 mg/dL (74-106); Osmolality,Calculated 282 (275-295); Potassium 3.7 mMol/L (3.4-5.1); Sodium 137 mMol/L (136-145); Troponin I < 0.020 ng/mL (0.0-0.045); eGFR > 60 See Note
--- NOTE | 2025-02-06 09:30 | ESDS_ITS ---
<Statement entered by Latoya Lemos MD - 02/17/25 13:47> I reviewed above note and agree with findings and plans. I have also personally examined the patient with medicine team and went over assessment and plan with medical team including internet sourcer and resident physician. Planned Discharge Date 02/03/25 DS: Providers Provider Date of admission: 01/29/2025 Primary care physician: Physician No Primary/Family Admitting Provider: Hong Rod MD Attending Provider on Admission: Hong Rod MD Attending Provider on DC: RESIDENT Nelia Discharging Provider: RESIDENT Nelia DS: Diagnosis Problem List Completed Was Problem List Reviewed/Reconciled?: Yes Hospital Course Hospital Course Hospital course: Mr Ortiz is a 29-year-old male with a history of type 1 diabetes mellitus (insulin-dependent), polysubstance use (THC and cocaine), and poor medication adherence presented via ambulance with altered mental status. Initial concern for overdose vs. metabolic derangement. The patient was brought in by EMS for altered mental status. En route, he received multiple doses of naloxone and one dose of midazolam for possible opioid overdose; however, urine toxicology was negative for opioids. On arrival to the ED, the patient was unresponsive with glucose of 695 mg/dL and was subsequently intubated for airway protection. The patient was admitted to the ICU for management of severe diabetic ketoacidosis (DKA) and altered mental status. He was started on the hospital DKA protocol with IV insulin and aggressive fluid resuscitation. Electrolytes were closely monitored and corrected as needed. Once his acidosis resolved, he was transitioned to a subcutaneous insulin regimen. Following stabilization, he was successfully extubated and required a single dose of 1 mg lorazepam for agitation. He was alert and oriented after extubation. During his hospital stay, the patient reported dysuria and penile discharge. STI testing was obtained and returned negative; however, he was empirically started on ceftriaxone for a presumed urinary tract infection. Neurology was consulted for further evaluation of his altered mental status and possible seizure activity. An MRI of the brain revealed acute ischemic infarcts involving the right temporal and right occipital lobes. The patient was started on levetiracetam (Keppra) BID, and an EEG was obtained to evaluate for ongoing seizure activity (results pending at the time of discharge). The patient also experienced persistent hypertensive urgency, with systolic blood pressures reaching the 170?180 mmHg range. Nephrology was consulted, and they recommended discontinuing amlodipine and continuing captopril, furosemide, and nicardipine, with titration of nicardipine to TID as needed. The blood pressure goal was set to maintain systolic pressures >150 mmHg but <180 mmHg. A PHILIPPE was ordered to evaluate for possible cardioembolic etiology of his strokes, and an additional workup for secondary causes of hypertension was also initiated. On 02/03, the patient was kept NPO in anticipation of the PHILIPPE. Over the course of the day, he became increasingly frustrated with the delay in the procedure and his inability to eat. He initially agreed to remain hospitalized and took a shower, but later that evening, he decided to leave the hospital against medical advice (AMA). The patient was counseled extensively on the risks of leaving prior to completion of workup and treatment, including but not limited to: ? Recurrent DKA ? Uncontrolled hypertension and risk of hypertensive emergency ? Recurrent stroke or seizure activity ? Worsening infection or sepsis He demonstrated decision-making capacity, verbalized understanding of the risks, prior to leaving AMA Follow-up / Recommendations ? Urgent follow-up with primary care provider or local emergency department for completion of stroke workup (PHILIPPE) and hypertension evaluation. ? Continue insulin regimen and seizure prophylaxis as prescribed. ? Strict return precautions: worsening headache, chest pain, shortness of breath, vision changes, seizure, recurrent vomiting, fever, dysuria, or any new/worsening neurological symptoms. Discharge Disposition ? Left Against Medical Advice (AMA) on 02/03/2025. Pt case was reviewed with my attending Dr. Lemos Case was also reviewed with my senior resident Dr. Yoandy MD PGY1 Time Spent with Patient Time attestation: Total time spent providing and/or coordinating discharge services: Time spent: Greater than 30 minutes Exam Vital Signs Temp Pulse Resp BP Pulse Ox O2 Del Method 98.6 F 90 14 164/98 H 99 Room Air 02/06/25 04:45 02/06/25 08:00 02/06/25 06:25 02/06/25 08:00 02/06/25 06:25 02/06/25 06:25 Narrative Exam General: Awake, and oriented to self and place and situation, pt expresses desire to leave hospital. HEENT: Normocephalic, atraumatic, mucous membranes moist. Heart: tachycardic rate and regular rhythm, no murmurs. Lungs: Mild bilateral crackles at lung bases Abdomen: Soft, nondistended, nontender, positive bowel sounds. ?No guarding or rebound tenderness. no suprapubic tenderness Neurologic: Alert and oriented x2, no gross neurological deficit, and patient able to move all 4 extremities. Skin: No rash or ecchymoses. BL shins with healed excoriations Discharge Plan Problem List Was Problem List Reviewed/Reconciled?: Yes Plan Patient Disposition: Left Against Medical Advice Prescriptions/Referrals Prescriptions/Med Rec: No Action aspirin 81 mg Tablet,Delayed Release (Dr/Ec) 81 mg PO QDAY 30 Days Qty: 30 0RF clopidogrel 75 mg Tablet 75 mg PO QDAY 21 Days Qty: 21 0RF atorvastatin 40 mg tablet 40 mg PO QDAY 30 Days Qty: 30 0RF insulin glargine [Lantus Solostar U-100 Insulin] 100 unit/mL (3 mL) insulin pen 15 unit subcut QPM Qty: 15 4RF insulin lispro [Admelog SoloStar U-100 Insulin] 100 unit/mL insulin pen 5 unit subcut TIDWMEAL Qty: 15 0RF metformin 500 mg Tablet Extended Release 24 Hr 500 mg PO BID Qty: 60 0RF (DME) pen needle, diabetic, safety 30 gauge x 5/16 needle See Rx Instructions .Route Qty: 1200 0RF Rx Instructions: As directed (DME) lancets-blood glucose strips 30 gauge combo pack See Rx Instructions .Route Qty: 200 0RF Rx Instructions: As directed furosemide [Lasix] 40 mg tablet 40 mg PO QAM Qty: 90 0RF Referrals: No Primary/Family,Physician [Primary Care Provider] - Patient/Caregiver Discharge Instructions Print Language: Indonesian Quality Discharge Quality Measures VTE prophylaxis
--- NOTE | 2025-02-06 10:57 | PC.SS ---
Chauncey Ortiz is a 29-year-old male admitted to [facility] for Hypertensive Emergency with Headache. SS conducted bedside contact with the patient to complete initial assessment and to discuss discharge planning. Role and reason explained. Pt identified his sister Sherrie Buck or sister Lilian Sheridan . Pt resides at home with a friend. Pt is independent with all ADLS, no need for any source of DME. DC options discussed and pt wishes to return home at the time of DC. No further needs identified. SS will remain available for any additional needs or concerns.
--- NOTE | 2025-02-06 13:02 | PD.RESCONSUL ---
HPI Data of Consult Requesting Physician: Hong Rod MD Admitting Provider: Hong Rod MD Attending Provider: Hong Rod MD Primary Care Provider: Physician No Primary/Family Consult Narrative History of present illness: The patient is a 29-year-old male with a medical history significant for type 1 diabetes mellitus, substance use disorder, seizures, and a recent right posterior temporal and occipital lobe infarct who presented to the ED on 02/06 with complaints of generalized weakness, headache, fatigue, and malaise. He also reports left-sided vision loss, increased urination, and increased fluid intake. The patient was advised by his primary care provider to return to the hospital for admission. Cardiology is being consulted for PHILIPPE bubble study. Pt already had arrangements for the study to be done during his previous admission but left AMA before the completion of the study. Recent Hospitalization: Per chart review, the patient was admitted to the ICU on 01/29/25 for diabetic ketoacidosis (DKA) and acute encephalopathy, during which he required intubation. He was subsequently extubated and transferred to the medical floor. Imaging revealed multiple foci of restricted diffusion in the right posterior temporal and occipital lobes, with possible mild signal changes on the ADC map concerning for acute ischemic stroke. A transthoracic echocardiogram performed on 02/01 showed an estimated ejection fraction (EF) of 70?75%. The patient left the hospital against medical advice (AMA) on 02/03/25 before achieving adequate control of his blood pressure and blood glucose levels. Pr reported not taking any of his prescribed medications due to lack of insurance coverage. He denies chest pain, nausea, vomiting, dysuria, hematochezia, or shortness of breath. ED Course: -Initial vitals were BP 200/119, HR 119, RR 19, temp 99.1 F, 99% on room air -Labs significant for WBC 16.1, hemoglobin 8.5, VBG pH 7.45, UMN357, PO238, sodium 130, chloride 96, creatinine 1.4, glucose 648, calcium 8.1, beta hydroxybutyrate 0.1. U tox positive for marijuana -Imaging included CT head shows no evidence of intracranial hemorrhage, mass effect or midline shift -In the ED, patient was given insulin glargine 10 units, insulin regular 5 units -Patient was admitted for hypertensive urgency Review of Systems Review of systems otherwise negative except what is mentioned above. Past Medical History: As above Family History: Not pertinent Surgical History: None Social History: Smoking tobacco intermittently for many years. Smokes marijuana frequently. Denies current alcohol use cc:: cc: Hong Rod MD Exam Vital Signs Temp Pulse Resp BP Pulse Ox O2 Del Method 97.5 F 90 16 143/82 H 99 Room Air 02/06/25 12:00 02/06/25 12:00 02/06/25 12:00 02/06/25 12:02/06/25 12:02/06/25 12:00 Narrative Exam Physical Exam General: Awake and in no acute distress. Conversational and non-toxic appearing. HEENT: Normocephalic, atraumatic, mucous membranes moist. Patient cannot see out his Rt eye. Heart: Regular rate and rhythm, normal S1 and S2, no murmurs appreciated. Lungs: Expiratory wheezing in lower lung lopez. Abdomen: Soft, nondistended, nontender, positive bowel sounds. No guarding or rebound tenderness. Neurologic: Alert and oriented x3, vision appears to be intact, no gross neurological deficit, and patient able to move all 4 extremities. Extremities: 2+ pitting edema in lower extremities bilaterally Skin: No rash or ecchymoses. Results Labs 02/07/25 09:35 02/07/25 09:35 Labs: Short CBC 02/05/25 02/06/25 Range/Units 19:18 07:45 WBC 16.1 H 17.1 H (3.8-10.6) Thou/mm3 Hgb 8.5 L 9.0 L (13.5-16.0) g/dL Hct 25.3 L 25.4 L (41.0-53.0) % Plt Count 338 306 D (140-440) Thou/mm3 BMP 02/05/25 02/06/25 19:18 07:45 Sodium 130 L D 137 Potassium 4.0 3.7 Chloride 96 L 101 Carbon Dioxide 25.4 28.1 BUN 17 14 Creatinine 1.4 H 1.2 Glucose 648 H* D 242 H D Calcium 8.1 L 7.8 L Cardiac Enzymes 02/06/25 Range/Units 07:45 Troponin I < 0.020 (0.0-0.045) ng/mL Liver Function 02/05/25 Range/Units 19:18 Total Bilirubin 0.3 (0.3-1.2) mg/dL AST 26 (0-34) U/L ALT 20 (10-49) U/L Alkaline Phosphatase 119 H (46-116) U/L Albumin 2.9 L (3.5-5.0) gm/dL Urine 02/05/25 Range/Units 21:21 Urine Color Colorless A (Lt Yel-Yel) Urine Clarity Clear (Clear/Hazy) Urine pH 6.5 (5.0-7.0) Ur Specific [place] 1.024 (1.001-1.035) Urine Protein 2+ A (Neg - Trace) Urine Glucose (UA) 4+ A (Negative) ABG Interpretation ABG results: 02/05/25 19:18 VBG pH 7.45 VBG pCO2 39 VBG pO2 38 VBG Base Excess 3 Quality Measures Quality Measures none Medications Home Medications and Allergies Allergies Allergy/AdvReac Type Severity Reaction Status Date / Time No Known Allergies Allergy Verified 02/05/25 18:06 Visit Medications Acetaminophen (Acetaminophen 325 Mg Tablet) 650 mg PO Q6H PRN PRN Reason: Fever >101.5 Stop: 03/08/25 05:35 Aspirin (Aspirin Ec 81 Mg Tabec) 81 mg PO QDAY [facility] Stop: 03/08/25 08:59 Last Admin: 02/06/25 08:01 Dose: 81 mg Atorvastatin Calcium (Atorvastatin Calcium 20 Mg Tablet) 40 mg PO QDAY [facility] Stop: 03/08/25 08:59 Last Admin: 02/06/25 08:00 Dose: 40 mg Clopidogrel Bisulfate (Clopidogrel Bisulfate 75 Mg Tablet) 75 mg PO QDAY [facility] Stop: 03/08/25 08:59 Last Admin: 02/06/25 08:00 Dose: 75 mg Dextrose (Dextrose 50%-Water Inj 50 Ml Syringe) 25 ml IV Q15MIN PRN PRN Reason: BG 50-70 responsive npo pt Stop: 03/07/25 20:13 Dextrose (Dextrose 50%-Water Inj 50 Ml Syringe) 50 ml IV Q15MIN PRN PRN Reason: BG <50 OR BG <70 & pt unresponsive Stop: 03/07/25 20:13 Enoxaparin Sodium (Enoxaparin Sod Inj 40 Mg/0.4 Ml Syringe) 40 mg SC QDAY [facility] Stop: 02/20/25 08:59 Last Admin: 02/06/25 08:00 Dose: 40 mg Furosemide (Furosemide 40 Mg Tablet) 40 mg PO QAM [facility] Stop: 03/08/25 08:59 Last Admin: 02/06/25 08:00 Dose: 40 mg Glucagon (Glucagon Inj 1 Mg Vial) 1 mg IM Q15MIN PRN PRN Reason: BG <70, and no IV access Hydralazine HCl (Hydralazine Inj 20 Mg/Ml Vial) 10 mg IVP Q4HR PRN PRN Reason: SBP>180 or DBP>90 Stop: 03/08/25 06:04 Cefazolin Sodium (Ancef 2gm Ivpb) 2 gm in 100 mls @ 100 mls/hr IV BID [facility] Stop: 02/13/25 06:19 Last Admin: 02/06/25 06:24 Dose: 100 mls/hr Insulin Glargine (Insulin Glargine (Lantus) 5 Unit/0.05 Ml (Per 5 Units)) 15 unit SC QPM [facility] Stop: 03/08/25 20:59 Insulin Human Lispro (Insulin Lispro (Admelog) 1 Unit/0.01 Ml Unit) 0 unit SC ACHS [facility]; Protocol Stop: 03/07/25 20:59 Last Admin: 02/06/25 11:54 Dose: 2 unit Levetiracetam (Levetiracetam 250 Mg Tablet) 250 mg PO BID [facility] Stop: 03/08/25 08:59 Last Admin: 02/06/25 08:00 Dose: 250 mg Lisinopril (Lisinopril 20 Mg Tablet) 20 mg PO QDAY [facility] Stop: 03/08/25 08:59 Last Admin: 02/06/25 08:00 Dose: 20 mg Nicardipine HCl (Nicardipine 20 Mg Capsule) 20 mg PO BID [facility] Stop: 03/08/25 08:59 Last Admin: 02/06/25 08:00 Dose: 20 mg Ondansetron HCl (Ondansetron Inj 2 Mg/Ml Inj 2 Ml) 4 mg IVP Q6H PRN; Protocol PRN Reason: NAUSEA OR VOMITING Stop: 03/08/25 05:35 Discontinued Medications Ceftriaxone Sodium/Dextrose (Rocephin/D5w 1gm Iv Premix) 1 gm in 50 mls @ 100 mls/hr IV QDAY [facility] Stop: 02/13/25 06:10 Insulin Glargine (Insulin Glargine (Lantus) 5 Unit/0.05 Ml (Per 5 Units)) 10 unit SC X1 ONE Stop: 02/05/25 20:16 Last Admin: 02/05/25 22:56 Dose: 10 unit Insulin Human Regular (Insulin Hum Regular 1 Unit/0.01 Ml (Per Unit)) 5 unit SC X1 ONE Stop: 02/05/25 20:23 Last Admin: 02/05/25 22:57 Dose: 5 unit Insulin Human Regular (Insulin Hum Regular 1 Unit/0.01 Ml (Per Unit)) 5 unit SC X1 ONE Stop: 02/06/25 03:08 Last Admin: 02/06/25 04:21 Dose: Not Given Labetalol HCl (Labetalol Inj 5 Mg/Ml Vial 20 Ml) 10 mg IVP X1 ONE Stop: 02/06/25 03:15 Last Admin: 02/06/25 04:22 Dose: Not Given Lisinopril (Lisinopril 2.5 Mg Tablet) 10 mg PO X1 ONE Stop: 02/06/25 06:07 Last Admin: 02/06/25 07:20 Dose: Not Given Assessment & Plan Plan Patient is a 29-year-old male with past medical history of DM1, substance abuse, seizures, and recently diagnosed right posterior temporal and right occipital area infarct who presented to ED on 02/06 for generalized weakness, headache, fatigue, and malaise, admitted for hypertensive urgency. #Concern for acute ischemic stroke #Multiple foci restricted diffusion of right posterior temporal, right occipital Found on MRI on 02/01 during previous admission. Ddx: encephalopathy vs demyelinating disease. ? CT head prelim 02/06 negative for intracranial hemorrhage, mass effect or midline shift. ? CT head & neck w/ showed no significant neck arterial stenosis, limited cerebral angio. 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 No yoselin occlusion of MCA, STEFFANY, or [employer]ORAT[employer] TECHNICIAN branches. Plan: - Continue with atorvastatin 40 Mg daily, aspirin 81 Mg daily and clopidogrel 75 Mg daily. - Cardiology cannot perform PHILIPPE due to lack of electrophysiology tech staff until 02/12/2025 at this hospital - Consider transferring to a hospital with higher level of care with over-weekend if further neurology eval is needed and a PHILIPPE if necessary.. - Rest of the management deferred to neurology team, Dr. Baez. #Headache #h/o Hypertensive urgency BP 200/119 on admission, improved to 173/111 without intervention. On previous admission was on furosemide 40 mg, lisinopril 20 mg, and nicardipine 20 mg. Endorses headache on admission, likely secondary to hypertensive urgency. Management according to internal medicine team - Restart home Lasix 40 mg daily - Consider restarting other anti-hypertensives for better blood pressure control - Pending med rec - Consider IV labetalol as needed - Consider consulting nephrology Dr. Hensley, previously consulted if BP unable to be controlled #HLD Lipids panel 02/03 showed triglycerides 154, total cholesterol 285, LDL 186, HDL 68. Per ASCVD risk algorithm, recommend high intensity statin given history of stroke and age. Management according to internal medicine team -Restart home atorvastatin 40 mg nightly -Recommend high intensity per score #DM1, insulin-dependent Blood glucose 628 on admission, improved to 268 status post insulin glargine 10 unit x 1 and insulin regular 5 units x 1. Has not been compliant with insulin due to insurance issues. Management according to internal medicine team #Possible seizures On previous admission, found down, unresponsive. Witnessed tonic clonic like movements per EMS. No past history of seizures. Was started on Keppra 500 mg twice daily empirically. EEG 02/04 showed mild diffuse slowing suggestive of diffuse encephalopathy of metabolic, degenerative or vascular origin. Management deferred to to internal medicine team #Leukocytosis Likely reactive in the setting of hypertensive urgency. Meets 2 out of 4 SIRS criteria (tachycardia, elevated WBC) however afebrile and no source of infection or endorgan damage. Low suspicion for infection as UA is unremarkable. Management deferred to to internal medicine team #Normocytic anemia Likely multifactorial, consider nutrition, fluid imbalance. Hemoglobin 8.5 on admission (baseline 11 on 01/29/2025). Note significant drop from 11 to 8.4 on 01/30/2025, no mention of blood loss per chart review. Management deferred to internal medicine team #Polysubstance Use Disorder Urine tox positive for marijuana. Previous urine tox positive for cocaine, denies illicit drug use. Management deferred to internal medicine team #Hx of agitation Previously prescribed ziprasidone 40 mg on last admission for aggression towards staff. Patient is not aggressive at this time. Management deferred to internal medicine team - Consider restarting ziprasidone if needed #Hypertensive urgency?resolved Health Maintenance Disposition: Management of hypertensive urgency and hyperglycemia DVT prophylaxis: Lovenox GI prophylaxis: Zofran Diet: Low carb consistent CODE STATUS: Full This case was discussed with my attending physician, Dr. Pina. Radha Tillman, DO PGY I Attending Provider Attestation/Addendum I have personally seen and examined the patient separately on the above date of service and discussed the plan of care with the resident. I reviewed the resident Dr. Garcia consultation progress note and agree with the resident findings and plan in the note above and have also edited the documentation to reflect my findings and plan. A 29-year-old male with a past medical history of uncontrolled type 2 diabetes mellitus with an A1c of 12 diagnosed at the age of 16 and has been on insulin since, noncompliant with his insulin or other medications along with doctor appointments, history of drug abuse positive for THC now and previously for cocaine, a recent possible right posterior temporal and occipital lobe infarct on MRI who presented to the ED on 02/06 with complaints of generalized weakness, headache, fatigue, and malaise. He also reports left-sided vision loss, increased urination, and increased fluid intake. During last admission Patient was admitted to the hospital after he was intubated to protect airway after the seizure activity with unclear etiology. Patient was hypotensive and was also found to have DKA which was treated in the ICU and later was extubated in the grade 2 telemetry. Eventually an MRI was performed which showedMultiple foci restricted diffusion in the right posterior temporal right occipital lobe with possible mild signal deficit on the ADC map, recommend neurology consultation and correlation with clinical findings to assess for acute infarction versus demyelinating disease versus encephalopathy Primary team did consult neurology who have requested a PHILIPPE and cardiology consult was requested for further evaluation for concern of stroke given the MRI findings. Patient was scheduled for the PHILIPPE at that point of time but patient did sign out AMA and now has returned back to the hospital with more neurological complaints. Primary team again requesting a PHILIPPE but unfortunately the PHILIPPE cannot be performed until 02/12/2025 due to lack of electrophysiology tech at this hospital. Discussed with the hospitalist Dr. Lemos to consider transferring the patient to a higher level of care if the need further neurology input and at the same time a PHILIPPE can be performed at the same place. The patient is noncompliant with the medication his blood pressure is elevated. Right now permissive hypertension and review of possible stroke for the first 24 hours and after that recommend aggressive control of blood pressure with ARB losartan given his history of diabetes and then also give the patient beta-gracie Coreg for better blood pressure control as patient is also tachycardic. Significant noncompliance and history of drug abuse. A1c was greater than 11 during the recent admission. Management of rest of the medical conditions as per primary team and other consultants. Thank you for the consult and allowing me to participate in the care of the patient. Cardiology will continue to follow. Te Gee M.D. Interventional Cardiology
--- NOTE | 2025-02-06 14:33 | XR_ITS ---
Examination: AP chest single view TECHNIQUE: AP portable upright chest single view Date and time: February 06, 2025, 1446 hours INDICATIONS: Wheezing today. FINDINGS: Atelectasis versus pneumonia left base retrocardiac Mild prominence of ventricle Right lung clear No pulmonary edema IMPRESSION: Atelectasis versus pneumonia left base, clinical correlation is advised
[2025-02-06] MEDS: ALBUTEROL/IPRATROPIUM (Duoneb) RT SOL 3 ML NEBU INH ×2 (14:56→22:21)
--- NOTE | 2025-02-06 16:30 | ESPR_ITS ---
<Statement entered by Latoya Lemos MD - 02/17/25 13:47> I reviewed above note and agree with findings and plans. I have also personally examined the patient with medicine team and went over assessment and plan with medical team including biology internship and resident physician. <Statement entered by Pawel Lees MD - 02/06/25 23:35> Patient was examined and case was reviewed with team including attending physician. Note reviewed, I agree with most of its contents and agree with the patient's care. Patient seen today at the bedside found awake, alert, orientedx3. No overnight events reported. Vitals and labs reviewed. On admission patient presented with elevated blood pressure with systolic around 200s and blood sugars close to 650. Patient had previous admission to the ICU for DKA and after being stabilized was downgraded to the floors. On imaging studies from that previous admission showed multiple foci of restricted diffusion in the right posterior temporal and occipital lobes with possible mild signal changes on the ADC map concerning for acute ischemic stroke. Patient was supposed to have a transesophageal echocardiogram with cardiology services however patient left AGAINST MEDICAL ADVICE prior to having procedure on February 03, 2025. Patient was also unable to take his prescribed medications due to lack of insurance. Due to these problems patient was unable to control his blood sugars and blood pressure at home and started developing symptoms such as generalized weakness, headache, fatigue which required the patient to come here to the ER. Current plan to control blood pressure and blood sugars. Cardiology was reconsulted and plan is to have PHILIPPE earliest possible date is on Thursday 02/08 due to lack of hardware technician at this time. Teleneurology was also consulted with regards to the multiple focis for further reccs. Case discussed with my attending Dr. Aminta Lees MD PGY-2 Documentation for date of: 02/06/25 Subjective Subjective Interval history: BP initially 200/119, now 143/82 after administration of Lasix 40 mg, Lisinopril 20, Nicardipine 20 mg. Glucose initially 648, now 242 after administration of Glargine 10U, Regular 5 U, Lispro 2U. Patient reports general malaise, productive cough. Given Duoneb x1. CXR unremarkable other than cardiomegaly. Reports decreased vision in right eye since previous admission Exam Vital Signs Temp Pulse Resp BP Pulse Ox O2 Del Method 97.5 F 78 18 143/82 H 100 Room Air 02/06/25 12:00 02/06/25 14:58 02/06/25 14:58 02/06/25 12:00 02/06/25 14:58 02/06/25 12:00 Narrative Exam General: No acute distress, well nourished Eye: PERRL, EOMI, normal conjunctiva, no scleral icterus HENT: Normocephalic, atraumatic, normal hearing, moist oral mucosa Neck: Supple, non-tender, no JVD, no lymphadenopathy Lungs: Wheezing in b/l lower lung lopez, dry cough, no use of accessory muscles, symmetric chest rise Heart: Normal S1 and S2. Peripheral pulses intact bilaterally, capillary refill brisk distally. 2+ pitting edema in lower extremities bilaterally to mid[place] Abdomen: Soft, non-tender, non-distended. No guarding or rebound tenderness. Musculoskeletal: Normal range of motion and strength, no tenderness or swelling Skin: Skin is warm, dry, no rashes or lesions. Neurologic: Alert, awake and oriented x3. CN III-XII grossly intact. Patient reports decreased all visual lopez in right eye. No signs of meningeal irritation noted. Psychiatric: Cooperative, appropriate mood and affect Objective Labs 02/06/25 07:45 02/06/25 07:45 Labs: Laboratory Results - last 24 hr 02/05/25 02/05/25 02/06/25 19:18 21:21 07:45 WBC 16.1 H 17.1 H RBC 2.95 L 3.06 L Hgb 8.5 L 9.0 L Hct 25.3 L 25.4 L MCV 86 83 MCH 28.8 29.4 MCHC 33.6 35.4 RDW Std Deviation 40.1 39.4 Plt Count 338 306 D Neut % (Auto) 69 62 Lymph % (Auto) 13 19 [place] % (Auto) 10 9 Eos % (Auto) 2 3 Baso % (Auto) 1 1 Neut # (Auto) 11.1 H 10.6 H Lymph # (Auto) 2.2 3.3 [place] # (Auto) 1.5 H 1.6 H Eos # (Auto) 0.3 0.5 Baso # (Auto) 0.1 0.1 Immature Gran # (Auto) 0.96 H 1.06 H Absolute Nucleated RBC 0.00 0.00 Immature Gran % 6 H 6 H Nucleated RBC % 0 0 VBG pH 7.45 VBG pCO2 39 VBG pO2 38 VBG O2 Sat ([place]) 75 L VBG Base Excess 3 Sodium 130 L D 137 Potassium 4.0 3.7 Chloride 96 L 101 Carbon Dioxide 25.4 28.1 Anion Gap 9 8 BUN 17 14 Creatinine 1.4 H 1.2 Estim Creat Clear Calc 76.0 88.7 eGFR > 60 > 60 BUN/Creatinine Ratio 12 12 Glucose 648 H* D 242 H D Calculated Osmolality 293 282 Calcium 8.1 L 7.8 L Corrected Calcium 9.0 Phosphorus 3.0 Magnesium 1.7 Total Bilirubin 0.3 AST 26 ALT 20 Alkaline Phosphatase 119 H Troponin I < 0.020 Total Protein 5.6 L Albumin 2.9 L Globulin 2.7 Albumin/Globulin Ratio 1.1 L Beta-Hydroxybutyrate/Acetoacetate 0.1 Ur Collection Type Clean Catch Urine Color Colorless A Urine Clarity Clear Urine pH 6.5 Ur Specific [place] 1.024 Urine Protein 2+ A Urine Glucose (UA) 4+ A Urine Ketones Negative Urine Blood 2+ A Urine Nitrite Negative Urine Bilirubin Negative Urine Urobilinogen (Auto) Negative Ur Leukocyte Esterase Negative Urine RBC 20 H Urine WBC 4 Ur Squamous Epith Cells 0 Urine Bacteria None Urine Opiates Screen Negative Urine Fentanyl Screen Negative Ur Barbiturates Screen Negative U Amphetamin/Meth Scrn Negative U Benzodiazepines Scrn Negative U Cocaine Metab Screen Negative U Marijuana (THC) Screen Positive A Urine Alcohol Negative Ethyl Alcohol < 3.0 ABG Interpretation ABG results: 02/05/25 19:18 VBG pH 7.45 VBG pCO2 39 VBG pO2 38 VBG Base Excess 3 Quality Measures Quality Measures none Assessment & Plan Assessment Current Active Medications: Generic Name Dose Route Start Last Admin Trade Name Freq PRN Reason Stop Dose Admin Acetaminophen 650 mg 02/06/25 05:36 Acetaminophen 325 Mg Tablet PO 03/08/25 05:35 Q6H PRN Fever >101.5 Albuterol/Ipratropium 3 ml 02/06/25 15:00 02/06/25 14:56 Albuterol/Ipratropium (Duoneb) Rt Judy 3 Ml Nebu INH 03/08/25 14:59 3 ml Q8HRRT KIERA Administration Aspirin 81 mg 02/06/25 09:00 02/06/25 08:01 Aspirin Ec 81 Mg Tabec PO 03/08/25 08:59 81 mg QDAY KIERA Administration Atorvastatin Calcium 40 mg 02/06/25 09:00 02/06/25 08:00 Atorvastatin Calcium 20 Mg Tablet PO 03/08/25 08:59 40 mg QDAY KIERA Administration Clopidogrel Bisulfate 75 mg 02/06/25 09:00 02/06/25 08:00 Clopidogrel Bisulfate 75 Mg Tablet PO 03/08/25 08:59 75 mg QDAY KIERA Administration Dextrose 25 ml 02/05/25 20:14 Dextrose 50%-Water Inj 50 Ml Syringe IV 03/07/25 20:13 Q15MIN PRN BG 50-70 responsive npo pt Dextrose 50 ml 02/05/25 20:14 Dextrose 50%-Water Inj 50 Ml Syringe IV 03/07/25 20:13 Q15MIN PRN BG <50 OR BG <70 & pt unresponsive Enoxaparin Sodium 40 mg 02/06/25 09:00 02/06/25 08:00 Enoxaparin Sod Inj 40 Mg/0.4 Ml Syringe SC 02/20/25 08:59 40 mg QDAY KIERA Administration Furosemide 40 mg 02/06/25 09:00 02/06/25 08:00 Furosemide 40 Mg Tablet PO 03/08/25 08:59 40 mg QAM KIERA Administration Glucagon 1 mg 02/05/25 20:14 Glucagon Inj 1 Mg Vial IM Q15MIN PRN BG <70, and no IV access Hydralazine HCl 10 mg 02/06/25 06:05 Hydralazine Inj 20 Mg/Ml Vial IVP 03/08/25 06:04 Q4HR PRN SBP>180 or DBP>90 Cefazolin Sodium 2 gm in 100 mls @ 100 mls/hr 02/06/25 06:20 02/06/25 06:24 Ancef 2gm Ivpb IV 02/13/25 06:19 100 mls/hr BID KIERA Administration Insulin Glargine 15 unit 02/06/25 21:00 Insulin Glargine (Lantus) 5 Unit/0.05 Ml (Per 5 Units) SC 03/08/25 20:59 QPM KIERA Insulin Human Lispro 0 unit 02/05/25 21:00 02/06/25 11:54 Insulin Lispro (Admelog) 1 Unit/0.01 Ml Unit SC 03/07/25 20:59 2 unit ACHS KIERA Administration Protocol Levetiracetam 250 mg 02/06/25 09:00 02/06/25 08:00 Levetiracetam 250 Mg Tablet PO 03/08/25 08:59 250 mg BID KIERA Administration Lisinopril 20 mg 02/06/25 09:00 02/06/25 08:00 Lisinopril 20 Mg Tablet PO 03/08/25 08:59 20 mg QDAY KIERA Administration Nicardipine HCl 20 mg 02/06/25 09:00 02/06/25 08:00 Nicardipine 20 Mg Capsule PO 03/08/25 08:59 20 mg BID KIERA Administration Ondansetron HCl 4 mg 02/06/25 05:36 Ondansetron Inj 2 Mg/Ml Inj 2 Ml IVP 03/08/25 05:35 Q6H PRN NAUSEA OR VOMITING Protocol Plan #Acute encephalopathy - resolved Initially generalized weakness, headache Now resolved with management of BP and glucose Plan: - See HTN and DM sections below #Hypertensive emergency - resolved BP 200/119 on admission, improved to 173/111 without intervention. Endorsed headache on admission Now 143/82 after administration of Lasix 40 mg, Lisinopril 20, Nicardipine 20 mg. On previous admission was on furosemide 40 mg, lisinopril 20 mg, and nicardipine 20 mg. Plan: - Consulted cardiology, appreciate recs - Continue Lisinopril 20 mg, furosemide 40 mg, lisinopril 20 mg, and nicardipine 20 mg - Hydralazine 10 IV q4h PRN - Pending aldosterone, renin (from previous admission) #Diabetes mellitus, insulin-dependent, uncontrolled #Hyperglycemia Blood glucose 628 on admission, improved to 268 status post insulin glargine 10 unit x 1 and insulin regular 5 units x 1. Plan: - SSI - Continue to monitor blood glucose ACHS #Acute ischemic stroke with multiple foci in right posterior temporal and right occipital lobe on 02/01 CTA head/neck w/ 02/02: No significant neck arterial stenoses. Limited cerebral angio. Poor filling of left [employer]. No yoselin occlusion of MCA, STEFFANY, or [employer] branches MRI/MRA w/ and w/o: Multiple foci restricted diffusion in right posterior temporal and right occipital lobe with ADC drop out c/f acute ischemic infarct C/F embolic pattern given multiple foci TTE: Normal LV size and function. Estimated EF at 70-75%. Hyperdynamic LV systolic function. Trace CT head 02/06 negative for intracranial hemorrhage, mass effect or midline shift. Plan: - Continue Aspirin 81 mg daily, plavix 75 mg daily, atorvastatin 40 mg daily - Still pending hypercoag labs from previous admission - Pending PHILIPPE (earliest possible on Saturday, 02/08) - Consulted tele-neurology, appreciate recs #Wheezing spO2 appropriately on RA Afebrile, leukocytosis, COVID negative Patient reports general malaise, productive cough (appreciated dry cough on exam) Associated with sore throat CXR 02/06 unremarkable per MD Plan: - Pending Rapid strep, flu - Duoneb q8h #Decreased vision in right eye Since previous admission DDX: retinal artery or vein occlusion, diabetic retinopathy, occipital stroke, ischemic optic neuropathy Plan: - Consider consulting ophthalmology or f/u outpatient #C/F seizures On previous admission, found down, unresponsive. Witnessed tonic clonic like movements per EMS. No past history of seizures. EEG 02/04: Mild diffuse slowing suggestive of diffuse encephalopathy of metabolic, degenerative or vascular origin. This does not r/o seizure. Plan: - Continue Keppra 500 mg PO BID - Tele-neurology consult as above #Leukocytosis Neutrophilic predominance with left shift Likely reactive in the setting of hypertensive urgency. Meets 2 out of 4 SIRS criteria (tachycardia, elevated WBC) however afebrile and no source of infection or end-organ damage. Low suspicion for infection Plan: - CBC daily - Hold antibiotics at this time #Normocytic anemia No acute bleeding Plan: - CBC daily - Follow-up outpatient #Hyperlipidemia Lipids panel 02/03 showed triglycerides 154, total cholesterol 285, LDL 186, HDL 68. Per ASCVD risk algorithm, recommend high intensity statin given history of stroke and age. Plan: - Continue atorvastatin 40 mg daily Health Maintenance Disposition: Management of hypertensive urgency and hyperglycemia DVT prophylaxis: Lovenox GI prophylaxis: Zofran Diet: Low carb consistent CODE STATUS: Full Plan discussed with Dr. Jad Lees (senior resident) and Dr. Lemos (attending) Mirian Cabral, PGY1
[2025-02-06] MEDS: hydrALAZINE INJ 20 MG/ML VIAL 10 MG IVP (19:44)
[2025-02-06] MEDS: INSULIN GLARGINE (Lantus) 5 UNIT/0.05 ML (PER 5 UNITS) 15 UNIT SC (21:24)
[2025-02-07] VITALS (15 sets, daily range): BP systolic 150–170; BP diastolic 84–101; PULSE 85–99; RESP 7–99; TEMP 36.1–36.9; O2SAT 95–100
[2025-02-07 03:15] LABS: Influenza A Ag Negative; Influenza B Ag Negative; Strep A Rapid Negative (Negative)
[2025-02-07] MEDS: hydrALAZINE INJ 20 MG/ML VIAL 10 MG IVP (04:13)
[2025-02-07] MEDS: ALBUTEROL/IPRATROPIUM (Duoneb) RT SOL 3 ML NEBU INH ×3 (07:22→22:17)
[2025-02-07] MEDS: INSULIN LISPRO (AdmeLOG) 1 UNIT/0.01 ML UNIT SC ×4 (07:36→20:09)
[2025-02-07] MEDS: ceFAZolin/D5W 2 GM IV 2 GM/100 ML BAG IV ×2 (08:49→20:09)
[2025-02-07] MEDS: ENOXAPARIN SOD INJ 40 MG/0.4 ML SYRINGE SC (08:50)
[2025-02-07] MEDS: ATORVASTATIN CALCIUM 20 MG TABLET 40 MG PO (08:53)
[2025-02-07] MEDS: CLOPIDOGREL BISULFATE 75 MG TABLET PO (08:53)
[2025-02-07] MEDS: ASPIRIN EC 81 MG TABEC PO (08:53)
[2025-02-07] MEDS: niCARdipine 20 MG CAPSULE PO (08:53)
[2025-02-07 10:00] LABS: Basophils # (Auto) 0.1 Thou/mm3 (0.0-0.2); Basophils % (Auto) 0 % (0-2.5); Eosinophils # (Auto) 0.3 Thou/mm3 (0.0-0.5); Eosinophils % (Auto) 2 % (0-10); Hematocrit 23.8 % (41.0-53.0); Immature Granulocytes Auto 0.71 Thou/mm3 (0.00-0.00); Lymphocytes # (Auto) 2.4 Thou/mm3 (1.0-4.8); Lymphocytes % (Auto) 14 % (10-50); Mean Corpuscular HGB Conc 34.9 g/dl (31.0-37.0); Mean Corpuscular Hemoglobin 29.2 pg (25.0-35.0); Mean Corpuscular Volume 84 fL (80-100); Monocytes # (Auto) 1.0 Thou/mm3 (0.0-0.8); Monocytes % (Auto) 6 % (0-12); Neutrophils # (Auto) 12.3 Thou/mm3 (1.8-7.7); Neutrophils % (Auto) 73 % (37-80); Nucleated Red Blood Cell # 0.00 Thou/mm3 (0.00-0.00); Nucleated Red Blood Cell % 0 /100 WBC (0); Platelet Count 284 Thou/mm3 (140-440); RDW Standard Deviation 40.3 fL (35.1-43.9); Red Blood Count 2.84 Miln/mm3 (4.50-5.90); White Blood Count 16.8 Thou/mm3 (3.8-10.6)
[2025-02-07 10:05] LABS: Hemoglobin 8.3 g/dL (13.5-16.0)
[2025-02-07 10:25] LABS: Alanine Aminotransferase 15 U/L (10-49); Albumin, Serum 2.5 gm/dL (3.5-5.0); Albumin/Globulin Ratio 1.2 (1.2-2.2); Alkaline Phosphatase 95 U/L (46-116); Anion Gap 8 (7-16); Aspartate Amino Transferase 24 U/L (0-34); BUN/Creatinine Ratio 16 Ratio (12-20); Bilirubin,Total 0.2 mg/dL (0.3-1.2); Blood Urea Nitrogen 19 mg/dL (9-23); Calcium 7.6 mg/dL (8.3-10.6); Calcium (Corrected) 8.8 mg/dL (8.5-10.1); Carbon Dioxide 28.5 mMol/L (20.0-31.0); Chloride 101 mMol/L (98-107); Creatinine (Component) 1.2 mg/dL (0.6-1.3); Estimated Creatinine Clearance 95.8 mL/min (>60); Globulin 2.1 gm/dL (2.3-3.5); Glucose 239 mg/dL (74-106); Magnesium 1.6 mg/dL (1.6-2.6); Osmolality,Calculated 284 (275-295); Phosphorous 3.4 mg/dL (2.4-5.1); Potassium 3.7 mMol/L (3.4-5.1); Sodium 137 mMol/L (136-145); Total Protein 4.6 gm/dL (5.7-8.2); eGFR > 60 See Note
--- NOTE | 2025-02-07 10:59 | PD.RESPRO ---
Documentation for date of: 02/07/25 Subjective Subjective Interval history: The patient is evaluated bedside, was seen laying in bed, conversational and seemed disappointed that he did not know what was going on with his treatment. I briefed him regarding his clinical course, concern for ischemic CVA in temporal and occipital lobe versus demyelinating disease, hypertensive emergency requiring blood pressure medications, need for compliance with medications and follow-up. The patient said that he left AGAINST MEDICAL ADVICE during previous hospitalization before PHILIPPE could be done, but now he got his insurance and pharmacy set up, and would like to leave the hospital as soon as possible and medications to be sent to his pharmacy. I told the patient that would be up to his primary team. The patient is pending a PHILIPPE, but unfortunately has no electronic prepress technician is present until February 12, patient would likely require transfer out for PHILIPPE if it is urgently required. Defer to primary team. Exam Vital Signs Temp Pulse Resp BP Pulse Ox O2 Del Method 97.2 F 96 16 150/84 H 99 Room Air 02/07/25 07:53 02/07/25 08:53 02/07/25 07:53 02/07/25 08:53 02/07/25 07:53 02/07/25 07:53 Narrative Exam Physical Exam General: Awake and in no acute distress. Conversational and non-toxic appearing. HEENT: Normocephalic, atraumatic, mucous membranes moist. Heart: Regular rate and rhythm, normal S1 and S2, no murmurs appreciated. Lungs: Expiratory wheezing in lower lung lopez. Abdomen: Soft, nondistended, nontender, positive bowel sounds. No guarding or rebound tenderness. Neurologic: Alert and oriented x3, vision appears to be intact, no gross neurological deficit, and patient able to move all 4 extremities. Extremities: 1+ pitting edema in lower extremities bilaterally Skin: No rash or ecchymoses. Objective Labs 02/08/25 05:50 02/08/25 05:50 Labs: Laboratory Results - last 24 hr 02/07/25 02/07/25 02:20 09:35 WBC 16.8 H RBC 2.84 L Hgb 8.3 L Hct 23.8 L MCV 84 MCH 29.2 MCHC 34.9 RDW Std Deviation 40.3 Plt Count 284 Neut % (Auto) 73 Lymph % (Auto) 14 [place] % (Auto) 6 Eos % (Auto) 2 Baso % (Auto) 0 Neut # (Auto) 12.3 H Lymph # (Auto) 2.4 [place] # (Auto) 1.0 H Eos # (Auto) 0.3 Baso # (Auto) 0.1 Immature Gran # (Auto) 0.71 H Absolute Nucleated RBC 0.00 Immature Gran % 4 H Nucleated RBC % 0 Sodium 137 Potassium 3.7 Chloride 101 Carbon Dioxide 28.5 Anion Gap 8 BUN 19 Creatinine 1.2 Estim Creat Clear Calc 95.8 eGFR > 60 BUN/Creatinine Ratio 16 Glucose 239 H Calculated Osmolality 284 Calcium 7.6 L Corrected Calcium 8.8 Phosphorus 3.4 Magnesium 1.6 Total Bilirubin 0.2 L AST 24 ALT 15 Alkaline Phosphatase 95 D Total Protein 4.6 L Albumin 2.5 L Globulin 2.1 L Albumin/Globulin Ratio 1.2 Influenza A (Rapid) Negative Influenza B (Rapid) Negative Group A Strep Rapid Negative ABG Interpretation ABG results: 02/05/25 19:18 VBG pH 7.45 VBG pCO2 39 VBG pO2 38 VBG Base Excess 3 Quality Measures Quality Measures VTE prophylaxis Assessment & Plan Assessment Current Active Medications: Generic Name Dose Route Start Last Admin Trade Name Freq PRN Reason Stop Dose Admin Acetaminophen 650 mg 02/06/25 18:25 Acetaminophen 325 Mg Tablet PO 03/08/25 05:35 Q6H PRN PAIN OR FEVER > 100.4 Albuterol/Ipratropium 3 ml 02/06/25 15:00 02/07/25 07:22 Albuterol/Ipratropium (Duoneb) Rt Judy 3 Ml Nebu INH 03/08/25 14:59 3 ml Q8HRRT KIERA Administration Aspirin 81 mg 02/06/25 09:00 02/07/25 08:53 Aspirin Ec 81 Mg Tabec PO 03/08/25 08:59 81 mg QDAY KIERA Administration Atorvastatin Calcium 40 mg 02/06/25 09:00 02/07/25 08:53 Atorvastatin Calcium 20 Mg Tablet PO 03/08/25 08:59 40 mg QDAY KIERA Administration Clopidogrel Bisulfate 75 mg 02/06/25 09:00 02/07/25 08:53 Clopidogrel Bisulfate 75 Mg Tablet PO 03/08/25 08:59 75 mg QDAY KIERA Administration Dextrose 25 ml 02/05/25 20:14 Dextrose 50%-Water Inj 50 Ml Syringe IV 03/07/25 20:13 Q15MIN PRN BG 50-70 responsive npo pt Dextrose 50 ml 02/05/25 20:14 Dextrose 50%-Water Inj 50 Ml Syringe IV 03/07/25 20:13 Q15MIN PRN BG <50 OR BG <70 & pt unresponsive Enoxaparin Sodium 40 mg 02/06/25 09:00 02/07/25 08:50 Enoxaparin Sod Inj 40 Mg/0.4 Ml Syringe SC 02/20/25 08:59 40 mg QDAY KIERA Administration Furosemide 40 mg 02/06/25 09:00 02/07/25 08:52 Furosemide 40 Mg Tablet PO 03/08/25 08:59 40 mg QAM KIERA Administration Glucagon 1 mg 02/05/25 20:14 Glucagon Inj 1 Mg Vial IM Q15MIN PRN BG <70, and no IV access Hydralazine HCl 10 mg 02/06/25 06:05 02/07/25 04:13 Hydralazine Inj 20 Mg/Ml Vial IVP 03/08/25 06:04 10 mg Q4HR PRN Administration SBP>180 or DBP>90 Cefazolin Sodium 2 gm in 100 mls @ 100 mls/hr 02/06/25 06:20 02/07/25 08:49 Ancef 2gm Ivpb IV 02/13/25 06:19 100 mls/hr BID KIERA Administration Insulin Glargine 15 unit 02/06/25 21:00 02/06/25 21:24 Insulin Glargine (Lantus) 5 Unit/0.05 Ml (Per 5 Units) SC 03/08/25 20:59 15 unit QPM KIERA Administration Insulin Human Lispro 0 unit 02/05/25 21:00 02/07/25 07:36 Insulin Lispro (Admelog) 1 Unit/0.01 Ml Unit SC 03/07/25 20:59 1 unit ACHS KIERA Administration Protocol Levetiracetam 500 mg 02/06/25 21:00 02/07/25 08:51 Levetiracetam 250 Mg Tablet PO 03/08/25 20:59 500 mg BID KIERA Administration Lisinopril 20 mg 02/06/25 09:00 02/07/25 08:51 Lisinopril 20 Mg Tablet PO 03/08/25 08:59 20 mg QDAY KIERA Administration Nifedipine 60 mg 02/08/25 09:00 Nifedipine Xl 30 Mg Tabcr PO 03/10/25 08:59 QDAY KIERA Ondansetron HCl 4 mg 02/06/25 05:36 Ondansetron Inj 2 Mg/Ml Inj 2 Ml IVP 03/08/25 05:35 Q6H PRN NAUSEA OR VOMITING Protocol Plan The patient is a 29-year-old male with significant past medical history of uncontrolled diabetes mellitus type 1, noncompliant with insulin, multiple drug abuse, and possible seizure disorder was brought in by EMS to ED with chief complaint of being found slumped over and altered mental status. Cardiology consultation was done for further evaluation of the cause of stroke, and transesophageal echocardiography. #Acute ischemic stroke right posterior, temporal and occipital lobe The patient was found slumped over by EMS, and later was found to have multiple foci restricted diffusion in the right posterior temporal right occipital lobe with possible mild signal deficit on the ADC map. - MRI findings as well as the CT findings were unclear if the patient had an ischemic stroke based on the presentation and could be encephalopathy versus other demyelinating disease. - Continue with atorvastatin 40 Mg daily, aspirin 81 Mg daily and clopidogrel 75 Mg daily. - Head and neck CTA was negative, found to have hyperlipidemia - The patient is pending a PHILIPPE, but unfortunately has no electronic prepress technician is present until February 12, patient would likely require transfer out for PHILIPPE if it is urgently required. Defer to primary team. - Rest of the management deferred to neurology team. #HLD Triglyceride 154, cholesterol 285, LDL 186, HDL 68 - Continue with atorvastatin 40 Mg daily at night, the LDL goal is less than 55 in the setting of ischemic stroke and diabetes mellitus type 2 #Bilateral leg edema #Hypoalbuminemia, likely secondary to nutritional deficiency Likely 2/2 volume overload in the setting of aggressive IV fluids during DKA treatment, with albumin of 2 during presentation DDx: CHF anemia TTE done revealed: Normal LV size and function. Estimated EF at 70-75%. Hyperdynamic LV systolic function. The RV is normal in size and systolic function. Trace TR. -Strict ins and outs -Fluid restriction to 1500cc/day incorporated in diet -2g sodium diet -Ensure 3 times daily with meals #Diabetes melitis type I #Noncompliant with medications The patient reported that he has diabetes mellitus type 1, and has been taking medications regularly. However, his A1c was 11.8 during presentation. He was also found to have DKA initially. - Maintain euglycemia #Anemia Likely multifactorial 2/2 nutrition deficiency -Ordered iron panel, ferritin, vit B12, B9, path smear and retic count Reticulocyte count 4.5%, iron panel and ferritin pending, vitamin B12 and B9 WNL, peripheral smear pending. #Hypertensive emergency, resolved #HTN Patient's blood pressure has been elevated and systolic blood pressure has been greater than 140 since beginning of admission. - Recommend to start the patient on amlodipine 10 mg daily -As needed labetalol 5 Mg IV every 4 hourly as needed for SBP greater than 180, or DBP greater than 120, and HR greater than 70. -FLOR inhibitor/ARB should be started on the after YAMILEX resolves, discontinued lisinopril #YAMILEX Rest of the management deferred to primary team. Thank you for cardiology consultation. We appreciate the opportunity to participate in this patient's care. Will continue to follow-up on this patient This case was discussed with communications strategist, Dr. Gee. Nilda Aragon MD PG3 Attending Provider Attestation/Addendum I have personally seen and examined the patient separately on the above date of service and discussed the plan of care with the resident. I reviewed the resident Dr. Munguia consultation progress note and agree with the resident findings and plan in the note above and have also edited the documentation to reflect my findings and plan. A 29-year-old male with a past medical history of uncontrolled type 2 diabetes mellitus with an A1c of 12 diagnosed at the age of 16 and has been on insulin since, noncompliant with his insulin or other medications along with doctor appointments, history of drug abuse positive for THC now and previously for cocaine, a recent possible right posterior temporal and occipital lobe infarct on MRI who presented to the ED on 02/06 with complaints of generalized weakness, headache, fatigue, and malaise. He also reports left-sided vision loss, increased urination, and increased fluid intake. During last admission Patient was admitted to the hospital after he was intubated to protect airway after the seizure activity with unclear etiology. Patient was hypotensive and was also found to have DKA which was treated in the ICU and later was extubated in the grade 2 telemetry. Eventually an MRI was performed which showedMultiple foci restricted diffusion in the right posterior temporal right occipital lobe with possible mild signal deficit on the ADC map, recommend neurology consultation and correlation with clinical findings to assess for acute infarction versus demyelinating disease versus encephalopathy Primary team did consult neurology who have requested a PHILIPPE and cardiology consult was requested for further evaluation for concern of stroke given the MRI findings. Patient was scheduled for the PHILIPPE at that point of time but patient did sign out AMA and now has returned back to the hospital with more neurological complaints. Primary team again requesting a PHILIPPE but unfortunately the PHILIPPE cannot be performed until 02/12/2025 due to lack of electronic prepress technician at this hospital. Discussed with the hospitalist Dr. Lemos to consider transferring the patient to a higher level of care if the need further neurology input and at the same time a PHILIPPE can be performed at the same place. The patient is noncompliant with the medication his blood pressure is elevated. Right now permissive hypertension and review of possible stroke for the first 24 hours and after that recommend aggressive control of blood pressure with ARB losartan given his history of diabetes and then also give the patient beta-gracie Coreg for better blood pressure control as patient is also tachycardic. Significant noncompliance and history of drug abuse. A1c was greater than 11 during the recent admission. Management of rest of the medical conditions as per primary team and other consultants. Thank you for the consult and allowing me to participate in the care of the patient. Cardiology will continue to follow. Te Gee M.D. Interventional Cardiology
--- NOTE | 2025-02-07 15:50 | ESPR_ITS ---
<Statement entered by Shravan Durant MD - 02/07/25 16:04> Senior Resident Attestation: I supervised/discussed management plan with programming internship physician Dr. Mckeon, and was involved in the care of this patient. I personally saw and examined the patient and discussed the assessment and plan with the entire medicine team, including my attending. I agree with the assessment and plan as documented. Patient was seen and examined at the bedside. Patient appears to be very angry and questioning why he is getting all his medications which does not help him at all. He was reassured and his plan of care was discussed. His nicardipine was switched to nifedipine and Aldactone. Nephrology was consulted for management of resistant hypertension and further workup. Patient's care was discussed with attending physician, Dr. Davis. Shravan Durant MD PGY-3. Documentation for date of: 02/07/25 Subjective Subjective Interval history: No overnight events. Evaluated at bedside. Pt initially refused lab this morning, but ok for blood work after brief discussion with pt regarding the necessity of daily blood work for management of his hyperglycemia. D/C nicardipine, start nifidipine and aldactone. BP still elevated this morning, recheck BP tmr morning after new medicaiton regimen stated above. Consider adjustment to ISS if pt still hyperglycemic tmr. Exam Vital Signs Temp Pulse Resp BP Pulse Ox O2 Del Method 97.5 F 89 17 157/97 H 100 Room Air 02/07/25 12:00 02/07/25 14:33 02/07/25 14:33 02/07/25 12:00 02/07/25 14:33 02/07/25 12:00 Narrative Exam General: Well appearing, well nourished, in no distress. Oriented x 3. Skin: Good turgor, no rash, unusual bruising or prominent lesions Heart: No cardiomegaly or thrills; regular rate and rhythm, no murmur or gallop Lungs: Clear to auscultation and percussion. No rales, wheeze, or rhonchi Abdomen: Bowel sounds normal, no tenderness, organomegaly, masses, or hernia Back: Spine normal without deformity or tenderness, no CVA tenderness Extremities: No amputations or deformities, cyanosis, edema or varicosities, peripheral pulses intact Objective Labs 02/08/25 05:50 02/08/25 05:50 Labs: Laboratory Results - last 24 hr 02/07/25 02/07/25 02:20 09:35 WBC 16.8 H RBC 2.84 L Hgb 8.3 L Hct 23.8 L MCV 84 MCH 29.2 MCHC 34.9 RDW Std Deviation 40.3 Plt Count 284 Neut % (Auto) 73 Lymph % (Auto) 14 [place] % (Auto) 6 Eos % (Auto) 2 Baso % (Auto) 0 Neut # (Auto) 12.3 H Lymph # (Auto) 2.4 [place] # (Auto) 1.0 H Eos # (Auto) 0.3 Baso # (Auto) 0.1 Immature Gran # (Auto) 0.71 H Absolute Nucleated RBC 0.00 Immature Gran % 4 H Nucleated RBC % 0 Sodium 137 Potassium 3.7 Chloride 101 Carbon Dioxide 28.5 Anion Gap 8 BUN 19 Creatinine 1.2 Estim Creat Clear Calc 95.8 eGFR > 60 BUN/Creatinine Ratio 16 Glucose 239 H Calculated Osmolality 284 Calcium 7.6 L Corrected Calcium 8.8 Phosphorus 3.4 Magnesium 1.6 Total Bilirubin 0.2 L AST 24 ALT 15 Alkaline Phosphatase 95 D Total Protein 4.6 L Albumin 2.5 L Globulin 2.1 L Albumin/Globulin Ratio 1.2 Influenza A (Rapid) Negative Influenza B (Rapid) Negative Group A Strep Rapid Negative ABG Interpretation ABG results: 02/05/25 19:18 VBG pH 7.45 VBG pCO2 39 VBG pO2 38 VBG Base Excess 3 Quality Measures Quality Measures VTE prophylaxis Assessment & Plan Assessment Current Active Medications: Generic Name Dose Route Start Last Admin Trade Name Freq PRN Reason Stop Dose Admin Acetaminophen 650 mg 02/06/25 18:25 Acetaminophen 325 Mg Tablet PO 03/08/25 05:35 Q6H PRN PAIN OR FEVER > 100.4 Albuterol/Ipratropium 3 ml 02/06/25 15:00 02/07/25 14:31 Albuterol/Ipratropium (Duoneb) Rt Judy 3 Ml Nebu INH 03/08/25 14:59 3 ml Q8HRRT KIERA Administration Aspirin 81 mg 02/06/25 09:00 02/07/25 08:53 Aspirin Ec 81 Mg Tabec PO 03/08/25 08:59 81 mg QDAY KIERA Administration Atorvastatin Calcium 40 mg 02/06/25 09:00 02/07/25 08:53 Atorvastatin Calcium 20 Mg Tablet PO 03/08/25 08:59 40 mg QDAY KIERA Administration Clopidogrel Bisulfate 75 mg 02/06/25 09:00 02/07/25 08:53 Clopidogrel Bisulfate 75 Mg Tablet PO 03/08/25 08:59 75 mg QDAY KIERA Administration Dextrose 25 ml 02/05/25 20:14 Dextrose 50%-Water Inj 50 Ml Syringe IV 03/07/25 20:13 Q15MIN PRN BG 50-70 responsive npo pt Dextrose 50 ml 02/05/25 20:14 Dextrose 50%-Water Inj 50 Ml Syringe IV 03/07/25 20:13 Q15MIN PRN BG <50 OR BG <70 & pt unresponsive Enoxaparin Sodium 40 mg 02/06/25 09:00 02/07/25 08:50 Enoxaparin Sod Inj 40 Mg/0.4 Ml Syringe SC 02/20/25 08:59 40 mg QDAY KIERA Administration Furosemide 40 mg 02/06/25 09:00 02/07/25 08:52 Furosemide 40 Mg Tablet PO 03/08/25 08:59 40 mg QAM KIERA Administration Glucagon 1 mg 02/05/25 20:14 Glucagon Inj 1 Mg Vial IM Q15MIN PRN BG <70, and no IV access Hydralazine HCl 10 mg 02/06/25 06:05 02/07/25 04:13 Hydralazine Inj 20 Mg/Ml Vial IVP 03/08/25 06:04 10 mg Q4HR PRN Administration SBP>180 or DBP>90 Cefazolin Sodium 2 gm in 100 mls @ 100 mls/hr 02/06/25 06:20 02/07/25 08:49 Ancef 2gm Ivpb IV 02/13/25 06:19 100 mls/hr BID KIERA Administration Insulin Glargine 15 unit 02/06/25 21:00 02/06/25 21:24 Insulin Glargine (Lantus) 5 Unit/0.05 Ml (Per 5 Units) SC 03/08/25 20:59 15 unit QPM KIERA Administration Insulin Human Lispro 0 unit 02/05/25 21:00 02/07/25 11:32 Insulin Lispro (Admelog) 1 Unit/0.01 Ml Unit SC 03/07/25 20:59 3 unit ACHS KIERA Administration Protocol Levetiracetam 500 mg 02/06/25 21:00 02/07/25 08:51 Levetiracetam 250 Mg Tablet PO 03/08/25 20:59 500 mg BID KIERA Administration Lisinopril 20 mg 02/06/25 09:00 02/07/25 08:51 Lisinopril 20 Mg Tablet PO 03/08/25 08:59 20 mg QDAY KIERA Administration Nifedipine 60 mg 02/08/25 09:00 Nifedipine Xl 30 Mg Tabcr PO 03/10/25 08:59 QDAY KIERA Ondansetron HCl 4 mg 02/06/25 05:36 Ondansetron Inj 2 Mg/Ml Inj 2 Ml IVP 03/08/25 05:35 Q6H PRN NAUSEA OR VOMITING Protocol Spironolactone 25 mg 02/07/25 21:00 Spironolactone 25 Mg Tablet PO 03/09/25 20:59 BID KIERA Plan Patient is a 29-year-old male with past medical history of DM1, substance abuse, seizures, and recently diagnosed right posterior temporal and right occipital area infarct admitted for hypertensive emergency and hyperglycemia. #Diabetes mellitus, insulin-dependent, uncontrolled #Hyperglycemia Blood glucose 628 on admission, improved to 268 status post insulin glargine 10 unit x 1 and insulin regular 5 units x 1. Plan: - SSI - Continue to monitor blood glucose ACHS #Acute ischemic stroke with multiple foci in right posterior temporal and right occipital lobe on 02/01 CTA head/neck w/ 02/02: No significant neck arterial stenoses. Limited cerebral angio. Poor filling of left FIRER GLOST KIL[place]. No yoselin occlusion of MCA, STEFFANY, or FIRER [place]LO[place]IL[place] branches MRI/MRA w/ and w/o: Multiple foci restricted diffusion in right posterior temporal and right occipital lobe with ADC drop out c/f acute ischemic infarct C/F embolic pattern given multiple foci TTE: Normal LV size and function. Estimated EF at 70-75%. Hyperdynamic LV systolic function. Trace CT head 02/06 negative for intracranial hemorrhage, mass effect or midline shift. Plan: - Continue Aspirin 81 mg daily, plavix 75 mg daily, atorvastatin 40 mg daily - Still pending hypercoag labs from previous admission - Pending PHILIPPE (earliest possible on Saturday, 02/08) - Consulted tele-neurology, appreciate recs #Acute encephalopathy - resolved Initially generalized weakness, headache Now resolved with management of BP and glucose Plan: - See HTN and DM sections below #Hypertensive emergency - resolved BP 200/119 on admission, improved to 173/111 without intervention. Endorsed headache on admission Now 143/82 after administration of Lasix 40 mg, Lisinopril 20, Nicardipine 20 mg. On previous admission was on furosemide 40 mg, lisinopril 20 mg, and nicardipine 20 mg. Plan: - Consulted cardiology, appreciate recs - Continue Lisinopril 20 mg, furosemide 40 mg. D/C nicardipine 20 mg, start on nifedipine 60mg PO and Spironolactone 25mg PO BID - Hydralazine 10 IV q4h PRN - Pending aldosterone, renin (from previous admission) #Wheezing spO2 appropriately on RA Afebrile, leukocytosis, COVID negative Patient reports general malaise, productive cough (appreciated dry cough on exam) Associated with sore throat CXR 02/06 unremarkable per MD Plan: - Covid neg. Flu A and B neg - Duoneb q8h #Decreased vision in right eye Since previous admission DDX: retinal artery or vein occlusion, diabetic retinopathy, occipital stroke, ischemic optic neuropathy Plan: - Consider consulting ophthalmology or f/u outpatient #C/F seizures On previous admission, found down, unresponsive. Witnessed tonic clonic like movements per EMS. No past history of seizures. EEG 02/04: Mild diffuse slowing suggestive of diffuse encephalopathy of metabolic, degenerative or vascular origin. This does not r/o seizure. Plan: - Continue Keppra 500 mg PO BID - Tele-neurology consult as above #Leukocytosis Neutrophilic predominance with left shift Likely reactive in the setting of hypertensive urgency. Meets 2 out of 4 SIRS criteria (tachycardia, elevated WBC) however afebrile and no source of infection or end-organ damage. Low suspicion for infection Plan: - CBC daily - Hold antibiotics at this time #Normocytic anemia No acute bleeding Plan: - CBC daily - Follow-up outpatient #Hyperlipidemia Lipids panel 02/03 showed triglycerides 154, total cholesterol 285, LDL 186, HDL 68. Per ASCVD risk algorithm, recommend high intensity statin given history of stroke and age. Plan: - Continue atorvastatin 40 mg daily Health Maintenance Disposition: Management of hypertensive urgency and hyperglycemia DVT prophylaxis: Lovenox GI prophylaxis: Not indicated Diet: Low carb consistent CODE STATUS: Full Case discussed with my senior resident Dr. Durant Case discussed with my attending Dr. Susan Mckeon DO PGY 1 Attending Provider Attestation/Addendum I have examined the patient, reviewed labs and imaging findings, discussed the case with the resident(s), and reviewed entered orders. I agree with the plan of care as outlined in this note, with these additional summaries/recommendations: Patient seen at bedside. No acute overnight events. Patient appears at his baseline mental status. Acute encephalopathy resolved. Encephalopathy most likely secondary to hypertensive emergency. Systolic blood pressure was noted into the 200s on admission. Elevated blood pressure most likely secondary to medication noncompliance. We will continue to optimize and adjust antihypertensive regimen as needed. Patient was counseled extensively on the importance of taking his blood pressure medications as prescribed especially given his recent CVA. Patient was diagnosed with CVA 1 week prior and left the hospital AGAINST MEDICAL ADVICE. Continue dual antiplatelet therapy and statin. Patient was also diagnosed with possible seizures at that time and we will continue Keppra 500 mg twice daily. Hypercoagulable panel from last hospital visit still pending. PHILIPPE was also ordered last visit and we will follow-up with in-house cardiology as patient left AGAINST MEDICAL ADVICE before PHILIPPE was completed. Patient still endorses vision loss from previous admission. Patient refused labs this morning and counseled on the importance of completing labs. Patient has uncontrolled diabetes mellitus type 2. A1c 11.8%. Diabetic education given. Continue basal bolus insulin. Target blood sugar of 140-180 while hospitalized. Follow-up neurology recommendations. Patient updated on the plan and agreement. All questions answered to satisfaction. Please see residents note for additional details and management. Dr. Susan MD
--- NOTE | 2025-02-07 16:16 | PC.SS ---
Rounding: Pending cardiology reccs
[2025-02-07] MEDS: Magnesium Sulfate 4 GM Ivpb 4 GM/50 ML BAG IV (16:31)
[2025-02-07] MEDS: INSULIN GLARGINE (Lantus) 5 UNIT/0.05 ML (PER 5 UNITS) 15 UNIT SC (20:09)
[2025-02-07] MEDS: SPIRONOLACTONE 25 MG TABLET PO (20:10)
[2025-02-08] VITALS (16 sets, daily range): BP systolic 144–160; BP diastolic 87–101; PULSE 68–963; RESP 16–100; TEMP 36.1–36.7; O2SAT 94–100; BMI 27.4
[2025-02-08 06:19] LABS: Basophils # (Auto) 0.1 Thou/mm3 (0.0-0.2); Basophils % (Auto) 1 % (0-2.5); Eosinophils # (Auto) 0.3 Thou/mm3 (0.0-0.5); Eosinophils % (Auto) 2 % (0-10); Hematocrit 23.3 % (41.0-53.0); Immature Granulocytes Auto 0.55 Thou/mm3 (0.00-0.00); Lymphocytes # (Auto) 3.1 Thou/mm3 (1.0-4.8); Lymphocytes % (Auto) 20 % (10-50); Mean Corpuscular HGB Conc 34.3 g/dl (31.0-37.0); Mean Corpuscular Hemoglobin 29.3 pg (25.0-35.0); Mean Corpuscular Volume 85 fL (80-100); Monocytes # (Auto) 1.0 Thou/mm3 (0.0-0.8); Monocytes % (Auto) 7 % (0-12); Neutrophils # (Auto) 10.4 Thou/mm3 (1.8-7.7); Neutrophils % (Auto) 68 % (37-80); Nucleated Red Blood Cell # 0.00 Thou/mm3 (0.00-0.00); Nucleated Red Blood Cell % 0 /100 WBC (0); Platelet Count 288 Thou/mm3 (140-440); RDW Standard Deviation 41.0 fL (35.1-43.9); Red Blood Count 2.73 Miln/mm3 (4.50-5.90); White Blood Count 15.4 Thou/mm3 (3.8-10.6)
[2025-02-08] MEDS: ALBUTEROL/IPRATROPIUM (Duoneb) RT SOL 3 ML NEBU INH ×2 (06:35→14:17)
[2025-02-08 06:39] LABS: Hemoglobin 8.0 g/dL (13.5-16.0)
[2025-02-08 06:59] LABS: Alanine Aminotransferase 11 U/L (10-49); Albumin, Serum 2.5 gm/dL (3.5-5.0); Albumin/Globulin Ratio 1.2 (1.2-2.2); Alkaline Phosphatase 87 U/L (46-116); Anion Gap 9 (7-16); Aspartate Amino Transferase 22 U/L (0-34); BUN/Creatinine Ratio 15 Ratio (12-20); Bilirubin,Total 0.2 mg/dL (0.3-1.2); Blood Urea Nitrogen 18 mg/dL (9-23); Calcium 7.7 mg/dL (8.3-10.6); Calcium (Corrected) 8.9 mg/dL (8.5-10.1); Carbon Dioxide 28.0 mMol/L (20.0-31.0); Chloride 104 mMol/L (98-107); Creatinine (Component) 1.2 mg/dL (0.6-1.3); Estimated Creatinine Clearance 95.8 mL/min (>60); Globulin 2.1 gm/dL (2.3-3.5); Glucose 116 mg/dL (74-106); Magnesium 1.6 mg/dL (1.6-2.6); Osmolality,Calculated 284 (275-295); Phosphorous 4.3 mg/dL (2.4-5.1); Potassium 3.5 mMol/L (3.4-5.1); Sodium 141 mMol/L (136-145); Total Protein 4.6 gm/dL (5.7-8.2); eGFR > 60 See Note
--- NOTE | 2025-02-08 07:37 | PD.RESPRO ---
Documentation for date of: 02/08/25 Exam Vital Signs Temp Pulse Resp BP Pulse Ox O2 Del Method 98 F 89 16 151/89 H 100 Room Air 02/08/25 04:00 02/08/25 06:37 02/08/25 06:37 02/08/25 04:00 02/08/25 06:37 02/08/25 04:00 Objective Labs 02/08/25 05:50 02/08/25 05:50 Labs: Laboratory Results - last 24 hr 02/07/25 02/08/25 09:35 05:50 WBC 16.8 H 15.4 H RBC 2.84 L 2.73 L Hgb 8.3 L 8.0 L Hct 23.8 L 23.3 L MCV 84 85 MCH 29.2 29.3 MCHC 34.9 34.3 RDW Std Deviation 40.3 41.0 Plt Count 284 288 Neut % (Auto) 73 68 Lymph % (Auto) 14 20 [place] % (Auto) 6 7 Eos % (Auto) 2 2 Baso % (Auto) 0 1 Neut # (Auto) 12.3 H 10.4 H Lymph # (Auto) 2.4 3.1 [place] # (Auto) 1.0 H 1.0 H Eos # (Auto) 0.3 0.3 Baso # (Auto) 0.1 0.1 Immature Gran # (Auto) 0.71 H 0.55 H Absolute Nucleated RBC 0.00 0.00 Immature Gran % 4 H 4 H Nucleated RBC % 0 0 Sodium 137 141 Potassium 3.7 3.5 Chloride 101 104 Carbon Dioxide 28.5 28.0 Anion Gap 8 9 BUN 19 18 Creatinine 1.2 1.2 Estim Creat Clear Calc 95.8 95.8 eGFR > 60 > 60 BUN/Creatinine Ratio 16 15 Glucose 239 H 116 H D Calculated Osmolality 284 284 Calcium 7.6 L 7.7 L Corrected Calcium 8.8 8.9 Phosphorus 3.4 4.3 Magnesium 1.6 1.6 Total Bilirubin 0.2 L 0.2 L AST 24 22 ALT 15 11 Alkaline Phosphatase 95 D 87 Total Protein 4.6 L 4.6 L Albumin 2.5 L 2.5 L Globulin 2.1 L 2.1 L Albumin/Globulin Ratio 1.2 1.2 ABG Interpretation ABG results: 02/05/25 19:18 VBG pH 7.45 VBG pCO2 39 VBG pO2 38 VBG Base Excess 3 Quality Measures Quality Measures VTE prophylaxis Assessment & Plan Assessment Current Active Medications: Generic Name Dose Route Start Last Admin Trade Name Freq PRN Reason Stop Dose Admin Acetaminophen 650 mg 02/06/25 18:25 Acetaminophen 325 Mg Tablet PO 03/08/25 05:35 Q6H PRN PAIN OR FEVER > 100.4 Albuterol/Ipratropium 3 ml 02/06/25 15:00 02/08/25 06:35 Albuterol/Ipratropium (Duoneb) Rt Judy 3 Ml Nebu INH 03/08/25 14:59 3 ml Q8HRRT KIERA Administration Aspirin 81 mg 02/06/25 09:00 02/07/25 08:53 Aspirin Ec 81 Mg Tabec PO 03/08/25 08:59 81 mg QDAY KIERA Administration Atorvastatin Calcium 40 mg 02/06/25 09:00 02/07/25 08:53 Atorvastatin Calcium 20 Mg Tablet PO 03/08/25 08:59 40 mg QDAY KIERA Administration Clopidogrel Bisulfate 75 mg 02/06/25 09:00 02/07/25 08:53 Clopidogrel Bisulfate 75 Mg Tablet PO 03/08/25 08:59 75 mg QDAY KIERA Administration Dextrose 25 ml 02/05/25 20:14 Dextrose 50%-Water Inj 50 Ml Syringe IV 03/07/25 20:13 Q15MIN PRN BG 50-70 responsive npo pt Dextrose 50 ml 02/05/25 20:14 Dextrose 50%-Water Inj 50 Ml Syringe IV 03/07/25 20:13 Q15MIN PRN BG <50 OR BG <70 & pt unresponsive Enoxaparin Sodium 40 mg 02/06/25 09:00 02/07/25 08:50 Enoxaparin Sod Inj 40 Mg/0.4 Ml Syringe SC 02/20/25 08:59 40 mg QDAY KIERA Administration Furosemide 40 mg 02/06/25 09:00 02/07/25 08:52 Furosemide 40 Mg Tablet PO 03/08/25 08:59 40 mg QAM KIERA Administration Glucagon 1 mg 02/05/25 20:14 Glucagon Inj 1 Mg Vial IM Q15MIN PRN BG <70, and no IV access Hydralazine HCl 10 mg 02/06/25 06:05 02/07/25 04:13 Hydralazine Inj 20 Mg/Ml Vial IVP 03/08/25 06:04 10 mg Q4HR PRN Administration SBP>180 or DBP>90 Cefazolin Sodium 2 gm in 100 mls @ 100 mls/hr 02/06/25 06:20 02/07/25 20:09 Ancef 2gm Ivpb IV 02/13/25 06:19 100 mls/hr BID KIERA Administration Insulin Glargine 15 unit 02/06/25 21:00 02/07/25 20:09 Insulin Glargine (Lantus) 5 Unit/0.05 Ml (Per 5 Units) SC 03/08/25 20:59 15 unit QPM KIERA Administration Insulin Human Lispro 0 unit 02/05/25 21:00 02/07/25 20:09 Insulin Lispro (Admelog) 1 Unit/0.01 Ml Unit SC 03/07/25 20:59 2 unit ACHS KIERA Administration Protocol Levetiracetam 500 mg 02/06/25 21:00 02/07/25 20:09 Levetiracetam 250 Mg Tablet PO 03/08/25 20:59 500 mg BID KIERA Administration Lisinopril 20 mg 02/06/25 09:00 02/07/25 08:51 Lisinopril 20 Mg Tablet PO 03/08/25 08:59 20 mg QDAY KIERA Administration Nifedipine 60 mg 02/08/25 09:00 Nifedipine Xl 30 Mg Tabcr PO 03/10/25 08:59 QDAY KIERA Ondansetron HCl 4 mg 02/06/25 05:36 Ondansetron Inj 2 Mg/Ml Inj 2 Ml IVP 03/08/25 05:35 Q6H PRN NAUSEA OR VOMITING Protocol Spironolactone 25 mg 02/07/25 21:00 02/07/25 20:10 Spironolactone 25 Mg Tablet PO 03/09/25 20:59 25 mg BID KIERA Administration
[2025-02-08] MEDS: ENOXAPARIN SOD INJ 40 MG/0.4 ML SYRINGE SC (09:09)
[2025-02-08] MEDS: ceFAZolin/D5W 2 GM IV 2 GM/100 ML BAG IV (09:09)
[2025-02-08] MEDS: ATORVASTATIN CALCIUM 20 MG TABLET 40 MG PO (09:10)
[2025-02-08] MEDS: CLOPIDOGREL BISULFATE 75 MG TABLET PO (09:10)
[2025-02-08] MEDS: ASPIRIN EC 81 MG TABEC PO (09:10)
[2025-02-08] MEDS: NIFEdipine XL 30 MG TABCR 60 MG PO (09:12)
[2025-02-08] MEDS: SPIRONOLACTONE 25 MG TABLET PO ×2 (09:13→20:25)
--- NOTE | 2025-02-08 09:27 | ESPR_ITS ---
Documentation for date of: 02/08/25 Subjective Subjective Interval history: Patient was seen and examined at bedside. No acute events took place overnight. BP 147/96, HR 103, WBC 15.4 downtrending, Hgb 8 stable, glucose 116, calcium 7.7, albumin 2.5 I briefed him regarding his clinical course, concern for ischemic CVA in temporal and occipital lobe versus demyelinating disease, hypertensive emergency requiring blood pressure medications, need for compliance with medications and follow-up. The patient stated that he left AMA during previous hospitalization before PHILIPPE could be done, but now he got his insurance and pharmacy set up, and would like to leave the hospital as soon as possible and medications to be sent to his pharmacy. The patient is pending a PHILIPPE, but unfortunately has no machines technician is present until February 12. Patient would likely require transfer out for PHILIPPE if it is urgently required but also for additional input with assessment of demyelinating disease. Defer to primary team. Exam Vital Signs Temp Pulse Resp BP Pulse Ox O2 Del Method 97.0 F 93 18 154/87 H 98 Room Air 02/08/25 08:00 02/08/25 09:13 02/08/25 08:00 02/08/25 09:13 02/08/25 08:00 02/08/25 08:00 Narrative Exam Physical Exam General: Awake and in no acute distress. Conversational and non-toxic appearing. HEENT: Normocephalic, atraumatic, mucous membranes moist. Heart: Regular rate and rhythm, normal S1 and S2, no murmurs appreciated. Lungs: Expiratory wheezing in lower lung lopez. Abdomen: Soft, nondistended, nontender, positive bowel sounds. No guarding or rebound tenderness. Neurologic: Alert and oriented x3, vision appears to be intact, no gross neurological deficit, and patient able to move all 4 extremities. Extremities: 1+ pitting edema in lower extremities bilaterally Skin: No rash or ecchymoses. Objective Labs 02/08/25 05:50 02/08/25 05:50 Labs: Laboratory Results - last 24 hr 02/07/25 02/08/25 09:35 05:50 WBC 16.8 H 15.4 H RBC 2.84 L 2.73 L Hgb 8.3 L 8.0 L Hct 23.8 L 23.3 L MCV 84 85 MCH 29.2 29.3 MCHC 34.9 34.3 RDW Std Deviation 40.3 41.0 Plt Count 284 288 Neut % (Auto) 73 68 Lymph % (Auto) 14 20 [place] % (Auto) 6 7 Eos % (Auto) 2 2 Baso % (Auto) 0 1 Neut # (Auto) 12.3 H 10.4 H Lymph # (Auto) 2.4 3.1 [place] # (Auto) 1.0 H 1.0 H Eos # (Auto) 0.3 0.3 Baso # (Auto) 0.1 0.1 Immature Gran # (Auto) 0.71 H 0.55 H Absolute Nucleated RBC 0.00 0.00 Immature Gran % 4 H 4 H Nucleated RBC % 0 0 Sodium 137 141 Potassium 3.7 3.5 Chloride 101 104 Carbon Dioxide 28.5 28.0 Anion Gap 8 9 BUN 19 18 Creatinine 1.2 1.2 Estim Creat Clear Calc 95.8 95.8 eGFR > 60 > 60 BUN/Creatinine Ratio 16 15 Glucose 239 H 116 H D Calculated Osmolality 284 284 Calcium 7.6 L 7.7 L Corrected Calcium 8.8 8.9 Phosphorus 3.4 4.3 Magnesium 1.6 1.6 Total Bilirubin 0.2 L 0.2 L AST 24 22 ALT 15 11 Alkaline Phosphatase 95 D 87 Total Protein 4.6 L 4.6 L Albumin 2.5 L 2.5 L Globulin 2.1 L 2.1 L Albumin/Globulin Ratio 1.2 1.2 ABG Interpretation ABG results: 02/05/25 19:18 VBG pH 7.45 VBG pCO2 39 VBG pO2 38 VBG Base Excess 3 Quality Measures Quality Measures VTE prophylaxis Assessment & Plan Assessment Current Active Medications: Generic Name Dose Route Start Last Admin Trade Name Freq PRN Reason Stop Dose Admin Acetaminophen 650 mg 02/06/25 18:25 Acetaminophen 325 Mg Tablet PO 03/08/25 05:35 Q6H PRN PAIN OR FEVER > 100.4 Albuterol/Ipratropium 3 ml 02/06/25 15:00 02/08/25 06:35 Albuterol/Ipratropium (Duoneb) Rt Judy 3 Ml Nebu INH 03/08/25 14:59 3 ml Q8HRRT KIERA Administration Aspirin 81 mg 02/06/25 09:00 02/08/25 09:10 Aspirin Ec 81 Mg Tabec PO 03/08/25 08:59 81 mg QDAY KIERA Administration Atorvastatin Calcium 40 mg 02/06/25 09:00 02/08/25 09:10 Atorvastatin Calcium 20 Mg Tablet PO 03/08/25 08:59 40 mg QDAY KIERA Administration Clopidogrel Bisulfate 75 mg 02/06/25 09:00 02/08/25 09:10 Clopidogrel Bisulfate 75 Mg Tablet PO 03/08/25 08:59 75 mg QDAY KIERA Administration Dextrose 25 ml 02/05/25 20:14 Dextrose 50%-Water Inj 50 Ml Syringe IV 03/07/25 20:13 Q15MIN PRN BG 50-70 responsive npo pt Dextrose 50 ml 02/05/25 20:14 Dextrose 50%-Water Inj 50 Ml Syringe IV 03/07/25 20:13 Q15MIN PRN BG <50 OR BG <70 & pt unresponsive Enoxaparin Sodium 40 mg 02/06/25 09:00 02/08/25 09:09 Enoxaparin Sod Inj 40 Mg/0.4 Ml Syringe SC 02/20/25 08:59 40 mg QDAY KIERA Administration Furosemide 40 mg 02/06/25 09:00 02/08/25 09:11 Furosemide 40 Mg Tablet PO 03/08/25 08:59 40 mg QAM KIERA Administration Glucagon 1 mg 02/05/25 20:14 Glucagon Inj 1 Mg Vial IM Q15MIN PRN BG <70, and no IV access Hydralazine HCl 10 mg 02/06/25 06:05 02/07/25 04:13 Hydralazine Inj 20 Mg/Ml Vial IVP 03/08/25 06:04 10 mg Q4HR PRN Administration SBP>180 or DBP>90 Cefazolin Sodium 2 gm in 100 mls @ 100 mls/hr 02/06/25 06:20 02/08/25 09:09 Ancef 2gm Ivpb IV 02/13/25 06:19 100 mls/hr BID KIERA Administration Insulin Glargine 15 unit 02/06/25 21:00 02/07/25 20:09 Insulin Glargine (Lantus) 5 Unit/0.05 Ml (Per 5 Units) SC 03/08/25 20:59 15 unit QPM KIERA Administration Insulin Human Lispro 0 unit 02/05/25 21:00 02/08/25 08:52 Insulin Lispro (Admelog) 1 Unit/0.01 Ml Unit SC 03/07/25 20:59 Not Given ACHS KIERA Protocol Levetiracetam 500 mg 02/06/25 21:00 02/08/25 09:12 Levetiracetam 250 Mg Tablet PO 03/08/25 20:59 500 mg BID KIERA Administration Lisinopril 20 mg 02/06/25 09:00 02/08/25 09:10 Lisinopril 20 Mg Tablet PO 03/08/25 08:59 20 mg QDAY KIERA Administration Nifedipine 60 mg 02/08/25 09:00 02/08/25 09:12 Nifedipine Xl 30 Mg Tabcr PO 03/10/25 08:59 60 mg QDAY KIERA Administration Ondansetron HCl 4 mg 02/06/25 05:36 Ondansetron Inj 2 Mg/Ml Inj 2 Ml IVP 03/08/25 05:35 Q6H PRN NAUSEA OR VOMITING Protocol Spironolactone 25 mg 02/07/25 21:00 02/08/25 09:13 Spironolactone 25 Mg Tablet PO 03/09/25 20:59 25 mg BID KIERA Administration Plan The patient is a 29-year-old male with significant past medical history of uncontrolled diabetes mellitus type 1, noncompliant with insulin, multiple drug abuse, and possible seizure disorder was brought in by EMS to ED with chief complaint of being found slumped over and altered mental status. Cardiology consultation was done for further evaluation of the cause of stroke, and transesophageal echocardiography. #Acute ischemic stroke right posterior, temporal and occipital lobe The patient was found slumped over by EMS, and later was found to have multiple foci restricted diffusion in the right posterior temporal right occipital lobe with possible mild signal deficit on the ADC map. ? CT head prelim 02/06 negative for intracranial hemorrhage, mass effect or midline shift. ? CT head & neck w/ showed no significant neck arterial stenosis, limited cerebral angio. Poor filling of left [employer]. No yoselin occlusion of MCA, STEFFANY, or [employer] branches. MRI findings as well as the CT findings were unclear if the patient had an ischemic stroke based on the presentation and could be encephalopathy versus other demyelinating disease. Neurology requested a PHILIPPE and cardiology consult for further evaluation for concern of stroke given the MRI findings. Patient was scheduled for the PHILIPPE during previous hospitalization but patient did sign out AMA and now has returned back to the hospital with more neurological complaints. Plan: - Primary team again requesting a PHILIPPE but unfortunately the PHILIPPE cannot be performed until 02/12/2025 due to lack of machines technician at this hospital. - Continue with atorvastatin 40 Mg daily, aspirin 81 Mg daily and clopidogrel 75 Mg daily. - Head and neck CTA was negative. - Rest of the management deferred to neurology team. #HLD Triglyceride 154, cholesterol 285, LDL 186, HDL 68 - Continue with atorvastatin 40 Mg daily at night, the LDL goal is less than 55 in the setting of ischemic stroke and diabetes mellitus type 2 #Bilateral leg edema #Hypoalbuminemia, likely secondary to nutritional deficiency Likely 2/2 volume overload in the setting of aggressive IV fluids during DKA treatment, with albumin of 2 during presentation DDx: CHF anemia TTE done revealed: Normal LV size and function. Estimated EF at 70-75%. Hyperdynamic LV systolic function. The RV is normal in size and systolic function. Trace TR. -Strict ins and outs -Fluid restriction to 1500cc/day incorporated in diet -2g sodium diet -Ensure 3 times daily with meals #Diabetes melitis type I #Noncompliant with medications The patient reported that he has diabetes mellitus type 1, and has been taking medications regularly. However, his A1c was 11.8 during presentation. He was also found to have DKA initially. - Maintain euglycemia #Anemia Likely multifactorial 2/2 nutrition deficiency -Ordered iron panel, ferritin, vit B12, B9, path smear and retic count Reticulocyte count 4.5%, iron panel and ferritin pending, vitamin B12 and B9 WNL, peripheral smear pending. #HTN #Hypertensive emergency, resolved Patient's blood pressure has been elevated and systolic blood pressure has been greater than 140 since beginning of admission. - Recommend to start the patient on amlodipine 10 mg daily -As needed labetalol 5 Mg IV every 4 hourly as needed for SBP greater than 180, or DBP greater than 120, and HR greater than 70. -FLOR inhibitor/ARB should be started on the after YAMILEX resolves, discontinued lisinopril #YAMILEX #h/o substance use Urine toxicology panel positive for THC and, previously, positive for cocaine. #history of medication non compliance Rest of the management deferred to primary team. Thank you for cardiology consultation. We appreciate the opportunity to participate in this patient's care. Will continue to follow-up on this patient This case was discussed with my attending physician, Dr. Gee, charter and tour bus driver. Radha Tillman, DO PGY I Attending Provider Attestation/Addendum I have personally seen and examined the patient separately on the above date of service and discussed the plan of care with the resident. I reviewed the resident Dr. Garcia consultation progress note and agree with the resident findings and plan in the note above and have also edited the documentation to reflect my findings and plan. Te Gee M.D. Interventional Cardiology
[2025-02-08] MEDS: AZITHROMYCIN 250 MG TABLET 500 MG PO (11:31)
[2025-02-08] MEDS: cefTRIAXone/D5w 1gm IV premix 1 GM/50 ML BAG IV (11:31)
[2025-02-08] MEDS: INSULIN LISPRO (AdmeLOG) 1 UNIT/0.01 ML UNIT SC ×3 (12:06→20:25)
--- NOTE | 2025-02-08 12:53 | PC.DIETICIAN ---
Dietitian recommendations: Contour Next EZ glucometer kit was provided per patients request. Will need order at discharge for supplies Thank you
--- NOTE | 2025-02-08 13:31 | PD.RESCONSUL ---
HPI Data of Consult Consult date: 02/08/25 Requesting Physician: Hong Rod MD Admitting Provider: Hong Rod MD Attending Provider: Hong Rod MD Primary Care Provider: Physician No Primary/Family Consult Narrative Reason for consult: Uncontrolled hypertension History of present illness: Mr. Ortiz is a 29 yo M with a hx of poorly controlled DM1 , seizures, CVA, hypertensive urgency c/f secondary etiologies for HTN who left the hospital AMA on 02/03 while he was undergoing workup for R temporal and R occipital infarct, management of DM, and hypertensive urgency. He represented to the hospital on 02/06 with headaches and found to have SBP 200, generalized weakness, and malaise, he also endorsed L sided vision loss and increased urination. He had not been taking any medications while outside the hospital. He denies chest pain, nausea, vomiting, dysuria, hematechezia, or shortness of breath He last hospital admission was 01/29/25 for DKA to the ICU, where he was intubated and then successfully extubated. He was found to have multiple foci of restricted diffusion to the R posterior temporal and R occipital lobe, Neuro was consulted, who deemed it an acute ischemic stroke, TTE on 02/01 with EF 70-75% EF. Pt was pending PHILIPPE for further evaluation of valves given concern for cardioembolic source for strokes. Nephro was consulted on 02/03 to help manage the labile BP, who reccomended d/c amlodipine, cont lisinopril, nicardipine, and labetelol IV PRN. ED Course: -Initial vitals were BP 200/119, HR 119, RR 19, temp 99.1 F, 99% on room air -Labs significant for WBC 16.1, hemoglobin 8.5, VBG pH 7.45, SSD056, PO238, sodium 130, chloride 96, creatinine 1.4, glucose 648, calcium 8.1, beta hydroxybutyrate 0.1. U tox positive for marijuana -Imaging included CT head shows no evidence of intracranial hemorrhage, mass effect or midline shift -In the ED, patient was given insulin glargine 10 units, insulin regular 5 units -Patient was admitted for hypertensive urgency 02/08/2025: Patient seen and examined at bedside. Patient expressed frustration with the medical team and a desire to leave the hospital. He states that he now has insurance and should be able to afford his medications. He states that Shanda or Sherrie ([phone] can cigar packer and picker his medications from the pharmacy and bring them to the hospital. patient reaffirms that he has not taken any medications outside of the hospital. Plan to reinitiate BP managment while inpatient with lisinopril and nicardipine, and labetalol prn, and send medications to pharmacy so patient has them in hand before discharging. pending PHILIPPE per primary team. cc:: cc: Hong Rod MD Review of Systems Review of Systems Narrative Review of Systems: as per HPI Past Medical History Past Medical History CARDIAC: Negative Cardiac Disorders or Congestive Heart Failure RESPIRATORY: Positive Respiratory Disorders; Negative Chronic Obstructive Pulmonary Disease (COPD) or Asthma GENITOURINARY: Negative Renal Disease ENDOCRINE: Positive Endocrine Disorders and Diabetes Mellitus Type 2; Negative Diabetes Mellitus Type 1 HEMATOLOGIC: Negative Sickle Cell Disease Social History SMOKING STATUS: Current some day smoker Exam Vital Signs Temp Pulse Resp BP Pulse Ox O2 Del Method 97.1 F 68 18 158/96 H 94 L Room Air 02/08/25 11:28 02/08/25 11:28 02/08/25 11:28 02/08/25 11:28 02/08/25 11:28 02/08/25 11:28 Narrative Exam General: Well appearing, well nourished, in no distress. Oriented x 3. Skin: Good turgor, no rash, unusual bruising or prominent lesions Heart: well perfused on visual inspection. Lungs: Clear to auscultation and percussion. No rales, wheeze, or rhonchi Abdomen: Bowel sounds normal, no tenderness, organomegaly, masses, or hernia Extremities: No amputations or deformities, cyanosis, edema or varicosities, Results Labs 02/09/25 05:40 02/09/25 05:40 Labs: Short CBC 02/08/25 Range/Units 05:50 WBC 15.4 H (3.8-10.6) Thou/mm3 Hgb 8.0 L (13.5-16.0) g/dL Hct 23.3 L (41.0-53.0) % Plt Count 288 (140-440) Thou/mm3 BMP 02/08/25 05:50 Sodium 141 Potassium 3.5 Chloride 104 Carbon Dioxide 28.0 BUN 18 Creatinine 1.2 Glucose 116 H D Calcium 7.7 L Liver Function 02/08/25 Range/Units 05:50 Total Bilirubin 0.2 L (0.3-1.2) mg/dL AST 22 (0-34) U/L ALT 11 (10-49) U/L Alkaline Phosphatase 87 (46-116) U/L Albumin 2.5 L (3.5-5.0) gm/dL ABG Interpretation ABG results: 02/05/25 19:18 VBG pH 7.45 VBG pCO2 39 VBG pO2 38 VBG Base Excess 3 Quality Measures Quality Measures VTE prophylaxis Medications Home Medications and Allergies Allergies Allergy/AdvReac Type Severity Reaction Status Date / Time No Known Allergies Allergy Verified 02/05/25 18:06 Visit Medications Acetaminophen (Acetaminophen 325 Mg Tablet) 650 mg PO Q6H PRN PRN Reason: PAIN OR FEVER > 100.4 Stop: 03/08/25 05:35 Albuterol/Ipratropium (Albuterol/Ipratropium (Duoneb) Rt Judy 3 Ml Nebu) 3 ml INH Q8HRRT [facility] Stop: 03/08/25 14:59 Last Admin: 02/08/25 06:35 Dose: 3 ml Aspirin (Aspirin Ec 81 Mg Tabec) 81 mg PO QDAY [facility] Stop: 03/08/25 08:59 Last Admin: 02/08/25 09:10 Dose: 81 mg Atorvastatin Calcium (Atorvastatin Calcium 20 Mg Tablet) 40 mg PO QDAY [facility] Stop: 03/08/25 08:59 Last Admin: 02/08/25 09:10 Dose: 40 mg Azithromycin (Azithromycin 250 Mg Tablet) 500 mg PO QDAY [facility] Stop: 02/15/25 10:44 Last Admin: 02/08/25 11:31 Dose: 500 mg Clopidogrel Bisulfate (Clopidogrel Bisulfate 75 Mg Tablet) 75 mg PO QDAY [facility] Stop: 03/08/25 08:59 Last Admin: 02/08/25 09:10 Dose: 75 mg Dextrose (Dextrose 50%-Water Inj 50 Ml Syringe) 25 ml IV Q15MIN PRN PRN Reason: BG 50-70 responsive npo pt Stop: 03/07/25 20:13 Dextrose (Dextrose 50%-Water Inj 50 Ml Syringe) 50 ml IV Q15MIN PRN PRN Reason: BG <50 OR BG <70 & pt unresponsive Stop: 03/07/25 20:13 Enoxaparin Sodium (Enoxaparin Sod Inj 40 Mg/0.4 Ml Syringe) 40 mg SC QDAY [facility] Stop: 02/20/25 08:59 Last Admin: 02/08/25 09:09 Dose: 40 mg Furosemide (Furosemide 40 Mg Tablet) 40 mg PO QAM [facility] Stop: 03/08/25 08:59 Last Admin: 02/08/25 09:11 Dose: 40 mg Glucagon (Glucagon Inj 1 Mg Vial) 1 mg IM Q15MIN PRN PRN Reason: BG <70, and no IV access Hydralazine HCl (Hydralazine Inj 20 Mg/Ml Vial) 10 mg IVP Q4HR PRN PRN Reason: SBP>180 or DBP>90 Stop: 03/08/25 06:04 Last Admin: 02/07/25 04:13 Dose: 10 mg Ceftriaxone Sodium/Dextrose (Rocephin/D5w 1gm Iv Premix) 1 gm in 50 mls @ 100 mls/hr IV QDAY [facility] Stop: 02/15/25 10:40 Last Admin: 02/08/25 11:31 Dose: 100 mls/hr Insulin Glargine (Insulin Glargine (Lantus) 5 Unit/0.05 Ml (Per 5 Units)) 15 unit SC QPM [facility] Stop: 03/08/25 20:59 Last Admin: 02/07/25 20:09 Dose: 15 unit Insulin Human Lispro (Insulin Lispro (Admelog) 1 Unit/0.01 Ml Unit) 0 unit SC [facility]; Protocol Stop: 03/07/25 20:59 Last Admin: 02/08/25 12:06 Dose: 1 unit Levetiracetam (Levetiracetam 250 Mg Tablet) 500 mg PO BID [facility] Stop: 03/08/25 20:59 Last Admin: 02/08/25 09:12 Dose: 500 mg Lisinopril (Lisinopril 20 Mg Tablet) 20 mg PO QDAY [facility] Stop: 03/08/25 08:59 Last Admin: 02/08/25 09:10 Dose: 20 mg Nifedipine (Nifedipine Xl 30 Mg Tabcr) 60 mg PO QDAY [facility] Stop: 03/10/25 08:59 Last Admin: 02/08/25 09:12 Dose: 60 mg Ondansetron HCl (Ondansetron Inj 2 Mg/Ml Inj 2 Ml) 4 mg IVP Q6H PRN; Protocol PRN Reason: NAUSEA OR VOMITING Stop: 03/08/25 05:35 Spironolactone (Spironolactone 25 Mg Tablet) 25 mg PO BID [facility] Stop: 03/09/25 20:59 Last Admin: 02/08/25 09:13 Dose: 25 mg Discontinued Medications Acetaminophen (Acetaminophen 325 Mg Tablet) 650 mg PO Q6H PRN PRN Reason: Fever >101.5 Stop: 03/08/25 05:35 Ceftriaxone Sodium/Dextrose (Rocephin/D5w 1gm Iv Premix) 1 gm in 50 mls @ 100 mls/hr IV QDAY [facility] Stop: 02/13/25 06:10 Cefazolin Sodium (Ancef 2gm Ivpb) 2 gm in 100 mls @ 100 mls/hr IV BID [facility] Stop: 02/13/25 06:19 Last Admin: 02/08/25 09:09 Dose: 100 mls/hr Magnesium Sulfate (Magnesium Sulfate Ivpb) 4 gm in 50 mls @ 12.5 mls/hr IV X1 ONE Stop: 02/07/25 20:10 Last Admin: 02/07/25 16:31 Dose: 12.5 mls/hr Insulin Glargine (Insulin Glargine (Lantus) 5 Unit/0.05 Ml (Per 5 Units)) 10 unit SC X1 ONE Stop: 02/05/25 20:16 Last Admin: 02/05/25 22:56 Dose: 10 unit Insulin Human Regular (Insulin Hum Regular 1 Unit/0.01 Ml (Per Unit)) 5 unit SC X1 ONE Stop: 02/05/25 20:23 Last Admin: 02/05/25 22:57 Dose: 5 unit Insulin Human Regular (Insulin Hum Regular 1 Unit/0.01 Ml (Per Unit)) 5 unit SC X1 ONE Stop: 02/06/25 03:08 Last Admin: 02/06/25 04:21 Dose: Not Given Labetalol HCl (Labetalol Inj 5 Mg/Ml Vial 20 Ml) 10 mg IVP X1 ONE Stop: 02/06/25 03:15 Last Admin: 02/06/25 04:22 Dose: Not Given Levetiracetam (Levetiracetam 250 Mg Tablet) 250 mg PO BID KIERA Stop: 03/08/25 08:59 Last Admin: 02/06/25 08:00 Dose: 250 mg Lisinopril (Lisinopril 2.5 Mg Tablet) 10 mg PO X1 ONE Stop: 02/06/25 06:07 Last Admin: 02/06/25 07:20 Dose: Not Given Nicardipine HCl (Nicardipine 20 Mg Capsule) 20 mg PO BID KIERA Stop: 03/08/25 08:59 Last Admin: 02/07/25 08:53 Dose: 20 mg Assessment & Plan Plan Mr. Ortiz is a 29-year-old male with past medical history of DM1, substance abuse, seizures, and recently diagnosed right posterior temporal and right occipital area infarct admitted for hypertensive emergency and hyperglycemia. #Hypertensive Emergency #Hypertensive Urgency pt presented with sbp 200, symptomatic with headaches and L eye vision changes. BP 158/96 today - Lisinopril 20 qd - Hydralizine 10 mg IV q4h PRN - Spirinolactone 25 BID - nifedipine 60 BID, (per Dr. Hensley, she prefers nicardipine to nifedipine, pt may have insurance difficultly getting nicardipine prescription) - recommend getting prescriptions at bedside prior to discharge or potential AMA - Goal BP> 150 <180 #Diabetes mellitus, insulin-dependent, uncontrolled #Hyperglycemia - A1c: 11.8 01/29/25 - pt needs glucose monitor #Acute ischemic stroke with multiple foci in right posterior temporal and right occipital lobe on 02/01 #Acute encephalopathy - resolved #Seizures - keppra (pt has not picked up at pharmacy) #Wheezing #Decreased vision in right eye #Normocytic anemia #Hyperlipidemia #Leukocytosis, on azithro and ctx. Management per primary team Plan discussed with nephrology attending Dr. Shellie Little MD Internal Medicine PGY-1 Attending Provider Attestation/Addendum Patient seen and examined with resident physician Dr. Little. Note reviewed, agree with findings and recommendations. Patient with uncontrolled hypertension and significant noncompliance. He is not taking any medications for his hypertension, dyslipidemia, seizure or diabetes. Multiple ER visits and hospitalizations. He seems to be very aggressive and easily irritable. Could not get much information. Did discuss with the patient that his family needs to go and cigar packer and picker the prescriptions prior to discharge so he will be compliant with his prescriptions. Added Aldactone to block the MR receptor. Secondary hypertension workup pending. So far renal ultrasound and renal Doppler normal. No renal artery stenosis. However patient noted to have hypokalemic metabolic alkalosis. Thank you Alvaro for allowing me to participate in the care of Mr. Ortiz
--- NOTE | 2025-02-08 16:03 | ESPR_ITS ---
<Statement entered by Pawel Lees MD - 02/08/25 19:43> Patient was examined and case was reviewed with team including attending physician. Note reviewed, I agree with most of its contents and agree with the patient's care. Patient seen today at the bedside found awake, alert, orientedx3. No overnight events reported. Vitals and labs reviewed. Patient is pending transesophageal echocardiogram however unfortunately service is not available our institution at this time. Will continue with strict blood pressure and blood sugar control. Spoke to cardiology who stated patient can have procedure done as outpatient. Case discussed with my attending Dr. Susan Lees MD PGY-2 Documentation for date of: 02/08/25 Subjective Subjective Interval history: Patient evaluated at bedside. Continues to endorse complete loss of left high visual field. Continues to report general malaise and wheezing. Reports that DuoNebs every 8 hours have somewhat improved his wheezing. BP continues to be elevated with systolics in the 150s. certified ophthalmic technician unavailable until Saturday of this week, unable to complete PHILIPPE. Reports no new symptoms. Tried to call sister, Lilian, and life partner, Hattie, today. Neither were able to answer the phone. Will try again tomorrow. Exam Vital Signs Temp Pulse Resp BP Pulse Ox O2 Del Method 97.1 F 91 16 158/96 H 100 Room Air 02/08/25 11:28 02/08/25 14:18 02/08/25 14:18 02/08/25 11:28 02/08/25 14:18 02/08/25 11:28 Narrative Exam General: No acute distress, well nourished Eye: PERRL, EOMI, normal conjunctiva, no scleral icterus HENT: Normocephalic, atraumatic, normal hearing, moist oral mucosa Neck: Supple, non-tender, no JVD, no lymphadenopathy Lungs: Wheezing in b/l lower lung lopez, dry cough, no use of accessory muscles, symmetric chest rise Heart: Normal S1 and S2. Peripheral pulses intact bilaterally, capillary refill brisk distally. 2+ pitting edema in lower extremities bilaterally to mid-[place] Abdomen: Soft, non-tender, non-distended. No guarding or rebound tenderness. Musculoskeletal: Normal range of motion and strength, no tenderness or swelling Skin: Skin is warm, dry, no rashes or lesions. Neurologic: Alert, awake and oriented x3. CN III-XII grossly intact. Patient reports decreased all visual lopez in right eye. No signs of meningeal irritation noted. Psychiatric: Cooperative, appropriate mood and affect Objective Labs 02/09/25 05:40 02/09/25 05:40 Labs: Laboratory Results - last 24 hr 02/08/25 05:50 WBC 15.4 H RBC 2.73 L Hgb 8.0 L Hct 23.3 L MCV 85 MCH 29.3 MCHC 34.3 RDW Std Deviation 41.0 Plt Count 288 Neut % (Auto) 68 Lymph % (Auto) 20 Brewster % (Auto) 7 Eos % (Auto) 2 Baso % (Auto) 1 Neut # (Auto) 10.4 H Lymph # (Auto) 3.1 Brewster # (Auto) 1.0 H Eos # (Auto) 0.3 Baso # (Auto) 0.1 Immature Gran # (Auto) 0.55 H Absolute Nucleated RBC 0.00 Immature Gran % 4 H Nucleated RBC % 0 Sodium 141 Potassium 3.5 Chloride 104 Carbon Dioxide 28.0 Anion Gap 9 BUN 18 Creatinine 1.2 Estim Creat Clear Calc 95.8 eGFR > 60 BUN/Creatinine Ratio 15 Glucose 116 H D Calculated Osmolality 284 Calcium 7.7 L Corrected Calcium 8.9 Phosphorus 4.3 Magnesium 1.6 Total Bilirubin 0.2 L AST 22 ALT 11 Alkaline Phosphatase 87 Total Protein 4.6 L Albumin 2.5 L Globulin 2.1 L Albumin/Globulin Ratio 1.2 ABG Interpretation ABG results: 02/05/25 19:18 VBG pH 7.45 VBG pCO2 39 VBG pO2 38 VBG Base Excess 3 Quality Measures Quality Measures VTE prophylaxis Assessment & Plan Assessment Current Active Medications: Generic Name Dose Route Start Last Admin Trade Name Freq PRN Reason Stop Dose Admin Acetaminophen 650 mg 02/06/25 18:25 Acetaminophen 325 Mg Tablet PO 03/08/25 05:35 Q6H PRN PAIN OR FEVER > 100.4 Albuterol/Ipratropium 3 ml 02/06/25 15:00 02/08/25 14:17 Albuterol/Ipratropium (Duoneb) Rt Judy 3 Ml Nebu INH 03/08/25 14:59 3 ml Q8HRRT KIERA Administration Aspirin 81 mg 02/06/25 09:00 02/08/25 09:10 Aspirin Ec 81 Mg Tabec PO 03/08/25 08:59 81 mg QDAY KIERA Administration Atorvastatin Calcium 40 mg 02/06/25 09:00 02/08/25 09:10 Atorvastatin Calcium 20 Mg Tablet PO 03/08/25 08:59 40 mg QDAY KIERA Administration Azithromycin 500 mg 02/08/25 10:45 02/08/25 11:31 Azithromycin 250 Mg Tablet PO 02/15/25 10:44 500 mg QDAY KIERA Administration Clopidogrel Bisulfate 75 mg 02/06/25 09:00 02/08/25 09:10 Clopidogrel Bisulfate 75 Mg Tablet PO 03/08/25 08:59 75 mg QDAY KIERA Administration Dextrose 25 ml 02/05/25 20:14 Dextrose 50%-Water Inj 50 Ml Syringe IV 03/07/25 20:13 Q15MIN PRN BG 50-70 responsive npo pt Dextrose 50 ml 02/05/25 20:14 Dextrose 50%-Water Inj 50 Ml Syringe IV 03/07/25 20:13 Q15MIN PRN BG <50 OR BG <70 & pt unresponsive Enoxaparin Sodium 40 mg 02/06/25 09:00 02/08/25 09:09 Enoxaparin Sod Inj 40 Mg/0.4 Ml Syringe SC 02/20/25 08:59 40 mg QDAY KIERA Administration Furosemide 40 mg 02/06/25 09:00 02/08/25 09:11 Furosemide 40 Mg Tablet PO 03/08/25 08:59 40 mg QAM KIERA Administration Glucagon 1 mg 02/05/25 20:14 Glucagon Inj 1 Mg Vial IM Q15MIN PRN BG <70, and no IV access Hydralazine HCl 10 mg 02/06/25 06:05 02/07/25 04:13 Hydralazine Inj 20 Mg/Ml Vial IVP 03/08/25 06:04 10 mg Q4HR PRN Administration SBP>180 or DBP>90 Ceftriaxone Sodium/Dextrose 1 gm in 50 mls @ 100 mls/hr 02/08/25 10:41 02/08/25 11:31 Rocephin/D5w 1gm Iv Premix IV 02/15/25 10:40 100 mls/hr QDAY KIERA Administration Insulin Glargine 15 unit 02/06/25 21:00 02/07/25 20:09 Insulin Glargine (Lantus) 5 Unit/0.05 Ml (Per 5 Units) SC 03/08/25 20:59 15 unit QPM KIERA Administration Insulin Human Lispro 0 unit 02/05/25 21:00 02/08/25 12:06 Insulin Lispro (Admelog) 1 Unit/0.01 Ml Unit SC 03/07/25 20:59 1 unit ACHS KIERA Administration Protocol Levetiracetam 500 mg 02/06/25 21:00 02/08/25 09:12 Levetiracetam 250 Mg Tablet PO 03/08/25 20:59 500 mg BID KIERA Administration Lisinopril 20 mg 02/06/25 09:00 02/08/25 09:10 Lisinopril 20 Mg Tablet PO 03/08/25 08:59 20 mg QDAY KIERA Administration Nifedipine 90 mg 02/09/25 09:00 Nifedipine Xl 30 Mg Tabcr PO 03/11/25 08:59 QDAY KIERA Ondansetron HCl 4 mg 02/06/25 05:36 Ondansetron Inj 2 Mg/Ml Inj 2 Ml IVP 03/08/25 05:35 Q6H PRN NAUSEA OR VOMITING Protocol Spironolactone 25 mg 02/07/25 21:00 02/08/25 09:13 Spironolactone 25 Mg Tablet PO 03/09/25 20:59 25 mg BID [facility] Administration Plan #Acute encephalopathy - resolved Initially generalized weakness, headache Now resolved with management of BP and glucose Plan: - See HTN and DM sections below #Hypertensive emergency - resolved BP 200/119 on admission, improved to 173/111 without intervention. Endorsed headache on admission Now 143/82 after administration of Lasix 40 mg, Lisinopril 20, Nicardipine 20 mg. On previous admission was on furosemide 40 mg, lisinopril 20 mg, and nicardipine 20 mg. Switched Nicardipine to Nifedipine 2/2 cost of meds on patient's insurance Plan: - Consulted cardiology, appreciate recs - Continue Lisinopril 20 mg, furosemide 40 mg. nifedipine 60mg PO and Spironolactone 25mg PO BID - Hydralazine 10 IV q4h PRN - Pending aldosterone, renin (from previous admission) #Diabetes mellitus, insulin-dependent, uncontrolled #Hyperglycemia Blood glucose 628 on admission, improved to 268 status post insulin glargine 10 unit x 1 and insulin regular 5 units x 1. Plan: - SSI - Continue to monitor blood glucose ACHS #Acute ischemic stroke with multiple foci in right posterior temporal and right occipital lobe on 02/01 CTA head/neck w/ 02/02: No significant neck arterial stenoses. Limited cerebral angio. Poor filling of left LANGUAGE INTERPRETER. No yoselin occlusion of MCA, STEFFANY, or LANGUAGE INTERPRETER branches MRI/MRA w/ and w/o: Multiple foci restricted diffusion in right posterior temporal and right occipital lobe with ADC drop out c/f acute ischemic infarct C/F embolic pattern given multiple foci TTE: Normal LV size and function. Estimated EF at 70-75%. Hyperdynamic LV systolic function. Trace CT head 02/06 negative for intracranial hemorrhage, mass effect or midline shift. Plan: - Continue Aspirin 81 mg daily, plavix 75 mg daily, atorvastatin 40 mg daily - Still pending hypercoag labs from previous admission - Pending PHILIPPE - will most likely have to be done outpatient has refresh technician not in until Saturday - Consulted tele-neurology, appreciate recs #Wheezing #c/f CAP spO2 appropriately on RA Hx smoking Afebrile, leukocytosis, COVID negative, step and flu negative Patient reports general malaise, productive cough (appreciated dry cough on exam) Associated with sore throat CXR 02/06 atelectasis vs PNA DDX: CAP, asthma, COPD Plan: - Duoneb q8h - D/C cefazolin - Start Ceftriaxone 1 g IV x 5 days (02/08 - ) and Azithromycin 500 mg PO QD x 3 days (02/08 - ) - F/U outpatient for assessment of asthma vs COPD #Decreased vision in right eye Since previous admission DDX: retinal artery or vein occlusion, diabetic retinopathy, occipital stroke, ischemic optic neuropathy Plan: - F/U outpatient ophthalmology #C/F seizures On previous admission, found down, unresponsive. Witnessed tonic clonic like movements per EMS. No past history of seizures. EEG 02/04: Mild diffuse slowing suggestive of diffuse encephalopathy of metabolic, degenerative or vascular origin. This does not r/o seizure. Plan: - Continue Keppra 500 mg PO BID - Tele-neurology consult as above #Leukocytosis Neutrophilic predominance with left shift Likely reactive in the setting of hypertensive urgency. Meets 2 out of 4 SIRS criteria (tachycardia, elevated WBC) however afebrile and no source of infection or end-organ damage. Low suspicion for infection Plan: - CBC daily - Hold antibiotics at this time #Normocytic anemia No acute bleeding Plan: - CBC daily - Follow-up outpatient #Hyperlipidemia Lipids panel 02/03 showed triglycerides 154, total cholesterol 285, LDL 186, HDL 68. Per ASCVD risk algorithm, recommend high intensity statin given history of stroke and age. Plan: - Continue atorvastatin 40 mg daily Health Maintenance Disposition: Management of hypertensive urgency and hyperglycemia DVT prophylaxis: Lovenox GI prophylaxis: Zofran Diet: Low carb consistent CODE STATUS: Full Plan discussed with Dr. Jad Lees (senior resident) and Dr. Davis (attending) Mirian Cabral, PGY1 Attending Provider Attestation/Addendum I have examined the patient, reviewed labs and imaging findings, discussed the case with the resident(s), and reviewed entered orders. I agree with the plan of care as outlined in this note, with these additional summaries/recommendations: Patient seen at bedside. No acute overnight events. Today patient reports right-sided monocular vision loss that was present on last admission before patient left against medical advice. We will attempt to reach in-house box toe cementer for further recommendations. He denies pain with eye movements. Patient appears at his baseline mental status. Acute encephalopathy resolved. Encephalopathy most likely secondary to hypertensive emergency. Systolic blood pressure was noted into the 200s on admission. Elevated blood pressure most likely secondary to medication noncompliance. We will continue to optimize and adjust antihypertensive regimen before patient can be safely discharged. Patient was counseled extensively on the importance of taking his blood pressure medications as prescribed especially given his recent CVA. Patient was diagnosed with CVA 1 week prior and left the hospital AGAINST MEDICAL ADVICE. Continue dual antiplatelet therapy and statin. Hypercoagulable panel from previous admission still pending. Patient was also diagnosed with possible seizures at that time and we will continue Keppra 500 mg twice daily. PHILIPPE was also ordered last visit although was not completed as patient left AGAINST MEDICAL ADVICE but he did complete TTE which revealed EF 70-75%. Echo services currently unavailable and patient will likely have to follow-up outpatient with cardiology. Patient has uncontrolled diabetes mellitus type 2. A1c 11.8%. Diabetic education given. Continue basal bolus insulin. Target blood sugar of 140-180 while hospitalized. Follow-up neurology recommendations. Patient updated on the plan and agreement. All questions answered to satisfaction. Please see residents note for additional details and management. Dr. Susan MD
--- NOTE | 2025-02-08 16:17 | PC.SS ---
SS follow up note PHILIPPE pending, Blood pressure and Blood sugar being monitored, possible discharge home within 1-2 days.
--- NOTE | 2025-02-08 16:21 | ESCONSULT_ITS ---
Tele Neuro Consultation Consultation Date 02/08/25 [facility] Tele[facility]urology Consult Services Date of Service 02/08/2025 Impression: 1- recent multifocal stroke, embolic pattern 2- recent seizure like activity Recommendations: (Primary Team to order Controlled Medications) 1- While workup for embolic stroke is ongoing (PHILIPPE, hypercoagulable workup, 30 day outpatient cardiac monitoring), maintain on dual Antiplatelet therapy with Aspirin and plavix for 21days (from index stroke), followed by Aspirin mono therapy indefinitely, If at any point an indication for anticoagulation is found, timing has to be discussed with neurologist, Once/If anticoagulation is started then can stop antiplatelet therapy (unless there is a definite cardiovascular indication for concurrent use of Antiplatelet therapy and anticoagulation) 2- Blood Pressure target normotension, avoid rapid lowering of Blood Pressure 3- statin for goal LDL<70 4- goal HbA1c<7 5- primary team to review hypercoagulable workup, if any questions consult hematology. 6- continue on [facility] Neurologist will follow up with results. Please contact [facility] Navigator to reach me if further questions/concerns arise. Reason for Neurology Consult: - stroke History of Present Illness: -? Patient is a(n) 29 years old man with history of diabetes, hypertension, recent admission with brain MRI suspicious for multifocal Acute Ischemic Strokes, had TTE: EF Normal, no PFO, no Thrombus reported But PHILIPPE was not done. Left AMA and came back for uncontrolled blood glucose. Examination: Examination done through interactive audio and video telecommunications with the assist of bedside nursing (when available) 1A: Level of Consciousness - Alert; keenly responsive + 0 1B: Ask Month and Age - Both Questions Right + 0 1C: Blink Eyes & Squeeze Hands - Performs Both Tasks + 0 2: Test Horizontal Extraocular Movements - Normal + 0 3: Test Visual Joshua - No Visual Loss + 0 4: Test Facial Palsy (Use Grimace if Obtunded) - Normal symmetry + 0 5A: Test Left Arm Motor Drift - No Drift for 10 Seconds + 0 5B: Test Right Arm Motor Drift - No Drift for 10 Seconds + 0 6A: Test Left Leg Motor Drift - No Drift for 5 Seconds + 0 6B: Test Right Leg Motor Drift - No Drift for 5 Seconds + 0 7: Test Limb Ataxia (FNF/Heel-Mcneal) - No Ataxia + 0 8: Test Sensation - Normal; No sensory loss + 0 9: Test Language/Aphasia - Normal; No aphasia + 0 10: Test Dysarthria - Normal + 0 11: Test Extinction/Inattention - No abnormality + 0 NIHSS Score: 0 Right eye is blind Patient / Family was informed the Neurology Consult would occur via TeleHealth consult by way of interactive audio and video telecommunications and consented to receiving care in this manner. ? Patient is being evaluated for possible acute neurologic impairment and high probability of imminent or life - threatening deterioration. I spent total of 30 minutes providing care to this patient, including time for face to face visit via telemedicine, review of medical records, imaging studies and discussion of findings with providers, the patient and / or family. ? ? Dr Enio Leung ? ? [facility] For Inpatient follow-up with [facility] physician please call [facility] . This is not an outpatient service. Post hospital discharge, please contact hospital directly. ? Please do not communicate with [facility] physicians via secure chat. If you have any questions, Please contact [facility]. Please call or reconsult our service if there are any clinical or diagnostic changes. Most Recent Vital Signs Last Vital Signs Temp 97.1 F 02/08/25 11:28 Pulse 91 02/08/25 14:18 Resp 16 02/08/25 14:18 BP 158/96 H 02/08/25 11:28 Pulse Ox 100 02/08/25 14:18 O2 Del Method Room Air 02/08/25 11:28
[2025-02-08] MEDS: INSULIN GLARGINE (Lantus) 5 UNIT/0.05 ML (PER 5 UNITS) 15 UNIT SC (20:26)
[2025-02-09] VITALS (14 sets, daily range): BP systolic 124–164; BP diastolic 80–113; PULSE 77–103; RESP 12–98; TEMP 36.1–36.9; O2SAT 95–100
[2025-02-09 06:08] LABS: Basophils # (Auto) 0.1 Thou/mm3 (0.0-0.2); Basophils % (Auto) 1 % (0-2.5); Eosinophils # (Auto) 0.3 Thou/mm3 (0.0-0.5); Eosinophils % (Auto) 2 % (0-10); Hematocrit 22.5 % (41.0-53.0); Immature Granulocytes Auto 0.25 Thou/mm3 (0.00-0.00); Lymphocytes # (Auto) 2.5 Thou/mm3 (1.0-4.8); Lymphocytes % (Auto) 18 % (10-50); Mean Corpuscular HGB Conc 34.2 g/dl (31.0-37.0); Mean Corpuscular Hemoglobin 29.5 pg (25.0-35.0); Mean Corpuscular Volume 86 fL (80-100); Monocytes # (Auto) 0.8 Thou/mm3 (0.0-0.8); Monocytes % (Auto) 6 % (0-12); Neutrophils # (Auto) 9.5 Thou/mm3 (1.8-7.7); Neutrophils % (Auto) 71 % (37-80); Nucleated Red Blood Cell # 0.00 Thou/mm3 (0.00-0.00); Nucleated Red Blood Cell % 0 /100 WBC (0); Platelet Count 303 Thou/mm3 (140-440); RDW Standard Deviation 41.9 fL (35.1-43.9); Red Blood Count 2.61 Miln/mm3 (4.50-5.90); White Blood Count 13.4 Thou/mm3 (3.8-10.6)
[2025-02-09 06:24] LABS: Hemoglobin 7.7 g/dL (13.5-16.0)
[2025-02-09 07:01] LABS: Alanine Aminotransferase 10 U/L (10-49); Albumin, Serum 2.5 gm/dL (3.5-5.0); Albumin/Globulin Ratio 1.3 (1.2-2.2); Alkaline Phosphatase 84 U/L (46-116); Anion Gap 6 (7-16); Aspartate Amino Transferase 21 U/L (0-34); BUN/Creatinine Ratio 18 Ratio (12-20); Bilirubin,Total 0.2 mg/dL (0.3-1.2); Blood Urea Nitrogen 20 mg/dL (9-23); Calcium 7.8 mg/dL (8.3-10.6); Calcium (Corrected) 9.0 mg/dL (8.5-10.1); Carbon Dioxide 28.9 mMol/L (20.0-31.0); Chloride 105 mMol/L (98-107); Creatinine (Component) 1.1 mg/dL (0.6-1.3); Estimated Creatinine Clearance 104.5 mL/min (>60); Globulin 2.0 gm/dL (2.3-3.5); Glucose 111 mg/dL (74-106); Magnesium 1.4 mg/dL (1.6-2.6); Osmolality,Calculated 283 (275-295); Phosphorous 4.0 mg/dL (2.4-5.1); Potassium 3.8 mMol/L (3.4-5.1); Sodium 140 mMol/L (136-145); Total Protein 4.5 gm/dL (5.7-8.2); eGFR > 60 See Note
--- NOTE | 2025-02-09 07:20 | ESPR_ITS ---
Documentation for date of: 02/09/25 Subjective Subjective Interval history: History of present illness: Mr. Ortiz is a 29 yo M with a hx of poorly controlled DM1 , seizures, CVA, hypertensive urgency c/f secondary etiologies for HTN who left the hospital AMA on 02/03 while he was undergoing workup for R temporal and R occipital infarct, management of DM, and hypertensive urgency. He represented to the hospital on 02/06 with headaches and found to have SBP 200, generalized weakness, and malaise, he also endorsed L sided vision loss and increased urination. He had not been taking any medications while outside the hospital. He denies chest pain, nausea, vomiting, dysuria, hematechezia, or shortness of breath He last hospital admission was 01/29/25 for DKA to the ICU, where he was intubated and then successfully extubated. He was found to have multiple foci of restricted diffusion to the R posterior temporal and R occipital lobe, Neuro was consulted, who deemed it an acute ischemic stroke, TTE on 02/01 with EF 70-75% EF. Pt was pending PHILIPPE for further evaluation of valves given concern for cardioembolic source for strokes. Nephro was consulted on 02/03 to help manage the labile BP, who reccomended d/c amlodipine, cont lisinopril, nicardipine, and labetelol IV PRN. ED Course: -Initial vitals were BP 200/119, HR 119, RR 19, temp 99.1 F, 99% on room air -Labs significant for WBC 16.1, hemoglobin 8.5, VBG pH 7.45, [id number], PO238, sodium 130, chloride 96, creatinine 1.4, glucose 648, calcium 8.1, beta hydroxybutyrate 0.1. U tox positive for marijuana -Imaging included CT head shows no evidence of intracranial hemorrhage, mass effect or midline shift -In the ED, patient was given insulin glargine 10 units, insulin regular 5 units -Patient was admitted for hypertensive urgency 02/08/2025: Patient seen and examined at bedside. Patient expressed frustration with the medical team and a desire to leave the hospital. He states that he now has insurance and should be able to afford his medications. He states that Shanda or Sherrie [phone] can milk pickup driver his medications from the pharmacy and bring them to the hospital. patient reaffirms that he has not taken any medications outside of the hospital. Plan to reinitiate BP managment while inpatient with lisinopril and nicardipine, and labetalol prn, and send medications to pharmacy so patient has them in hand before discharging. pending PHILIPPE per primary team. 02/09/25: Patient seen and examined at bedside. meds and vitals were reviewed. Patient expressed frustration that he we have been unable to contact Sherrie or Lilian. Spoke to his Sister Lilian on the phone this morning she states that she is in [place] and will be returning back to [place] on Saturday or Saturday. Lilian will try to contact patient's friend named Luis A. Patient is still pending PHILIPPE however cath lab radiological technologist is out till Monday 02/12. Blood pressures are better controlled today on current regimen recommended increasing spironolactone dose from 25 twice daily to 50 twice daily. Exam Vital Signs Temp Pulse Resp BP Pulse Ox O2 Del Method 98.4 F 77 18 149/99 H 98 Room Air 02/09/25 04:00 02/09/25 06:51 02/09/25 06:51 02/09/25 04:00 02/09/25 06:51 02/09/25 04:00 Narrative Exam General: Well appearing, well nourished, in no distress. Oriented x 3. Skin: Good turgor, no rash, unusual bruising or prominent lesions Heart: well perfused on visual inspection. Lungs:normal work of breathing. 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 visual lopez not assessed during exam. Objective Labs 02/09/25 05:40 02/09/25 05:40 Labs: Laboratory Results - last 24 hr 02/09/25 05:40 WBC 13.4 H RBC 2.61 L Hgb 7.7 L Hct 22.5 L MCV 86 MCH 29.5 MCHC 34.2 RDW Std Deviation 41.9 Plt Count 303 Neut % (Auto) 71 Lymph % (Auto) 18 [place] % (Auto) 6 Eos % (Auto) 2 Baso % (Auto) 1 Neut # (Auto) 9.5 H Lymph # (Auto) 2.5 [place] # (Auto) 0.8 Eos # (Auto) 0.3 Baso # (Auto) 0.1 Immature Gran # (Auto) 0.25 H Absolute Nucleated RBC 0.00 Immature Gran % 2 H Nucleated RBC % 0 Sodium 140 Potassium 3.8 Chloride 105 Carbon Dioxide 28.9 Anion Gap 6 L BUN 20 Creatinine 1.1 Estim Creat Clear Calc 104.5 eGFR > 60 BUN/Creatinine Ratio 18 Glucose 111 H Calculated Osmolality 283 Calcium 7.8 L Corrected Calcium 9.0 Phosphorus 4.0 Magnesium 1.4 L Total Bilirubin 0.2 L AST 21 ALT 10 Alkaline Phosphatase 84 Total Protein 4.5 L Albumin 2.5 L Globulin 2.0 L Albumin/Globulin Ratio 1.3 ABG Interpretation ABG results: 02/05/25 19:18 VBG pH 7.45 VBG pCO2 39 VBG pO2 38 VBG Base Excess 3 Quality Measures Quality Measures VTE prophylaxis Assessment & Plan Assessment Current Active Medications: Generic Name Dose Route Start Last Admin Trade Name Freq PRN Reason Stop Dose Admin Acetaminophen 650 mg 02/06/25 18:25 Acetaminophen 325 Mg Tablet PO 03/08/25 05:35 Q6H PRN PAIN OR FEVER > 100.4 Albuterol/Ipratropium 3 ml 02/06/25 15:00 02/09/25 06:51 Albuterol/Ipratropium (Duoneb) Rt Judy 3 Ml Nebu INH 03/08/25 14:59 Not Given Q8HRRT KIERA Aspirin 81 mg 02/06/25 09:00 02/08/25 09:10 Aspirin Ec 81 Mg Tabec PO 03/08/25 08:59 81 mg QDAY KIERA Administration Atorvastatin Calcium 40 mg 02/06/25 09:00 02/08/25 09:10 Atorvastatin Calcium 20 Mg Tablet PO 03/08/25 08:59 40 mg QDAY KIERA Administration Azithromycin 500 mg 02/08/25 10:45 02/08/25 11:31 Azithromycin 250 Mg Tablet PO 02/15/25 10:44 500 mg QDAY KIERA Administration Clopidogrel Bisulfate 75 mg 02/06/25 09:00 02/08/25 09:10 Clopidogrel Bisulfate 75 Mg Tablet PO 03/08/25 08:59 75 mg QDAY KIERA Administration Dextrose 25 ml 02/05/25 20:14 Dextrose 50%-Water Inj 50 Ml Syringe IV 03/07/25 20:13 Q15MIN PRN BG 50-70 responsive npo pt Dextrose 50 ml 02/05/25 20:14 Dextrose 50%-Water Inj 50 Ml Syringe IV 03/07/25 20:13 Q15MIN PRN BG <50 OR BG <70 & pt unresponsive Enoxaparin Sodium 40 mg 02/06/25 09:00 02/08/25 09:09 Enoxaparin Sod Inj 40 Mg/0.4 Ml Syringe SC 02/20/25 08:59 40 mg QDAY KIERA Administration Furosemide 40 mg 02/06/25 09:00 02/08/25 09:11 Furosemide 40 Mg Tablet PO 03/08/25 08:59 40 mg QAM KIERA Administration Glucagon 1 mg 02/05/25 20:14 Glucagon Inj 1 Mg Vial IM Q15MIN PRN BG <70, and no IV access Hydralazine HCl 10 mg 02/06/25 06:05 02/07/25 04:13 Hydralazine Inj 20 Mg/Ml Vial IVP 03/08/25 06:04 10 mg Q4HR PRN Administration SBP>180 or DBP>90 Ceftriaxone Sodium/Dextrose 1 gm in 50 mls @ 100 mls/hr 02/08/25 10:41 02/08/25 11:31 Rocephin/D5w 1gm Iv Premix IV 02/15/25 10:40 100 mls/hr QDAY KIERA Administration Insulin Glargine 15 unit 02/06/25 21:00 02/08/25 20:26 Insulin Glargine (Lantus) 5 Unit/0.05 Ml (Per 5 Units) SC 03/08/25 20:59 15 unit QPM KIERA Administration Insulin Human Lispro 0 unit 02/05/25 21:00 02/08/25 20:25 Insulin Lispro (Admelog) 1 Unit/0.01 Ml Unit SC 03/07/25 20:59 3 unit ACHS KIERA Administration Protocol Levetiracetam 500 mg 02/06/25 21:00 02/08/25 20:25 Levetiracetam 250 Mg Tablet PO 03/08/25 20:59 500 mg BID KIERA Administration Lisinopril 20 mg 02/06/25 09:00 02/08/25 09:10 Lisinopril 20 Mg Tablet PO 03/08/25 08:59 20 mg QDAY KIERA Administration Nifedipine 90 mg 02/09/25 09:00 Nifedipine Xl 30 Mg Tabcr PO 03/11/25 08:59 QDAY KIERA Ondansetron HCl 4 mg 02/06/25 05:36 Ondansetron Inj 2 Mg/Ml Inj 2 Ml IVP 03/08/25 05:35 Q6H PRN NAUSEA OR VOMITING Protocol Spironolactone 25 mg 02/07/25 21:00 02/08/25 20:25 Spironolactone 25 Mg Tablet PO 03/09/25 20:59 25 mg BID KIERA Administration Plan Mr. Ortiz is a 29-year-old male with past medical history of DM1, substance abuse, seizures, and recently diagnosed right posterior temporal and right occipital area infarct admitted for hypertensive emergency and hyperglycemia, pending PHILIPPE, and BP control. #Hypertensive Emergency #Hypertensive Urgency pt presented with sbp 200, symptomatic with headaches and L eye vision changes. BP 162/113 today - Lisinopril 20 qd - Hydralizine 10 mg IV q4h PRN - Furosimide 40 IV qd - Spirinolactone increase from 25 BID to 50 BID - nifedipine 60 BID, (per Dr. Hensley, she prefers nicardipine to nifedipine, pt may have insurance difficultly getting nicardipine prescription) - recommend getting prescriptions at bedside prior to discharge or potential AMA spoke to patient sister Lilian, currently out of town. but will be returning saturday /saturday and can milk pickup driver patients medications at that time. Will try to get in contact with pts friend Luis A who lives in town. unable to locate pt family friend Shanda. tried calling Sherrie, no answer multiple times. - Goal BP> 150 <180 #Diabetes mellitus, insulin-dependent, uncontrolled #Hyperglycemia - A1c: 11.8 01/29/25 - pt needs glucose monitor #Acute ischemic stroke with multiple foci in right posterior temporal and right occipital lobe on 02/01 -tele neuro consulted -pending hypercoag labs #Acute encephalopathy - resolved #Seizures - keppra (pt has not picked up at pharmacy) #Wheezing #Decreased vision in right eye #Normocytic anemia #Hyperlipidemia #Leukocytosis, on azithro and ctx. Management per primary team Plan discussed with nephrology attending Dr. Shellie Little MD Internal Medicine PGY-1 Attending Provider Attestation/Addendum Patient seen and examined with resident physician Dr. Little. Note reviewed, agree with findings and recommendations. Patient with uncontrolled hypertension and significant noncompliance. He is not taking any medications for his hypertension, dyslipidemia, seizure or diabetes. Multiple ER visits and hospitalizations. He seems to be very aggressive and easily irritable. Could not get much information. Did discuss with the patient that his family needs to go and milk pickup driver the prescriptions prior to discharge so he will be compliant with his prescriptions. Added Aldactone to block the MR receptor. I increased the dose today. Secondary hypertension workup pending. So far renal ultrasound and renal Doppler normal. No renal artery stenosis. However patient noted to have hypokalemic metabolic alkalosis. Suspect patient has a nephrotic syndrome from poorly controlled diabetes manifested with nephrotic range proteinuria, hyperlipidemia, hypoalbuminemia. Will quantify protein/cr ratio. Currently on FLOR inhibitor's. Thank you Alvaro for allowing me to participate in the care of Mr. Ortiz
[2025-02-09] MEDS: AZITHROMYCIN 250 MG TABLET 500 MG PO (08:15)
[2025-02-09] MEDS: ASPIRIN EC 81 MG TABEC PO (08:17)
[2025-02-09] MEDS: ENOXAPARIN SOD INJ 40 MG/0.4 ML SYRINGE SC (08:17)
[2025-02-09] MEDS: ATORVASTATIN CALCIUM 20 MG TABLET 40 MG PO (08:17)
[2025-02-09] MEDS: CLOPIDOGREL BISULFATE 75 MG TABLET PO (08:17)
[2025-02-09] MEDS: cefTRIAXone/D5w 1gm IV premix 1 GM/50 ML BAG IV (08:17)
[2025-02-09] MEDS: SPIRONOLACTONE 25 MG TABLET PO ×2 (08:17→08:36)
[2025-02-09] MEDS: NIFEdipine XL 30 MG TABCR 90 MG PO (08:29)
--- NOTE | 2025-02-09 10:42 | ESPR_ITS ---
<Statement entered by Pawel Lees MD - 02/09/25 17:52> Patient was examined and case was reviewed with team including attending physician. Note reviewed, I agree with most of its contents and agree with the patient's care. Patient seen today at the bedside found awake, alert, orientedx3. No overnight events reported. Vitals and labs reviewed. Spironolactone was uptitrated for stricter blood pressure control as per nephrology recommendations. Will continue current regimen with Lasix 40 mg, nifedipine 60 mg and lisinopril 20 mg. Case discussed with my attending Dr. Susan Lees MD PGY-2 Documentation for date of: 02/09/25 Subjective Subjective Interval history: NAEO. Patient evaluated at bedside, still wheezing, states that DuoNebs have helped his wheezing and shortness of breath. Denies chest pain/pressure. Dr. Little (nephrology) was able to contact patient's sister, Sherrie ([phone]) who lives in [place] and would be able to picking tech patient's medications from [facility] [address] once patient is ready for discharge. Tried to call her to update her on the plan but could not get in contact with her this afternoon. Will try again in the morning. Exam Vital Signs Temp Pulse Resp BP Pulse Ox O2 Del Method 97.7 F 100 18 162/113 H 99 Room Air 02/09/25 08:00 02/09/25 08:36 02/09/25 08:00 02/09/25 08:36 02/09/25 08:00 02/09/25 08:00 Narrative Exam General: No acute distress, well nourished Eye: PERRL, EOMI, normal conjunctiva, no scleral icterus HENT: Normocephalic, atraumatic, normal hearing, moist oral mucosa Neck: Supple, non-tender, no JVD, no lymphadenopathy Lungs: Wheezing in b/l lower lung lopez, dry cough, no use of accessory muscles, symmetric chest rise Heart: Normal S1 and S2. Peripheral pulses intact bilaterally, capillary refill brisk distally. 1+ pitting edema in lower extremities bilaterally to mid-[place] Abdomen: Soft, non-tender, non-distended. No guarding or rebound tenderness. Musculoskeletal: Normal range of motion and strength, no tenderness or swelling Skin: Skin is warm, dry, no rashes or lesions. Neurologic: Alert, awake and oriented x3. CN III-XII grossly intact. Patient reports decreased all visual lopez in right eye. No signs of meningeal irritation noted. Psychiatric: Cooperative, appropriate mood and affect Objective Labs 02/09/25 05:40 02/09/25 05:40 Labs: Laboratory Results - last 24 hr 02/09/25 05:40 WBC 13.4 H RBC 2.61 L Hgb 7.7 L Hct 22.5 L MCV 86 MCH 29.5 MCHC 34.2 RDW Std Deviation 41.9 Plt Count 303 Neut % (Auto) 71 Lymph % (Auto) 18 [place] % (Auto) 6 Eos % (Auto) 2 Baso % (Auto) 1 Neut # (Auto) 9.5 H Lymph # (Auto) 2.5 [place] # (Auto) 0.8 Eos # (Auto) 0.3 Baso # (Auto) 0.1 Immature Gran # (Auto) 0.25 H Absolute Nucleated RBC 0.00 Immature Gran % 2 H Nucleated RBC % 0 Sodium 140 Potassium 3.8 Chloride 105 Carbon Dioxide 28.9 Anion Gap 6 L BUN 20 Creatinine 1.1 Estim Creat Clear Calc 104.5 eGFR > 60 BUN/Creatinine Ratio 18 Glucose 111 H Calculated Osmolality 283 Calcium 7.8 L Corrected Calcium 9.0 Phosphorus 4.0 Magnesium 1.4 L Total Bilirubin 0.2 L AST 21 ALT 10 Alkaline Phosphatase 84 Total Protein 4.5 L Albumin 2.5 L Globulin 2.0 L Albumin/Globulin Ratio 1.3 ABG Interpretation ABG results: 02/05/25 19:18 VBG pH 7.45 VBG pCO2 39 VBG pO2 38 VBG Base Excess 3 Quality Measures Quality Measures VTE prophylaxis Assessment & Plan Assessment Current Active Medications: Generic Name Dose Route Start Last Admin Trade Name Freq PRN Reason Stop Dose Admin Acetaminophen 650 mg 02/06/25 18:25 Acetaminophen 325 Mg Tablet PO 03/08/25 05:35 Q6H PRN PAIN OR FEVER > 100.4 Albuterol/Ipratropium 3 ml 02/09/25 08:32 Albuterol/Ipratropium (Duoneb) Rt Judy 3 Ml Nebu INH 03/08/25 14:59 Q8HRRT PRN WHEEZING Aspirin 81 mg 02/06/25 09:00 02/09/25 08:17 Aspirin Ec 81 Mg Tabec PO 03/08/25 08:59 81 mg QDAY KIERA Administration Atorvastatin Calcium 40 mg 02/06/25 09:00 02/09/25 08:17 Atorvastatin Calcium 20 Mg Tablet PO 03/08/25 08:59 40 mg QDAY KIERA Administration Azithromycin 500 mg 02/08/25 10:45 02/09/25 08:15 Azithromycin 250 Mg Tablet PO 02/15/25 10:44 500 mg QDAY KIERA Administration Clopidogrel Bisulfate 75 mg 02/06/25 09:00 02/09/25 08:17 Clopidogrel Bisulfate 75 Mg Tablet PO 03/08/25 08:59 75 mg QDAY KIERA Administration Dextrose 25 ml 02/05/25 20:14 Dextrose 50%-Water Inj 50 Ml Syringe IV 03/07/25 20:13 Q15MIN PRN BG 50-70 responsive npo pt Dextrose 50 ml 02/05/25 20:14 Dextrose 50%-Water Inj 50 Ml Syringe IV 03/07/25 20:13 Q15MIN PRN BG <50 OR BG <70 & pt unresponsive Enoxaparin Sodium 40 mg 02/06/25 09:00 02/09/25 08:17 Enoxaparin Sod Inj 40 Mg/0.4 Ml Syringe SC 02/20/25 08:59 40 mg QDAY KIERA Administration Furosemide 40 mg 02/06/25 09:00 02/09/25 08:15 Furosemide 40 Mg Tablet PO 03/08/25 08:59 40 mg QAM KIERA Administration Glucagon 1 mg 02/05/25 20:14 Glucagon Inj 1 Mg Vial IM Q15MIN PRN BG <70, and no IV access Hydralazine HCl 10 mg 02/06/25 06:05 02/07/25 04:13 Hydralazine Inj 20 Mg/Ml Vial IVP 03/08/25 06:04 10 mg Q4HR PRN Administration SBP>180 or DBP>90 Ceftriaxone Sodium/Dextrose 1 gm in 50 mls @ 100 mls/hr 02/08/25 10:41 02/09/25 08:17 Rocephin/D5w 1gm Iv Premix IV 02/15/25 10:40 100 mls/hr QDAY KIERA Administration Magnesium Sulfate 4 gm in 50 mls @ 12.5 mls/hr 02/09/25 08:17 Magnesium Sulfate Ivpb IV 02/09/25 12:16 X1 ONE Insulin Glargine 15 unit 02/06/25 21:00 02/08/25 20:26 Insulin Glargine (Lantus) 5 Unit/0.05 Ml (Per 5 Units) SC 03/08/25 20:59 15 unit QPM KIERA Administration Insulin Human Lispro 0 unit 02/05/25 21:00 02/09/25 08:37 Insulin Lispro (Admelog) 1 Unit/0.01 Ml Unit SC 03/07/25 20:59 Not Given ACHS KIERA Protocol Levetiracetam 500 mg 02/06/25 21:00 02/09/25 08:15 Levetiracetam 250 Mg Tablet PO 03/08/25 20:59 500 mg BID KIERA Administration Lisinopril 20 mg 02/06/25 09:00 02/09/25 08:15 Lisinopril 20 Mg Tablet PO 03/08/25 08:59 20 mg QDAY KIERA Administration Nifedipine 90 mg 02/09/25 09:00 02/09/25 08:29 Nifedipine Xl 30 Mg Tabcr PO 03/11/25 08:59 90 mg QDAY KIERA Administration Ondansetron HCl 4 mg 02/06/25 05:36 Ondansetron Inj 2 Mg/Ml Inj 2 Ml IVP 03/08/25 05:35 Q6H PRN NAUSEA OR VOMITING Protocol Spironolactone 50 mg 02/09/25 21:00 Spironolactone 25 Mg Tablet PO 03/11/25 20:59 BID COUNT INCLUDES THE [facility] Plan #Acute encephalopathy - resolved Initially generalized weakness, headache Now resolved with management of BP and glucose Plan: - See HTN and DM sections below #Hypertensive emergency - resolved BP 200/119 on admission Endorsed headache on admission Switched Nicardipine to Nifedipine 2/2 cost of meds on patient's insurance BP 120-150s systolic / 80-90s diastolic Aldosterone 1 WNL, renin 0.63 WNL Plan: - Consulted cardiology, appreciate recs - Continue Lisinopril 20 mg, furosemide 40 mg. nifedipine 60mg PO and Spironolactone 50 mg PO BID (increased from 25 mg BID) - Hydralazine 10 IV q4h PRN #Diabetes mellitus, insulin-dependent, uncontrolled #Hyperglycemia Blood glucose 628 on admission, improved to 268 status post insulin glargine 10 unit x 1 and insulin regular 5 units x 1. Getting Glargine 15U, Lispro Plan: - SSI - Continue to monitor blood glucose ACHS - Diabetes education given #Acute ischemic stroke with multiple foci in right posterior temporal and right occipital lobe on 02/01 CTA head/neck w/ 02/02: No significant neck arterial stenoses. Limited cerebral angio. Poor filling of left MOLD CAR PUSHER. No yoselin occlusion of MCA, STEFFANY, or MOLD CAR PUSHER branches MRI/MRA w/ and w/o: Multiple foci restricted diffusion in right posterior temporal and right occipital lobe with ADC drop out c/f acute ischemic infarct C/F embolic pattern given multiple foci TTE: Normal LV size and function. Estimated EF at 70-75%. Hyperdynamic LV systolic function. Trace CT head 02/06 negative for intracranial hemorrhage, mass effect or midline shift. 1 of 2 lupus anticoagulant confirmatory test positive. LA PTT high 46, total protein S Ag high 153 Plan: - Continue Aspirin 81 mg daily, plavix 75 mg daily, atorvastatin 40 mg daily - Pending homocysteine level, anti-phospholipid, anti-cardiolipin, beta-2 GPI Abs - Pending PHILIPPE - will most likely have to be done outpatient has research and development technician not in until Saturday - Consulted tele-neurology, appreciate recs - F/U neurology outpatient - F/U cardiology outpatient - will need to repeat hypercoagulation panel in 12 weeks as lupus anticoagulant detected in 1 of 2 confirmatory tests. Will need to f/u #Wheezing #Community-acquired pneumonia spO2 appropriately on RA Hx smoking Afebrile, leukocytosis, COVID negative, step and flu negative Patient reports general malaise, productive cough (appreciated dry cough on exam) Associated with sore throat CXR 02/06 atelectasis vs PNA DDX: CAP, asthma, COPD Plan: - Duoneb q4h - Continue Ceftriaxone 1 g IV x 5 days (02/08 - 02/13) and Azithromycin 500 mg PO QD x 3 days (02/08 - 02/13). Can change ceftriaxone to PO upon discharge - F/U outpatient for assessment of asthma vs COPD #Monocular vision loss in right eye Since previous admission, non-painful DDX: retinal artery or vein occlusion, diabetic retinopathy, occipital stroke, ischemic optic neuropathy Plan: - F/U outpatient ophthalmology #C/F seizures On previous admission, found down, unresponsive. Witnessed tonic clonic like movements per EMS. No past history of seizures. EEG 02/04: Mild diffuse slowing suggestive of diffuse encephalopathy of metabolic, degenerative or vascular origin. This does not r/o seizure. Plan: - Continue Keppra 500 mg PO BID - Tele-neurology consult as above #Leukocytosis - downtrending Neutrophilic predominance with left shift Likely reactive in the setting of hypertensive urgency. Meets 2 out of 4 SIRS criteria (tachycardia, elevated WBC) however afebrile and no source of infection or end-organ damage. Low suspicion for infection Plan: - CBC daily #Normocytic anemia No acute bleeding Plan: - CBC daily - Follow-up outpatient #Hyperlipidemia Lipids panel 02/03 showed triglycerides 154, total cholesterol 285, LDL 186, HDL 68. Per ASCVD risk algorithm, recommend high intensity statin given history of stroke and age. Plan: - Continue atorvastatin 40 mg daily Health Maintenance Disposition: CAP tx, PHILIPPE DVT prophylaxis: Lovenox GI prophylaxis: Zofran Diet: Low carb consistent CODE STATUS: Full Plan discussed with Dr. Jad Lees (senior resident) and Dr. Davis (attending) Mirian Cabral, PGY1 Attending Provider Attestation/Addendum I have examined the patient, reviewed labs and imaging findings, discussed the case with the resident(s), and reviewed entered orders. I agree with the plan of care as outlined in this note. Dr. Susan MD
[2025-02-09] MEDS: Magnesium Sulfate 4 GM Ivpb 4 GM/50 ML BAG IV (10:59)
[2025-02-09] MEDS: INSULIN LISPRO (AdmeLOG) 1 UNIT/0.01 ML UNIT SC ×3 (11:51→20:55)
[2025-02-09] MEDS: ALBUTEROL/IPRATROPIUM (Duoneb) RT SOL 3 ML NEBU INH ×2 (16:58→23:51)
[2025-02-09 17:11] LABS: Creatinine,Random Urine 39 mg/dL (30-125); Protein Total, Random Urine 304 mg/dL (1-14)
--- NOTE | 2025-02-09 20:35 | PC.NURSE ---
Dr. Xiomara Moy into see pt.
[2025-02-09] MEDS: SPIRONOLACTONE 25 MG TABLET 50 MG PO (20:55)
[2025-02-09] MEDS: INSULIN GLARGINE (Lantus) 5 UNIT/0.05 ML (PER 5 UNITS) 20 UNIT SC (20:55)
--- NOTE | 2025-02-09 23:15 | PD.RESPRO ---
Documentation for date of: 02/09/25 Subjective Subjective Interval history: Patient was seen and examined at bedside. No acute events took place overnight. BP 149/99, HR 77, WBC 13.4 downtrending, hemoglobin 7.7 stable near baseline, glucose 111. I briefed him regarding his clinical course, concern for ischemic CVA in temporal and occipital lobe versus demyelinating disease, hypertensive emergency requiring blood pressure medications, need for compliance with medications and follow-up. The patient stated that he left AMA during previous hospitalization before PHILIPPE could be done, but now he got his insurance and pharmacy set up, and would like to leave the hospital as soon as possible and medications to be sent to his pharmacy. Patient is adamant that he wants to leave and threatens that he might leave AMA again. The patient is pending a PHILIPPE, but unfortunately has no maintenance technician 2nd shift is present until February 12. Patient would likely require transfer out for PHILIPPE if it is urgently required but also for additional input with assessment of demyelinating disease. Defer to primary team. Exam Vital Signs Temp Pulse Resp BP Pulse Ox O2 Del Method 97.8 F 93 20 135/99 H 100 Room Air 02/09/25 20:00 02/09/25 20:55 02/09/25 20:00 02/09/25 20:55 02/09/25 20:00 02/09/25 20:00 Narrative Exam Physical Exam General: Awake and in no acute distress. Conversational and non-toxic appearing. HEENT: Normocephalic, atraumatic, mucous membranes moist. Heart: Regular rate and rhythm, normal S1 and S2, no murmurs appreciated. Lungs: Expiratory wheezing in lower lung lopez. Abdomen: Soft, nondistended, nontender, positive bowel sounds. No guarding or rebound tenderness. Neurologic: Alert and oriented x3, vision appears to be intact, no gross neurological deficit, and patient able to move all 4 extremities. Extremities: 1+ pitting edema in lower extremities bilaterally Skin: No rash or ecchymoses. Objective Labs 02/10/25 08:05 02/10/25 08:05 Labs: Laboratory Results - last 24 hr 02/09/25 02/09/25 05:40 16:40 WBC 13.4 H RBC 2.61 L Hgb 7.7 L Hct 22.5 L MCV 86 MCH 29.5 MCHC 34.2 RDW Std Deviation 41.9 Plt Count 303 Neut % (Auto) 71 Lymph % (Auto) 18 Cloud % (Auto) 6 Eos % (Auto) 2 Baso % (Auto) 1 Neut # (Auto) 9.5 H Lymph # (Auto) 2.5 Cloud # (Auto) 0.8 Eos # (Auto) 0.3 Baso # (Auto) 0.1 Immature Gran # (Auto) 0.25 H Absolute Nucleated RBC 0.00 Immature Gran % 2 H Nucleated RBC % 0 Sodium 140 Potassium 3.8 Chloride 105 Carbon Dioxide 28.9 Anion Gap 6 L BUN 20 Creatinine 1.1 Estim Creat Clear Calc 104.5 eGFR > 60 BUN/Creatinine Ratio 18 Glucose 111 H Calculated Osmolality 283 Calcium 7.8 L Corrected Calcium 9.0 Phosphorus 4.0 Magnesium 1.4 L Total Bilirubin 0.2 L AST 21 ALT 10 Alkaline Phosphatase 84 Total Protein 4.5 L Albumin 2.5 L Globulin 2.0 L Albumin/Globulin Ratio 1.3 Ur Random Creatinine 39 U Random Total Protein 304 H ABG Interpretation ABG results: 02/05/25 19:18 VBG pH 7.45 VBG pCO2 39 VBG pO2 38 VBG Base Excess 3 Quality Measures Quality Measures VTE prophylaxis Assessment & Plan Assessment Current Active Medications: Generic Name Dose Route Start Last Admin Trade Name Freq PRN Reason Stop Dose Admin Acetaminophen 650 mg 02/06/25 18:25 Acetaminophen 325 Mg Tablet PO 03/08/25 05:35 Q6H PRN PAIN OR FEVER > 100.4 Albuterol/Ipratropium 3 ml 02/09/25 19:00 02/09/25 19:15 Albuterol/Ipratropium (Duoneb) Rt Judy 3 Ml Nebu INH 03/11/25 18:59 Not Given Q4HRRT KIERA Aspirin 81 mg 02/06/25 09:00 02/09/25 08:17 Aspirin Ec 81 Mg Tabec PO 03/08/25 08:59 81 mg QDAY KIERA Administration Atorvastatin Calcium 40 mg 02/06/25 09:00 02/09/25 08:17 Atorvastatin Calcium 20 Mg Tablet PO 03/08/25 08:59 40 mg QDAY KIERA Administration Azithromycin 500 mg 02/08/25 10:45 02/09/25 08:15 Azithromycin 250 Mg Tablet PO 02/15/25 10:44 500 mg QDAY KIERA Administration Clopidogrel Bisulfate 75 mg 02/06/25 09:00 02/09/25 08:17 Clopidogrel Bisulfate 75 Mg Tablet PO 03/08/25 08:59 75 mg QDAY KIERA Administration Dextrose 25 ml 02/05/25 20:14 Dextrose 50%-Water Inj 50 Ml Syringe IV 03/07/25 20:13 Q15MIN PRN BG 50-70 responsive npo pt Dextrose 50 ml 02/05/25 20:14 Dextrose 50%-Water Inj 50 Ml Syringe IV 03/07/25 20:13 Q15MIN PRN BG <50 OR BG <70 & pt unresponsive Enoxaparin Sodium 40 mg 02/06/25 09:00 02/09/25 08:17 Enoxaparin Sod Inj 40 Mg/0.4 Ml Syringe SC 02/20/25 08:59 40 mg QDAY KIERA Administration Furosemide 40 mg 02/06/25 09:00 02/09/25 08:15 Furosemide 40 Mg Tablet PO 03/08/25 08:59 40 mg QAM KIERA Administration Glucagon 1 mg 02/05/25 20:14 Glucagon Inj 1 Mg Vial IM Q15MIN PRN BG <70, and no IV access Hydralazine HCl 10 mg 02/06/25 06:05 02/07/25 04:13 Hydralazine Inj 20 Mg/Ml Vial IVP 03/08/25 06:04 10 mg Q4HR PRN Administration SBP>180 or DBP>90 Ceftriaxone Sodium/Dextrose 1 gm in 50 mls @ 100 mls/hr 02/08/25 10:41 02/09/25 08:17 Rocephin/D5w 1gm Iv Premix IV 02/15/25 10:40 100 mls/hr QDAY KIERA Administration Insulin Glargine 20 unit 02/09/25 21:00 02/09/25 20:55 Insulin Glargine (Lantus) 5 Unit/0.05 Ml (Per 5 Units) SC 03/11/25 20:59 20 unit QPM KIERA Administration Insulin Human Lispro 0 unit 02/05/25 21:00 02/09/25 20:55 Insulin Lispro (Admelog) 1 Unit/0.01 Ml Unit SC 03/07/25 20:59 2 unit ACHS KIERA Administration Protocol Levetiracetam 500 mg 02/06/25 21:00 02/09/25 20:55 Levetiracetam 250 Mg Tablet PO 03/08/25 20:59 500 mg BID KIERA Administration Lisinopril 20 mg 02/06/25 09:00 02/09/25 08:15 Lisinopril 20 Mg Tablet PO 03/08/25 08:59 20 mg QDAY KIERA Administration Nifedipine 90 mg 02/09/25 09:00 02/09/25 08:29 Nifedipine Xl 30 Mg Tabcr PO 03/11/25 08:59 90 mg QDAY KIERA Administration Ondansetron HCl 4 mg 02/06/25 05:36 Ondansetron Inj 2 Mg/Ml Inj 2 Ml IVP 03/08/25 05:35 Q6H PRN NAUSEA OR VOMITING Protocol Spironolactone 50 mg 02/09/25 21:00 02/09/25 20:55 Spironolactone 25 Mg Tablet PO 03/11/25 20:59 50 mg BID KIEAR Administration Plan The patient is a 29-year-old male with significant past medical history of uncontrolled diabetes mellitus type 1, noncompliant with insulin, multiple drug abuse, and possible seizure disorder was brought in by EMS to ED with chief complaint of being found slumped over and altered mental status. Cardiology consultation was done for further evaluation of the cause of stroke, and transesophageal echocardiography. #Acute ischemic stroke right posterior, temporal and occipital lobe The patient was found slumped over by EMS, and later was found to have multiple foci restricted diffusion in the right posterior temporal right occipital lobe with possible mild signal deficit on the ADC map. ? CT head prelim 02/06 negative for intracranial hemorrhage, mass effect or midline shift. ? CT head & neck w/ showed no significant neck arterial stenosis, limited cerebral angio. Poor filling of left MECHANICAL ENGINEERING DIRECTOR. No yoselin occlusion of MCA, STEFFANY, or MECHANICAL ENGINEERING DIRECTOR branches. MRI findings as well as the CT findings were unclear if the patient had an ischemic stroke based on the presentation and could be encephalopathy versus other demyelinating disease. Neurology requested a PHILIPPE and cardiology consult for further evaluation for concern of stroke given the MRI findings. Patient was scheduled for the PHILIPPE during previous hospitalization but patient did sign out AMA and now has returned back to the hospital with more neurological complaints. Plan: - Primary team again requesting a PHILIPPE but unfortunately the PHILIPPE cannot be performed until 02/12/2025 due to lack of maintenance technician 2nd shift at this hospital. - Continue with atorvastatin 40 Mg daily, aspirin 81 Mg daily and clopidogrel 75 Mg daily. - Head and neck CTA was negative - Rest of the management deferred to neurology team. #Hypercholesterolemia Triglyceride 154, cholesterol 285, LDL 186, HDL 68 - Continue with atorvastatin 40 Mg daily at night, the LDL goal is less than 55 in the setting of ischemic stroke and diabetes mellitus type 2 #Bilateral leg edema #Hypoalbuminemia, likely secondary to nutritional deficiency Likely 2/2 volume overload in the setting of aggressive IV fluids during DKA treatment, with albumin of 2 during presentation DDx: CHF anemia TTE done revealed: Normal LV size and function. Estimated EF at 70-75%. Hyperdynamic LV systolic function. The RV is normal in size and systolic function. Trace TR. -Strict ins and outs -Fluid restriction to 1500cc/day incorporated in diet -2g sodium diet -Ensure 3 times daily with meals #Diabetes melitis type I #Noncompliant with medications The patient reported that he has diabetes mellitus type 1, and has been taking medications regularly. However, his A1c was 11.8 during presentation. He was also found to have DKA initially. - Maintain euglycemia #Anemia Likely multifactorial 2/2 nutrition deficiency -Ordered iron panel, ferritin, vit B12, B9, path smear and retic count Reticulocyte count 4.5%, iron panel and ferritin pending, vitamin B12 and B9 WNL, peripheral smear pending. #HTN #Hypertensive emergency, resolved Patient's blood pressure has been elevated and systolic blood pressure has been greater than 140 since beginning of admission. - Recommend to start the patient on amlodipine 10 mg daily -As needed labetalol 5 Mg IV every 4 hourly as needed for SBP greater than 180, or DBP greater than 120, and HR greater than 70. -FLOR inhibitor/ARB should be started on the after YAMILEX resolves, discontinued lisinopril #YAMILEX #h/o substance use Urine toxicology panel positive for THC and, previously, positive for cocaine. #history of medication non compliance Rest of the management deferred to primary team. Thank you for cardiology consultation. We appreciate the opportunity to participate in this patient's care. Will continue to follow-up on this patient This case was discussed with my attending physician, Dr. Gee, veneer taping machine operator. Radha Tillman, PGY I
[2025-02-10] VITALS (14 sets, daily range): BP systolic 143–166; BP diastolic 93–99; PULSE 64–103; RESP 17–98; TEMP 36.1–36.6; O2SAT 96–99
[2025-02-10] MEDS: ALBUTEROL/IPRATROPIUM (Duoneb) RT SOL 3 ML NEBU INH ×3 (06:19→14:35)
[2025-02-10 08:15] LABS: Basophils # (Auto) 0.1 Thou/mm3 (0.0-0.2); Basophils % (Auto) 1 % (0-2.5); Eosinophils # (Auto) 0.3 Thou/mm3 (0.0-0.5); Eosinophils % (Auto) 2 % (0-10); Hematocrit 27.1 % (41.0-53.0); Hemoglobin 9.3 g/dL (13.5-16.0); Immature Granulocytes Auto 0.21 Thou/mm3 (0.00-0.00); Lymphocytes # (Auto) 2.5 Thou/mm3 (1.0-4.8); Lymphocytes % (Auto) 17 % (10-50); Mean Corpuscular HGB Conc 34.3 g/dl (31.0-37.0); Mean Corpuscular Hemoglobin 29.4 pg (25.0-35.0); Mean Corpuscular Volume 86 fL (80-100); Monocytes # (Auto) 0.7 Thou/mm3 (0.0-0.8); Monocytes % (Auto) 5 % (0-12); Neutrophils # (Auto) 10.7 Thou/mm3 (1.8-7.7); Neutrophils % (Auto) 74 % (37-80); Nucleated Red Blood Cell # 0.00 Thou/mm3 (0.00-0.00); Nucleated Red Blood Cell % 0 /100 WBC (0); Platelet Count 355 Thou/mm3 (140-440); RDW Standard Deviation 41.9 fL (35.1-43.9); Red Blood Count 3.16 Miln/mm3 (4.50-5.90); White Blood Count 14.3 Thou/mm3 (3.8-10.6)
[2025-02-10 08:31] LABS: Alanine Aminotransferase 10 U/L (10-49); Albumin, Serum 2.9 gm/dL (3.5-5.0); Albumin/Globulin Ratio 1.3 (1.2-2.2); Alkaline Phosphatase 94 U/L (46-116); Anion Gap 7 (7-16); Aspartate Amino Transferase 23 U/L (0-34); BUN/Creatinine Ratio 14 Ratio (12-20); Bilirubin,Total 0.2 mg/dL (0.3-1.2); Blood Urea Nitrogen 17 mg/dL (9-23); Calcium 8.2 mg/dL (8.3-10.6); Calcium (Corrected) 9.1 mg/dL (8.5-10.1); Carbon Dioxide 28.8 mMol/L (20.0-31.0); Chloride 104 mMol/L (98-107); Creatinine (Component) 1.2 mg/dL (0.6-1.3); Estimated Creatinine Clearance 95.8 mL/min (>60); Globulin 2.3 gm/dL (2.3-3.5); Glucose 112 mg/dL (74-106); Magnesium 2.2 mg/dL (1.6-2.6); Osmolality,Calculated 281 (275-295); Phosphorous 4.3 mg/dL (2.4-5.1); Potassium 3.9 mMol/L (3.4-5.1); Sodium 140 mMol/L (136-145); Total Protein 5.2 gm/dL (5.7-8.2); eGFR > 60 See Note
[2025-02-10] MEDS: ENOXAPARIN SOD INJ 40 MG/0.4 ML SYRINGE SC (08:44)
[2025-02-10] MEDS: cefTRIAXone/D5w 1gm IV premix 1 GM/50 ML BAG IV (08:44)
[2025-02-10] MEDS: AZITHROMYCIN 250 MG TABLET 500 MG PO (08:45)
[2025-02-10] MEDS: CLOPIDOGREL BISULFATE 75 MG TABLET PO (08:45)
[2025-02-10] MEDS: SPIRONOLACTONE 25 MG TABLET 50 MG PO (08:45)
[2025-02-10] MEDS: ASPIRIN EC 81 MG TABEC PO (08:46)
[2025-02-10] MEDS: ATORVASTATIN CALCIUM 20 MG TABLET 40 MG PO (08:46)
--- NOTE | 2025-02-10 08:49 | PD.RESPRO ---
Documentation for date of: 02/10/25 Subjective Subjective Interval history: History of present illness: Mr. Ortiz is a 29 yo M with a hx of poorly controlled DM1 , seizures, CVA, hypertensive urgency c/f secondary etiologies for HTN who left the hospital AMA on 02/03 while he was undergoing workup for R temporal and R occipital infarct, management of DM, and hypertensive urgency. He represented to the hospital on 02/06 with headaches and found to have SBP 200, generalized weakness, and malaise, he also endorsed L sided vision loss and increased urination. He had not been taking any medications while outside the hospital. He denies chest pain, nausea, vomiting, dysuria, hematechezia, or shortness of breath He last hospital admission was 01/29/25 for DKA to the ICU, where he was intubated and then successfully extubated. He was found to have multiple foci of restricted diffusion to the R posterior temporal and R occipital lobe, Neuro was consulted, who deemed it an acute ischemic stroke, TTE on 02/01 with EF 70-75% EF. Pt was pending PHILIPPE for further evaluation of valves given concern for cardioembolic source for strokes. Nephro was consulted on 02/03 to help manage the labile BP, who reccomended d/c amlodipine, cont lisinopril, nicardipine, and labetelol IV PRN. ED Course: -Initial vitals were BP 200/119, HR 119, RR 19, temp 99.1 F, 99% on room air -Labs significant for WBC 16.1, hemoglobin 8.5, VBG pH 7.45, PGE699, PO238, sodium 130, chloride 96, creatinine 1.4, glucose 648, calcium 8.1, beta hydroxybutyrate 0.1. U tox positive for marijuana -Imaging included CT head shows no evidence of intracranial hemorrhage, mass effect or midline shift -In the ED, patient was given insulin glargine 10 units, insulin regular 5 units -Patient was admitted for hypertensive urgency 02/08/2025: Patient seen and examined at bedside. Patient expressed frustration with the medical team and a desire to leave the hospital. He states that he now has insurance and should be able to afford his medications. He states that Shanda or Jose ([phone] can picker / packer his medications from the pharmacy and bring them to the hospital. patient reaffirms that he has not taken any medications outside of the hospital. Plan to reinitiate BP managment while inpatient with lisinopril and nicardipine, and labetalol prn, and send medications to pharmacy so patient has them in hand before discharging. pending PHILIPPE per primary team. 02/09/25: Patient seen and examined at bedside. meds and vitals were reviewed. Patient expressed frustration that he we have been unable to contact Jose or Lilian. Spoke to his Sister Lilian on the phone this morning she states that she is in [place] and will be returning back to [place] on Saturday or Saturday. Lilian will try to contact patient's friend named Luis A. Patient is still pending PHILIPPE however security installation sales technician is out till Monday 02/12. Blood pressures are better controlled today on current regimen recommended increasing spironolactone dose from 25 twice daily to 50 twice daily. 02/10/25 patient seen and examined at bedside, vitals were reviewed, pt BP are better controlled on current regimen. plan for discharge today. Primary team and myself are attempting to contact Jose to have her bring medications from [facility] [address] to bedside. Called 1x in the AM with no answer. recommend adding albuterol and azelastin nasal spray for discharge medications given pt reported wheezing. Exam Vital Signs Temp Pulse Resp BP Pulse Ox O2 Del Method 97.4 F 93 17 145/98 H 97 Room Air 02/10/25 08:00 02/10/25 08:46 02/10/25 08:00 02/10/25 08:46 02/10/25 08:00 02/10/25 08:00 Narrative Exam General: Well appearing, well nourished, in no distress. Oriented x 3. Skin: Good turgor, no rash, unusual bruising or prominent lesions Heart: well perfused on visual inspection. Lungs:normal work of breathing. 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 visual lopez not assessed during exam. Objective Labs 02/10/25 08:05 02/10/25 08:05 Labs: Laboratory Results - last 24 hr 02/09/25 02/10/25 16:40 08:05 Sodium 140 Potassium 3.9 Chloride 104 Carbon Dioxide 28.8 Anion Gap 7 BUN 17 Creatinine 1.2 Estim Creat Clear Calc 95.8 eGFR > 60 BUN/Creatinine Ratio 14 Glucose 112 H Calculated Osmolality 281 Calcium 8.2 L Corrected Calcium 9.1 Phosphorus 4.3 Magnesium 2.2 Total Bilirubin 0.2 L AST 23 ALT 10 Alkaline Phosphatase 94 Total Protein 5.2 L Albumin 2.9 L Globulin 2.3 Albumin/Globulin Ratio 1.3 Ur Random Creatinine 39 U Random Total Protein 304 H ABG Interpretation ABG results: 02/05/25 19:18 VBG pH 7.45 VBG pCO2 39 VBG pO2 38 VBG Base Excess 3 Quality Measures Quality Measures VTE prophylaxis Assessment & Plan Assessment Current Active Medications: Generic Name Dose Route Start Last Admin Trade Name Freq PRN Reason Stop Dose Admin Acetaminophen 650 mg 02/06/25 18:25 Acetaminophen 325 Mg Tablet PO 03/08/25 05:35 Q6H PRN PAIN OR FEVER > 100.4 Albuterol/Ipratropium 3 ml 02/09/25 19:00 02/10/25 06:19 Albuterol/Ipratropium (Duoneb) Rt Judy 3 Ml Nebu INH 03/11/25 18:59 3 ml Q4HRRT KIERA Administration Aspirin 81 mg 02/06/25 09:00 02/10/25 08:46 Aspirin Ec 81 Mg Tabec PO 03/08/25 08:59 81 mg QDAY KIERA Administration Atorvastatin Calcium 40 mg 02/06/25 09:00 02/10/25 08:46 Atorvastatin Calcium 20 Mg Tablet PO 03/08/25 08:59 40 mg QDAY KIERA Administration Azithromycin 500 mg 02/08/25 10:45 02/10/25 08:45 Azithromycin 250 Mg Tablet PO 02/15/25 10:44 500 mg QDAY KIERA Administration Clopidogrel Bisulfate 75 mg 02/06/25 09:00 02/10/25 08:45 Clopidogrel Bisulfate 75 Mg Tablet PO 03/08/25 08:59 75 mg QDAY KIERA Administration Dextrose 25 ml 02/05/25 20:14 Dextrose 50%-Water Inj 50 Ml Syringe IV 03/07/25 20:13 Q15MIN PRN BG 50-70 responsive npo pt Dextrose 50 ml 02/05/25 20:14 Dextrose 50%-Water Inj 50 Ml Syringe IV 03/07/25 20:13 Q15MIN PRN BG <50 OR BG <70 & pt unresponsive Enoxaparin Sodium 40 mg 02/06/25 09:00 02/10/25 08:44 Enoxaparin Sod Inj 40 Mg/0.4 Ml Syringe SC 02/20/25 08:59 40 mg QDAY KIERA Administration Furosemide 40 mg 02/06/25 09:00 02/10/25 08:46 Furosemide 40 Mg Tablet PO 03/08/25 08:59 40 mg QAM KIERA Administration Glucagon 1 mg 02/05/25 20:14 Glucagon Inj 1 Mg Vial IM Q15MIN PRN BG <70, and no IV access Hydralazine HCl 10 mg 02/06/25 06:05 02/07/25 04:13 Hydralazine Inj 20 Mg/Ml Vial IVP 03/08/25 06:04 10 mg Q4HR PRN Administration SBP>180 or DBP>90 Ceftriaxone Sodium/Dextrose 1 gm in 50 mls @ 100 mls/hr 02/08/25 10:41 02/10/25 08:44 Rocephin/D5w 1gm Iv Premix IV 02/15/25 10:40 100 mls/hr QDAY KIERA Administration Insulin Glargine 20 unit 02/09/25 21:00 02/09/25 20:55 Insulin Glargine (Lantus) 5 Unit/0.05 Ml (Per 5 Units) SC 03/11/25 20:59 20 unit QPM KIERA Administration Insulin Human Lispro 0 unit 02/05/25 21:00 02/10/25 07:34 Insulin Lispro (Admelog) 1 Unit/0.01 Ml Unit SC 03/07/25 20:59 Not Given ACHS [facility] Protocol Levetiracetam 500 mg 02/06/25 21:00 02/10/25 08:45 Levetiracetam 250 Mg Tablet PO 03/08/25 20:59 500 mg BID KIERA Administration Lisinopril 20 mg 02/06/25 09:00 02/10/25 08:45 Lisinopril 20 Mg Tablet PO 03/08/25 08:59 20 mg QDAY KIERA Administration Nifedipine 90 mg 02/09/25 09:00 02/09/25 08:29 Nifedipine Xl 30 Mg Tabcr PO 03/11/25 08:59 90 mg QDAY KIERA Administration Ondansetron HCl 4 mg 02/06/25 05:36 Ondansetron Inj 2 Mg/Ml Inj 2 Ml IVP 03/08/25 05:35 Q6H PRN NAUSEA OR VOMITING Protocol Spironolactone 50 mg 02/09/25 21:00 02/10/25 08:45 Spironolactone 25 Mg Tablet PO 03/11/25 20:59 50 mg BID KIERA Administration Plan Mr. Ortiz is a 29-year-old male with past medical history of DM1, substance abuse, seizures, and recently diagnosed right posterior temporal and right occipital area infarct admitted for hypertensive emergency and hyperglycemia, defer PHILIPPE given scheduling delays, BP is better controlled on current regimen, plan for d/c today per primary team . #Hypertensive Emergency - resolved #Hypertensive Urgency - resolved pt presented with sbp 200, symptomatic with headaches and L eye vision changes. BP better controlled on regemin. - Lisinopril 20 qd - Hydralizine 10 mg IV q4h PRN - Furosimide 40 PO qam - Spirinolactone 50 BID - nifedipine 60 BID, (per Dr. Hensley, she prefers nicardipine to nifedipine, pt may have insurance difficultly getting nicardipine prescription) - recommend getting prescriptions at bedside prior to discharge tried reaching jose today by phone, no answer medications were sent to [facility] on [address] - Goal BP> 150 <180 #Diabetes mellitus, insulin-dependent, better controlled #Hyperglycemia - A1c: 11.8 01/29/25 - pt needs glucose monitor on discharge - AM BG is 101 -managment per primary team #Acute ischemic stroke with multiple foci in right posterior temporal and right occipital lobe on 02/01 -tele neuro consulted -pending hypercoag labs #Acute encephalopathy - resolved #Seizures - keppra (pt has not picked up at pharmacy) #Wheezing - rec albuterol inhaler, - rec azetalastin nasal spray #Decreased vision in right eye #Normocytic anemia #Hyperlipidemia #Leukocytosis, on azithro and ctx. Management per primary team Plan discussed with nephrology attending Dr. Shellie Little MD Internal Medicine PGY-1 Attending Provider Attestation/Addendum Patient seen and examined with resident physician Dr. Little. Note reviewed, agree with findings and recommendations. Patient with uncontrolled hypertension and significant noncompliance. He is not taking any medications for his hypertension, dyslipidemia, seizure or diabetes. Multiple ER visits and hospitalizations. He seems to be very aggressive and easily irritable. Could not get much information. Did discuss with the patient that his family needs to go and picker / packer the prescriptions prior to discharge so he will be compliant with his prescriptions. Added Aldactone to block the MR receptor. I increased the dose today. Secondary hypertension workup pending. So far renal ultrasound and renal Doppler normal. No renal artery stenosis. However patient noted to have hypokalemic metabolic alkalosis. Suspect patient has a nephrotic syndrome from poorly controlled diabetes manifested with nephrotic range proteinuria, hyperlipidemia, hypoalbuminemia. U protein/cr ratio 7.76g-most likely related to diabetic nephropathy. Currently on FLOR inhibitor's.
[2025-02-10] MEDS: NIFEdipine XL 30 MG TABCR 90 MG PO (08:59)
--- NOTE | 2025-02-10 10:07 | ESDS_ITS ---
<Statement entered by Pawel Lees MD - 02/10/25 15:56> Patient was examined and case was reviewed with team including attending physician. Note reviewed, I agree with most of its contents and agree with the patient's care. Case discussed with my attending Dr. Susan Lees MD PGY-2 Planned Discharge Date 02/10/25 DS: Providers Provider Date of admission: 02/08/25 14:18 Primary care physician: Physician No Primary/Family Admitting Provider: Hong Rod MD Attending Provider on Admission: Alvaro Davis MD Consults: 02/06/25 11:43 Consult to Cardiology Routine Comment: Consulting Provider: Te Gee 02/06/25 13:51 Consult to Neurology / Tele-Neurology Stat Comment: Consulting Provider: Kierra Bob 02/07/25 11:00 Consult to Nephrology Stat Comment: htn Consulting Provider: Kuldeep Hensley Attending Provider on DC: Dr. Davis Discharging Provider: Mirain Cabral MD PGY1 DS: Diagnosis Problem List Completed Was Problem List Reviewed/Reconciled?: Yes Hospital Course Hospital Course Hospital course: Hospital Course Mr. Ortiz is a 29-year-old male with past medical history of insulin-dependent diabetes and recent right temporal and right occipital acute infarct who presented to the ED on 02/06/2025 for generalized weakness, headache, fatigue, mal aise, left-sided vision loss, increased urination. Initial BP was 200/119, decreased after administration of Lasix 40 mg, lisinopril 20 mg, nicardipine 20 mg. Glucose was initially 648, decreased after administration of glargine 10 units, regular to 5 units, and lispro 2 units. Acute encephalopathy resolved with management of BP and blood glucose. Consulted cardiology, nephrology, and neurology. Of note patient was recently admitted to the ICU on 01/29/2025 for DKA and acute encephalopathy, requiring intubation, found to have acute stroke in the right temporal and right occipital regions. BP was difficult to control on previous admission, workup for secondary hypertension was initiated but patient left AMA before workup could be completed. TTE 02/01 showed estimated LVEF 70-75% with hy perdynamic LV systolic function. EEG 02/04 showed mild diffuse slowing suggestive of diffuse encephalopathy of metabolic, degenerative, or vascular origin. CT head showed no evidence of acute intracranial hemorrhage, mass effect, midline shift. Patient restarted on home medications aspirin 81 mg, Plavix 75 mg, and atorvastatin 40 mg. BP management achieved with lisinopril 20 mg daily, furosemide 40 mg daily, nifedipine 60 mg daily, spironolactone 50 mg twice daily. Blood glucose management with glargine 15 units, lispro SSI. 1 of 2 lupus anticoagulant confirmatory test were positive. Will need to repeat hypercoagulation panel in 12 weeks with outpatient cardiology. Renin and aldosterone levels were WNL. Patient would benefit from a transesophageal echocardiogram given history of recent stroke in a young patient with limited risk factors. However, inside technical sales representative was not available during this patient's stay in the hospital. Patient will need to follow-up with cardiology outpatient for a PHILIPPE. There was concern for seizures during previous hospitalization. Continued Keppra 500 mg twice daily. Patient reported general malaise and productive cough associated with sore throat. Patient was afebrile with leukocytosis that was downtrending throughout hospitalization. COVID, flu, rapid strep were negative. Chest x-ray concerning for atelectasis versus early pneumonia. Given DuoNebs every 8 hours then increase to every 4 hours. Patient completed a course of azithromycin 500 mg p.o. daily for 3 days. Patient completed ceftriaxone 1 g IV daily x3 days, will continue with Augmentin p.o. outpatient. Patient also reported decreased vision in right eye since stroke on previous admission. Consulted ophthalmology, reported nothing to do at this time, patient counseled on following up outpatient with ophthalmology. Patient stable and medically cleared for discharge. 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 Please take your Keppra as prescribed for seizure prophylaxis Please take aspirin and plavix for 21 days and then take only aspirin until cleareed by neurology/cardiology You have been prescribed Augmentin for pneumonia, please take this medication as prescribed you should take this twice a day for a total of 3 days Repeat coagulation panel within 12 weeks to evaluate for hypercoagulable state Should any symptoms recur or worsen patient is instructed to return to the ED. Mirian Cabral MD PGY1 Time Spent with Patient Time attestation: Total time spent providing and/or coordinating discharge services: Time spent: Greater than 30 minutes Exam Vital Signs Temp Pulse Resp BP Pulse Ox O2 Del Method 97.4 F 93 17 145/98 H 97 Room Air 02/10/25 08:00 02/10/25 08:59 02/10/25 08:00 02/10/25 08:59 02/10/25 08:00 02/10/25 08:00 Narrative Exam General: No acute distress, well nourished Eye: PERRL, EOMI, normal conjunctiva, no scleral icterus HENT: Normocephalic, atraumatic, normal hearing, moist oral mucosa Neck: Supple, non-tender, no JVD, no lymphadenopathy Lungs: Wheezing in b/l lower lung lopez, dry cough, no use of accessory muscles, symmetric chest rise Heart: Normal S1 and S2. Peripheral pulses intact bilaterally, capillary refill brisk distally. 1+ pitting edema in lower extremities bilaterally to mid-[place] Abdomen: Soft, non-tender, non-distended. No guarding or rebound tenderness. Musculoskeletal: Normal range of motion and strength, no tenderness or swelling Skin: Skin is warm, dry, no rashes or lesions. Neurologic: Alert, awake and oriented x3. CN III-XII grossly intact. Patient reports decreased all visual lopez in right eye. No signs of meningeal irritation noted. Psychiatric: Cooperative, appropriate mood and affect Discharge Plan Plan Patient Disposition: HOME (Self Care) Care Plan Goals: Follow up with your primary care physician within 1 week of discharge Follow up with Neurology and Opthalmology in regards to your right eye blindness within 1-2 weeks of discharge Follow up with Cardiology in regards to your echocardiogram within 1-2 weeks of discharge. Please take your Keppra as prescribed for seizure prophylaxis Please take aspirin and plavix for 21 days and then take only aspirin until cleareed by neurology/cardiology You have been prescribed Augmentin for pneumonia, please take this medication as prescribed you should take this twice a day for a total of 3 days Repeat coagulation panel within 12 weeks to evaluate for hypercoagulable state Should any symptoms recur or worsen patient is instructed to return to the ED. Prescriptions/Referrals Prescriptions/Med Rec: New lisinopril 20 mg tablet 20 mg PO QDAY Qty: 30 0RF nifedipine 30 mg Tablet Extended Release 24hr 60 mg PO QDAY Qty: 60 0RF levetiracetam [Keppra] 500 mg tablet 500 mg PO BID Qty: 60 0RF albuterol sulfate 90 mcg/actuation HFA aerosol inhaler 1 inh inhalation QID PRN (Reason: shortness of breath or wheezing) Qty: 8.5 0RF azelastine 137 mcg (0.1 %) spray,non-aerosol 1 spray intranasal BID Qty: 30 0RF Rx Instructions: administer into each nostril spironolactone 50 mg tablet 50 mg PO BID 30 Days Qty: 60 0RF insulin glargine [Lantus Solostar U-100 Insulin] 100 unit/mL (3 mL) insulin pen 15 unit subcut QPM Qty: 15 0RF insulin lispro [Admelog SoloStar U-100 Insulin] 100 unit/mL insulin pen 5 unit subcut TID Qty: 15 0RF (DME) pen needle, diabetic [1st Tier Unifine Pentips] 32 gauge x 5/32 needle See Rx Instructions .Route Qty: 1200 0RF Rx Instructions: As directed (DME) Accu-Chek Guide test strips Strip See Rx Instructions .Route Qty: 100 0RF Rx Instructions: As directed (DME) lancets [Microlet Lancet] Misc See Rx Instructions .Route Qty: 200 0RF Rx Instructions: Three times a day. (DME) FreeStyle Khushbu 3 Plus Sensor Device See Rx Instructions .Route Qty: 2 2RF Rx Instructions: As directed (DME) FreeStyle Khushbu 3 [place] Misc See Rx Instructions .Route Qty: 1 0RF Rx Instructions: As directed amoxicillin-pot clavulanate 875-125 mg tablet 1 tab PO BID Qty: 6 0RF atorvastatin 40 mg tablet 40 mg PO QDAY Qty: 30 0RF Continued furosemide [Lasix] 40 mg tablet 40 mg PO QAM Qty: 90 0RF clopidogrel 75 mg Tablet 75 mg PO QDAY 21 Days Qty: 21 0RF aspirin 81 mg Tablet,Delayed Release (Dr/Ec) 81 mg PO QDAY 30 Days Qty: 30 0RF Discontinued atorvastatin 40 mg tablet 40 mg PO QDAY 30 Days Qty: 30 0RF insulin glargine [Lantus Solostar U-100 Insulin] 100 unit/mL (3 mL) insulin pen 15 unit subcut QPM Qty: 15 4RF insulin lispro [Admelog SoloStar U-100 Insulin] 100 unit/mL insulin pen 5 unit subcut TIDWMEAL Qty: 15 0RF metformin 500 mg Tablet Extended Release 24 Hr 500 mg PO BID Qty: 60 0RF (DME) pen needle, diabetic, safety 30 gauge x 5/16 needle See Rx Instructions .Route Qty: 1200 0RF Rx Instructions: As directed (DME) lancets-blood glucose strips 30 gauge combo pack See Rx Instructions .Route Qty: 200 0RF Rx Instructions: As directed Referrals: No Primary/Family,Physician [Primary Care Provider] - Patient/Caregiver Discharge Instructions Education Materials: Controlling High Blood Pressure, Treating Pneumonia Print Language: [place] Stand Alone Forms: Bertha Award Info., Patient Portal Info Letter Discharge Order Discharge Orders: Discharge (Routine); Ordered 02/10/25 Ordered By: Pawel Lees Quality Discharge Quality Measures VTE prophylaxis Attestestation MD Attestation I have examined the patient, reviewed labs and imaging findings, discussed the case with the resident(s), and reviewed entered orders. I agree with the plan of care as outlined in this note. Time Spent: [address] Susan MD
[2025-02-10] MEDS: INSULIN LISPRO (AdmeLOG) 1 UNIT/0.01 ML UNIT SC ×2 (11:18→16:51)
--- NOTE | 2025-02-10 16:26 | PC.CC ---
Request from Dr. Cabral for discharge medication counseling. Met w/ patient at bedside. He reports diagnosis with T1DM at 10 YO and was in the past on insulin in both pen and vials but would like to obtain an insulin pump. He reports he has been neglecting his health for the past 15 years and has a history of incarceration and homelessness but is now motivated for change. He plans to discharge to his parents' house, but requests information on housing and disability. He reports previously using Novolog, Humalog, Lispro and Lantus but only sporadically and injecting himself in his buttocks to get it done with no regard for injection technique. He reports he adjusts his mealtime insulin by counting carbs and correcting for BG above 150. He states he needs all medications and supplies. He states he has an appointment with his PCP on 02/12 and intends to pursue an insulin pump. Patient able to adequately assemble and perform injection into demonstration cube. Supplemental education given on priming of insulin pen as well as injection sites and technique and insulin storage. Reviewed other discharge medications including indication, administration and timing. Patient expresses strong preference to take all of his medications in the morning. Emphasized importance of adhering to BID and TID medications. Patient is open and agreeable to CGM. Discussed with MD. Requested all meds at [facility] per patient's preference. [employer] and [employer] approved through 02/10/25.
== END 2025-02-10 18:11 | disposition home or self-care (01) | DRG 420 ==
LOC: SERX 02-06 05:31 → SERHOLD 02-06 06:41 → S3NX 02-06 17:20 → SERHOLD 02-10 08:14
PROVIDERS: Internal Medicine; Physician Assistant; Admitting Provider Student in an Organized Health Care Education/Training Program; Emergency Provider Emergency Medicine; Visit Provider Student in an Organized Health Care Education/Training Program
DX: E10.10 Type 1 diabetes mellitus with ketoacidosis without coma (principal); N39.0 Urinary tract infection, site not specified; R56.9 Unspecified convulsions; I16.1 Hypertensive emergency; Z86.73 Personal history of transient ischemic attack (TIA), and cerebral infarction without residual deficits; I11.9 Hypertensive heart disease without heart failure; E78.5 Hyperlipidemia, unspecified; E63.9 Nutritional deficiency, unspecified; D68.62 Lupus anticoagulant syndrome; D64.9 Anemia, unspecified; N17.9 Acute kidney failure, unspecified; E10.21 Type 1 diabetes mellitus with diabetic nephropathy; E78.00 Pure hypercholesterolemia, unspecified; E87.3 Alkalosis; Z91.148 Patient's other noncompliance with medication regimen for other reason; E87.6 Hypokalemia; E87.70 Fluid overload, unspecified; E88.09 Other disorders of plasma-protein metabolism, not elsewhere classified; F17.200 Nicotine dependence, unspecified, uncomplicated; F19.10 Other psychoactive substance abuse, uncomplicated; G93.40 Encephalopathy, unspecified; H54.61 Unqualified visual loss, right eye, normal vision left eye; J18.9 Pneumonia, unspecified organism; N04.9 Nephrotic syndrome with unspecified morphologic changes; Z53.29 Procedure and treatment not carried out because of patient's decision for other reasons; Z59.71 Insufficient health insurance coverage; Z79.02 Long term (current) use of antithrombotics/antiplatelets; Z79.4 Long term (current) use of insulin; Z79.82 Long term (current) use of aspirin; Z79.899 Other long term (current) drug therapy; H54.62 Unqualified visual loss, left eye, normal vision right eye
CPT/HCPCS: 36415; 70450; 71045; 80048; 80053; 80307; 80320; 81001; 82010; 82570; 82803; 83735; 84100; 84156; 84484; 85025; 87081; 87502; 87651; 87811; 93225; 94640; 96365; 96375; 99285; A9270; G0378; J0360; J0689; J0696; J1650; J1815; J3475; G0480